=== PATIENT | female | born 1930 | race Caucasian/White ===

== ENCOUNTER 2016-07-14 05:18 | Inpatient (IN) ==
--- NOTE | 2016-07-12 16:59 | XRay Report ---
CLINICAL INFORMATION: Preop COMPARISON: 11/05/2015 FINDINGS: The heart is minimally enlarged but unchanged. Pacemaker leads in stable satisfactory position. Mediastinum and pulmonary vessels are normal. Lungs are clear. No effusions. Bones soft tissues normal IMPRESSION: No acute disease - stable Interpreted and Authenticated by: Andrea Zaragoza 07/12/16
[2016-07-12 18:04] LABS: Basophils # (Auto) 0.1 K/mcL (0.0-0.3); Basophils % (Auto) 1.3 % (0.0-2.0); Eosinophils # (Auto) 0.4 K/mcL (0.0-0.7); Granulocytes % (Auto) 52.2 % (38.0-78.0); Lymphocytes # (Auto) 2.1 K/mcL (1.5-4.8); Lymphocytes % (Auto) 28.8 % (15.5-49.0); Mean Cell Volume 91.7 fL (80.0-100.0); Mean Corpuscular HGB Conc 33.1 g/dL (31.0-36.0); Mean Corpuscular Hemoglobin 30.4 pg (26.0-34.0); Monocytes # (Auto) 0.9 K/mcL (0.1-0.9); Monocytes % (Auto) 12.7 % (1.0-12.0); Platelet Count 329 K/mcL (140-440); RBC 3.97 M/mcL (4.00-5.20); Red Cell Distribution Width 14.2 % (11.5-14.5)
[2016-07-12 18:12] LABS: ALT/SGPT 19 U/l (0-40); Albumin/Globulin Ratio 1.2 (1.0-2.3); Alkaline Phosphatase 40 U/L (39-117); Blood Urea Nitrogen 24 mg/dl (8-23); C-Reactive Protein < 0.3 mg/dl (0.0-0.8)
[2016-07-14] MEDS ORDERED: ERTAPENEM 1 GM in 0.9 % SODIUM CHLORIDE 50 ML IV ONE (06:00)
[2016-07-14] MEDS ORDERED: metroNIDAZOLE 500 MG/100 ML BAG IV ONE (06:30)
[2016-07-14] MEDS ORDERED: ONDANSETRON 4 MG/2 ML VIAL IV ONE (07:45)
[2016-07-14] MEDS ORDERED: DEXAMETHASONE 10 MG/ML VIAL IV ONE (07:45)
[2016-07-14] MEDS ORDERED: LIDOCAINE HCL/PF 100 MG/5 ML SYRINGE IV ONE (07:45)
[2016-07-14] MEDS ORDERED: ROCURONIUM 10 MG/ML ML IV ONE (07:45)
[2016-07-14] MEDS ORDERED: NEOSTIGMINE 1 MG/ML VIAL IV ONE (07:45)
[2016-07-14] MEDS ORDERED: PROPOFOL 200 MG/20 ML VIAL IV ONE (07:45)
[2016-07-14] MEDS ORDERED: fentaNYL 250 MCG/5 ML VIAL IV ONE (07:45)
[2016-07-14] MEDS ORDERED: MIDAZOLAM 5 MG/5 ML VIAL IV ONE (07:45)
[2016-07-14] MEDS ORDERED: GLYCOPYRROLATE 0.2 MG/ML VIAL IV ONE (07:45)
[2016-07-14] MEDS ORDERED: METOPROLOL TARTRATE 5 MG/5 ML VIAL IV PRN (09:41)
[2016-07-14] MEDS ORDERED: ePHEDrine 50 MG/ML AMPUL IV PRN (09:41)
[2016-07-14] MEDS ORDERED: PROMETHAZINE 25 MG/ML VIAL IV PRN (09:41)
[2016-07-14] MEDS ORDERED: fentaNYL 100 MCG/2 ML VIAL IV PRN (09:41)
[2016-07-14] MEDS ORDERED: IPRATROPIUM/ALBUTEROL 3 ML AMPUL.NEB NEB PRN (09:41)
[2016-07-14] MEDS ORDERED: ONDANSETRON 4 MG/2 ML VIAL IV PRN (09:41)
[2016-07-14] MEDS ORDERED: ATROPINE SULFATE 0.4 MG/ML VIAL IV PRN (09:41)
[2016-07-14] MEDS ORDERED: diphenhydrAMINE 50 MG/ML VIAL IV PRN (09:41)
[2016-07-14] MEDS ORDERED: METHOCARBAMOL 1,000 MG/10 ML VIAL IV PRN (09:41)
[2016-07-14] MEDS ORDERED: NALOXONE HCL 0.4 MG/ML VIAL IV PRN (09:41)
[2016-07-14] MEDS ORDERED: BENZOCAINE/MENTHOL 1 LOZENGE PO PRN (09:41)
[2016-07-14] MEDS ORDERED: MEPERIDINE 25 MG/ML SYRINGE IV PRN (09:41)
[2016-07-14] MEDS ORDERED: HYDROmorphone 2 MG/ML SYRINGE IV PRN (09:41)
[2016-07-14] MEDS ORDERED: FLUMAZENIL 0.1 MG/ML ML IV PRN (09:41)
[2016-07-14] MEDS ORDERED: LACTATED RINGERS 1,000 ML IV SCH (09:45)
--- NOTE | 2016-07-14 10:08 | Brief Operative Note ---
Date of procedure: 07/14/16 Pre-op diagnosis: colovesicle fistula; h/o diverticulitis Post-op diagnosis: other (healed diverticulitis ; no evidence of connection of colon or proximal rectum to bladder) Procedure: EXPLORATORY LAPAROTOMY WITH ADHESIOLYSIS ;CYSTOTOMY WITH PLACEMENT OF BILATERAL URETERAL STENTS; LEFT URETEROTOMY WITH RETROGRADE STENT PLACEMENT Grafts/Implants: No Anesthesia: GETA Findings: EXTENSIVE ADHESIONS OF BLADDER TO SIGMOID COLON BUT NO FISTULOUS OPENING BETWEEN BLADDER AND RECTUM OR SIGMOID. BLADDER OPENED AND NO INFLAMMATORY LESIONS NOTED. Complications: none Surgeon: Rufina Snyder Estimated blood loss (cc): 100 Specimens Removed/Pathology: none sent Condition: stable Disposition: PACU
[2016-07-14] MEDS ORDERED: ACETAMINOPHEN 1,000 MG/100 ML BOTTLE IV PRN (10:21)
--- NOTE | 2016-07-14 10:53 | Operative Note ---
DATE OF OPERATION: 07/14/2016 PREOPERATIVE DIAGNOSIS: Vesicle enteric fistula. POSTOPERATIVE DIAGNOSIS: Vesicle enteric fistula. PROCEDURE: cystotomy, ureterotomy, stent placement. SURGEON: Arslan Simmons MD TACK COVERER: Rufina Snyder MD INDICATION: Patient is an 85-year-old lady who has documented enterovesicle fistula. She has been having increased diarrhea and air in her urine, and presents now for repair. PROCEDURE IN DETAIL: The patient was identified, consent was signed. She did receive preoperative antibiotics and given general anesthesia. Dr. Snyder began the surgery, doing an exploration and adhesiolysis. Please see his dictation. After the bladder had been exposed, we could still not see communication and therefore the decision was made to do a cystotomy. This was done down the midline and we were able to open up the bladder. No obvious defect was seen. It was felt that we should identify the ureters. A stent was placed up the right side and this did not show any communication, it passed easily and there was no inflammation around the ureters we could feel. On the left side there was some difficulty finding the ureter orifice and therefore a ureterotomy was done outside the bladder, and we were able to pass a stent into the bladder. At this point we examined the ureter well. Again there was no direct communication that we could demonstrate. The decision was made to place a stent up into the kidney for the ureterotomy. A wire was then passed in a retrograde fashion up into the kidney and a 6 x 24 stent was then passed using the Seldinger technique. This showed a good curl in her bladder. We again inspected. There was no obvious fistula noted and at this point we closed the bladder in two layers with 2-0 Vicryl. I was pleased with the overall appearance. This was a water tight closure. Therefore, she has a Schmidt catheter and a left ureteral stent that will be removed in the office. Dr. Snyder concluded the procedure. Again, the wound was closed with 0 PDS and sterile dressings were applied. Patient was awoken and taken to the recovery room in stable condition. TALA:flakito Job ID: [id number] Doc ID: [id number] Arslan Simmons MD
[2016-07-14] MEDS ORDERED: PIPERACILLIN SODIUM/TAZOBACTAM 2.25 GM in DEXTROSE 5% IN WATER 50 ML IV SCH (11:00)
[2016-07-14] MEDS: 0.9 % SODIUM CHLORIDE 1,000 ML IV SCH (11:58)
[2016-07-14] MEDS ORDERED: metroNIDAZOLE 500 MG/100 ML BAG IV SCH (12:00)
[2016-07-14 12:11] LABS: ALT/SGPT 17 U/l (0-40); Albumin 3.3 gm/dL (3.2-5.2); Albumin/Globulin Ratio 1.4 (1.0-2.3); Alkaline Phosphatase 31 U/L (39-117); Bilirubin,Direct 0.2 mg/dL (0.0-0.3); Blood Urea Nitrogen 21 mg/dl (8-23); Gamma Glutamyl Transpeptidase 16 U/L (5-36); Magnesium 1.7 mg/dL (1.6-2.5); Uric Acid 4.1 mg/dL (2.5-8.0)
[2016-07-14] MEDS: PIPERACILLIN SODIUM/TAZOBACTAM 2.25 GM in DEXTROSE 5% IN WATER 50 ML IV SCH ×2 (12:21→17:24)
[2016-07-14] MEDS: metroNIDAZOLE 500 MG/100 ML BAG IV SCH ×2 (12:21→17:24)
[2016-07-14] MEDS: 0.9 % SODIUM CHLORIDE 10 ML SYRINGE IV SCH ×2 (12:23→21:18)
[2016-07-14] MEDS: ACETAMINOPHEN 1,000 MG/100 ML BOTTLE IV PRN ×2 (12:28→21:17)
--- NOTE | 2016-07-14 13:16 | XRay Report ---
CLINICAL INFORMATION: NG placement COMPARISON: None. FINDINGS: NG tip overlies the gastric fundus. Stool gas pattern is unremarkable. No free air or soft tissue mass. Double pigtail left ureteral stent is in satisfactory position. IMPRESSION: No acute disease. NG tube overlies the gastric fundus - nurses were instructed to advance tube 8 cm Interpreted and Authenticated by: Andrea Zaragoza 07/14/16
[2016-07-14] MEDS ORDERED: DIGOXIN 500 MCG/2 ML AMPUL IV SCH (14:00)
[2016-07-14] MEDS: DIGOXIN 500 MCG/2 ML AMPUL IV SCH (15:15)
[2016-07-15] MEDS: metroNIDAZOLE 500 MG/100 ML BAG IV SCH ×5 (00:11→23:54)
[2016-07-15] MEDS: PIPERACILLIN SODIUM/TAZOBACTAM 2.25 GM in DEXTROSE 5% IN WATER 50 ML IV SCH ×5 (00:11→23:54)
[2016-07-15] MEDS: 0.9 % SODIUM CHLORIDE 1,000 ML IV SCH ×5 (02:29→18:03)
[2016-07-15] MEDS ORDERED: BENZOCAINE/MENTHOL 1 LOZENGE PO ONE (04:47)
[2016-07-15] MEDS: 0.9 % SODIUM CHLORIDE 10 ML SYRINGE IV SCH ×3 (05:42→23:54)
[2016-07-15 05:50] LABS: Basophils # (Auto) 0 K/mcL (0.0-0.3); Basophils % (Auto) 0 % (0.0-2.0); Eosinophils # (Auto) 0 K/mcL (0.0-0.7); Eosinophils % (Auto) 0 % (0.0-7.0); Granulocytes % (Auto) 84.4 % (38.0-78.0); Lymphocytes # (Auto) 1.2 K/mcL (1.5-4.8); Lymphocytes % (Auto) 7.8 % (15.5-49.0); Mean Cell Volume 92.1 fL (80.0-100.0); Mean Corpuscular HGB Conc 33.1 g/dL (31.0-36.0); Mean Corpuscular Hemoglobin 30.5 pg (26.0-34.0); Monocytes # (Auto) 1.2 K/mcL (0.1-0.9); Monocytes % (Auto) 7.8 % (1.0-12.0); Platelet Count 323 K/mcL (140-440); RBC 3.29 M/mcL (4.00-5.20); Red Cell Distribution Width 14.6 % (11.5-14.5)
[2016-07-15 06:01] LABS: ALT/SGPT 14 U/l (0-40); Albumin 3.2 gm/dL (3.2-5.2); Albumin/Globulin Ratio 1.3 (1.0-2.3); Alkaline Phosphatase 27 U/L (39-117); Bilirubin,Direct < 0.2 mg/dL (0.0-0.3); Blood Urea Nitrogen 25 mg/dl (8-23); Gamma Glutamyl Transpeptidase 16 U/L (5-36); Magnesium 1.5 mg/dL (1.6-2.5); Uric Acid 5.2 mg/dL (2.5-8.0)
[2016-07-15] MEDS: ACETAMINOPHEN 1,000 MG/100 ML BOTTLE IV PRN (09:01)
--- NOTE | 2016-07-15 11:15 | General Surgery Progress Note ---
Subjective Patient reports: still having pain, no flatus, no bowel movement, afebrile Narrative: Note initiated : 07/15/16 at 11:13 am Service Date, if different from initiated Date: [] Patient: Soumya Garcia 85 y/o F admitted on 07/14/16 for Segmental Sigmoid Colectomy with Closure of. Chief Complaint: [the patient is doing very well. She complains of discomfort in her retropharyngeal due to the nasogastric tube. She does not have nausea. She denies chest pain or shortness of breath. Her abdominal pain is not well controlled with her present medication dosage. She has mild abdominal distention. She has not passed flatus. ELENO drain has moderate amount of serosanguineous drainage Her urine is clearing and is now not quite as bloody.] Objective Temp Pulse Resp BP Pulse Ox 98.5 F 72 15 123/57 95 07/15/16 08:00 07/15/16 08:00 07/15/16 08:00 07/15/16 08:00 07/15/16 08:00 - Additional Data Intake & Output - Last 24 hours: Intake & Output 07/13/16 07/14/16 07/15/16 07/16/16 05:59 05:59 05:59 05:59 Intake Total 4107 / 4107 245 / 245 Output Total 2180 / 2180 Balance 1927 / 1927 245 / 245 Weight 140 lb 134 lb 143 lb - Additional Exam patient is lying in bed alert and aware HEENT unremarkable Neck supple no JVD Chest good active breath sounds bilaterally no wheezes rales or rhonchi Heart regular rhythm abdomen distended with active bowel sounds; incision looks good; ELENO drainage is less sanguinous Extremities no peripheral edema Neurologic exam no focal deficit - Labs 07/15/16 04:35 07/15/16 04:35 Diabetes panel 07/14/16 07/15/16 Range/Units 10:47 04:35 Sodium 143 143 (133-145) mmol/L Potassium 3.7 3.9 (3.3-5.1) mmol/L Chloride 106 106 (96-108) mmol/L Carbon Dioxide 24 23 (22-30) mmol/L BUN 21 25 H (8-23) mg/dl Creatinine 1.0 1.4 H (0.6-1.1) mg/dl Glucose 140 H 136 H (70-105) mg/dL Calcium 8.6 7.7 L (8.6-10.4) mg/dl AST 26 22 (0-37) U/l ALT 17 14 (0-40) U/l Alkaline Phosphatase 31 L 27 L (39-117) U/L Total Protein 5.7 L 5.7 L (5.9-8.4) gm/dL Albumin 3.3 3.2 (3.2-5.2) gm/dL Triglycerides 170 H 105 (<150) mg/dl Calcium panel 07/14/16 07/15/16 Range/Units 10:47 04:35 Calcium 8.6 7.7 L (8.6-10.4) mg/dl Phosphorus 3.6 5.3 H (2.7-4.5) mg/dL Albumin 3.3 3.2 (3.2-5.2) gm/dL Pituitary panel 07/14/16 07/15/16 Range/Units 10:47 04:35 Sodium 143 143 (133-145) mmol/L Potassium 3.7 3.9 (3.3-5.1) mmol/L Chloride 106 106 (96-108) mmol/L Carbon Dioxide 24 23 (22-30) mmol/L BUN 21 25 H (8-23) mg/dl Creatinine 1.0 1.4 H (0.6-1.1) mg/dl Glucose 140 H 136 H (70-105) mg/dL Calcium 8.6 7.7 L (8.6-10.4) mg/dl Adrenal panel 07/14/16 07/15/16 Range/Units 10:47 04:35 Sodium 143 143 (133-145) mmol/L Potassium 3.7 3.9 (3.3-5.1) mmol/L Chloride 106 106 (96-108) mmol/L Carbon Dioxide 24 23 (22-30) mmol/L BUN 21 25 H (8-23) mg/dl Creatinine 1.0 1.4 H (0.6-1.1) mg/dl Glucose 140 H 136 H (70-105) mg/dL Calcium 8.6 7.7 L (8.6-10.4) mg/dl Total Bilirubin 0.5 0.5 (0.0-1.0) mg/dL AST 26 22 (0-37) U/l ALT 17 14 (0-40) U/l Alkaline Phosphatase 31 L 27 L (39-117) U/L Total Protein 5.7 L 5.7 L (5.9-8.4) gm/dL Albumin 3.3 3.2 (3.2-5.2) gm/dL Assessment and Plan (1) Colovesical fistula Status: Chronic Assessment and plan: General status is stable and improved IV fluids will be increased for the next 2 L We'll start ambulation and out of bed We'll recheck labs in the morning Current Visit: No (2) Type 2 diabetes mellitus Status: Chronic Current Visit: No (3) Hypertension, essential Status: Chronic Current Visit: No (4) Atrial fibrillation Status: Chronic Current Visit: No - Time Spent With Patient Total time spent is greater than 50% in coordination of care (as documented) at patient's floor/unit and/or counseling patient:
[2016-07-15] MEDS: METOCLOPRAMIDE 10 MG/2 ML VIAL IV SCH ×3 (11:59→23:53)
[2016-07-15] MEDS: BENZOCAINE/MENTHOL 1 LOZENGE PO PRN ×3 (11:59→23:26)
[2016-07-15] MEDS ORDERED: MAGNESIUM SULFATE 32.48 MEQ in DEXTROSE 5% IN WATER 50 ML IV ONE (12:00)
[2016-07-15] MEDS: DIGOXIN 500 MCG/2 ML AMPUL IV SCH (14:56)
[2016-07-15] MEDS: ONDANSETRON 4 MG/2 ML VIAL IV PRN (17:42)
[2016-07-16] MEDS: 0.9 % SODIUM CHLORIDE 1,000 ML IV SCH ×5 (00:49→19:58)
[2016-07-16] MEDS: METOCLOPRAMIDE 10 MG/2 ML VIAL IV SCH ×3 (05:45→18:08)
[2016-07-16] MEDS: metroNIDAZOLE 500 MG/100 ML BAG IV SCH ×3 (05:45→18:06)
[2016-07-16] MEDS: 0.9 % SODIUM CHLORIDE 10 ML SYRINGE IV SCH ×3 (05:45→22:30)
[2016-07-16] MEDS: PIPERACILLIN SODIUM/TAZOBACTAM 2.25 GM in DEXTROSE 5% IN WATER 50 ML IV SCH ×3 (05:45→17:27)
[2016-07-16 05:51] LABS: Basophils # (Auto) 0.1 K/mcL (0.0-0.3); Basophils % (Auto) 0.5 % (0.0-2.0); Eosinophils # (Auto) 0.1 K/mcL (0.0-0.7); Eosinophils % (Auto) 0.5 % (0.0-7.0); Granulocytes % (Auto) 78.1 % (38.0-78.0); Lymphocytes # (Auto) 1.6 K/mcL (1.5-4.8); Lymphocytes % (Auto) 11.1 % (15.5-49.0); Mean Cell Volume 92.3 fL (80.0-100.0); Mean Corpuscular HGB Conc 33.3 g/dL (31.0-36.0); Mean Corpuscular Hemoglobin 30.8 pg (26.0-34.0); Monocytes # (Auto) 1.4 K/mcL (0.1-0.9); Monocytes % (Auto) 9.8 % (1.0-12.0); Platelet Count 322 K/mcL (140-440); RBC 3.19 M/mcL (4.00-5.20); Red Cell Distribution Width 14.7 % (11.5-14.5)
[2016-07-16 06:07] LABS: ALT/SGPT 12 U/l (0-40); Albumin 2.8 gm/dL (3.2-5.2); Albumin/Globulin Ratio 1.1 (1.0-2.3); Alkaline Phosphatase 31 U/L (39-117); Bilirubin,Direct < 0.2 mg/dL (0.0-0.3); Blood Urea Nitrogen 21 mg/dl (8-23); Gamma Glutamyl Transpeptidase 14 U/L (5-36); Magnesium 2.3 mg/dL (1.6-2.5); Uric Acid 3.8 mg/dL (2.5-8.0)
[2016-07-16] MEDS: ACETAMINOPHEN 1,000 MG/100 ML BOTTLE IV PRN (10:48)
--- NOTE | 2016-07-16 13:27 | General Surgery Progress Note ---
Subjective Patient reports: feels better, pain is less, no flatus, no bowel movement, afebrile Narrative: Note initiated : 07/16/16 at 1:24 pm Service Date, if different from initiated Date: [] Patient: Soumya Garcia 85 y/o F admitted on 07/14/16 for Segmental Sigmoid Colectomy with Closure of. Chief Complaint: [ PATIENT IS DOING MUCH BETTER. sHE HAD SOME NAUSEA EARLIER THIS MORNING BUT THAT HAS RESOLVED. sHE ALSO HAD OBSTRUCTION OF HER CATHETER LAST EVENING BUT THIS RESOLVED AFTER IT WAS IRRIGATED. sHE NOW HAS DARK BLOODY URINE BUT MUCH LESS SO THAN ON YESTERDAY. tHERE ARE NO CLOTS IN THE CATHETER. sHE HAS NOT PASSED FLATUS AND SHE HAS SIGNIFICANT ABDOMINAL DISTENTION. sHE HOWEVER HAS GOOD ACTIVE BOWEL SOUNDS. hER PAIN IS WELL-CONTROLLED ON HER PRESENT PAIN REGIMEN. sHE DENIES CHEST PAIN OR SHORTNESS OF BREATH. sHE HAS NOT HAD ANY TACHYCARDIA ARRHYTHMIAS.] Objective Temp Pulse Resp BP Pulse Ox 97.5 F 70 12 130/57 97 07/16/16 11:58 07/16/16 12:58 07/16/16 11:58 07/16/16 11:58 07/16/16 11:58 - Additional Data Intake & Output - Last 24 hours: Intake & Output 07/14/16 07/15/16 07/16/16 07/17/16 05:59 05:59 05:59 05:59 Intake Total 4107 / 4107 2816 / 2816 1200 / 1200 Output Total 2180 / 2180 2380 / 2380 Balance 1927 / 1927 436 / 436 1200 / 1200 Weight 134 lb 143 lb 143 lb - General physical appearance no distress, moderate pain - Eyes PERRL - ENT no congestion - Neck no venous distension - Respiratory normal respiratory effort, clear to auscultation - Cardiovascular Cardiovascular exam: Present: irregular rhythm, +S1, +S2. Absent: JVD - Abdomen soft, tender, bowel sounds, distended (MILDLY DISTENDED BUT SOFT. gOOD ACTIVE BOWEL SOUNDS; INCISION LOOKS GOOD preet DRAINAGE IS MORE SEROUS) - Integumentary no rash, no growths, no abnormal pigmentation - Neurologic normal coordination, normal sensation - Musculoskeletal other (lIMITED DUE TO GENERAL WEAKNESS) - Psychiatric oriented to time, oriented to person, oriented to place, speech is normal, memory intact - Labs 07/16/16 04:50 07/16/16 04:50 Diabetes panel 07/16/16 Range/Units 04:50 Sodium 144 (133-145) mmol/L Potassium 4.0 (3.3-5.1) mmol/L Chloride 109 H (96-108) mmol/L Carbon Dioxide 24 (22-30) mmol/L BUN 21 (8-23) mg/dl Creatinine 1.2 H (0.6-1.1) mg/dl Glucose 98 (70-105) mg/dL Calcium 7.6 L (8.6-10.4) mg/dl AST 20 (0-37) U/l ALT 12 (0-40) U/l Alkaline Phosphatase 31 L (39-117) U/L Total Protein 5.4 L (5.9-8.4) gm/dL Albumin 2.8 L (3.2-5.2) gm/dL Triglycerides 113 (<150) mg/dl Calcium panel 07/16/16 Range/Units 04:50 Calcium 7.6 L (8.6-10.4) mg/dl Phosphorus 2.1 L (2.7-4.5) mg/dL Albumin 2.8 L (3.2-5.2) gm/dL Pituitary panel 07/16/16 Range/Units 04:50 Sodium 144 (133-145) mmol/L Potassium 4.0 (3.3-5.1) mmol/L Chloride 109 H (96-108) mmol/L Carbon Dioxide 24 (22-30) mmol/L BUN 21 (8-23) mg/dl Creatinine 1.2 H (0.6-1.1) mg/dl Glucose 98 (70-105) mg/dL Calcium 7.6 L (8.6-10.4) mg/dl Adrenal panel 07/16/16 Range/Units 04:50 Sodium 144 (133-145) mmol/L Potassium 4.0 (3.3-5.1) mmol/L Chloride 109 H (96-108) mmol/L Carbon Dioxide 24 (22-30) mmol/L BUN 21 (8-23) mg/dl Creatinine 1.2 H (0.6-1.1) mg/dl Glucose 98 (70-105) mg/dL Calcium 7.6 L (8.6-10.4) mg/dl Total Bilirubin 0.4 (0.0-1.0) mg/dL AST 20 (0-37) U/l ALT 12 (0-40) U/l Alkaline Phosphatase 31 L (39-117) U/L Total Protein 5.4 L (5.9-8.4) gm/dL Albumin 2.8 L (3.2-5.2) gm/dL Assessment and Plan (1) Colovesical fistula Status: Chronic Assessment and plan: General status is stable and improved NASOGASTRIC TUBE WILL BE CLAMPED AND PROBABLE DISCONTINUED IN THE MORNING Cbi WILL BE STARTED FOR 24 HOURS PER PROTOCOL Current Visit: No (2) Type 2 diabetes mellitus Status: Chronic Current Visit: No (3) Hypertension, essential Status: Chronic Current Visit: No (4) Atrial fibrillation Status: Chronic Current Visit: No - Time Spent With Patient Total time spent is greater than 50% in coordination of care (as documented) at patient's floor/unit and/or counseling patient:
[2016-07-16] MEDS: DIGOXIN 500 MCG/2 ML AMPUL IV SCH (14:17)
[2016-07-17] MEDS: METOCLOPRAMIDE 10 MG/2 ML VIAL IV SCH ×5 (00:01→23:34)
[2016-07-17] MEDS: PIPERACILLIN SODIUM/TAZOBACTAM 2.25 GM in DEXTROSE 5% IN WATER 50 ML IV SCH ×5 (00:01→23:35)
[2016-07-17] MEDS: metroNIDAZOLE 500 MG/100 ML BAG IV SCH ×4 (00:55→18:17)
[2016-07-17 06:39] LABS: Basophils # (Auto) 0.1 K/mcL (0.0-0.3); Basophils % (Auto) 0.6 % (0.0-2.0); Eosinophils # (Auto) 0.3 K/mcL (0.0-0.7); Eosinophils % (Auto) 2.2 % (0.0-7.0); Granulocytes % (Auto) 74.1 % (38.0-78.0); Lymphocytes # (Auto) 1.6 K/mcL (1.5-4.8); Mean Cell Volume 93.3 fL (80.0-100.0); Mean Corpuscular HGB Conc 32.8 g/dL (31.0-36.0); Mean Corpuscular Hemoglobin 30.6 pg (26.0-34.0); Monocytes # (Auto) 1.3 K/mcL (0.1-0.9); Monocytes % (Auto) 10.1 % (1.0-12.0); Platelet Count 337 K/mcL (140-440); RBC 3.24 M/mcL (4.00-5.20); Red Cell Distribution Width 14.6 % (11.5-14.5)
[2016-07-17 06:56] LABS: ALT/SGPT 10 U/l (0-40); Albumin 2.5 gm/dL (3.2-5.2); Albumin/Globulin Ratio 0.9 (1.0-2.3); Alkaline Phosphatase 29 U/L (39-117); Bilirubin,Direct < 0.2 mg/dL (0.0-0.3); Blood Urea Nitrogen 14 mg/dl (8-23); Gamma Glutamyl Transpeptidase 17 U/L (5-36); Magnesium 1.9 mg/dL (1.6-2.5); Uric Acid 3.1 mg/dL (2.5-8.0)
[2016-07-17] MEDS: 0.9 % SODIUM CHLORIDE 10 ML SYRINGE IV SCH ×3 (07:00→20:28)
[2016-07-17] MEDS: 0.9 % SODIUM CHLORIDE 1,000 ML IV SCH ×2 (07:10→15:17)
[2016-07-17] MEDS ORDERED: ZOLPIDEM 5 MG TABLET PO PRN (10:50)
--- NOTE | 2016-07-17 10:56 | General Surgery Progress Note ---
Subjective Patient reports: feels better, pain is less, flatus, no bowel movement, afebrile Narrative: Note initiated : 07/17/16 at 10:52 am Service Date, if different from initiated Date: [] Patient: Soumya Garcia 85 y/o F admitted on 07/14/16 for Segmental Sigmoid Colectomy with Closure of. Chief Complaint: [PATIENT IS DOING WELL. sHE IS MUCH MORE BRIGHT AND ALERT. sHE IS ORIENTED 3. sHE DENIES DIZZINESS OR HEADACHE. sHE HAS NOT HAD ANY CHEST PAIN OR SHORTNESS OF BREATH. hER ABDOMINAL PAIN IS MUCH LESSAND SHE HAS NOT REQUIRED MUCH NARCOTICS. sHE HAS GOOD ACTIVE BOWEL SOUNDS AND HAS PASSED FLATUS. sHE DENIES ABDOMINAL DISTENTION. sHE DOES NOT HAVE SIGNIFICANT PERIPHERAL EDEMA.] Objective Temp Pulse Resp BP Pulse Ox 97.4 F 70 16 152/70 97 07/17/16 08:00 07/17/16 08:00 07/17/16 08:00 07/17/16 08:00 07/17/16 08:00 - Additional Data Intake & Output - Last 24 hours: Intake & Output 07/15/16 07/16/16 07/17/16 07/18/16 05:59 05:59 05:59 05:59 Intake Total 4107 / 4107 2816 / 2816 83722 / 86991 100 / 100 Output Total 2180 / 2180 2380 / 2380 7585 / 7585 Balance 1927 / 1927 436 / 436 5400 / 5400 100 / 100 Weight 143 lb 143 lb 146 lb 8 oz - Additional Exam gENERAL PATIENT IS ALERT AND ORIENTED 3 IN NO ACUTE DISTRESS heent NO ABNORMALITY NOTED nECK SUPPLE WITHOUT jvd AND NO ADENOPHY cHEST GOOD BREATH SOUNDS BILATERALLY WITHOUT RALES RHONCHI OR WHEEZES hEART RREGULAR RHYTHM WITH A FEW ECTOPIC NO NEW MURMURS aBDOMEN MILDLY DISTENDED BUT SOFT; GOOD ACTIVE BOWEL SOUNDS; MINIMAL TENDERNESS; preet DRAINAGE WAS SEROUS FLUID eXTREMITIES 1+ EDEMA BILATERALLY nEUROLOGIC NO FOCAL DEFICIT - Labs 07/17/16 04:50 07/17/16 04:50 Diabetes panel 07/17/16 Range/Units 04:50 Sodium 139 (133-145) mmol/L Potassium 4.1 (3.3-5.1) mmol/L Chloride 107 (96-108) mmol/L Carbon Dioxide 23 (22-30) mmol/L BUN 14 (8-23) mg/dl Creatinine 0.9 (0.6-1.1) mg/dl Glucose 82 (70-105) mg/dL Calcium 7.7 L (8.6-10.4) mg/dl AST 20 (0-37) U/l ALT 10 (0-40) U/l Alkaline Phosphatase 29 L (39-117) U/L Total Protein 5.2 L (5.9-8.4) gm/dL Albumin 2.5 L (3.2-5.2) gm/dL Triglycerides 116 (<150) mg/dl Calcium panel 07/17/16 Range/Units 04:50 Calcium 7.7 L (8.6-10.4) mg/dl Phosphorus 1.8 L (2.7-4.5) mg/dL Albumin 2.5 L (3.2-5.2) gm/dL Pituitary panel 07/17/16 Range/Units 04:50 Sodium 139 (133-145) mmol/L Potassium 4.1 (3.3-5.1) mmol/L Chloride 107 (96-108) mmol/L Carbon Dioxide 23 (22-30) mmol/L BUN 14 (8-23) mg/dl Creatinine 0.9 (0.6-1.1) mg/dl Glucose 82 (70-105) mg/dL Calcium 7.7 L (8.6-10.4) mg/dl Adrenal panel 07/17/16 Range/Units 04:50 Sodium 139 (133-145) mmol/L Potassium 4.1 (3.3-5.1) mmol/L Chloride 107 (96-108) mmol/L Carbon Dioxide 23 (22-30) mmol/L BUN 14 (8-23) mg/dl Creatinine 0.9 (0.6-1.1) mg/dl Glucose 82 (70-105) mg/dL Calcium 7.7 L (8.6-10.4) mg/dl Total Bilirubin 0.4 (0.0-1.0) mg/dL AST 20 (0-37) U/l ALT 10 (0-40) U/l Alkaline Phosphatase 29 L (39-117) U/L Total Protein 5.2 L (5.9-8.4) gm/dL Albumin 2.5 L (3.2-5.2) gm/dL Assessment and Plan (1) Colovesical fistula Status: Chronic Assessment and plan: General status is stable and improved NASOGASTRIC TUBE IS DISCONTINUED iv FLUIDS DECREASED TO 50 CC/H pHOSPHORUS REPLACED WITH iv SODIUM PHOSPHATE sTARTED ON CLEAR LIQUID DIET iNCREASE ACTIVITY IN PREPARATION FOR PROBABLE DISCHARGE IN 2 DAYS Current Visit: No (2) Type 2 diabetes mellitus Status: Chronic Current Visit: No (3) Hypertension, essential Status: Chronic Current Visit: No (4) Atrial fibrillation Status: Chronic Current Visit: No - Time Spent With Patient Total time spent is greater than 50% in coordination of care (as documented) at patient's floor/unit and/or counseling patient:
[2016-07-17] MEDS ORDERED: SODIUM PHOSPHATE 3 MMOL/ML IV SCH (11:00)
[2016-07-17] MEDS ORDERED: SODIUM PHOSPHATE 45 MMOL in DEXTROSE 5% IN WATER 500 ML IV ONE (12:00)
[2016-07-17] MEDS: DIGOXIN 500 MCG/2 ML AMPUL IV SCH (14:22)
[2016-07-17] MEDS: GABAPENTIN 100 MG CAPSULE PO SCH (20:28)
[2016-07-17] MEDS: MONTELUKAST 10 MG TABLET PO SCH (20:28)
[2016-07-18] MEDS: metroNIDAZOLE 500 MG/100 ML BAG IV SCH ×4 (00:42→18:00)
[2016-07-18 04:45] LABS: Basophils # (Auto) 0.1 K/mcL (0.0-0.3); Basophils % (Auto) 0.7 % (0.0-2.0); Eosinophils # (Auto) 0.6 K/mcL (0.0-0.7); Granulocytes % (Auto) 67.1 % (38.0-78.0); Lymphocytes # (Auto) 1.8 K/mcL (1.5-4.8); Lymphocytes % (Auto) 16.3 % (15.5-49.0); Mean Cell Volume 92.1 fL (80.0-100.0); Mean Corpuscular HGB Conc 33.4 g/dL (31.0-36.0); Mean Corpuscular Hemoglobin 30.8 pg (26.0-34.0); Monocytes # (Auto) 1.2 K/mcL (0.1-0.9); Monocytes % (Auto) 10.9 % (1.0-12.0); Platelet Count 367 K/mcL (140-440); RBC 3.05 M/mcL (4.00-5.20); Red Cell Distribution Width 14.4 % (11.5-14.5)
[2016-07-18 05:07] LABS: ALT/SGPT 9 U/l (0-40); Albumin 2.5 gm/dL (3.2-5.2); Albumin/Globulin Ratio 1.1 (1.0-2.3); Alkaline Phosphatase 29 U/L (39-117); Bilirubin,Direct < 0.2 mg/dL (0.0-0.3); Blood Urea Nitrogen 8 mg/dl (8-23); Gamma Glutamyl Transpeptidase 20 U/L (5-36); Magnesium 1.6 mg/dL (1.6-2.5); Uric Acid 2.5 mg/dL (2.5-8.0)
[2016-07-18] MEDS: METOCLOPRAMIDE 10 MG/2 ML VIAL IV SCH ×3 (05:35→18:07)
[2016-07-18] MEDS: PIPERACILLIN SODIUM/TAZOBACTAM 2.25 GM in DEXTROSE 5% IN WATER 50 ML IV SCH ×3 (05:36→18:02)
[2016-07-18] MEDS: 0.9 % SODIUM CHLORIDE 10 ML SYRINGE IV SCH ×3 (05:57→22:25)
[2016-07-18] MEDS: LEVOTHYROXINE 75 MCG TABLET PO SCH (09:06)
[2016-07-18] MEDS: GABAPENTIN 100 MG CAPSULE PO SCH ×2 (09:06→22:25)
--- NOTE | 2016-07-18 17:17 | General Surgery Progress Note ---
Subjective Patient reports: feels better, pain is less, tolerating liquids well, flatus, no bowel movement, afebrile Narrative: Note initiated : 07/18/16 at 5:14 pm Service Date, if different from initiated Date: [] Patient: Soumya Garcia 85 y/o F admitted on 07/14/16 for Segmental Sigmoid Colectomy with Closure of. Chief Complaint: [patient continues to improve. Her pain is controlled. She does not have any chest pain or short breath. She has tolerated liquid diet without difficulty. She has had flatus but no bowel movement so far. She still has bloody urine but no clots. Her ELENO drainage is serous.] Objective Temp Pulse Resp BP Pulse Ox 99.4 F H 74 18 155/62 96 07/18/16 15:55 07/18/16 15:55 07/18/16 15:55 07/18/16 15:55 07/18/16 15:55 - Additional Data Intake & Output - Last 24 hours: Intake & Output 07/16/16 07/17/16 07/18/16 07/19/16 05:59 05:59 05:59 05:59 Intake Total 2816 / 2816 86272 / 87572 2760 / 2760 4325 / 4325 Output Total 2380 / 2380 7585 / 7585 1660 / 1660 3800 / 3800 Balance 436 / 436 5400 / 5400 1100 / 1100 525 / 525 Weight 143 lb 146 lb 8 oz 146 lb 8 oz 146 lb 8 oz - General physical appearance no distress (also will slough), moderate pain - Eyes PERRL, normal ocular movement (operative) - ENT no congestion - Neck no venous distension - Respiratory normal respiratory effort, clear to auscultation - Cardiovascular Cardiovascular exam: Present: normal rate and rhythm, irregular rhythm, +S1, +S2 - Abdomen soft, tender, bowel sounds (good active bowel sounds with less distention; incision looks good) - Integumentary no rash, no growths, no abnormal pigmentation - Psychiatric oriented to time, oriented to person, oriented to place, speech is normal, memory intact - Labs 07/18/16 03:30 07/18/16 03:30 Diabetes panel 07/18/16 Range/Units 03:30 Sodium 140 (133-145) mmol/L Potassium 3.5 (3.3-5.1) mmol/L Chloride 104 (96-108) mmol/L Carbon Dioxide 27 (22-30) mmol/L BUN 8 (8-23) mg/dl Creatinine 0.9 (0.6-1.1) mg/dl Glucose 119 H (70-105) mg/dL Calcium 7.6 L (8.6-10.4) mg/dl AST 16 (0-37) U/l ALT 9 (0-40) U/l Alkaline Phosphatase 29 L (39-117) U/L Total Protein 4.8 L (5.9-8.4) gm/dL Albumin 2.5 L (3.2-5.2) gm/dL Triglycerides 121 (<150) mg/dl Calcium panel 07/18/16 Range/Units 03:30 Calcium 7.6 L (8.6-10.4) mg/dl Phosphorus 2.0 L (2.7-4.5) mg/dL Albumin 2.5 L (3.2-5.2) gm/dL Pituitary panel 07/18/16 Range/Units 03:30 Sodium 140 (133-145) mmol/L Potassium 3.5 (3.3-5.1) mmol/L Chloride 104 (96-108) mmol/L Carbon Dioxide 27 (22-30) mmol/L BUN 8 (8-23) mg/dl Creatinine 0.9 (0.6-1.1) mg/dl Glucose 119 H (70-105) mg/dL Calcium 7.6 L (8.6-10.4) mg/dl Adrenal panel 07/18/16 Range/Units 03:30 Sodium 140 (133-145) mmol/L Potassium 3.5 (3.3-5.1) mmol/L Chloride 104 (96-108) mmol/L Carbon Dioxide 27 (22-30) mmol/L BUN 8 (8-23) mg/dl Creatinine 0.9 (0.6-1.1) mg/dl Glucose 119 H (70-105) mg/dL Calcium 7.6 L (8.6-10.4) mg/dl Total Bilirubin 0.3 (0.0-1.0) mg/dL AST 16 (0-37) U/l ALT 9 (0-40) U/l Alkaline Phosphatase 29 L (39-117) U/L Total Protein 4.8 L (5.9-8.4) gm/dL Albumin 2.5 L (3.2-5.2) gm/dL Assessment and Plan (1) Colovesical fistula Status: Chronic Assessment and plan: General status is stable and improved iv FLUIDS DECREASED TO 50 CC/H Current Visit: No (2) Type 2 diabetes mellitus Status: Chronic Current Visit: No (3) Hypertension, essential Status: Chronic Current Visit: No (4) Atrial fibrillation Status: Chronic Current Visit: No - Time Spent With Patient Total time spent is greater than 50% in coordination of care (as documented) at patient's floor/unit and/or counseling patient:
[2016-07-18] MEDS ORDERED: SODIUM PHOSPHATE 3 MMOL/ML IV STA (17:21)
[2016-07-18] MEDS: 0.9 % SODIUM CHLORIDE 1,000 ML IV SCH (17:51)
[2016-07-18] MEDS ORDERED: SODIUM CHLORIDE 0.9% IV SCH ×2 (18:00)
[2016-07-18] MEDS ORDERED: SODIUM PHOSPHATE IV SCH ×2 (18:00)
[2016-07-18] MEDS: DIGOXIN 500 MCG/2 ML AMPUL IV SCH (18:13)
[2016-07-18] MEDS ORDERED: METOPROLOL TARTRATE 5 MG/5 ML VIAL IV ONE ×2 (18:13→18:16)
[2016-07-18] MEDS: SODIUM PHOSPHATE 45 MMOL in DEXTROSE 5% IN WATER 500 ML IV SCH (19:12)
[2016-07-18] MEDS ORDERED: SOTALOL 80 MG TABLET PO SCH (21:00)
[2016-07-18] MEDS: SOTALOL 80 MG TABLET PO SCH (22:24)
[2016-07-18] MEDS: MONTELUKAST 10 MG TABLET PO SCH (22:25)
[2016-07-19] MEDS: PIPERACILLIN SODIUM/TAZOBACTAM 2.25 GM in DEXTROSE 5% IN WATER 50 ML IV SCH ×4 (00:14→17:47)
[2016-07-19] MEDS: METOCLOPRAMIDE 10 MG/2 ML VIAL IV SCH ×3 (00:14→12:49)
[2016-07-19] MEDS: metroNIDAZOLE 500 MG/100 ML BAG IV SCH ×4 (01:24→18:55)
[2016-07-19 05:49] LABS: Basophils # (Auto) 0.1 K/mcL (0.0-0.3); Basophils % (Auto) 0.5 % (0.0-2.0); Eosinophils # (Auto) 0.7 K/mcL (0.0-0.7); Eosinophils % (Auto) 6.1 % (0.0-7.0); Granulocytes % (Auto) 64.1 % (38.0-78.0); Lymphocytes # (Auto) 2.1 K/mcL (1.5-4.8); Lymphocytes % (Auto) 18.1 % (15.5-49.0); Mean Cell Volume 92.6 fL (80.0-100.0); Mean Corpuscular HGB Conc 33.4 g/dL (31.0-36.0); Mean Corpuscular Hemoglobin 30.9 pg (26.0-34.0); Monocytes # (Auto) 1.3 K/mcL (0.1-0.9); Monocytes % (Auto) 11.2 % (1.0-12.0); Platelet Count 405 K/mcL (140-440); RBC 3.28 M/mcL (4.00-5.20); Red Cell Distribution Width 14.5 % (11.5-14.5)
[2016-07-19] MEDS: 0.9 % SODIUM CHLORIDE 10 ML SYRINGE IV SCH ×3 (06:22→21:15)
[2016-07-19] MEDS: LEVOTHYROXINE 75 MCG TABLET PO SCH (08:29)
[2016-07-19] MEDS: GABAPENTIN 100 MG CAPSULE PO SCH ×2 (09:26→21:27)
[2016-07-19] MEDS: SOTALOL 80 MG TABLET PO SCH ×2 (09:26→21:26)
[2016-07-19] MEDS: DIGOXIN 500 MCG/2 ML AMPUL IV SCH (13:51)
[2016-07-19] MEDS: 0.9 % SODIUM CHLORIDE 1,000 ML IV SCH (15:27)
[2016-07-19] MEDS: ONDANSETRON 4 MG/2 ML VIAL IV PRN (15:29)
[2016-07-19] MEDS ORDERED: WARFARIN 1 MG TABLET PO SCH (16:45)
--- NOTE | 2016-07-19 16:53 | General Surgery Progress Note ---
Subjective Patient reports: feels better, pain is less, tolerating liquids well, flatus, bowel movement, nausea, afebrile Narrative: Note initiated : 07/19/16 at 4:33 pm Service Date, if different from initiated Date: [] Patient: Soumya Garcia 85 y/o F admitted on 07/14/16 for Segmental Sigmoid Colectomy with Closure of. Chief Complaint: [patient is doing much better. She has had large volume of flatus and multiple bowel movements Her abdominal pain is well-controlled. She is having some bladder spasms due to the Schmidt catheter and because of her bladder surgery. She is advised that this will get better once the Schmidt catheter has been removed. She will be switched to a regular diet and to oral medications Her IV fluids will be discontinued.] Objective Temp Pulse Resp BP Pulse Ox 97.7 F 86 14 145/70 94 07/19/16 12:00 07/19/16 04:50 07/19/16 12:00 07/19/16 12:00 07/19/16 12:00 - Additional Data Intake & Output - Last 24 hours: Intake & Output 07/17/16 07/18/16 07/19/16 07/20/16 05:59 05:59 05:59 05:59 Intake Total 04894 / 18513 2760 / 2760 6215 / 6215 1100 / 1100 Output Total 7585 / 7585 1660 / 1660 3880 / 3880 Balance 5400 / 5400 1100 / 1100 2335 / 2335 1100 / 1100 Weight 146 lb 8 oz 146 lb 8 oz 149 lb - Labs 07/19/16 04:02 07/18/16 03:30 Assessment and Plan (1) Colovesical fistula Status: Chronic Assessment and plan: General status is stable and improved discontinue IV fluids Switch to orl medications Discontinue Reglan Advanced to a regular diet Current Visit: No (2) Type 2 diabetes mellitus Status: Chronic Current Visit: No (3) Hypertension, essential Status: Chronic Current Visit: No (4) Atrial fibrillation Status: Chronic Current Visit: No - Time Spent With Patient Total time spent is greater than 50% in coordination of care (as documented) at patient's floor/unit and/or counseling patient:
[2016-07-19] MEDS: SODIUM PHOSPHATE 45 MMOL in DEXTROSE 5% IN WATER 500 ML IV SCH (19:21)
[2016-07-19] MEDS: MONTELUKAST 10 MG TABLET PO SCH (21:27)
[2016-07-19] MEDS: OXYBUTYNIN CHLORIDE 5 MG TABLET PO SCH (21:27)
[2016-07-20] MEDS: PIPERACILLIN SODIUM/TAZOBACTAM 2.25 GM in DEXTROSE 5% IN WATER 50 ML IV SCH ×5 (00:23→23:31)
[2016-07-20] MEDS: metroNIDAZOLE 500 MG/100 ML BAG IV SCH ×4 (01:32→18:25)
[2016-07-20 06:02] LABS: Basophils # (Auto) 0 K/mcL (0.0-0.3); Basophils % (Auto) 0.3 % (0.0-2.0); Eosinophils # (Auto) 0.7 K/mcL (0.0-0.7); Eosinophils % (Auto) 7.1 % (0.0-7.0); Granulocytes % (Auto) 65.3 % (38.0-78.0); Lymphocytes # (Auto) 1.8 K/mcL (1.5-4.8); Lymphocytes % (Auto) 17.2 % (15.5-49.0); Mean Cell Volume 93.3 fL (80.0-100.0); Mean Corpuscular HGB Conc 32.7 g/dL (31.0-36.0); Mean Corpuscular Hemoglobin 30.5 pg (26.0-34.0); Monocytes # (Auto) 1.1 K/mcL (0.1-0.9); Monocytes % (Auto) 10.1 % (1.0-12.0); Platelet Count 399 K/mcL (140-440); RBC 3.02 M/mcL (4.00-5.20); Red Cell Distribution Width 14.3 % (11.5-14.5)
[2016-07-20] MEDS: 0.9 % SODIUM CHLORIDE 10 ML SYRINGE IV SCH ×3 (06:12→21:32)
[2016-07-20 06:38] LABS: Blood Urea Nitrogen 6 mg/dl (8-23)
[2016-07-20] MEDS: SOTALOL 80 MG TABLET PO SCH ×2 (08:17→21:29)
[2016-07-20] MEDS: GABAPENTIN 100 MG CAPSULE PO SCH ×2 (08:20→21:25)
[2016-07-20] MEDS: LEVOTHYROXINE 75 MCG TABLET PO SCH (08:20)
[2016-07-20] MEDS: OXYBUTYNIN CHLORIDE 5 MG TABLET PO SCH ×3 (08:26→21:25)
[2016-07-20] MEDS: ACETAMINOPHEN 1,000 MG/100 ML BOTTLE IV PRN (08:44)
--- NOTE | 2016-07-20 09:38 | General Surgery Progress Note ---
Surgical - Auxillary Note - Subjective Patient Information: Note initiated : 07/20/16 at 9:36 am Service Date, if different from initiated Date: [] Patient: Soumya Garcia 85 y/o F admitted on 07/14/16 for Segmental Sigmoid Colectomy with Closure of. Chief Complaint: [] patient is doing well after her cystotomy and stent placement. would f/u in 2 weeks with cystogram and stent removal. can do as outpatient. otherwise patient doing well.
[2016-07-20] MEDS ORDERED: WARFARIN 1 MG TABLET PO SCH (14:00)
[2016-07-20] MEDS ORDERED: DIGOXIN 125 MCG TABLET PO SCH (14:00)
--- NOTE | 2016-07-20 14:31 | General Surgery Progress Note ---
Subjective Patient reports: feels better, pain is less, tolerating liquids well, flatus, bowel movement, afebrile Narrative: Note initiated : 07/20/16 at 2:29 pm Service Date, if different from initiated Date: [] Patient: Soumya Garcia a 85 y/o F admitted on 07/14/16 for Segmental Sigmoid Colectomy with Closure of. Chief Complaint: [Mrs. Garcia continues to improve. She denies chest pain or shortness of breath. She has tolerated full liquids and denies nausea. her abdominal pain is much improved. She is having some firmness to her bowel movements. She has not seen and the blood. Her urine is much clearer.] Objective Temp Pulse Resp BP Pulse Ox 98.6 F 70 18 114/69 96 07/20/16 12:00 07/20/16 12:00 07/20/16 12:00 07/20/16 12:00 07/20/16 12:00 - Additional Data Intake & Output - Last 24 hours: Intake & Output 07/18/16 07/19/16 07/20/16 07/21/16 05:59 05:59 05:59 05:59 Intake Total 2760 / 2760 6215 / 6215 4905 / 4905 600 / 600 Output Total 1660 / 1660 3880 / 3880 5410 / 5410 70 / 70 Balance 1100 / 1100 2335 / 2335 -505 / -505 530 / 530 Weight 146 lb 8 oz 149 lb 145 lb 9.6 oz - Additional Exam patient is lying in bed in no acute distress HEENT no abnormality noted Neck supple without JVD Chest clear cornelio rhonchi or wheezes Heart irregular rhythm Abdomen mildly distended but softwith good active bowel sounds; Flores drainage is serous Extremities no peripheral edema Neurologic exam no focal deficits - Labs 07/20/16 03:31 07/20/16 03:31 Diabetes panel 07/20/16 Range/Units 03:31 Sodium 138 (133-145) mmol/L Potassium 3.3 (3.3-5.1) mmol/L Chloride 99 (96-108) mmol/L Carbon Dioxide 26 (22-30) mmol/L BUN 6 L (8-23) mg/dl Creatinine 0.9 (0.6-1.1) mg/dl Glucose 169 H (70-105) mg/dL Calcium 8.0 L (8.6-10.4) mg/dl Calcium panel 07/20/16 Range/Units 03:31 Calcium 8.0 L (8.6-10.4) mg/dl Pituitary panel 07/20/16 Range/Units 03:31 Sodium 138 (133-145) mmol/L Potassium 3.3 (3.3-5.1) mmol/L Chloride 99 (96-108) mmol/L Carbon Dioxide 26 (22-30) mmol/L BUN 6 L (8-23) mg/dl Creatinine 0.9 (0.6-1.1) mg/dl Glucose 169 H (70-105) mg/dL Calcium 8.0 L (8.6-10.4) mg/dl Adrenal panel 07/20/16 Range/Units 03:31 Sodium 138 (133-145) mmol/L Potassium 3.3 (3.3-5.1) mmol/L Chloride 99 (96-108) mmol/L Carbon Dioxide 26 (22-30) mmol/L BUN 6 L (8-23) mg/dl Creatinine 0.9 (0.6-1.1) mg/dl Glucose 169 H (70-105) mg/dL Calcium 8.0 L (8.6-10.4) mg/dl Assessment and Plan (1) Colovesical fistula Status: Chronic Assessment and plan: General status is stable and improved discontinue IV fluids Switch to orl medications Discontinue Reglan Advanced to a regular diet Current Visit: No (2) Type 2 diabetes mellitus Status: Chronic Current Visit: No (3) Hypertension, essential Status: Chronic Current Visit: No (4) Atrial fibrillation Status: Chronic Current Visit: No - Time Spent With Patient Total time spent is greater than 50% in coordination of care (as documented) at patient's floor/unit and/or counseling patient:
[2016-07-20] MEDS: SODIUM PHOSPHATE 45 MMOL in DEXTROSE 5% IN WATER 500 ML IV SCH (17:42)
[2016-07-20] MEDS ORDERED: BENZOCAINE/MENTHOL 1 LOZENGE PO PRN (18:38)
[2016-07-20] MEDS ORDERED: ACETAMINOPHEN 1,000 MG/100 ML BOTTLE IV PRN (18:38)
[2016-07-20] MEDS ORDERED: SODIUM PHOSPHATE 45 MMOL in DEXTROSE 5% IN WATER 500 ML IV SCH (18:38)
[2016-07-20] MEDS ORDERED: ZOLPIDEM 5 MG TABLET PO PRN (18:38)
[2016-07-20] MEDS ORDERED: ONDANSETRON 4 MG/2 ML VIAL IV PRN (18:38)
[2016-07-20] MEDS ORDERED: SODIUM PHOSPHATE 3 MMOL/ML IV STA (18:38)
[2016-07-20] MEDS ORDERED: MONTELUKAST 10 MG TABLET PO SCH (21:00)
[2016-07-21] MEDS: metroNIDAZOLE 500 MG/100 ML BAG IV SCH ×3 (00:12→12:45)
[2016-07-21] MEDS: PIPERACILLIN SODIUM/TAZOBACTAM 2.25 GM in DEXTROSE 5% IN WATER 50 ML IV SCH ×2 (05:38→12:45)
[2016-07-21] MEDS: 0.9 % SODIUM CHLORIDE 10 ML SYRINGE IV SCH (06:19)
[2016-07-21] MEDS ORDERED: LEVOTHYROXINE 75 MCG TABLET PO SCH (07:30)
[2016-07-21] MEDS: OXYBUTYNIN CHLORIDE 5 MG TABLET PO SCH (08:22)
[2016-07-21] MEDS: LOPERAMIDE 2 MG CAPSULE PO SCH ×2 (08:22→08:32)
[2016-07-21] MEDS: GABAPENTIN 100 MG CAPSULE PO SCH (08:23)
[2016-07-21] MEDS: SOTALOL 80 MG TABLET PO SCH (11:28)
[2016-07-21 12:41] LABS: ALT/SGPT 8 U/l (0-40); Albumin 2.3 gm/dL (3.2-5.2); Albumin/Globulin Ratio 0.9 (1.0-2.3); Alkaline Phosphatase 32 U/L (39-117); Bilirubin,Direct < 0.2 mg/dL (0.0-0.3); Blood Urea Nitrogen 12 mg/dl (8-23); Gamma Glutamyl Transpeptidase 17 U/L (5-36); Magnesium 1.6 mg/dL (1.6-2.5); Uric Acid 2.8 mg/dL (2.5-8.0)
[2016-07-21 12:43] LABS: Basophils # (Auto) 0.1 K/mcL (0.0-0.3); Basophils % (Auto) 1.3 % (0.0-2.0); Eosinophils # (Auto) 0.9 K/mcL (0.0-0.7); Eosinophils % (Auto) 8.8 % (0.0-7.0); Granulocytes % (Auto) 60.2 % (38.0-78.0); Lymphocytes # (Auto) 1.9 K/mcL (1.5-4.8); Lymphocytes % (Auto) 18.8 % (15.5-49.0); Mean Cell Volume 89.5 fL (80.0-100.0); Mean Corpuscular HGB Conc 34.5 g/dL (31.0-36.0); Mean Corpuscular Hemoglobin 30.8 pg (26.0-34.0); Monocytes # (Auto) 1.1 K/mcL (0.1-0.9); Monocytes % (Auto) 10.9 % (1.0-12.0); Platelet Count 444 K/mcL (140-440); RBC 3.09 M/mcL (4.00-5.20)
[2016-07-21] MEDS ORDERED: POTASSIUM PHOSPHATE 40 MEQ in DEXTROSE 5% IN WATER 500 ML IV ONE (13:26)
--- NOTE | 2016-07-21 13:35 | Discharge Summary ---
Providers - Providers Patient information: Note initiated : 07/21/16 at 1:28 pm Service Date, if different from initiated Date: [] Patient: Soumya Garcia 85 y/o F admitted on 07/14/16 for Segmental Sigmoid Colectomy with Closure of. Chief Complaint: [] Date of admission: 07/14/16 Discharge date: 07/21/16 Attending physician: Rufina Snyder Hospitalization Hospital course: 85-year-old female with documented history of enterovesical fistula. She presented with episodic diarrhea, pneumaturia,recurrent urinary tract infections , and fecal incontinence. Evaluation by CT reveals gas in her bladder. Cystoscopy showed an inflamed area in the dome of her bladder but no discernible opening. She had a poppy seeds tests which revealed multiple poppy seeds in her urine after ingestion which confirmed a connection between the GIt and the bladder. She did well for a while and elected not to have surgery but her diarrhea became much worse. She finally came to the office requesting that the surgery be performed. She was explored on 14 July. It was noted that she had extensive adhesions between the sigmoid colon and the bladder but no definitive fistula could be found. The bladder was explored and there was no opening and in the mucosa of the bladder. There was some concern about connection of the ureters but bilateral ureteral stents were placed with no evidence of obstruction or other abnormal findings. It was elected not to do a resection of her colon since there were no acute inflammatory changes in the colon wall that was associated with the bladder. In the postoperative period she has progressed very nicely. Her hematuria gradually resolved and she has started to have regular bowel movements. Her hemoglobin has drifted down to 9.5 but has been stable over the last 2 days. She is having some bladder spasms and was started on Ditropan by mouth. This has not controlled her bladder spasms so far. The patient is extremely weak however she is discharged from the hospital and changed to a swing bed status. Discharge diagnosis: enterovesical fistula Secondary discharge diagnosis: chronic diarrhea Recurrent urinary tract infections .History of atrial fibrillation Postoperative blood loss anemia, mild Hypertension, stable Reason for admission: recurrent urinary tract infection; chronic watery diarrhea Procedures: EXPLORATORY LAPAROTOMY WITH PELVIC ADHESIOLYSIS cYSTOTOMY WITH BILATERAL RETROGRADE URETERAL CATHETER PLACEMENTS AND LEFT URETERAL STENT Complications: NONE Exam Temp Pulse Resp BP Pulse Ox 98.3 F 73 20 156/77 94 07/21/16 12:00 06/02/17 12:00 07/21/16 12:00 07/21/16 12:00 07/21/16 12:00 - General physical appearance well developed, well nourished, no distress, moderate pain, chronically ill - Eyes PERRL, normal ocular movement - ENT normal pinna, normal nares, normal mucosa, no hearing loss, no congestion - Head Head exam IM: Present: atraumatic, normocephalic - Neck no masses, no bruits, trachea midline, no lymphadectomy, no venous distension - Cardiovascular Cardiovascular exam IM: Present: irregular rhythm, tachycardia - Respiratory normal expansion, normal respiratory effort, clear to percussion, clear to auscultation - Abdomen Abdomen: Present: soft, non tender, bowel sounds, distended (MILDLY DISTENDED WITH GOOD ACTIVE BOWEL SOUNDS; MINIMAL TENDERNESS; INCISION HEALING NICELY; Larry-Tatum DRAIN WITH SEROUS FLUID) Hernia: Present: none - Genitourinary Present: normal external genitalia, other (MILD SUPRAPUBIC TENDERNESS WITH BLADDER SPASMS) - Integumentary Present: no rash, no growths, no abnormal pigmentation - Neurologic Present: memory loss, other (UNSTEADY GAIT AND STANCE) - Musculoskeletal Present: other (UNSTEADY GAIT AND STANCE) - Psychiatric Present: oriented to time, oriented to person, oriented to place, speech is normal, other (DECREASED SHORT-TERM AND LONG-TERM MEMORY) Discharge Plan - Patient/Caregiver Discharge Instructions Activity: as per physical therapy, increase activity as tolerated, as instructed Diet: Regular Diet Additional Instructions: Schmidt CATHETER TO REMAIN IN PLACE FOR 1 WEEK tWICE DAILY PHYSICAL THERAPY AND OCCUPATIONAL THERAPY NEEDED Larry-Tatum DRAIN TO REMAIN IN PLACE - Follow up Plan Disposition: [facility] Swing Bed Prognosis: Good Rehab Potential: Good I certify that the patient requires SNF services.: No Overall status at discharge: patient is not back to baseline Pending Studies Resuscitation Status Full Code Diet Consistent Carbohydrate Diet Start Cherri Erasmo 1 Breakfast Gabapentin (Neurontin) 200 mg PO BID [facility] Last Admin: 07/21/16 08:23 Dose: 200 mg Admin: 07/20/16 21:25 Dose: 200 mg Metronidazole (Flagyl) 500 mg in 100 mls @ 100 mls/hr IV Q6H [facility] Last Admin: 07/21/16 12:45 Dose: 100 mls/hr Infusion: 07/21/16 07:18 Dose: 100 mls/hr Admin: 07/21/16 06:18 Dose: 100 mls/hr Infusion: 07/21/16 01:27 Dose: 100 mls/hr Admin: 07/21/16 00:12 Dose: 100 mls/hr Acetaminophen (Ofirmev) 1,000 mg in 100 mls @ 200 mls/hr IV Q6HP PRN PRN Reason: Pain Last Infusion: 07/20/16 22:41 Dose: 200 mls/hr Admin: 07/20/16 21:51 Dose: 200 mls/hr Piperacillin Sod/Tazobactam (Sod 2.25 gm/ Dextrose) 50 mls @ 100 mls/hr IV Q6H [facility] Last Admin: 07/21/16 12:45 Dose: 100 mls/hr Infusion: 07/21/16 06:19 Dose: 100 mls/hr Admin: 07/21/16 05:38 Dose: 100 mls/hr Infusion: 07/21/16 00:01 Dose: 100 mls/hr Admin: 07/20/16 23:31 Dose: 100 mls/hr Levothyroxine Sodium (Synthroid) 75 mcg PO QAMAC [facility] Last Admin: 07/21/16 08:22 Dose: 75 mcg Loperamide HCl (Imodium) 2 mg PO DAILY [facility] Last Admin: 07/21/16 08:32 Dose: 2 mg Admin: 07/21/16 08:22 Dose: 2 mg Montelukast Sodium (Singular) 10 mg PO QPM [facility] Last Admin: 07/20/16 21:25 Dose: 10 mg Morphine Sulfate (Morphine) 4 mg IV Q2HP PRN PRN Reason: Pain Last Admin: 07/20/16 23:30 Dose: 4 mg Oxybutynin Chloride (Ditropan) 5 mg PO TID [facility] Last Admin: 07/21/16 08:22 Dose: 5 mg Admin: 07/20/16 21:25 Dose: 5 mg Sodium Chloride (Saline Flush) 10 ml IV Q8 [facility] Last Admin: 07/21/16 06:19 Dose: 10 ml Admin: 07/20/16 21:32 Dose: 10 ml Sotalol HCl (Betapace) 80 mg PO BID [facility] Last Admin: 07/21/16 11:28 Dose: Not Given Admin: 07/20/16 21:29 Dose: 80 mg Shift Summary 07/21/16 05:04 Shift Summary by Lisa Pryor Pt in significant amount of pain the beginning of shift, was 2 person assist to bed. Got pain under control with morphine and tylenol. Lower BP this AM at 100/ 50s, pt was sweaty, O2 on RA was at 87% and pt was a little confused. Put back on 2L O2, pt was awake and able to turn self in bed and was reoriented easily and didn't c/o of any dizziness or pain. Schmidt in place, ELENO drain to abdomen with serosanguineous drainage. Midline incision with film dressing with scant amount of drainage. Having small amount of loose stool. IV to right and left arm SL. Initialized on 07/21/16 05:04 - END OF NOTE
[2016-07-21] MEDS ORDERED: WARFARIN 1 MG TABLET PO SCH (14:00)
[2016-07-21] MEDS ORDERED: DIGOXIN 125 MCG TABLET PO SCH (14:00)
[2016-07-22] MEDS ORDERED: WARFARIN 1 MG TABLET PO SCH (14:00)
--- NOTE | 2016-08-02 12:01 | Operative Note ---
DATE OF OPERATION: 07/14/2016 PREOPERATIVE DIAGNOSES: 1. Colovesical fistula. 2. History of diverticulitis. POSTOPERATIVE DIAGNOSIS: Healed diverticulitis without evidence of fistula. PROCEDURE: 1. Exploratory laparotomy with adhesiolysis. 2. Cystotomy with placement of bilateral ureteral stents. 3. Left ureterectomy with retrograde stent placement. SURGEON: Rufina Snyder MD. and Arslan Simmons MD. FINDINGS: Extensive adhesions to the bladder from sigmoid colon but no fistulas opening between the bladder, rectum or sigmoid colon. The bladder was opened, and no inflammatory lesions were noted. DESCRIPTION OF PROCEDURE: Under general anesthesia, the abdomen was prepped and draped in the sterile field. A timeout procedure was carried out as per protocol. A midline incision was made. Exploration revealed dense adhesions in the pelvis between the sigmoid colon, the omentum, and the bladder. These adhesions were taken down using sharp dissection. The ureters were identified. Once the adhesiolysis was done and the sigmoid colon was from the bladder, there did not appear to be a fistulous connection. It was elected to explore the bladder at that time with isolation of the ureters, especially the left ureter. All of this was done by Dr. Simmons and is in a separate dictated note. Once Dr. Simmons completed his portion of the procedure, it was apparent that there was no fistulous connection between the bladder or the bowel. The abdomen was irrigated, and a ELENO drain was placed in the pelvis. It was elected not to do a colon resection since there was no inflamed colon residual and it would be difficult to determine which segment to actually remove. Sponge, needle, instrument and blade counts were verified as correct. The fascia and peritoneum were closed with running #1 Prolene. Subcutaneous tissue was irrigated and closed with 2-0 Monocryl. Skin was closed with rickey. The drain was secured with 2-0 nylon. Dressing was placed. The patient was successfully extubated and transferred to the postanesthetic care unit in stable, satisfactory condition. LCS:donn Job ID: [id number] Doc ID: [id number] Rufina Snyder M.D.
== END 2016-07-21 12:49 | disposition other institution (70) | DRG 663 ==
LOC: MEDSUR 05:18 → ICU 11:30 → MEDSUR 07-20 14:51
PROVIDERS: ADMIT Family Medicine Adult Medicine; ATTEND Family Medicine Adult Medicine

== ENCOUNTER 2016-07-21 12:50 | Inpatient (IN) ==
[2016-07-21] MEDS ORDERED: DESONIDE TOPICAL PRN (14:00)
[2016-07-21] MEDS ORDERED: HYDROmorphone 2 MG TABLET PO PRN (14:08)
[2016-07-21] MEDS ORDERED: POTASSIUM PHOSPHATE 66 MEQ/15 ML VIAL IV ONE (15:00)
[2016-07-21] MEDS ORDERED: POTASSIUM PHOSPHATE 40 MEQ in DEXTROSE 5% IN WATER 500 ML IV ONE (16:30)
[2016-07-21] MEDS: OXYBUTYNIN CHLORIDE 5 MG TABLET PO SCH ×2 (16:33→20:56)
[2016-07-21] MEDS: GABAPENTIN 100 MG CAPSULE PO SCH (20:55)
[2016-07-21] MEDS: MONTELUKAST 10 MG TABLET PO SCH (20:56)
[2016-07-21] MEDS: LISINOPRIL 10 MG TABLET PO SCH (20:56)
[2016-07-21] MEDS: ASCORBIC ACID 500 MG TABLET PO SCH (20:56)
[2016-07-21] MEDS: ZOLPIDEM 5 MG TABLET PO PRN (20:58)
[2016-07-21] MEDS: SOTALOL 80 MG TABLET PO SCH (21:03)
[2016-07-22] MEDS: ACETAMINOPHEN W/CODEINE #3 1 TABLET PO PRN (06:02)
[2016-07-22] MEDS: FISH OIL 1,000 MG CAPSULE PO SCH (08:14)
[2016-07-22] MEDS: ASCORBIC ACID 500 MG TABLET PO SCH ×2 (08:14→21:12)
[2016-07-22] MEDS: LEVOTHYROXINE 75 MCG TABLET PO SCH (08:14)
[2016-07-22] MEDS: LISINOPRIL 10 MG TABLET PO SCH ×2 (08:14→21:12)
[2016-07-22] MEDS: OXYBUTYNIN CHLORIDE 5 MG TABLET PO SCH ×3 (08:14→21:12)
[2016-07-22] MEDS: VITAMIN D3 1,000 UNIT TABLET PO SCH (08:15)
[2016-07-22] MEDS: GABAPENTIN 100 MG CAPSULE PO SCH ×2 (08:15→21:12)
[2016-07-22] MEDS: CYANOCOBALAMIN (VITAMIN B-12) 500 MCG TABLET PO SCH (08:18)
[2016-07-22] MEDS: ALPHA LIPOIC ACID 600 MG PO SCH (08:20)
[2016-07-22] MEDS: FENOFIBRATE 160 MG PO SCH (08:21)
[2016-07-22] MEDS: GLUCOSAMINE/CHONDROITIN SULF A 1 CAP CAPSULE PO SCH (09:58)
[2016-07-22] MEDS: VITAMIN E (DL,TOCOPHERYL ACET) 400 UNIT CAPSULE PO SCH (09:58)
[2016-07-22] MEDS: SOTALOL 80 MG TABLET PO SCH ×3 (09:58→21:11)
[2016-07-22] MEDS: LACTOBACILLUS 1 CAPSULE PO SCH (09:58)
[2016-07-22] MEDS ORDERED: HYDROcodone/APAP 5/325MG TABLET PO PRN (10:57)
--- NOTE | 2016-07-22 11:00 | General Surg History&Physical ---
History of Present Illness Patient information: Note initiated : 07/22/16 at 10:59 am Service Date, if different from initiated Date: [] Patient: Soumya Garcia 85 y/o F admitted on 07/21/16 for Open Sigmoid Colectomy. Chief Complaint: [] HPI: Ms. Garcia is a 85 year old female Medications and Allergies Home Medications Medication Instructions Recorded Confirmed Type ascorbic acid (vitamin C) 500 mg 1,000 mg PO BID 03/29/15 07/21/16 History tablet cyanocobalamin (vitamin B-12) 500 mcg PO QDAY 03/29/15 07/21/16 History glucosamine-chondroitin 1 tab PO QDAY 03/29/15 07/21/16 History omega-3 fatty acids 1,000 mg 1,000 mg PO QDAY 03/29/15 07/21/16 History capsule lactobacillus combination no.6 4 1 cell PO DAILY 12/01/15 07/21/16 History billion cell tablet cholecalciferol (vitamin D3) 1,000 1,000 unit PO QDAY cap 12/07/15 07/21/16 History unit capsule digoxin 125 mcg tablet 125 mcg PO QDAY #30 tab 12/20/15 07/21/16 Rx fenofibrate 160 mg tablet 160 mg PO QDAY #30 tab 01/24/16 07/21/16 Rx acetaminophen 300 mg-codeine 15 mg 1 tab PO QDAY PRN #30 tab 02/18/16 07/21/16 Rx tablet montelukast 10 mg tablet 10 mg PO QPM #90 tab 03/29/16 07/21/16 Rx sotalol 80 mg tablet 80 mg PO BID #180 tab 04/17/16 07/21/16 Rx alpha lipoic acid 600 mg capsule 600 mg PO QDAY cap 07/05/16 07/21/16 History vitamin E 400 unit tablet 400 unit PO QDAY 07/05/16 07/21/16 History Desonide 1 applic TOPICAL DAILYP PRN 07/12/16 07/21/16 History Gabapentin [Neurontin] 200 mg PO BID 07/12/16 07/21/16 History Levothyroxine Sodium [Synthroid] 75 mcg PO QAMAC 07/12/16 07/21/16 History Warfarin [Coumadin] 2 mg PO SUMOWESA 07/12/16 07/21/16 History Zolpidem [Ambien] 5 mg PO HSP PRN 07/12/16 07/21/16 History metFORMIN HCL [Glucophage] 500 mg PO QAMCC 07/12/16 07/21/16 History Lisinopril [Zestril] 10 mg PO BID 07/14/16 07/21/16 History Loperamide [Imodium] 2 mg PO DAILY capsule 07/21/16 07/21/16 Rx Oxybutynin Chloride [Ditropan] 5 mg PO TID tablet 07/21/16 07/21/16 Rx Warfarin [Coumadin] 1 mg PO TuThSa@1400 tablet 07/21/16 07/21/16 Rx Allergies Allergy/AdvReac Type Severity Reaction Status Date / Time adhesive tape Allergy Intermediate Rash Verified 07/12/16 15:19 latex Allergy Intermediate Rash Verified 07/12/16 15:19 Cinnamon Allergy Mild Rash Verified 07/14/16 05:45 Erythromycin Base AdvReac Intermediate Unknown Verified 07/12/16 15:19 Quinolones AdvReac Intermediate Vomiting Verified 07/06/16 11:56 Sulfa (Sulfonamide AdvReac Intermediate Unknown Verified 07/12/16 15:19 Antibiotics) Exam Temp Pulse Resp BP Pulse Ox 98.2 F 87 16 164/84 92 07/22/16 07:49 07/21/16 20:00 07/22/16 07:49 07/22/16 07:49 07/22/16 07:49 Assessment and Plan (1) Colovesical fistula Status: Chronic (2) Recurrent urinary tract infection Status: Chronic (3) Spinal stenosis of lumbosacral region Status: Chronic (4) Polyneuropathy Status: Chronic (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
--- NOTE | 2016-07-22 11:01 | General Surg History&Physical ---
History of Present Illness Patient information: Note initiated : 07/22/16 at 11:01 am Service Date, if different from initiated Date: [] Patient: Soumya Garcia 85 y/o F admitted on 07/21/16 for Open Sigmoid Colectomy. Chief Complaint: [] HPI: Ms. Garcia is a 85 year old female who is status post exploratory laparotomy with cystotomy and adhesion lysis for colovesical fistula. No fistula was actually found. She did not have resection of her colon since there were no acute inflammatory changes in the colon wall that was adherent to the bladder. In the postoperative period she did well. At the present time she is having some bladder spasms which seems to be responding to oral Ditropan. She is extremely weakand is admitted to [facility] and ambulation. Review of Systems - Constitutional anorexia, fatigue, lethargy, weakness, weight loss - EENT Nose, mouth and throat: no dysphagia, no sore throat, no vertigo - Cardiovascular dyspnea on exertion, irregular heart rhythm, palpatations, rapid heart rate, no chest pain with activity - Respiratory dyspnea on exertion, no cough, no wheezing, no chest congestion - Gastrointestinal abdominal pain, bloating, diarrhea, early satiety, loose stools, vomiting, no nausea - Genitourinary Genitourinary: other (bladder spasms; indwelling Schmidt catheter) - Musculoskeletal abnormal gait, back pain, myalgias, stiffness - Integumentary no changing lesions, no new lesions, no pruritus, no rash - Neurological abnormal hearing, confusion, memory loss, no syncope, no vertigo - Psychiatric no anxiety, no depression - Endocrine fatigue - Hematologic/Lymphatic other (on Coumadin therapy), no easy bleeding, no easy bruising, no lymphadenopathy - Allergic/Immunologic no tongue swelling, no throat swelling, no itchy eyes, no uticaria, no wheezing , no lip swelling Past History Past medical history: chronic anemia Chronic atrial fibrillation Degenerative disc disease Hypertension Peripheral neuropathy History of recurrent urinary tract infection History of stroke Diabetes mellitus type 2 Gastroesophageal reflux disease Past surgical history: splenectomy History of bilateral knee replacement Cholecystectomy Total abdominal hysterectomy Past family history: coronary artery disease Lymphoma Breast cancer Hypertension Stroke Past social history: and resides with his spouse Never smoker Does not drink alcohol Denies substance abuse Medications and Allergies Home Medications Medication Instructions Recorded Confirmed Type ascorbic acid (vitamin C) 500 mg 1,000 mg PO BID 03/29/15 07/21/16 History tablet cyanocobalamin (vitamin B-12) 500 mcg PO QDAY 03/29/15 07/21/16 History glucosamine-chondroitin 1 tab PO QDAY 03/29/15 07/21/16 History omega-3 fatty acids 1,000 mg 1,000 mg PO QDAY 03/29/15 07/21/16 History capsule lactobacillus combination no.6 4 1 cell PO DAILY 12/01/15 07/21/16 History billion cell tablet cholecalciferol (vitamin D3) 1,000 1,000 unit PO QDAY cap 12/07/15 07/21/16 History unit capsule digoxin 125 mcg tablet 125 mcg PO QDAY #30 tab 12/20/15 07/21/16 Rx fenofibrate 160 mg tablet 160 mg PO QDAY #30 tab 01/24/16 07/21/16 Rx acetaminophen 300 mg-codeine 15 mg 1 tab PO QDAY PRN #30 tab 02/18/16 07/21/16 Rx tablet montelukast 10 mg tablet 10 mg PO QPM #90 tab 03/29/16 07/21/16 Rx sotalol 80 mg tablet 80 mg PO BID #180 tab 04/17/16 07/21/16 Rx alpha lipoic acid 600 mg capsule 600 mg PO QDAY cap 07/05/16 07/21/16 History vitamin E 400 unit tablet 400 unit PO QDAY 07/05/16 07/21/16 History Desonide 1 applic TOPICAL DAILYP PRN 07/12/16 07/21/16 History Gabapentin [Neurontin] 200 mg PO BID 07/12/16 07/21/16 History Levothyroxine Sodium [Synthroid] 75 mcg PO QAMAC 07/12/16 07/21/16 History Warfarin [Coumadin] 2 mg PO SUMOWESA 07/12/16 07/21/16 History Zolpidem [Ambien] 5 mg PO HSP PRN 07/12/16 07/21/16 History metFORMIN HCL [Glucophage] 500 mg PO QAMCC 07/12/16 07/21/16 History Lisinopril [Zestril] 10 mg PO BID 07/14/16 07/21/16 History Loperamide [Imodium] 2 mg PO DAILY capsule 07/21/16 07/21/16 Rx Oxybutynin Chloride [Ditropan] 5 mg PO TID tablet 07/21/16 07/21/16 Rx Warfarin [Coumadin] 1 mg PO TuThSa@1400 tablet 07/21/16 07/21/16 Rx Allergies Allergy/AdvReac Type Severity Reaction Status Date / Time adhesive tape Allergy Intermediate Rash Verified 07/12/16 15:19 latex Allergy Intermediate Rash Verified 07/12/16 15:19 Cinnamon Allergy Mild Rash Verified 07/14/16 05:45 Erythromycin Base AdvReac Intermediate Unknown Verified 07/12/16 15:19 Quinolones AdvReac Intermediate Vomiting Verified 07/06/16 11:56 Sulfa (Sulfonamide AdvReac Intermediate Unknown Verified 07/12/16 15:19 Antibiotics) Exam Temp Pulse Resp BP Pulse Ox 98.2 F 87 16 164/84 92 07/22/16 07:49 07/21/16 20:00 07/22/16 07:49 07/22/16 07:49 07/22/16 07:49 - General physical appearance well developed, well nourished, no distress - Eyes PERRL, normal ocular movement - ENT normal pinna, normal nares, normal mucosa, no hearing loss, no congestion - Head Head exam IM: Present: atraumatic, normocephalic - Neck no masses, no bruits, trachea midline, no lymphadectomy, no venous distension - Cardiovascular Cardiovascular exam IM: Present: irregular rhythm, systolic murmur Intensity IM: 02/24 - Respiratory normal expansion, normal respiratory effort, clear to percussion, clear to auscultation - Abdomen Abdomen: Present: soft, tender (mild distention; healing incision without inflammation; active bowel sounds; serosanguineous drainage in ELENO), bowel sounds Hernia: Present: none - Genitourinary Present: normal external genitalia - Integumentary Present: no rash, no growths, no abnormal pigmentation - Neurologic Present: normal coordination, normal sensation - Musculoskeletal Present: normal posture, other (an unsteady gait) - Psychiatric Present: oriented to time, oriented to person, speech is normal, other (some memory loss) Assessment and Plan (1) Colovesical fistula Status: Chronic (2) Recurrent urinary tract infection Status: Chronic (3) Spinal stenosis of lumbosacral region Status: Chronic (4) Polyneuropathy Status: Chronic (5) jail current use of anticoagulant therapy Status: Chronic Comment: originated for DVT that was unprovoked at around 55 years of age (6) Paroxysmal supraventricular tachycardia Status: Chronic (7) Atrial fibrillation Status: Chronic Qualifiers:
[2016-07-22] MEDS: HYDROcodone/APAP 5/325MG TABLET PO PRN ×2 (12:23→17:31)
[2016-07-22] MEDS ORDERED: WARFARIN 1 MG TABLET PO SCH (14:00)
[2016-07-22] MEDS: WARFARIN 1 MG TABLET PO SCH (14:57)
[2016-07-22] MEDS: DIGOXIN 125 MCG TABLET PO SCH (14:57)
[2016-07-22] MEDS: FUROSEMIDE 20 MG TABLET PO SCH (14:57)
[2016-07-22] MEDS: POTASSIUM CHLORIDE 20 MEQ TABLET PO SCH (17:02)
[2016-07-22] MEDS: MONTELUKAST 10 MG TABLET PO SCH (21:13)
[2016-07-23] MEDS: HYDROcodone/APAP 5/325MG TABLET PO PRN ×3 (03:37→19:37)
[2016-07-23] MEDS: LEVOTHYROXINE 75 MCG TABLET PO SCH (07:24)
[2016-07-23] MEDS: FUROSEMIDE 20 MG TABLET PO SCH ×2 (07:24→16:51)
[2016-07-23] MEDS: POTASSIUM CHLORIDE 20 MEQ TABLET PO SCH ×2 (07:24→16:51)
[2016-07-23] MEDS: FISH OIL 1,000 MG CAPSULE PO SCH (08:17)
[2016-07-23] MEDS: OXYBUTYNIN CHLORIDE 5 MG TABLET PO SCH ×3 (08:17→21:00)
[2016-07-23] MEDS: GABAPENTIN 100 MG CAPSULE PO SCH ×2 (08:17→21:00)
[2016-07-23] MEDS: ASCORBIC ACID 500 MG TABLET PO SCH ×2 (08:17→21:00)
[2016-07-23] MEDS: LISINOPRIL 10 MG TABLET PO SCH ×2 (08:17→21:00)
[2016-07-23] MEDS: VITAMIN D3 1,000 UNIT TABLET PO SCH (08:17)
[2016-07-23] MEDS: CYANOCOBALAMIN (VITAMIN B-12) 500 MCG TABLET PO SCH (08:18)
[2016-07-23] MEDS: SOTALOL 80 MG TABLET PO SCH ×2 (08:19→20:59)
[2016-07-23] MEDS: VITAMIN E (DL,TOCOPHERYL ACET) 400 UNIT CAPSULE PO SCH (08:19)
[2016-07-23] MEDS: LACTOBACILLUS 1 CAPSULE PO SCH (08:19)
[2016-07-23] MEDS: GLUCOSAMINE/CHONDROITIN SULF A 1 CAP CAPSULE PO SCH (08:20)
[2016-07-23] MEDS: FENOFIBRATE 160 MG PO SCH (08:21)
[2016-07-23] MEDS: ALPHA LIPOIC ACID 600 MG PO SCH (08:21)
[2016-07-23] MEDS: DIGOXIN 125 MCG TABLET PO SCH (14:00)
[2016-07-23] MEDS: WARFARIN 1 MG TABLET PO SCH (14:00)
[2016-07-23] MEDS: MONTELUKAST 10 MG TABLET PO SCH (21:00)
[2016-07-23] MEDS: ZOLPIDEM 5 MG TABLET PO PRN (23:32)
[2016-07-24] MEDS: LEVOTHYROXINE 75 MCG TABLET PO SCH (07:18)
[2016-07-24] MEDS: SOTALOL 80 MG TABLET PO SCH ×2 (09:03→20:06)
[2016-07-24] MEDS: GLUCOSAMINE/CHONDROITIN SULF A 1 CAP CAPSULE PO SCH (09:03)
[2016-07-24] MEDS: VITAMIN D3 1,000 UNIT TABLET PO SCH (09:04)
[2016-07-24] MEDS: CYANOCOBALAMIN (VITAMIN B-12) 500 MCG TABLET PO SCH (09:04)
[2016-07-24] MEDS: GABAPENTIN 100 MG CAPSULE PO SCH ×2 (09:04→20:05)
[2016-07-24] MEDS: POTASSIUM CHLORIDE 20 MEQ TABLET PO SCH ×2 (09:04→17:16)
[2016-07-24] MEDS: FISH OIL 1,000 MG CAPSULE PO SCH (09:04)
[2016-07-24] MEDS: VITAMIN E (DL,TOCOPHERYL ACET) 400 UNIT CAPSULE PO SCH (09:04)
[2016-07-24] MEDS: LACTOBACILLUS 1 CAPSULE PO SCH (09:04)
[2016-07-24] MEDS: ASCORBIC ACID 500 MG TABLET PO SCH ×2 (09:04→20:05)
[2016-07-24] MEDS: FENOFIBRATE 160 MG PO SCH (09:05)
[2016-07-24] MEDS: OXYBUTYNIN CHLORIDE 5 MG TABLET PO SCH ×3 (09:05→20:05)
[2016-07-24] MEDS: FUROSEMIDE 20 MG TABLET PO SCH (09:05)
[2016-07-24] MEDS: LISINOPRIL 10 MG TABLET PO SCH ×2 (09:05→20:05)
[2016-07-24] MEDS: ALPHA LIPOIC ACID 600 MG PO SCH (09:05)
[2016-07-24] MEDS: DIGOXIN 125 MCG TABLET PO SCH (13:48)
[2016-07-24] MEDS: WARFARIN 1 MG TABLET PO SCH (13:49)
[2016-07-24] MEDS ORDERED: DIPHENOXYLATE HCL/ATROPINE 1 TABLET PO PRN (13:54)
[2016-07-24] MEDS: ZOLPIDEM 5 MG TABLET PO PRN (20:05)
[2016-07-24] MEDS: MONTELUKAST 10 MG TABLET PO SCH (20:05)
[2016-07-24] MEDS: HYDROcodone/APAP 5/325MG TABLET PO PRN (22:49)
[2016-07-25 06:30] LABS: Basophils # (Auto) 0.1 K/mcL (0.0-0.3); Basophils % (Auto) 0.9 % (0.0-2.0); Eosinophils # (Auto) 0.7 K/mcL (0.0-0.7); Eosinophils % (Auto) 7.1 % (0.0-7.0); Granulocytes % (Auto) 58.4 % (38.0-78.0); Lymphocytes # (Auto) 2.1 K/mcL (1.5-4.8); Lymphocytes % (Auto) 21.8 % (15.5-49.0); Mean Cell Volume 92.4 fL (80.0-100.0); Mean Corpuscular HGB Conc 33.8 g/dL (31.0-36.0); Mean Corpuscular Hemoglobin 31.2 pg (26.0-34.0); Monocytes # (Auto) 1.2 K/mcL (0.1-0.9); Monocytes % (Auto) 11.8 % (1.0-12.0); Platelet Count 536 K/mcL (140-440); RBC 3.24 M/mcL (4.00-5.20); Red Cell Distribution Width 14.9 % (11.5-14.5)
[2016-07-25] MEDS: LEVOTHYROXINE 75 MCG TABLET PO SCH (07:40)
[2016-07-25] MEDS: FISH OIL 1,000 MG CAPSULE PO SCH (09:32)
[2016-07-25] MEDS: VITAMIN D3 1,000 UNIT TABLET PO SCH (09:33)
[2016-07-25] MEDS: LISINOPRIL 10 MG TABLET PO SCH ×2 (09:33→20:41)
[2016-07-25] MEDS: CYANOCOBALAMIN (VITAMIN B-12) 500 MCG TABLET PO SCH (09:33)
[2016-07-25] MEDS: OXYBUTYNIN CHLORIDE 5 MG TABLET PO SCH ×3 (09:34→20:41)
[2016-07-25] MEDS: ASCORBIC ACID 500 MG TABLET PO SCH ×2 (09:34→20:40)
[2016-07-25] MEDS: GABAPENTIN 100 MG CAPSULE PO SCH ×2 (09:35→20:40)
[2016-07-25] MEDS: POTASSIUM CHLORIDE 20 MEQ TABLET PO SCH ×2 (09:47→17:42)
[2016-07-25] MEDS: LACTOBACILLUS 1 CAPSULE PO SCH (09:48)
[2016-07-25] MEDS: SOTALOL 80 MG TABLET PO SCH ×2 (09:49→20:42)
[2016-07-25] MEDS: VITAMIN E (DL,TOCOPHERYL ACET) 400 UNIT CAPSULE PO SCH (09:49)
[2016-07-25] MEDS: GLUCOSAMINE/CHONDROITIN SULF A 1 CAP CAPSULE PO SCH (09:50)
[2016-07-25] MEDS: ALPHA LIPOIC ACID 600 MG PO SCH (10:28)
[2016-07-25] MEDS: FENOFIBRATE 160 MG PO SCH (10:28)
[2016-07-25] MEDS: WARFARIN 1 MG TABLET PO SCH (14:10)
[2016-07-25] MEDS: DIGOXIN 125 MCG TABLET PO SCH (14:11)
[2016-07-25] MEDS: MONTELUKAST 10 MG TABLET PO SCH (20:40)
[2016-07-25] MEDS: ZOLPIDEM 5 MG TABLET PO PRN (20:41)
[2016-07-25] MEDS: HYDROcodone/APAP 5/325MG TABLET PO PRN (23:20)
[2016-07-26] MEDS: VITAMIN E (DL,TOCOPHERYL ACET) 400 UNIT CAPSULE PO SCH (08:00)
[2016-07-26] MEDS: GLUCOSAMINE/CHONDROITIN SULF A 1 CAP CAPSULE PO SCH (08:00)
[2016-07-26] MEDS: LACTOBACILLUS 1 CAPSULE PO SCH (08:00)
[2016-07-26] MEDS: GABAPENTIN 100 MG CAPSULE PO SCH ×2 (08:00→22:09)
[2016-07-26] MEDS: POTASSIUM CHLORIDE 20 MEQ TABLET PO SCH ×2 (08:01→16:25)
[2016-07-26] MEDS: ASCORBIC ACID 500 MG TABLET PO SCH ×2 (08:01→22:11)
[2016-07-26] MEDS: FISH OIL 1,000 MG CAPSULE PO SCH (08:01)
[2016-07-26] MEDS: CYANOCOBALAMIN (VITAMIN B-12) 500 MCG TABLET PO SCH (08:01)
[2016-07-26] MEDS: OXYBUTYNIN CHLORIDE 5 MG TABLET PO SCH ×3 (08:01→22:09)
[2016-07-26] MEDS: VITAMIN D3 1,000 UNIT TABLET PO SCH (08:01)
[2016-07-26] MEDS: LEVOTHYROXINE 75 MCG TABLET PO SCH (08:01)
[2016-07-26] MEDS: LISINOPRIL 10 MG TABLET PO SCH ×2 (08:01→22:09)
[2016-07-26] MEDS: SOTALOL 80 MG TABLET PO SCH ×2 (08:02→22:08)
[2016-07-26] MEDS: ALPHA LIPOIC ACID 600 MG PO SCH (08:02)
[2016-07-26] MEDS: FENOFIBRATE 160 MG PO SCH (08:02)
[2016-07-26] MEDS: HYDROcodone/APAP 5/325MG TABLET PO PRN (15:23)
[2016-07-26] MEDS: DIGOXIN 125 MCG TABLET PO SCH (15:24)
[2016-07-26] MEDS: WARFARIN 1 MG TABLET PO SCH (15:24)
[2016-07-26] MEDS: ZOLPIDEM 5 MG TABLET PO PRN (21:56)
[2016-07-26] MEDS: MONTELUKAST 10 MG TABLET PO SCH (22:09)
[2016-07-27] MEDS: LEVOTHYROXINE 75 MCG TABLET PO SCH (07:02)
[2016-07-27] MEDS: POTASSIUM CHLORIDE 20 MEQ TABLET PO SCH ×2 (08:35→17:17)
[2016-07-27] MEDS: VITAMIN D3 1,000 UNIT TABLET PO SCH (08:35)
[2016-07-27] MEDS: ASCORBIC ACID 500 MG TABLET PO SCH ×2 (08:35→20:42)
[2016-07-27] MEDS: LISINOPRIL 10 MG TABLET PO SCH ×2 (08:35→20:41)
[2016-07-27] MEDS: GABAPENTIN 100 MG CAPSULE PO SCH ×2 (08:35→20:43)
[2016-07-27] MEDS: OXYBUTYNIN CHLORIDE 5 MG TABLET PO SCH ×3 (08:35→20:41)
[2016-07-27] MEDS: CYANOCOBALAMIN (VITAMIN B-12) 500 MCG TABLET PO SCH (08:35)
[2016-07-27] MEDS: FISH OIL 1,000 MG CAPSULE PO SCH (08:35)
[2016-07-27] MEDS: SOTALOL 80 MG TABLET PO SCH ×2 (08:36→20:44)
[2016-07-27] MEDS: LACTOBACILLUS 1 CAPSULE PO SCH (08:36)
[2016-07-27] MEDS: GLUCOSAMINE/CHONDROITIN SULF A 1 CAP CAPSULE PO SCH (08:36)
[2016-07-27] MEDS: VITAMIN E (DL,TOCOPHERYL ACET) 400 UNIT CAPSULE PO SCH (08:36)
[2016-07-27] MEDS: ALPHA LIPOIC ACID 600 MG PO SCH (08:37)
[2016-07-27] MEDS: FENOFIBRATE 160 MG PO SCH (08:37)
[2016-07-27] MEDS: DIGOXIN 125 MCG TABLET PO SCH (14:25)
[2016-07-27] MEDS: WARFARIN 1 MG TABLET PO SCH (14:25)
[2016-07-27] MEDS: MONTELUKAST 10 MG TABLET PO SCH (20:44)
[2016-07-27] MEDS: ZOLPIDEM 5 MG TABLET PO PRN (21:34)
[2016-07-28] MEDS: LEVOTHYROXINE 75 MCG TABLET PO SCH (07:15)
[2016-07-28] MEDS: FISH OIL 1,000 MG CAPSULE PO SCH (09:16)
[2016-07-28] MEDS: LACTOBACILLUS 1 CAPSULE PO SCH (09:16)
[2016-07-28] MEDS: SOTALOL 80 MG TABLET PO SCH ×2 (09:16→20:39)
[2016-07-28] MEDS: POTASSIUM CHLORIDE 20 MEQ TABLET PO SCH ×2 (09:16→17:25)
[2016-07-28] MEDS: GLUCOSAMINE/CHONDROITIN SULF A 1 CAP CAPSULE PO SCH (09:16)
[2016-07-28] MEDS: OXYBUTYNIN CHLORIDE 5 MG TABLET PO SCH ×3 (09:16→20:39)
[2016-07-28] MEDS: GABAPENTIN 100 MG CAPSULE PO SCH ×2 (09:16→20:39)
[2016-07-28] MEDS: FENOFIBRATE 160 MG PO SCH (09:17)
[2016-07-28] MEDS: ASCORBIC ACID 500 MG TABLET PO SCH ×2 (09:17→20:39)
[2016-07-28] MEDS: VITAMIN D3 1,000 UNIT TABLET PO SCH (09:17)
[2016-07-28] MEDS: VITAMIN E (DL,TOCOPHERYL ACET) 400 UNIT CAPSULE PO SCH (09:17)
[2016-07-28] MEDS: ALPHA LIPOIC ACID 600 MG PO SCH (09:17)
[2016-07-28] MEDS: CYANOCOBALAMIN (VITAMIN B-12) 500 MCG TABLET PO SCH (09:17)
[2016-07-28] MEDS: LISINOPRIL 10 MG TABLET PO SCH ×2 (09:18→20:39)
[2016-07-28] MEDS: HYDROcodone/APAP 5/325MG TABLET PO PRN ×2 (09:21→20:39)
[2016-07-28] MEDS: WARFARIN 1 MG TABLET PO SCH (14:57)
[2016-07-28] MEDS: DIGOXIN 125 MCG TABLET PO SCH (14:57)
[2016-07-28] MEDS: MONTELUKAST 10 MG TABLET PO SCH (20:39)
[2016-07-28] MEDS: ACETAMINOPHEN W/CODEINE #3 1 TABLET PO PRN (22:21)
[2016-07-29] MEDS: HYDROcodone/APAP 5/325MG TABLET PO PRN ×3 (00:18→21:42)
[2016-07-29] MEDS: LEVOTHYROXINE 75 MCG TABLET PO SCH (07:38)
[2016-07-29] MEDS: LISINOPRIL 10 MG TABLET PO SCH ×2 (09:19→21:41)
[2016-07-29] MEDS: FISH OIL 1,000 MG CAPSULE PO SCH (09:19)
[2016-07-29] MEDS: SOTALOL 80 MG TABLET PO SCH ×2 (09:19→21:41)
[2016-07-29] MEDS: VITAMIN E (DL,TOCOPHERYL ACET) 400 UNIT CAPSULE PO SCH (09:19)
[2016-07-29] MEDS: POTASSIUM CHLORIDE 20 MEQ TABLET PO SCH ×2 (09:19→16:52)
[2016-07-29] MEDS: GLUCOSAMINE/CHONDROITIN SULF A 1 CAP CAPSULE PO SCH (09:20)
[2016-07-29] MEDS: VITAMIN D3 1,000 UNIT TABLET PO SCH (09:20)
[2016-07-29] MEDS: GABAPENTIN 100 MG CAPSULE PO SCH ×2 (09:20→21:42)
[2016-07-29] MEDS: OXYBUTYNIN CHLORIDE 5 MG TABLET PO SCH ×3 (09:20→21:42)
[2016-07-29] MEDS: CYANOCOBALAMIN (VITAMIN B-12) 500 MCG TABLET PO SCH (09:21)
[2016-07-29] MEDS: LACTOBACILLUS 1 CAPSULE PO SCH (09:21)
[2016-07-29] MEDS: ASCORBIC ACID 500 MG TABLET PO SCH ×2 (09:21→21:41)
[2016-07-29] MEDS: FENOFIBRATE 160 MG PO SCH (09:23)
[2016-07-29] MEDS: ALPHA LIPOIC ACID 600 MG PO SCH (09:23)
[2016-07-29 12:43] LABS: Appearance,Urine CLOUDY; Bacteria,Urine MOD /hpf (0); Bilirubin,Urine NEG (NEG); Color,Urine YELLOW; Glucose,Urine (UA) NEGATIVE (NEG); Leukocyte Esterase,Urine 500 /uL (NEG); Nitrate,Urine NEG (NEG); Protein,Urine 30 mg/dL (NEG); Specific Gravity,Urine 1.004 (1.000-1.035); Urine Blood 0.2 mg/dL (<0.03); Urine Hyaline Cast 4 /lpf (0-2); Urine RBC 12 /hpf (0-1); Urine Squamous Epithelial Cell 0 /hpf (0-4); Urine Transitional Epi Cells 1 /hpf (0-2); Urine WBC > 182 /hpf (0-4); Urobilinogen,Urine NEG (NEG)
[2016-07-29] MEDS: DIGOXIN 125 MCG TABLET PO SCH (13:58)
[2016-07-29] MEDS: WARFARIN 1 MG TABLET PO SCH (13:58)
[2016-07-29] MEDS: LEVOFLOXACIN 500 MG TABLET PO SCH (18:52)
[2016-07-29] MEDS: MONTELUKAST 10 MG TABLET PO SCH (21:41)
[2016-07-30] MEDS: POLYVINYL ALCOHOL OPHTH DROPS 15ML BOTTLE OU PRN ×3 (00:46→21:48)
[2016-07-30] MEDS: ACETAMINOPHEN W/CODEINE #3 1 TABLET PO PRN (03:24)
[2016-07-30] MEDS: HYDROcodone/APAP 5/325MG TABLET PO PRN ×3 (06:10→21:34)
[2016-07-30 06:34] LABS: Mean Cell Volume 92.9 fL (80.0-100.0); Mean Corpuscular HGB Conc 33.6 g/dL (31.0-36.0); Mean Corpuscular Hemoglobin 31.2 pg (26.0-34.0); Platelet Count 644 K/mcL (140-440); Red Cell Distribution Width 15.4 % (11.5-14.5)
[2016-07-30 07:05] LABS: ALT/SGPT 18 U/l (0-40); Albumin 3.1 gm/dL (3.2-5.2); Alkaline Phosphatase 66 U/L (39-117); Bilirubin,Direct < 0.2 mg/dL (0.0-0.3); Blood Urea Nitrogen 24 mg/dl (8-23); Gamma Glutamyl Transpeptidase 31 U/L (5-36); Magnesium 1.8 mg/dL (1.6-2.5); Uric Acid 6.5 mg/dL (2.5-8.0)
[2016-07-30 07:42] LABS: Anisocytosis FEW (NONE SEEN); Band Neutrophils % 2 % (0-10); Eosinophils % (Manual) 7 % (0-7); Lymphocytes % 24 % (15-49); Monocytes % (Manual) 6 % (1-12); Platelet Estimate INCREASED (NORMAL); RBC Morphology ABNORM (NORMAL); Segmented Neutrophils % 61 % (38-78)
[2016-07-30] MEDS: ASCORBIC ACID 500 MG TABLET PO SCH ×2 (08:02→21:35)
[2016-07-30] MEDS: LEVOFLOXACIN 500 MG TABLET PO SCH (08:02)
[2016-07-30] MEDS: CYANOCOBALAMIN (VITAMIN B-12) 500 MCG TABLET PO SCH (08:02)
[2016-07-30] MEDS: OXYBUTYNIN CHLORIDE 5 MG TABLET PO SCH ×3 (08:02→21:35)
[2016-07-30] MEDS: GABAPENTIN 100 MG CAPSULE PO SCH ×2 (08:02→21:35)
[2016-07-30] MEDS: FISH OIL 1,000 MG CAPSULE PO SCH (08:02)
[2016-07-30] MEDS: LACTOBACILLUS 1 CAPSULE PO SCH (08:03)
[2016-07-30] MEDS: VITAMIN D3 1,000 UNIT TABLET PO SCH (08:03)
[2016-07-30] MEDS: VITAMIN E (DL,TOCOPHERYL ACET) 400 UNIT CAPSULE PO SCH (08:03)
[2016-07-30] MEDS: LEVOTHYROXINE 75 MCG TABLET PO SCH (08:04)
[2016-07-30] MEDS: LISINOPRIL 10 MG TABLET PO SCH ×2 (08:06→21:36)
[2016-07-30] MEDS: POTASSIUM CHLORIDE 20 MEQ TABLET PO SCH (08:11)
[2016-07-30] MEDS: GLUCOSAMINE/CHONDROITIN SULF A 1 CAP CAPSULE PO SCH (08:11)
[2016-07-30] MEDS: ALPHA LIPOIC ACID 600 MG PO SCH (08:11)
[2016-07-30] MEDS: FENOFIBRATE 160 MG PO SCH (08:12)
[2016-07-30] MEDS ORDERED: LEVOFLOXACIN 500 MG TABLET PO SCH (09:00)
[2016-07-30] MEDS: SOTALOL 80 MG TABLET PO SCH ×2 (09:22→21:35)
[2016-07-30] MEDS: DIGOXIN 125 MCG TABLET PO SCH (14:38)
[2016-07-30] MEDS: WARFARIN 1 MG TABLET PO SCH (14:38)
[2016-07-30] MEDS: SENNOSIDES/DOCUSATE SODIUM 1 TAB TABLET PO SCH (21:33)
[2016-07-30] MEDS: MONTELUKAST 10 MG TABLET PO SCH (21:35)
[2016-07-31] MEDS: HYDROcodone/APAP 5/325MG TABLET PO PRN ×3 (01:13→15:43)
[2016-07-31] MEDS: ACETAMINOPHEN W/CODEINE #3 1 TABLET PO PRN (03:06)
[2016-07-31 07:04] LABS: Blood Urea Nitrogen 23 mg/dl (8-23)
[2016-07-31] MEDS: OXYBUTYNIN CHLORIDE 5 MG TABLET PO SCH ×3 (08:53→20:00)
[2016-07-31] MEDS: GABAPENTIN 100 MG CAPSULE PO SCH ×2 (08:53→20:00)
[2016-07-31] MEDS: LISINOPRIL 10 MG TABLET PO SCH ×2 (08:53→20:00)
[2016-07-31] MEDS: VITAMIN D3 1,000 UNIT TABLET PO SCH (08:53)
[2016-07-31] MEDS: LEVOTHYROXINE 75 MCG TABLET PO SCH (08:53)
[2016-07-31] MEDS: ASCORBIC ACID 500 MG TABLET PO SCH ×2 (08:54→20:00)
[2016-07-31] MEDS: LEVOFLOXACIN 500 MG TABLET PO SCH (08:54)
[2016-07-31] MEDS: CYANOCOBALAMIN (VITAMIN B-12) 500 MCG TABLET PO SCH (08:55)
[2016-07-31] MEDS: FISH OIL 1,000 MG CAPSULE PO SCH (08:55)
[2016-07-31] MEDS: POLYVINYL ALCOHOL OPHTH DROPS 15ML BOTTLE OU PRN ×2 (08:55→20:02)
[2016-07-31] MEDS: LACTOBACILLUS 1 CAPSULE PO SCH (08:55)
[2016-07-31] MEDS: VITAMIN E (DL,TOCOPHERYL ACET) 400 UNIT CAPSULE PO SCH (08:55)
[2016-07-31] MEDS: GLUCOSAMINE/CHONDROITIN SULF A 1 CAP CAPSULE PO SCH (08:55)
[2016-07-31] MEDS: FENOFIBRATE 160 MG PO SCH (08:59)
[2016-07-31] MEDS: ALPHA LIPOIC ACID 600 MG PO SCH (08:59)
--- NOTE | 2016-07-31 09:02 | XRay Report ---
HISTORY: Reason for Exam:bladder injury from a recent colon surgery FINDINGS: [place] Cleaner film of the pelvis shows is a Schmidt catheter in the bladder. A pigtail stent is present in the left ureter extending from the kidney into the bladder. Is also a Mitch drain above the bladder. Under fluoroscopic guidance the bladder was filled with 50 cc of nonionic contrast. The bladder has normal distensibility. Except for the catheter is are no intraluminal filling defects. No bladder tear was demonstrated. There was no extravasation of contrast into the pelvis. There is reflux through both ureters into the kidneys bilaterally. The ureters are nondistended but there is mild caliectasis bilaterally. IMPRESSION: Normal bladder, without evidence of a tear Grade II Bilateral ureteral reflux Interpreted and Authenticated by: Mike Lora 07/31/16
[2016-07-31] MEDS: SOTALOL 80 MG TABLET PO SCH ×2 (09:26→20:01)
[2016-07-31] MEDS: DIGOXIN 125 MCG TABLET PO SCH (15:43)
[2016-07-31] MEDS: WARFARIN 1 MG TABLET PO SCH (15:43)
[2016-07-31] MEDS ORDERED: BENZOCAINE/MENTHOL 1 LOZENGE PO PRN (16:13)
[2016-07-31] MEDS: MAGNESIUM HYDROXIDE 30 ML ORAL.SUSP PO SCH ×2 (17:15→22:17)
[2016-07-31] MEDS: MONTELUKAST 10 MG TABLET PO SCH (20:00)
[2016-07-31] MEDS: SENNOSIDES/DOCUSATE SODIUM 1 TAB TABLET PO SCH (20:00)
[2016-08-01] MEDS: HYDROcodone/APAP 5/325MG TABLET PO PRN ×2 (02:03→11:31)
[2016-08-01] MEDS: POLYVINYL ALCOHOL OPHTH DROPS 15ML BOTTLE OU PRN ×2 (02:11→07:43)
[2016-08-01] MEDS: MAGNESIUM HYDROXIDE 30 ML ORAL.SUSP PO SCH ×2 (04:44→11:30)
[2016-08-01] MEDS: LEVOTHYROXINE 75 MCG TABLET PO SCH (07:43)
[2016-08-01] MEDS: GLUCOSAMINE/CHONDROITIN SULF A 1 CAP CAPSULE PO SCH (08:54)
[2016-08-01] MEDS: LACTOBACILLUS 1 CAPSULE PO SCH (08:54)
[2016-08-01] MEDS: VITAMIN E (DL,TOCOPHERYL ACET) 400 UNIT CAPSULE PO SCH (08:55)
[2016-08-01] MEDS: SOTALOL 80 MG TABLET PO SCH (08:56)
[2016-08-01] MEDS: LISINOPRIL 10 MG TABLET PO SCH (08:56)
[2016-08-01] MEDS: VITAMIN D3 1,000 UNIT TABLET PO SCH (08:56)
[2016-08-01] MEDS: OXYBUTYNIN CHLORIDE 5 MG TABLET PO SCH (08:56)
[2016-08-01] MEDS: LEVOFLOXACIN 500 MG TABLET PO SCH (08:57)
[2016-08-01] MEDS: ASCORBIC ACID 500 MG TABLET PO SCH (08:57)
[2016-08-01] MEDS: GABAPENTIN 100 MG CAPSULE PO SCH (08:57)
[2016-08-01] MEDS: FISH OIL 1,000 MG CAPSULE PO SCH (08:58)
[2016-08-01] MEDS: FENOFIBRATE 160 MG PO SCH (08:58)
[2016-08-01] MEDS: CYANOCOBALAMIN (VITAMIN B-12) 500 MCG TABLET PO SCH (08:58)
[2016-08-01] MEDS: ALPHA LIPOIC ACID 600 MG PO SCH (08:58)
--- NOTE | 2016-08-01 09:41 | Discharge Summary ---
Providers - Providers Patient information: Note initiated : 08/01/16 at 9:35 am Service Date, if different from initiated Date: [] Patient: Soumya Garcia 85 y/o F admitted on 07/21/16 for Open Sigmoid Colectomy. Chief Complaint: [] Date of admission: 07/22/16 Discharge date: 08/01/16 Attending physician: Rufina Snyder PHYSICAL THERAPY OCCUPATIONAL THERAPY Hospitalization Hospital course: HE PATIENT WAS ADMITTED TO THE [facility] ON 22 July 2016. sHE IS STATUS POST EXPLORATORY LAPAROTOMY AND ADHESIO LYSIS AND CYSTOTOMY FOR COLOVESICAL FISTULA. sHE DID WELL IN THE POSTOPERATIVE PERIOD EXCEPT FOR SOME BLADDER SPASM. sHE HAD NO PROBLEMS REFERABLE TO HER COLON.SHE WAS EXTREMELY WEAK AT THE TIME OF DISCHARGE AND WAS TRANSFERRED TO THE [facility]ED UNIT FOR MORE AGGRESSIVE PHYSICAL AND OCCUPATIONAL THERAPY. sHE PROGRESSED SOME BUT IS STILL QUITE WEAK WITH EXTREMELY POOR TOLERANCE IN HER ACTIVITIES OF DAILY LIVING. sHE IS FELT NOT TO BE STABLE ENOUGH FOR DISCHARGE HOME AND SHE IS REFERRED TO THE REHABILITATION cENTER FOR FURTHER PHYSICAL AND OCCUPATIONAL THERAPY. sHE IS TRANSFERRED IN STABLE CONDITION. 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 Reason for admission: PPROGRESSIVE PHYSICAL AND OCCUPATIONAL THERAPY Procedures: CYSTOGRAM Complications: NONE Exam Temp Pulse Resp BP Pulse Ox 97.4 F 80 16 137/69 94 08/01/16 08:02 08/01/16 08:02 08/01/16 08:02 08/01/16 08:02 08/01/16 08:02 - General physical appearance well nourished, no distress, cachectic, chronically ill - Eyes PERRL, normal ocular movement - ENT normal pinna, normal nares, normal mucosa, no hearing loss, no congestion - Head Head exam IM: Present: atraumatic, normocephalic - Neck no masses, no bruits, trachea midline, no lymphadectomy, no venous distension - Cardiovascular Cardiovascular exam IM: Present: normal rate and rhythm, RRR, +S1, +S2, tachycardia - Respiratory normal expansion, normal respiratory effort, clear to percussion, clear to auscultation - Abdomen Abdomen: Present: soft, non tender, bowel sounds, distended Hernia: Present: none - Genitourinary Present: normal external genitalia - Rectum Rectum: Present: no masses - Integumentary Present: no rash, no growths, no abnormal pigmentation - Neurologic Present: normal coordination, normal sensation, other (GENERAL WEAKNESS BUT NO MOTOR DEFICIT NOTED ) - Musculoskeletal Present: normal posture, other (UNSTEADY GAIT) - Psychiatric Present: oriented to time, oriented to person, oriented to place, speech is normal, memory intact Discharge Plan - Patient/Caregiver Discharge Instructions Activity: as per physical therapy Diet: Regular Diet Additional Instructions: INSERT Schmidt CATHETER IF POSTVOID RESIDUAL IS OVER 250 CC FOLLOW-UP APPOINTMENT WITH dR. Del Rosario FOR REMOVAL OF URETERAL STENT PHYSICAL THERAPY EVALUATION AND TREATMENT oCCUPATIONAL THERAPY EVALUATION AND TREATMENT DO NOT GIVE iMODIUM UNLESS PATIENT HAS MORE THAN 3 DIARRHEAL STOOLS Prescriptions: HYDROcodone/APAP 5/325MG [[place] 5/325Mg] 1 tab PO Q4HP PRN #60 tablet PRN Reason: Pain - Follow up Plan Follow up with: Yari Romo DNP, [facility] [Primary Care Provider] - (Call for a hospital follow up in 7-10 days.) Disposition: [facility] Prognosis: Fair Rehab Potential: Good I certify that the patient requires SNF services.: Yes Overall status at discharge: patient is not back to baseline Pending Studies Resuscitation Status Full Code Diet Consistent Carbohydrate Diet Start Sun 2 Dinner Acetaminophen/Codeine Phosphate (Tylenol #3) 1 tab PO DAILYP PRN PRN Reason: Pain Last Admin: 07/31/16 03:06 Dose: 1 tab Admin: 07/30/16 03:24 Dose: 1 tab Admin: 07/28/16 22:21 Dose: 1 tab Admin: 07/22/16 06:02 Dose: 1 tab Acetaminophen/Hydrocodone Bitart ([place] 5/325mg) 1 tab PO Q4HP PRN PRN Reason: Pain Last Admin: 08/01/16 02:03 Dose: 1 tab Admin: 07/31/16 15:43 Dose: 1 tab Admin: 07/31/16 09:26 Dose: 1 tab Admin: 07/31/16 01:13 Dose: 1 tab Admin: 07/30/16 21:34 Dose: 1 tab Admin: 07/30/16 14:33 Dose: 1 tab Admin: 07/30/16 06:10 Dose: 1 tab Admin: 07/29/16 21:42 Dose: 1 tab Admin: 07/29/16 10:48 Dose: 1 tab Admin: 07/29/16 00:18 Dose: 1 tab Admin: 07/28/16 20:39 Dose: 1 tab Admin: 07/28/16 09:21 Dose: 1 tab Admin: 07/26/16 15:23 Dose: 1 tab Admin: 07/25/16 23:20 Dose: 1 tab Admin: 07/24/16 22:49 Dose: 1 tab Admin: 07/23/16 19:37 Dose: 1 tab Admin: 07/23/16 13:59 Dose: 1 tab Admin: 07/23/16 03:37 Dose: 1 tab Admin: 07/22/16 17:31 Dose: 1 tab Admin: 07/22/16 12:23 Dose: 1 tab Artificial Tears (Artificial Tears Ophth Drops) 1 gtt OU BIDP PRN PRN Reason: Dry Eye(s) Last Admin: 08/01/16 07:43 Dose: 1 gtt Admin: 08/01/16 02:11 Dose: 1 gtt Admin: 07/31/16 20:02 Dose: 1 gtt Admin: 07/31/16 08:55 Dose: 1 gtt Admin: 07/30/16 21:48 Dose: 1 gtt Admin: 07/30/16 03:27 Dose: 1 gtt Admin: 07/30/16 00:46 Dose: 1 gtt Ascorbic Acid (Vitamin C) 1,000 mg PO BID ERIK Last Admin: 08/01/16 08:57 Dose: 1,000 mg Admin: 07/31/16 20:00 Dose: 1,000 mg Admin: 07/31/16 08:54 Dose: 1,000 mg Admin: 07/30/16 21:35 Dose: 1,000 mg Admin: 07/30/16 08:02 Dose: 1,000 mg Admin: 07/29/16 21:41 Dose: 1,000 mg Admin: 07/29/16 09:21 Dose: 1,000 mg Admin: 07/28/16 20:39 Dose: 1,000 mg Admin: 07/28/16 09:17 Dose: 1,000 mg Admin: 07/27/16 20:42 Dose: 1,000 mg Admin: 07/27/16 08:35 Dose: 1,000 mg Admin: 07/26/16 22:11 Dose: 1,000 mg Admin: 07/26/16 08:01 Dose: 1,000 mg Admin: 07/25/16 20:40 Dose: 1,000 mg Admin: 07/25/16 09:34 Dose: 1,000 mg Admin: 07/24/16 20:05 Dose: 1,000 mg Admin: 07/24/16 09:04 Dose: 1,000 mg Admin: 07/23/16 21:00 Dose: 1,000 mg Admin: 07/23/16 08:17 Dose: 1,000 mg Admin: 07/22/16 21:12 Dose: 1,000 mg Admin: 07/22/16 08:14 Dose: 1,000 mg Admin: 07/21/16 20:56 Dose: 1,000 mg Cyanocobalamin (Vitamin B-12) 500 mcg PO DAILY [facility] Last Admin: 08/01/16 08:58 Dose: 500 mcg Admin: 07/31/16 08:55 Dose: 500 mcg Admin: 07/30/16 08:02 Dose: 500 mcg Admin: 07/29/16 09:21 Dose: 500 mcg Admin: 07/28/16 09:17 Dose: 500 mcg Admin: 07/27/16 08:35 Dose: 500 mcg Admin: 07/26/16 08:01 Dose: 500 mcg Admin: 07/25/16 09:33 Dose: 500 mcg Admin: 07/24/16 09:04 Dose: 500 mcg Admin: 07/23/16 08:18 Dose: 500 mcg Admin: 07/22/16 08:18 Dose: 500 mcg Diagnostic Test (Pha) (Accu-Chek) 1 each FS ACHS [facility] Last Admin: 08/01/16 07:43 Dose: 1 each Admin: 07/31/16 20:01 Dose: 1 each Admin: 07/31/16 17:13 Dose: 1 each Admin: 07/31/16 11:07 Dose: 1 each Admin: 07/31/16 08:14 Dose: 1 each Admin: 07/30/16 21:48 Dose: 1 each Admin: 07/30/16 17:20 Dose: 1 each Admin: 07/30/16 12:22 Dose: 1 each Admin: 07/30/16 07:48 Dose: 1 each Admin: 07/29/16 21:42 Dose: 1 each Admin: 07/29/16 16:59 Dose: 1 each Admin: 07/29/16 11:46 Dose: 1 each Admin: 07/29/16 07:40 Dose: 1 each Admin: 07/28/16 20:45 Dose: 1 each Admin: 07/28/16 17:26 Dose: 1 each Admin: 07/28/16 11:40 Dose: 1 each Admin: 07/28/16 07:12 Dose: 1 each Admin: 07/27/16 20:46 Dose: 1 each Admin: 07/27/16 17:16 Dose: 1 each Admin: 07/27/16 11:29 Dose: 1 each Admin: 07/27/16 07:02 Dose: 1 each Admin: 07/26/16 21:58 Dose: 1 each Admin: 07/26/16 16:23 Dose: 1 each Admin: 07/26/16 11:21 Dose: 1 each Admin: 07/26/16 07:55 Dose: 1 each Admin: 07/25/16 20:37 Dose: 1 each Admin: 07/25/16 17:12 Dose: 1 each Admin: 07/25/16 11:38 Dose: 1 each Admin: 07/25/16 07:41 Dose: 1 each Admin: 07/24/16 20:04 Dose: 1 each Admin: 07/24/16 17:17 Dose: 1 each Admin: 07/24/16 11:30 Dose: 1 each Admin: 07/24/16 07:18 Dose: 1 each Admin: 07/23/16 21:00 Dose: 1 each Digoxin (Lanoxin) 125 mcg PO DAILY@1400 ERIK Last Admin: 07/31/16 15:43 Dose: 125 mcg Admin: 07/30/16 14:38 Dose: 125 mcg Admin: 07/29/16 13:58 Dose: 125 mcg Admin: 07/28/16 14:57 Dose: 125 mcg Admin: 07/27/16 14:25 Dose: 125 mcg Admin: 07/26/16 15:24 Dose: 125 mcg Admin: 07/25/16 14:11 Dose: 125 mcg Admin: 07/24/16 13:48 Dose: 125 mcg Admin: 07/23/16 14:00 Dose: 125 mcg Admin: 07/22/16 14:57 Dose: 125 mcg Diphenoxylate HCl/Atropine (Lomotil) 1 tab PO Q8HP PRN PRN Reason: Loose Stool Last Admin: 07/31/16 08:56 Dose: 1 tab Fish Oil (Fish Oil) 1,000 mg PO DAILY [facility] Last Admin: 08/01/16 08:58 Dose: 1,000 mg Admin: 07/31/16 08:55 Dose: 1,000 mg Admin: 07/30/16 08:02 Dose: 1,000 mg Admin: 07/29/16 09:19 Dose: 1,000 mg Admin: 07/28/16 09:16 Dose: 1,000 mg Admin: 07/27/16 08:35 Dose: 1,000 mg Admin: 07/26/16 08:01 Dose: 1,000 mg Admin: 07/25/16 09:32 Dose: 1,000 mg Admin: 07/24/16 09:04 Dose: 1,000 mg Admin: 07/23/16 08:17 Dose: 1,000 mg Admin: 07/22/16 08:14 Dose: 1,000 mg Gabapentin (Neurontin) 200 mg PO BID [facility] Last Admin: 08/01/16 08:57 Dose: 200 mg Admin: 07/31/16 20:00 Dose: 200 mg Admin: 07/31/16 08:53 Dose: 200 mg Admin: 07/30/16 21:35 Dose: 200 mg Admin: 07/30/16 08:02 Dose: 200 mg Admin: 07/29/16 21:42 Dose: 200 mg Admin: 07/29/16 09:20 Dose: 200 mg Admin: 07/28/16 20:39 Dose: 200 mg Admin: 07/28/16 09:16 Dose: 200 mg Admin: 07/27/16 20:43 Dose: 200 mg Admin: 07/27/16 08:35 Dose: 200 mg Admin: 07/26/16 22:09 Dose: 200 mg Admin: 07/26/16 08:00 Dose: 200 mg Admin: 07/25/16 20:40 Dose: 200 mg Admin: 07/25/16 09:35 Dose: 200 mg Admin: 07/24/16 20:05 Dose: 200 mg Admin: 07/24/16 09:04 Dose: 200 mg Admin: 07/23/16 21:00 Dose: 200 mg Admin: 07/23/16 08:17 Dose: 200 mg Admin: 07/22/16 21:12 Dose: 200 mg Admin: 07/22/16 08:15 Dose: 200 mg Admin: 07/21/16 20:55 Dose: 200 mg Glucosamine/Chondroitin (Glucosamine-Chondroitin Cap) 1 cap PO DAILY [facility] Last Admin: 08/01/16 08:54 Dose: 1 cap Admin: 07/31/16 08:55 Dose: 1 cap Admin: 07/30/16 08:11 Dose: 1 cap Admin: 07/29/16 09:20 Dose: 1 cap Admin: 07/28/16 09:16 Dose: 1 cap Admin: 07/27/16 08:36 Dose: 1 cap Admin: 07/26/16 08:00 Dose: 1 cap Admin: 07/25/16 09:50 Dose: 1 cap Admin: 07/24/16 09:03 Dose: 1 cap Admin: 07/23/16 08:20 Dose: 1 cap Admin: 07/22/16 09:58 Dose: 1 cap Lactobacillus Rhamnosus (Culturelle) 1 cap PO DAILY [facility] Last Admin: 08/01/16 08:54 Dose: 1 cap Admin: 07/31/16 08:55 Dose: 1 cap Admin: 07/30/16 08:03 Dose: 1 cap Admin: 07/29/16 09:21 Dose: 1 cap Admin: 07/28/16 09:16 Dose: 1 cap Admin: 07/27/16 08:36 Dose: 1 cap Admin: 07/26/16 08:00 Dose: 1 cap Admin: 07/25/16 09:48 Dose: 1 cap Admin: 07/24/16 09:04 Dose: 1 cap Admin: 07/23/16 08:19 Dose: 1 cap Admin: 07/22/16 09:58 Dose: 1 cap Levothyroxine Sodium (Synthroid) 75 mcg PO QAMAC [facility] Last Admin: 08/01/16 07:43 Dose: 75 mcg Admin: 07/31/16 08:53 Dose: 75 mcg Admin: 07/30/16 08:04 Dose: 75 mcg Admin: 07/29/16 07:38 Dose: 75 mcg Admin: 07/28/16 07:15 Dose: 75 mcg Admin: 07/27/16 07:02 Dose: 75 mcg Admin: 07/26/16 08:01 Dose: 75 mcg Admin: 07/25/16 07:40 Dose: 75 mcg Admin: 07/24/16 07:18 Dose: 75 mcg Admin: 07/23/16 07:24 Dose: 75 mcg Admin: 07/22/16 08:14 Dose: 75 mcg Lisinopril (Zestril) 10 mg PO BID [facility] Last Admin: 08/01/16 08:56 Dose: 10 mg Admin: 07/31/16 20:00 Dose: 10 mg Admin: 07/31/16 08:53 Dose: 10 mg Admin: 07/30/16 21:36 Dose: 10 mg Admin: 07/30/16 08:06 Dose: Admin: 07/29/16 21:41 Dose: 10 mg Admin: 07/29/16 09:19 Dose: Admin: 07/28/16 20:39 Dose: 10 mg Admin: 07/28/16 09:18 Dose: Admin: 07/27/16 20:41 Dose: 10 mg Admin: 07/27/16 08:35 Dose: 10 mg Admin: 07/26/16 22:09 Dose: 10 mg Admin: 07/26/16 08:01 Dose: 10 mg Admin: 07/25/16 20:41 Dose: 10 mg Admin: 07/25/16 09:33 Dose: 10 mg Admin: 07/24/16 20:05 Dose: 10 mg Admin: 07/24/16 09:05 Dose: 10 mg Admin: 07/23/16 21:00 Dose: 10 mg Admin: 07/23/16 08:17 Dose: 10 mg Admin: 07/22/16 21:12 Dose: 10 mg Admin: 07/22/16 08:14 Dose: 10 mg Admin: 07/21/16 20:56 Dose: 10 mg Magnesium Hydroxide (Milk Of Magnesia) 30 ml PO Q6H [facility] Last Admin: 08/01/16 04:44 Dose: 30 ml Admin: 07/31/16 22:17 Dose: Not Given Admin: 07/31/16 17:15 Dose: 30 ml Montelukast Sodium (Singular) 10 mg PO QPM [facility] Last Admin: 07/31/16 20:00 Dose: 10 mg Admin: 07/30/16 21:35 Dose: 10 mg Admin: 07/29/16 21:41 Dose: 10 mg Admin: 07/28/16 20:39 Dose: 10 mg Admin: 07/27/16 20:44 Dose: 10 mg Admin: 07/26/16 22:09 Dose: 10 mg Admin: 07/25/16 20:40 Dose: 10 mg Admin: 07/24/16 20:05 Dose: 10 mg Admin: 07/23/16 21:00 Dose: 10 mg Admin: 07/22/16 21:13 Dose: 10 mg Admin: 07/21/16 20:56 Dose: 10 mg Oxybutynin Chloride (Ditropan) 5 mg PO TID ERIK Last Admin: 08/01/16 08:56 Dose: 5 mg Admin: 07/31/16 20:00 Dose: 5 mg Admin: 07/31/16 15:44 Dose: 5 mg Admin: 07/31/16 08:53 Dose: 5 mg Admin: 07/30/16 21:35 Dose: 5 mg Admin: 07/30/16 14:38 Dose: 5 mg Admin: 07/30/16 08:02 Dose: 5 mg Admin: 07/29/16 21:42 Dose: 5 mg Admin: 07/29/16 15:51 Dose: 5 mg Admin: 07/29/16 09:20 Dose: 5 mg Admin: 07/28/16 20:39 Dose: 5 mg Admin: 07/28/16 14:57 Dose: 5 mg Admin: 07/28/16 09:16 Dose: 5 mg Admin: 07/27/16 20:41 Dose: 5 mg Admin: 07/27/16 14:25 Dose: 5 mg Admin: 07/27/16 08:35 Dose: 5 mg Admin: 07/26/16 22:09 Dose: 5 mg Admin: 07/26/16 15:24 Dose: 5 mg Admin: 07/26/16 08:01 Dose: 5 mg Admin: 07/25/16 20:41 Dose: 5 mg Admin: 07/25/16 14:15 Dose: 5 mg Admin: 07/25/16 09:34 Dose: 5 mg Admin: 07/24/16 20:05 Dose: 5 mg Admin: 07/24/16 15:12 Dose: 5 mg Admin: 07/24/16 09:05 Dose: 5 mg Admin: 07/23/16 21:00 Dose: 5 mg Admin: 07/23/16 13:59 Dose: 5 mg Admin: 07/23/16 08:17 Dose: 5 mg Admin: 07/22/16 21:12 Dose: 5 mg Admin: 07/22/16 14:56 Dose: 5 mg Admin: 07/22/16 08:14 Dose: 5 mg Admin: 07/21/16 20:56 Dose: 5 mg Admin: 07/21/16 16:33 Dose: 5 mg Alpha Lipoic Acid (600 Mg Tab) 1 dose PO QDAY [facility] Last Admin: 08/01/16 08:58 Dose: Not Given Admin: 07/31/16 08:59 Dose: Not Given Admin: 07/30/16 08:11 Dose: Not Given Admin: 07/29/16 09:23 Dose: Not Given Admin: 07/28/16 09:17 Dose: Not Given Admin: 07/27/16 08:37 Dose: Not Given Admin: 07/26/16 08:02 Dose: Not Given Admin: 07/25/16 10:28 Dose: Not Given Admin: 07/24/16 09:05 Dose: Not Given Admin: 07/23/16 08:21 Dose: Not Given Admin: 07/22/16 08:20 Dose: Not Given Fenofibrate [Lofibra (] 160 Mg Tab) 1 dose PO QDAY [facility] Last Admin: 08/01/16 08:58 Dose: Not Given Admin: 07/31/16 08:59 Dose: Not Given Admin: 07/30/16 08:12 Dose: Not Given Admin: 07/29/16 09:23 Dose: Not Given Admin: 07/28/16 09:17 Dose: Not Given Admin: 07/27/16 08:37 Dose: Not Given Admin: 07/26/16 08:02 Dose: Not Given Admin: 07/25/16 10:28 Dose: Not Given Admin: 07/24/16 09:05 Dose: Not Given Admin: 07/23/16 08:21 Dose: Not Given Admin: 07/22/16 08:21 Dose: Not Given Senna/Docusate Sodium (Senna Plus Tablet) 1 - 2 tab PO HS [facility] Last Admin: 07/31/16 20:00 Dose: 1 tab Admin: 07/30/16 21:33 Dose: 1 tab Sotalol HCl (Betapace) 80 mg PO BID [facility] Last Admin: 08/01/16 08:56 Dose: 80 mg Admin: 07/31/16 20:01 Dose: 80 mg Admin: 07/31/16 09:26 Dose: 80 mg Admin: 07/30/16 21:35 Dose: 80 mg Admin: 07/30/16 09:22 Dose: 80 mg Admin: 07/29/16 21:41 Dose: 80 mg Admin: 07/29/16 09:19 Dose: 80 mg Admin: 07/28/16 20:39 Dose: 80 mg Admin: 07/28/16 09:16 Dose: 80 mg Admin: 07/27/16 20:44 Dose: 80 mg Admin: 07/27/16 08:36 Dose: 80 mg Admin: 07/26/16 22:08 Dose: 80 mg Admin: 07/26/16 08:02 Dose: 80 mg Admin: 07/25/16 20:42 Dose: 80 mg Admin: 07/25/16 09:49 Dose: 80 mg Admin: 07/24/16 20:06 Dose: 80 mg Admin: 07/24/16 09:03 Dose: 80 mg Admin: 07/23/16 20:59 Dose: 80 mg Admin: 07/23/16 08:19 Dose: 80 mg Admin: 07/22/16 21:11 Dose: 80 mg Admin: 07/22/16 11:41 Dose: 80 mg Admin: 07/22/16 09:58 Dose: Not Given Admin: 07/21/16 21:03 Dose: 80 mg Vitamin D (Vitamin D3) 1,000 unit PO DAILY [facility] Last Admin: 08/01/16 08:56 Dose: 1,000 unit Admin: 07/31/16 08:53 Dose: 1,000 unit Admin: 07/30/16 08:03 Dose: 1,000 unit Admin: 07/29/16 09:20 Dose: 1,000 unit Admin: 07/28/16 09:17 Dose: 1,000 unit Admin: 07/27/16 08:35 Dose: 1,000 unit Admin: 07/26/16 08:01 Dose: 1,000 unit Admin: 07/25/16 09:33 Dose: 1,000 unit Admin: 07/24/16 09:04 Dose: 1,000 unit Admin: 07/23/16 08:17 Dose: 1,000 unit Admin: 07/22/16 08:15 Dose: 1,000 unit Vitamin E (Vitamin E) 400 unit PO DAILY [facility] Last Admin: 08/01/16 08:55 Dose: 400 unit Admin: 07/31/16 08:55 Dose: 400 unit Admin: 07/30/16 08:03 Dose: 400 unit Admin: 07/29/16 09:19 Dose: 400 unit Admin: 07/28/16 09:17 Dose: 400 unit Admin: 07/27/16 08:36 Dose: 400 unit Admin: 07/26/16 08:00 Dose: 400 unit Admin: 07/25/16 09:49 Dose: 400 unit Admin: 07/24/16 09:04 Dose: 400 unit Admin: 07/23/16 08:19 Dose: 400 unit Admin: 07/22/16 09:58 Dose: 400 unit Warfarin Sodium (Coumadin) 1 mg PO [id number]@1400 [facility] Last Admin: 07/29/16 13:58 Dose: 1 mg Admin: 07/27/16 14:25 Dose: 1 mg Admin: 07/25/16 14:10 Dose: 1 mg Admin: 07/22/16 14:57 Dose: 1 mg Warfarin Sodium (Coumadin) 2 mg PO [id number]@1400 [facility] Last Admin: 07/31/16 15:43 Dose: 2 mg Admin: 07/30/16 14:38 Dose: 2 mg Admin: 07/28/16 14:57 Dose: 2 mg Admin: 07/26/16 15:24 Dose: 2 mg Admin: 07/24/16 13:49 Dose: 2 mg Admin: 07/23/16 14:00 Dose: 2 mg Zolpidem Tartrate (Ambien) 5 mg PO HSP PRN PRN Reason: Sleep Last Admin: 07/27/16 21:34 Dose: 5 mg Admin: 07/26/16 21:56 Dose: 5 mg Admin: 07/25/16 20:41 Dose: 5 mg Admin: 07/24/16 20:05 Dose: 5 mg Admin: 07/23/16 23:32 Dose: 5 mg Admin: 07/21/16 20:58 Dose: 5 mg Shift Summary 08/01/16 04:18 Shift Summary by Lisa Pryor Patient up with 1 and FWW. Ambulating in [place]. Schmidt catheter may have been DCed yesterday, confusion on weather Dr. Simmons to take out or why it wasn't done yesterday. It is clamped for now and patient is educated on when to tell us when she feels the urge to go. Need to clarify on staple removal. Patient states that Dr. Snyder told her a nurse would take them out yesterday although there is no note or report stating this. ELENO drain with minimal output. Pain to feet, medicated once with [place] and elevated feet with heelz up. Pt hasn't had BM in few days, MOM given last night and once this morning. Will update at bedside. Initialized on 08/01/16 04:18 - END OF NOTE
== END 2016-08-01 13:00 | DRG 699 ==
LOC: MEDSUR 12:50
PROVIDERS: ADMIT Family Medicine Adult Medicine; ATTEND Family Medicine Adult Medicine

== ENCOUNTER 2017-10-10 04:20 | Inpatient (IN) ==
[2017-10-10] MEDS ORDERED: LACTATED RINGERS 1,000 ML IV ONE ×3 (04:31→04:33)
[2017-10-10] MEDS ORDERED: ACETAMINOPHEN 1,000 MG/100 ML BOTTLE IV ONE (04:35)
[2017-10-10] MEDS ORDERED: CLINDAMYCIN 600 MG in DEXTROSE 5% IN WATER 50 ML IV ONE (04:41)
[2017-10-10 05:27] LABS: Basophils # (Auto) 0 K/mcL (0.0-0.3); Basophils % (Auto) 0.1 % (0.0-2.0); Eosinophils # (Auto) 0.3 K/mcL (0.0-0.7); Eosinophils % (Auto) 1.4 % (0.0-7.0); Granulocytes % (Auto) 91.1 % (38.0-78.0); Lymphocytes # (Auto) 0.9 K/mcL (1.5-4.8); Lymphocytes % (Auto) 4.1 % (15.5-49.0); Mean Cell Volume 91.9 fL (80.0-100.0); Mean Corpuscular HGB Conc 33.8 g/dL (31.0-36.0); Mean Corpuscular Hemoglobin 31.1 pg (26.0-34.0); Monocytes # (Auto) 0.7 K/mcL (0.1-0.9); Monocytes % (Auto) 3.3 % (1.0-12.0); Platelet Count 330 K/mcL (140-440); RBC 3.62 M/mcL (4.00-5.20); Red Cell Distribution Width 15.3 % (11.5-14.5)
[2017-10-10 06:02] LABS: Appearance,Urine CLOUDY; Bacteria,Urine 0 /hpf (0); Bilirubin,Urine NEG (NEG); Color,Urine YELLOW; Glucose,Urine (UA) NEGATIVE (NEG); Leukocyte Esterase,Urine 500 /uL (NEG); Protein,Urine 100 mg/dL (NEG); Specific Gravity,Urine 1.013 (1.000-1.035); Urine Blood NEG mg/dL (<0.03); Urine RBC 7 /hpf (0-1); Urine Squamous Epithelial Cell 3 /hpf (0-4); Urine WBC > 182 /hpf (0-4); Urobilinogen,Urine NEG (NEG)
--- NOTE | 2017-10-10 06:10 | Emergency Department Note ---
Fever HPI - General Chief Complaint: Fever Stated Complaint: Temp, Not feeling well Time Seen by Provider: 10/10/17 04:44 Source: patient Mode of arrival: ambulatory Limitations: no limitations - History of Present Illness HPI Narrative: 87-year-old woke up this morning with violent shaking malaise shortness of breath. She was hot to touch found to have a temperature of 104 here. Requiring oxygen now but not on home O2 yesterday. Last bowel movement was yesterday and normal. Patient having trouble thinking clearly. - Related Data Home Medications Medication Instructions Recorded Confirmed ascorbic acid (vitamin C) 500 mg 1,000 mg PO BID 03/29/15 10/05/17 tablet glucosamine-chondroitin 1 tab PO QDAY 03/29/15 10/05/17 omega-3 fatty acids 1,000 mg 1,000 mg PO QDAY 03/29/15 10/05/17 capsule lactobacillus combination no.6 4 1 cell PO DAILY 12/01/15 10/05/17 billion cell tablet cholecalciferol (vitamin D3) 1,000 1,000 unit PO QDAY cap 12/07/15 10/05/17 unit capsule vitamin E 400 unit tablet 400 unit PO QDAY 07/05/16 10/05/17 Systane Liquid Gel Eye Drops 1 drp BOTH EYES PRN PRN 07/29/16 10/05/17 Blood Sugar Diagnostic [Contour] 0 dose .ROUTE .MEDSUPPLY 10/04/16 10/05/17 vit C-vit [id number] ox-lutein cap PO QDAY cap 03/30/17 10/05/17 226 mg-200 unit-5 mg-0.8 mg capsule psyllium oral powder 1 tbsp PO QDAY 09/10/17 10/05/17 gabapentin 600 mg tablet 600 mg PO TID 10/05/17 10/05/17 Previous Rx's Medication Instructions Recorded compression stocking,knee 0 patch .ROUTE .MEDSUPPLY #12 each 10/26/16 high,long length,medium circ Diabetic shoes #1 each 11/29/16 levothyroxine 75 mcg tablet 75 mcg PO QDAY #30 tab 12/15/16 digoxin 125 mcg tablet 125 mcg PO QDAY #90 tab 12/26/16 lisinopril 30 mg tablet 30 mg PO QDAY #90 tab 03/26/17 sotalol 80 mg tablet 80 mg PO BID #60 tab 04/12/17 fenofibrate 160 mg tablet 160 mg PO QDAY #30 tab 05/01/17 zolpidem 5 mg tablet 5 mg PO QHS PRN #30 tab 05/21/17 linagliptin 5 mg tablet 5 mg PO QAM #30 tab 06/15/17 montelukast 10 mg tablet 10 mg PO QPM #90 tab 07/02/17 furosemide 20 mg tablet 20 mg PO BID #60 tab 08/07/17 estradiol 0.01% (0.1 mg/gram) 0.5 g VAGINAL .QOD #42.5 g 08/14/17 vaginal cream amlodipine 2.5 mg tablet 2.5 mg PO QDAY #90 tab 09/10/17 warfarin 2 mg tablet 2 mg PO .COMPLEX #90 tab 10/03/17 Allergies Allergy/AdvReac Type Severity Reaction Status Date / Time adhesive tape Allergy Intermediate Rash Verified 10/05/17 11:04 latex Allergy Intermediate Rash Verified 10/05/17 11:04 cinnamon [Cinnamon] Allergy Mild Rash Verified 10/05/17 11:04 ciprofloxacin AdvReac Intermediate gi upset Verified 10/05/17 11:04 Erythromycin Base AdvReac Intermediate Unknown Verified 10/05/17 11:04 levofloxacin AdvReac Intermediate Vomiting Verified 10/05/17 11:04 metformin AdvReac Intermediate Diarrhea Verified 10/05/17 11:04 ofloxacin AdvReac Intermediate gi upset Verified 10/05/17 11:04 Quinolones AdvReac Intermediate Vomiting Verified 10/05/17 11:04 Sulfa (Sulfonamide AdvReac Intermediate Unknown Verified 10/05/17 11:04 Antibiotics) ampicillin AdvReac Mild Nausea Verified 10/05/17 11:04 acidic food AdvReac Unknown sores in Uncoded 10/05/17 11:04 mouth Review of Systems All systems ED: reviewed and negative except as stated. Fever PMH - Past Medical History [facility] Narrative: Medical History (Last Reviewed 10/08/17 @ 15:37 by Yari Romo, SPIKE, PARK ATTENDANT) Fatigue (Acute) Acquired asplenia (Chronic) Anemia in stage 3 chronic kidney disease (Chronic) Localized edema due to fluid overload (Chronic) Secondary hyperparathyroidism of renal origin (Chronic) Vitamin D deficiency (Chronic) Hypertension in stage 3 chronic kidney disease due to type 2 diabetes mellitus ( Chronic) CKD (chronic kidney disease) stage 3, GFR 30-59 ml/min (Chronic) Candidiasis of esophagus (Chronic) Osteopenia (Chronic) Recurrent urinary tract infection (Chronic) Low back pain (Chronic) Spinal stenosis of lumbosacral region (Chronic) Polyneuropathy (Chronic) Hypertriglyceridemia (Chronic) GERD (gastroesophageal reflux disease) (Resolved) Urinary incontinence (Chronic) Type 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 mellitus (Chronic) 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) Stroke (Chronic) Scoliosis (Chronic) Peripheral neuropathy (Chronic) Paroxysmal supraventricular tachycardia (Chronic) Pacemaker (Chronic) Neoplasm of skin (Chronic) Lupus (systemic lupus erythematosus) (Resolved) Iron deficiency (Chronic) Internal hemorrhoids with complication (Chronic) Hypothyroidism, acquired (Chronic) Hypertension, essential (Chronic) Degenerative disc disease (Chronic) Deep vein thrombosis (Resolved) Cataract (Chronic) Atrial fibrillation (Chronic) Arthritis (Chronic) Anemia (Chronic) Cataract, bilateral (Chronic) Bladder pain (Resolved) Bleeding disorder (Resolved) Effusion of joint (Resolved) Fecal incontinence (Resolved) Gait abnormality (Resolved) Grief at loss of child (Resolved) Hyperkalemia, diminished renal excretion (Resolved) Myelodysplastic syndrome (Resolved) Open leg wound (Resolved) Urinary tract infection (Resolved) Past Surgical History (Last Reviewed 10/08/17 @ 15:37 by Yari Romo DNP, PARK ATTENDANT) H/O splenectomy (Chronic) History of esophagogastroduodenoscopy (EGD) (Chronic 07/25/17) History of bilateral knee replacement (Resolved) History of cholecystectomy (Resolved) History of total abdominal hysterectomy (Resolved) S/P PICC central line placement (Resolved) S/P cataract extraction (Resolved) S/P skin biopsy (Resolved) Family History (Last Reviewed 10/08/17 @ 15:37 by Yari Romo, SPIKE, PARK ATTENDANT) Father Cardiac disease Mother Family history of lymphoma Maternal aunt Malignant neoplasm of breast Other Cancer Diabetes Heart attack Hypertension Stroke Medical history: Reports: atrial fibrillation, CVA, DM, hyperlipidemia, hypertension, hypothyroidism, osteoporosis Psychiatric history: Reports: no psych history SENIOR DATA MODELER history: Reports: non-contributory Family history: Reports: no significant family history - Social History smoking status: Never smoker Physical Exam No acute distress but is requiring oxygen now via nasal cannula. Normocephalic atraumatic. Conjunctive mildly injected bilaterally. No icterus. Oropharynx with dry buccal mucosa. Neck is supple without thyromegaly or lymphadenopathy. Heart is with regular rate and rhythm. Pacemaker in place left upper chest wall. Lungs are basically clear to auscultation bilaterally without wheezes rales rhonchi or respiratory distress. Abdomen is soft nontender nondistended. Trace bilateral edema. +2 radial pulse. Alert and able to answer questions but is having trouble focusing, somnolent versus obtunded Limitations: no limitations Course Vital Signs Temperature 104 F H 10/10/17 04:21 Pulse Rate 72 10/10/17 04:21 Respiratory Rate 20 10/10/17 04:21 Blood Pressure 142/72 10/10/17 04:21 Pulse Oximetry (%) 94 10/10/17 04:21 Temperature 101.2 F H 10/10/17 06:01 Pulse Rate 70 10/10/17 06:01 Respiratory Rate 16 10/10/17 06:01 Blood Pressure 107/49 10/10/17 06:01 Pulse Oximetry (%) 98 10/10/17 06:01 Fever - Lab Data Lab results reviewed: Yes I reviewed the patient's lab results. Result diagrams: 10/10/17 04:35 10/10/17 04:35 Lab Results 10/10/17 10/10/17 10/10/17 Range/Units 04:31 04:35 04:35 WBC 22.5 H (4.5-11.0) K/mcL RBC 3.62 L (4.00-5.20) M/mcL Hgb 11.2 L (12.0-15.0) g/dL Hct 33.2 L (36.0-48.0) % MCV 91.9 (80.0-100.0) fL MCH 31.1 (26.0-34.0) pg MCHC 33.8 (31.0-36.0) g/dL RDW 15.3 H (11.5-14.5) % Plt Count 330 (140-440) K/mcL MPV 9.9 (7.4-10.4) fL Gran % 91.1 H (38.0-78.0) % Lymph % (Auto) 4.1 L (15.5-49.0) % [place] % (Auto) 3.3 (1.0-12.0) % Eos % (Auto) 1.4 (0.0-7.0) % Baso % (Auto) 0.1 (0.0-2.0) % Gran # 20.5 H (1.8-8.0) K/mcL Lymph # (Auto) 0.9 L (1.5-4.8) K/mcL [place] # (Auto) 0.7 (0.1-0.9) K/mcL Eos # (Auto) 0.3 (0.0-0.7) K/mcL Baso # (Auto) 0 (0.0-0.3) K/mcL PT (11.9-14.5) sec INR (0.9-1.1) VBG Lactic Acid (0.5-2.2) mmol/L Sodium 137 (133-145) mmol/L Potassium 4.6 (3.3-5.1) mmol/L Chloride 98 (96-108) mmol/L Carbon Dioxide 24 (22-30) mmol/L Anion Gap 15.0 (8-16) BUN 41 H (8-23) mg/dl Creatinine 1.7 H (0.6-1.1) mg/dl GFR Calculation 27 Glucose 141 H (70-105) mg/dL Calcium 9.2 (8.6-10.4) mg/dl Total Bilirubin 0.6 (0.0-1.0) mg/dL AST 34 (0-37) U/l ALT 29 (0-40) U/l Alkaline Phosphatase 50 (39-117) U/L Total Protein 6.7 (5.9-8.4) gm/dL Albumin 4.0 (3.2-5.2) gm/dL Globulin 2.7 (2.2-3.7) gm/dL Albumin/Globulin Ratio 1.5 (1.0-2.3) Lipase (7-60) U/L Procalcitonin 0.11 (<0.10) ng/mL Urine Color Urine Appearance Urine pH (5.0-9.0) Ur Specific [place] (1.000-1.035) Urine Protein (NEG) mg/dL Urine Glucose (UA) (NEG) mg/dL Urine Ketones (NEG) mg/dL Urine Occult Blood (<0.03) mg/dL Urine Nitrate (NEG) Urine Bilirubin (NEG) mg/dL Urine Urobilinogen (NEG) mg/dL Ur Leukocyte Esterase (NEG) /uL Urine RBC (0-1) /hpf Urine WBC (0-4) /hpf Ur Squamous Epith Cells (0-4) /hpf Urine Bacteria (0) /hpf Digoxin ng/mL Digoxin Dose Digox Last Dose Time 10/10/17 10/10/17 10/10/17 Range/Units 04:35 04:35 04:35 WBC (4.5-11.0) K/mcL RBC (4.00-5.20) M/mcL Hgb (12.0-15.0) g/dL Hct (36.0-48.0) % MCV (80.0-100.0) fL MCH (26.0-34.0) pg MCHC (31.0-36.0) g/dL RDW (11.5-14.5) % Plt Count (140-440) K/mcL MPV (7.4-10.4) fL Gran % (38.0-78.0) % Lymph % (Auto) (15.5-49.0) % [place] % (Auto) (1.0-12.0) % Eos % (Auto) (0.0-7.0) % Baso % (Auto) (0.0-2.0) % Gran # (1.8-8.0) K/mcL Lymph # (Auto) (1.5-4.8) K/mcL [place] # (Auto) (0.1-0.9) K/mcL Eos # (Auto) (0.0-0.7) K/mcL Baso # (Auto) (0.0-0.3) K/mcL PT 20.7 H (11.9-14.5) sec INR 1.8 H (0.9-1.1) VBG Lactic Acid < 0.2 L (0.5-2.2) mmol/L Sodium (133-145) mmol/L Potassium (3.3-5.1) mmol/L Chloride (96-108) mmol/L Carbon Dioxide (22-30) mmol/L Anion Gap (8-16) BUN (8-23) mg/dl Creatinine (0.6-1.1) mg/dl GFR Calculation Glucose (70-105) mg/dL Calcium (8.6-10.4) mg/dl Total Bilirubin (0.0-1.0) mg/dL AST (0-37) U/l ALT (0-40) U/l Alkaline Phosphatase (39-117) U/L Total Protein (5.9-8.4) gm/dL Albumin (3.2-5.2) gm/dL Globulin (2.2-3.7) gm/dL Albumin/Globulin Ratio (1.0-2.3) Lipase 52 (7-60) U/L Procalcitonin (<0.10) ng/mL Urine Color Urine Appearance Urine pH (5.0-9.0) Ur Specific [place] (1.000-1.035) Urine Protein (NEG) mg/dL Urine Glucose (UA) (NEG) mg/dL Urine Ketones (NEG) mg/dL Urine Occult Blood (<0.03) mg/dL Urine Nitrate (NEG) Urine Bilirubin (NEG) mg/dL Urine Urobilinogen (NEG) mg/dL Ur Leukocyte Esterase (NEG) /uL Urine RBC (0-1) /hpf Urine WBC (0-4) /hpf Ur Squamous Epith Cells (0-4) /hpf Urine Bacteria (0) /hpf Digoxin ng/mL Digoxin Dose Digox Last Dose Time 10/10/17 10/10/17 Range/Units 04:35 05:10 WBC (4.5-11.0) K/mcL RBC (4.00-5.20) M/mcL Hgb (12.0-15.0) g/dL Hct (36.0-48.0) % MCV (80.0-100.0) fL MCH (26.0-34.0) pg MCHC (31.0-36.0) g/dL RDW (11.5-14.5) % Plt Count (140-440) K/mcL MPV (7.4-10.4) fL Gran % (38.0-78.0) % Lymph % (Auto) (15.5-49.0) % [place] % (Auto) (1.0-12.0) % Eos % (Auto) (0.0-7.0) % Baso % (Auto) (0.0-2.0) % Gran # (1.8-8.0) K/mcL Lymph # (Auto) (1.5-4.8) K/mcL [place] # (Auto) (0.1-0.9) K/mcL Eos # (Auto) (0.0-0.7) K/mcL Baso # (Auto) (0.0-0.3) K/mcL PT (11.9-14.5) sec INR (0.9-1.1) VBG Lactic Acid (0.5-2.2) mmol/L Sodium (133-145) mmol/L Potassium (3.3-5.1) mmol/L Chloride (96-108) mmol/L Carbon Dioxide (22-30) mmol/L Anion Gap (8-16) BUN (8-23) mg/dl Creatinine (0.6-1.1) mg/dl GFR Calculation Glucose (70-105) mg/dL Calcium (8.6-10.4) mg/dl Total Bilirubin (0.0-1.0) mg/dL AST (0-37) U/l ALT (0-40) U/l Alkaline Phosphatase (39-117) U/L Total Protein (5.9-8.4) gm/dL Albumin (3.2-5.2) gm/dL Globulin (2.2-3.7) gm/dL Albumin/Globulin Ratio (1.0-2.3) Lipase (7-60) U/L Procalcitonin (<0.10) ng/mL Urine Color Yellow Urine Appearance Cloudy Urine pH 6.0 (5.0-9.0) Ur Specific [place] 1.013 (1.000-1.035) Urine Protein 100 A (NEG) mg/dL Urine Glucose (UA) Negative (NEG) mg/dL Urine Ketones Neg (NEG) mg/dL Urine Occult Blood Neg (<0.03) mg/dL Urine Nitrate Neg (NEG) Urine Bilirubin Neg (NEG) mg/dL Urine Urobilinogen Neg (NEG) mg/dL Ur Leukocyte Esterase 500 A (NEG) /uL Urine RBC 7 H (0-1) /hpf Urine WBC > 182 H (0-4) /hpf Ur Squamous Epith Cells 3 (0-4) /hpf Urine Bacteria 0 (0) /hpf Digoxin 1.5 ng/mL Digoxin Dose Not Reportable Digox Last Dose Time Not Reportable - Radiology Data Radiology results reviewed: Yes I reviewed the patient's radiology results. Chest x-ray shows no acute cardiopulmonary disease - EKG Data EKG attestation: Yes I reviewed and interpreted this EKG. EKG results narrative: EKG shows atrial fibrillation with a rate of 107 Disposition Pt seen by DRYWALL APPLICATION SUPERVISOR/PA only: No Clinical Impression: Recurrent urinary tract infection Summary: Patient seen and evaluated. Workup started with laboratory EKG and chest x- ray. Treatment started with IV fluids. Antibiotics limited by multiple allergies. Found to have urinary tract infection- Clindamycin started after labs and cultures drawn Discussed case with Dr. Espinoza our hospitalist, who agreed to accept patient for further inpatient care-per his recommendations started Rocephin Disposition: Xfer As Inpt ([facility]) Condition: Serious Referrals: Yari Romo, SPIKE, PARK ATTENDANT [Primary Care Provider] -
[2017-10-10 06:19] LABS: ALT/SGPT 29 U/l (0-40); Albumin/Globulin Ratio 1.5 (1.0-2.3); Alkaline Phosphatase 50 U/L (39-117); Blood Urea Nitrogen 41 mg/dl (8-23)
[2017-10-10] MEDS ORDERED: cefTRIAXone 1 GM VIAL IV ONE (06:44)
--- NOTE | 2017-10-10 08:28 | Internal Med History&Physical ---
Medical - H&P: HPI Patient information: Note initiated : 10/10/17 at 8:18 am Service Date, if different from initiated Date: [] Patient: Soumya Garcia a 87 y/o F admitted on for Temp, Not Feeling Well. Chief Complaint: [] History of present illness: Ms. Garcia is a 87 year old F with h/o recurrent UTI, afib on coumadin, DM, presents to the ER for not feeling well for last 2 days. The patient notes that she had a UTI early this month, she completed a course of keflex for same, (Ecoli sensitive to same). The patient feels that this helped. The patient over the last 2 days has been having increased urinary frequency, increased burning of urine, foul smelling and cloudy urine. She was still able to function till last night. This AM early in the morning she woke up with fever, chills, weakness, rigors and was brought to the ER for further evaluation. She does admit to chr back pain, but otherwise has chr shortness of breath, and generalized weakness. She has chr constipation and incontinence of urine. She denies any acute changes in her other chr medical issues She has been followed by Dr Simmons for her recurrent UTI, she admits to having chr urinary incontinence and does not always change her underwear if she has a small accident. She also suffers from constipating, hard stools, and does have intermittent bowel incontinence with very hard pebble like stools, which she just throws away, without changing her undergarments? Educated the need for personal hygine to avoid further episodes. I reviewed her recent urine culture reports She has had multiple infections with Ecoli, Citrobacter, some proteus, enterococcus and pseudomonas in the last 12-14 months. In the ER the patient was initially brought as confused, febrile with fever of 104, HR 70 (paced ) and Increased oxygen requirements to 4L oxygen not on oxygen at baseline. BP soft with lowest reading 101/46 She had elevated wbc at 22K, Hb 11.2, plat 330 Creat 1.7, baselien around 1.5 Procal 0.11, Lac < 0.2? INR 1.8 UA suggestive of infection. Patient admitted to PCU status for further monitoring. All systems: reviewed and no additional remarkable complaints except as stated ( as per HPI rest neg) Medical - H&P: PMH Medical history: Medical History (Last Reviewed 10/08/17 @ 15:37 by Yari Romo, [place], [place]) Fatigue (Acute) Acquired asplenia (Chronic) Anemia in stage 3 chronic kidney disease (Chronic) Localized edema due to fluid overload (Chronic) Secondary hyperparathyroidism of renal origin (Chronic) Vitamin D deficiency (Chronic) Hypertension in stage 3 chronic kidney disease due to type 2 diabetes mellitus ( Chronic) CKD (chronic kidney disease) stage 3, GFR 30-59 ml/min (Chronic) Candidiasis of esophagus (Chronic) Osteopenia (Chronic) Recurrent urinary tract infection (Chronic) Low back pain (Chronic) Spinal stenosis of lumbosacral region (Chronic) Polyneuropathy (Chronic) Hypertriglyceridemia (Chronic) GERD (gastroesophageal reflux disease) (Resolved) Urinary incontinence (Chronic) Type 2 diabetes mellitus (Chronic) MCC current use of anticoagulant therapy (Chronic) Stroke (Chronic) Scoliosis (Chronic) Peripheral neuropathy (Chronic) Paroxysmal supraventricular tachycardia (Chronic) Pacemaker (Chronic) Neoplasm of skin (Chronic) Lupus (systemic lupus erythematosus) (Resolved) Iron deficiency (Chronic) Internal hemorrhoids with complication (Chronic) Hypothyroidism, acquired (Chronic) Hypertension, essential (Chronic) Degenerative disc disease (Chronic) Deep vein thrombosis (Resolved) Cataract (Chronic) Atrial fibrillation (Chronic) Arthritis (Chronic) Anemia (Chronic) Cataract, bilateral (Chronic) Bladder pain (Resolved) Bleeding disorder (Resolved) Effusion of joint (Resolved) Fecal incontinence (Resolved) Gait abnormality (Resolved) Grief at loss of child (Resolved) Hyperkalemia, diminished renal excretion (Resolved) Myelodysplastic syndrome (Resolved) Open leg wound (Resolved) Urinary tract infection (Resolved) Surgical history: Past Surgical History (Last Reviewed 10/08/17 @ 15:37 by Yari Romo, [place], [employer]ALLOGR[employer]HER) H/O splenectomy (Chronic) History of esophagogastroduodenoscopy (EGD) (Chronic 07/25/17) History of bilateral knee replacement (Resolved) History of cholecystectomy (Resolved) History of total abdominal hysterectomy (Resolved) S/P PICC central line placement (Resolved) S/P cataract extraction (Resolved) S/P skin biopsy (Resolved) Pertinent family history: Family History (Last Reviewed 10/08/17 @ 15:37 by Yari Romo, [place], [place]) Father Cardiac disease Mother Family history of lymphoma Maternal aunt Malignant neoplasm of breast Other Cancer Diabetes Heart attack Hypertension Stroke Medical - H&P: Meds Home Medications Medication Instructions Recorded Confirmed Type ascorbic acid (vitamin C) 500 mg 1,000 mg PO BID 03/29/15 10/05/17 History tablet glucosamine-chondroitin 1 tab PO QDAY 03/29/15 10/05/17 History omega-3 fatty acids 1,000 mg 1,000 mg PO QDAY 03/29/15 10/05/17 History capsule lactobacillus combination no.6 4 1 cell PO DAILY 12/01/15 10/05/17 History billion cell tablet cholecalciferol (vitamin D3) 1,000 1,000 unit PO QDAY cap 12/07/15 10/05/17 History unit capsule vitamin E 400 unit tablet 400 unit PO QDAY 07/05/16 10/05/17 History Systane Liquid Gel Eye Drops 1 drp BOTH EYES PRN PRN 07/29/16 10/05/17 History Blood Sugar Diagnostic [Contour] 0 dose .ROUTE .MEDSUPPLY 10/04/16 10/05/17 History compression stocking,knee 0 patch .ROUTE .MEDSUPPLY #12 each 10/26/16 10/05/17 Rx high,long length,medium circ Diabetic shoes #1 each 11/29/16 10/05/17 Rx levothyroxine 75 mcg tablet 75 mcg PO QDAY #30 tab 12/15/16 10/05/17 Rx digoxin 125 mcg tablet 125 mcg PO QDAY #90 tab 12/26/16 10/05/17 Rx lisinopril 30 mg tablet 30 mg PO QDAY #90 tab 03/26/17 10/05/17 Rx vit C-vit S-rarurh-ljzp ox-lutein cap PO QDAY cap 03/30/17 10/05/17 History 226 mg-200 unit-5 mg-0.8 mg capsule sotalol 80 mg tablet 80 mg PO BID #60 tab 04/12/17 10/05/17 Rx fenofibrate 160 mg tablet 160 mg PO QDAY #30 tab 05/01/17 10/05/17 Rx zolpidem 5 mg tablet 5 mg PO QHS PRN #30 tab 05/21/17 10/05/17 Rx linagliptin 5 mg tablet 5 mg PO QAM #30 tab 06/15/17 10/05/17 Rx montelukast 10 mg tablet 10 mg PO QPM #90 tab 07/02/17 10/05/17 Rx furosemide 20 mg tablet 20 mg PO BID #60 tab 08/07/17 10/05/17 Rx estradiol 0.01% (0.1 mg/gram) 0.5 g VAGINAL .QOD #42.5 g 08/14/17 10/05/17 Rx vaginal cream amlodipine 2.5 mg tablet 2.5 mg PO QDAY #90 tab 09/10/17 10/05/17 Rx psyllium oral powder 1 tbsp PO QDAY 09/10/17 10/05/17 History warfarin 2 mg tablet 2 mg PO .COMPLEX #90 tab 10/03/17 10/05/17 Rx gabapentin 600 mg tablet 600 mg PO TID 10/05/17 10/05/17 History Allergies Allergy/AdvReac Type Severity Reaction Status Date / Time adhesive tape Allergy Intermediate Rash Verified 10/05/17 11:04 latex Allergy Intermediate Rash Verified 10/05/17 11:04 cinnamon [Cinnamon] Allergy Mild Rash Verified 10/05/17 11:04 ciprofloxacin AdvReac Intermediate gi upset Verified 10/05/17 11:04 Erythromycin Base AdvReac Intermediate Unknown Verified 10/05/17 11:04 levofloxacin AdvReac Intermediate Vomiting Verified 10/05/17 11:04 metformin AdvReac Intermediate Diarrhea Verified 10/05/17 11:04 ofloxacin AdvReac Intermediate gi upset Verified 10/05/17 11:04 Quinolones AdvReac Intermediate Vomiting Verified 10/05/17 11:04 Sulfa (Sulfonamide AdvReac Intermediate Unknown Verified 10/05/17 11:04 Antibiotics) ampicillin AdvReac Mild Nausea Verified 10/05/17 11:04 acidic food AdvReac Unknown sores in Uncoded 10/05/17 11:04 mouth Medical - H&P: Exam - Constitutional Vitals: Temp Pulse Resp BP Pulse Ox 99.5 F H 70 16 120/57 98 10/10/17 08:16 10/10/17 08:16 10/10/17 08:16 10/10/17 08:16 10/10/17 08:16 Exam: GENERAL: The patient is a well-developed, well-nourished in mild distress appears sick and weak. Is awake and oriented x3. VITAL SIGNS: Reviewed and as noted elsewhere. HEENT: Head is normocephalic and atraumatic. Extraocular muscles are intact. Pupils are equal, round, and reactive to light. Nares appeared normal. Mouth appears any without lesions. Mucous membranes are dry NECK: Normal to inspection, Supple, No lymphadenopathy or thyromegaly. LUNGS: Air entry equal on both sides, no wheezing, bibasilar crackles noted, No accessory muscles of respiration HEART: Regular rate and rhythm normal, S1 and S2 heard, no Gallop, S3 or Rub Noted, systolic murmur tricuspid region noted. ABDOMEN: Soft, nontender, and nondistended. Positive bowel sounds. No hepatosplenomegaly was noted. Right flank tenderness present EXTREMITIES: No cyanosis, clubbing, rash, lesions, edema + bilaterally NEUROLOGIC: Cranial nerves II through XII are grossly intact. Motor and Sensory System Grossly Intact PSYCHIATRIC: Normal affect, Normal Mood. Appropriate Behavior. SKIN: think easilby brusing skin, No ulceration or wounds noted, No jaundice, No rash noted. Medical - H&P: Reslt - Labs CBC & Chem 7: 10/10/17 04:35 10/10/17 04:35 Labs: Short CBC 10/10/17 Range/Units 04:35 WBC 22.5 H (4.5-11.0) K/mcL Hgb 11.2 L (12.0-15.0) g/dL Hct 33.2 L (36.0-48.0) % Plt Count 330 (140-440) K/mcL BMP 10/10/17 04:35 Sodium 137 Potassium 4.6 Chloride 98 Carbon Dioxide 24 BUN 41 H Creatinine 1.7 H Glucose 141 H Calcium 9.2 Liver Function 10/10/17 Range/Units 04:35 Total Bilirubin 0.6 (0.0-1.0) mg/dL AST 34 (0-37) U/l ALT 29 (0-40) U/l Alkaline Phosphatase 50 (39-117) U/L Albumin 4.0 (3.2-5.2) gm/dL Urine 10/10/17 Range/Units 05:10 Urine Color Yellow Urine Appearance Cloudy Urine pH 6.0 (5.0-9.0) Ur Specific [place] 1.013 (1.000-1.035) Urine Protein 100 A (NEG) mg/dL Urine Glucose (UA) Negative (NEG) mg/dL Medical - H&P: A/P - Narrative A/P Narrative: A/P Urinary tract infection Possible Pyelonephritis Severe Sepsis Diabetes mellitus Acute hypoxic Respiratory Failure Atrial fibrillation Congestive heart failure Hypertension Hypothyroidism chronic Kidney disease stage 4 Anemia of chr disease Recurrent Urinary tract Infections h/o cva s/p pacemaker Polyneuropathy Intermittent Bowel and Bladder Incontinence Plan Given extensive comorbidities, admit to PCU status IV fluids given per sepsis protocol, lactate is normal HOld home bp meds given soft bp Oxygen supplementation via nasal canula, Ok to use bipap/ Intubation if worsens Resume home meds as appropriate SSI for glucose control for now get CT Abdomen pelvis to evaluate pyelo, IV ceftazidime and IV vancomycin given h/o enterococcus and pseudomonas in the past, descalate therapy as patients urine culture sensitivity comes back monitor labs Will need ongoing education regarding personal hygiene DVT hep sq INR was subtherapeutic on Coumadin, d/c hep once INR therapeutic Full code Cardiac, diabetic diet Social History - Social History household members: spouse housing: house marital status: occupational 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
[2017-10-10] MEDS ORDERED: ONDANSETRON 4 MG/2 ML VIAL IV PRN (08:31)
[2017-10-10] MEDS ORDERED: VANCOMYCIN PER PHARMACY IV SCH (08:31)
[2017-10-10] MEDS ORDERED: LORazepam 2 MG/ML VIAL IV PRN (08:31)
[2017-10-10] MEDS ORDERED: ACETAMINOPHEN 325 MG TABLET PO PRN (08:31)
[2017-10-10] MEDS ORDERED: HYDROmorphone 2 MG/ML VIAL IV PRN (08:31)
[2017-10-10] MEDS ORDERED: DEXTROSE 31 GM ORAL.SUSP PO PRN (08:31)
[2017-10-10] MEDS ORDERED: DEXTROSE 50% 50 ML VIAL IV PRN (08:31)
[2017-10-10] MEDS ORDERED: NALOXONE HCL 0.4 MG/ML VIAL IV PRN (08:31)
--- NOTE | 2017-10-10 08:36 | XRay Report ---
HISTORY: Fever and not feeling well FINDINGS: Thin linear scars are seen at the left costophrenic sulcus and above the right diaphragm. These are chronic stable finding. There is no evidence of pneumonia, mass, adenopathy or pleural effusion. The heart size and pulmonary vasculature are normal. Dual-chamber pacemaker is well-positioned. There has been no significant change since 07/12/16. IMPRESSION: Normal exam Interpreted and Authenticated by: Mike Lora 10/10/17
[2017-10-10] MEDS: LACTATED RINGERS 1,000 ML IV SCH ×2 (08:37→18:08)
--- NOTE | 2017-10-10 08:43 | Internal Med Progress Note ---
Medical - PN: Subj Patient information: Note initiated : 10/10/17 at 7:59 am Service Date, if different from initiated Date: [] Patient: Soumya Garcia a 87 y/o F admitted on for Temp, Not Feeling Well. Chief Complaint: [Mrs. Garcia is an 87 y/o F who is presenting with a chief complaint of "feeling tired." HPI: Mrs. Garcia said she was awakened at about 3am this morning with chills and shaking that she couldn't stop. The patient tried to urinate but was unable to get back to bed so her called the ambulance. She rated her fatigue at 6/10. She noticed burning upon urination which she said began about 3 days ago. She was unable to meet with her PCP to have it treated. Pt has a history of chronic UTI. Pt denies any hematuria, chest pain, belly pain, n/v, diarrhea, constipation. PMH: Positive for chronic UTI, diabetes, AFIB, edema, and non-healing sores. Surg Hx: Cataract, R-Knee arthroplasty, cholecystectomy, hysterectomy Allergies:Quinolones, Sulfa, Ampicillin, Erythromycin, metformin (experiences GI upset with metformin), Latex, adhesive tape, cinnamon. SoHx: Retired, lives at home with . HCM: PCP is Yari Romo. ROS Gen: Positive for fever and chills. Neg. Refer to HPI HEENT: Negative for epistaxis, rhinorrhea, ear or eye discharge and pain. Positive for vision changes which . Card/Pulm: Positive for AFIB and implanted pacemaker. GI: Refer to HPI : Positive cloudy urine and "stable chronic kidney disease." Refer to HPI PE Vitals: Pt was slightly hypotensive but otherwise WNL. Gen: Pt is a well kept elderly female who appears fatigued and dyspneic. Pt was alert and oriented to person, place time and event. Pulm: Auscultation revealed decreases lower left lung sounds. Lungs were otherwise clear. Card: Irregular rhythm with some skipped beats. Abd: Soft, non-tender on shallow and deep palpation, non-distended. Bowel sounds in all four quadrants. Extremities: 2+ pulses in all extremities. Slight edema in bilateral lower extremities. A/P Recommendation 1. Fatigue a. Possible sepsis secondary to UTI b. Anemia c. Acute on chronic kidney failure d. Lack of sleep from night prior. 2. Fever/chills a. Possible sepsis b. 3. Painful urination a. Acute on chronic UTI b. Trauma c. Pyelonephritis 1a. UA and blood cultures with sensitivities, CBC/CMP q24. Treat empirically for UTI with broad spectrum ABX (Vancomycin, Ceftazidime) until cultures and sensitivities return. 1b. Follow and assess for possible need for transfusion. 1c. Reassess with CMP 2a. Same as 1a. 3a. Same as 1a. 3b. Repeat interview with pt to rule out trauma. 3c. CT to rule out. ] - Constitutional Vitals: Vital Signs Temp Pulse Resp BP Pulse Ox 98.8 F 69 15 105/47 97 10/10/17 07:41 10/10/17 07:16 10/10/17 07:16 10/10/17 07:16 10/10/17 07:16 Period Temp Pulse Resp BP Sys/Farrell Pulse Ox Last 24 Hr 98.8 F-104 F 69-72 14-22 100-142/45-72 88-98 Intake and Output 10/09/17 10/10/17 10/10/17 21:59 05:59 13:59 Intake Total 54 / 54 2100 / 2100 Balance 54 / 54 2100 / 2100 Weight 148 lb 6 oz Intake & Output: Intake & Output 10/09/17 10/10/17 10/10/17 21:59 05:59 13:59 Intake Total 54 / 54 2100 / 2100 Balance 54 / 54 2100 / 2100 Weight 148 lb 6 oz Intake: IV 54 / 54 2100 / 2100 Cleocin 600 mg In Dextrose 5% 54 / 54 in Water 50 ml @ 100 mls/hr IV ONCE ONE Rx#:[id number] Lactated Ringers 1,000 ml @ 1999 / 1999 Wide Open IV BOLUS ONE Rx#: [id number] Other: Urine Appearance Uretheral (Schmidt) Cloudy Urine Color Uretheral (Schmidt) Pale Straw Medical - PN: Obj Da - Labs CBC & Chem 7: 10/10/17 04:35 10/10/17 04:35 Labs: Abnormal Lab Results 10/10/17 10/10/17 10/10/17 05:10 04:35 04:35 WBC RBC Hgb Hct RDW Gran % Lymph % (Auto) Gran # Lymph # (Auto) PT 20.7 H INR 1.8 H VBG Lactic Acid < 0.2 L BUN Creatinine Glucose Urine Protein 100 A Ur Leukocyte Esterase 500 A Urine RBC 7 H Urine WBC > 182 H 10/10/17 10/10/17 04:35 04:35 WBC 22.5 H RBC 3.62 L Hgb 11.2 L Hct 33.2 L RDW 15.3 H Gran % 91.1 H Lymph % (Auto) 4.1 L Gran # 20.5 H Lymph # (Auto) 0.9 L PT INR VBG Lactic Acid BUN 41 H Creatinine 1.7 H Glucose 141 H Urine Protein Ur Leukocyte Esterase Urine RBC Urine WBC Medical - PN: A/P - Time Spent With Patient Total time spent is greater than 50% in coordination of care (as documented) at patient's floor/unit and/or counseling patient:
[2017-10-10] MEDS ORDERED: cefTAZidime 1 GM VIAL IV SCH (09:00)
--- NOTE | 2017-10-10 09:11 | Cat Scan Report ---
CLINICAL INFORMATION: Pyelonephritis fever and not feeling well COMPARISON: 06/18/17 TECHNIQUE: The abdomen was imaged without oral or IV contrast, scanning from the diaphragm to the symphysis pubis. Sagittal and coronal reformats were created. FINDINGS: Thick bands of atelectasis have formed posteriorly in both lower lobes. There are chronic linear scars medially in right middle lobe and the inferior segment of the lingula. The liver is mild to moderately enlarged. It has increased in size since 06/18/17. The spleen is absent. Gallbladder is been removed. The bile ducts are nondilated. There is no apparent mass or inflammation the pancreas. There is moderate stranding of the fat surrounding the right kidney. This has developed since prior exam. There is no hydronephrosis. Stranding of the fat is probably due to pyelonephritis and less likely due to recent passage of a stone, since there were no kidney stones seen on the prior CT scan. There are stable complex cysts with proteinaceous debris within them in the left kidney. There is one in the upper pole, two located laterally in the middle third and another in the lower pole. There is mild stranding of the perirenal fat laterally around the upper pole which is unchanged. No hydronephrosis or stone are present in the left kidney. Scattered plaques are present along the wall normal caliber abdominal aorta and iliac arteries. Multiple diverticula are present in the sigmoid colon but there is no evidence of diverticulitis or inflammatory bowel disease. The small intestine is normal. The appendix is noninflamed. The patient had a prior hysterectomy performed. Neither ovary is visualized. Urinary bladder is decompressed by Schmidt catheter. Scoliosis and degenerative disc disease are again seen in the lumbar spine and lower thoracic spine. This remains stable. IMPRESSION: Perinephric stranding around the right kidney which is probably due to pyelonephritis. There is no abscess or evidence of urinary tract obstruction.. Stable complex cysts in the left kidney Hepatomegaly Thick bands of atelectasis posteriorly in both lower lobes Interpreted and Authenticated by: Mike Lora 10/10/17
[2017-10-10] MEDS ORDERED: VANCOMYCIN 1,000 MG in 0.9 % SODIUM CHLORIDE 250 ML IV SCH (10:00)
[2017-10-10] MEDS: HEPARIN 5,000 UNIT/ML VIAL SQ SCH ×2 (10:12→22:11)
[2017-10-10] MEDS: INSULIN LISPRO 1 UNIT/0.01 ML UNIT SQ SCH ×4 (10:12→22:11)
[2017-10-10] MEDS ORDERED: ACETAMINOPHEN 650 MG/65 ML BOTTLE IV PRN (10:32)
[2017-10-10] MEDS: IPRATROPIUM/ALBUTEROL 3 ML AMPUL.NEB NEB SCH ×3 (13:19→23:55)
[2017-10-10] MEDS ORDERED: WARFARIN 1 MG TABLET PO SCH (14:00)
[2017-10-10] MEDS: 0.9 % SODIUM CHLORIDE 10 ML SYRINGE IV SCH ×2 (14:37→22:11)
[2017-10-10] MEDS: PIPERACILLIN SODIUM/TAZOBACTAM 2.25 GM in DEXTROSE 5% IN WATER 50 ML IV SCH (19:30)
[2017-10-10 20:20] LABS: Basophils # (Auto) 0 K/mcL (0.0-0.3); Basophils % (Auto) 0.1 % (0.0-2.0); Eosinophils # (Auto) 0.1 K/mcL (0.0-0.7); Eosinophils % (Auto) 0.1 % (0.0-7.0); Lymphocytes # (Auto) 1.2 K/mcL (1.5-4.8); Mean Cell Volume 92.5 fL (80.0-100.0); Mean Corpuscular HGB Conc 33.1 g/dL (31.0-36.0); Mean Corpuscular Hemoglobin 30.6 pg (26.0-34.0); Monocytes # (Auto) 1.9 K/mcL (0.1-0.9); Monocytes % (Auto) 4.8 % (1.0-12.0); Platelet Count 269 K/mcL (140-440); RBC 3.21 M/mcL (4.00-5.20); Red Cell Distribution Width 15.6 % (11.5-14.5)
[2017-10-10] MEDS ORDERED: 0.9 % SODIUM CHLORIDE 500 ML IV ONE (20:25)
[2017-10-10 20:37] LABS: ALT/SGPT 23 U/l (0-40); Albumin 2.6 gm/dL (3.2-5.2); Albumin/Globulin Ratio 0.9 (1.0-2.3); Alkaline Phosphatase 43 U/L (39-117); Bilirubin,Direct 0.3 mg/dL (0.0-0.3); Blood Urea Nitrogen 40 mg/dl (8-23); Gamma Glutamyl Transpeptidase 63 U/L (5-36); Uric Acid 5.9 mg/dL (2.5-8.0)
[2017-10-10] MEDS ORDERED: MAGNESIUM SULFATE 2 GM/50 ML BAG IV ONE (20:40)
[2017-10-11] MEDS: IPRATROPIUM/ALBUTEROL 3 ML AMPUL.NEB NEB SCH ×7 (00:30→23:02)
[2017-10-11] MEDS ORDERED: 0.9 % SODIUM CHLORIDE 500 ML IV ONE (00:31)
[2017-10-11] MEDS: PIPERACILLIN SODIUM/TAZOBACTAM 2.25 GM in DEXTROSE 5% IN WATER 50 ML IV SCH ×4 (00:47→18:00)
[2017-10-11 05:45] LABS: Basophils # (Auto) 0 K/mcL (0.0-0.3); Basophils % (Auto) 0 % (0.0-2.0); Eosinophils # (Auto) 0.1 K/mcL (0.0-0.7); Eosinophils % (Auto) 0.3 % (0.0-7.0); Granulocytes % (Auto) 90.4 % (38.0-78.0); Lymphocytes # (Auto) 1.6 K/mcL (1.5-4.8); Lymphocytes % (Auto) 4.4 % (15.5-49.0); Mean Cell Volume 93.2 fL (80.0-100.0); Mean Corpuscular HGB Conc 32.5 g/dL (31.0-36.0); Mean Corpuscular Hemoglobin 30.2 pg (26.0-34.0); Monocytes # (Auto) 1.8 K/mcL (0.1-0.9); Monocytes % (Auto) 4.9 % (1.0-12.0); Platelet Count 260 K/mcL (140-440); RBC 3.07 M/mcL (4.00-5.20); Red Cell Distribution Width 15.7 % (11.5-14.5)
[2017-10-11] MEDS: 0.9 % SODIUM CHLORIDE 10 ML SYRINGE IV SCH ×4 (05:46→23:36)
[2017-10-11] MEDS: LACTATED RINGERS 1,000 ML IV SCH ×3 (05:51→19:28)
[2017-10-11 06:10] LABS: ALT/SGPT 21 U/l (0-40); Albumin 2.7 gm/dL (3.2-5.2); Alkaline Phosphatase 52 U/L (39-117); Bilirubin,Direct 0.3 mg/dL (0.0-0.3); Blood Urea Nitrogen 41 mg/dl (8-23); Gamma Glutamyl Transpeptidase 58 U/L (5-36); Uric Acid 5.7 mg/dL (2.5-8.0)
[2017-10-11] MEDS: INSULIN LISPRO 1 UNIT/0.01 ML UNIT SQ SCH ×4 (07:36→20:58)
--- NOTE | 2017-10-11 07:59 | XRay Report ---
HISTORY: Fever and not feeling well FINDINGS: Ill-defined increased interstitial lung markings are present centrally in the right lung. There is involvement both upper and lower lobes and the partially obscure the right hilum. These are new finding since 4:59 AM on the same date. There is a pacemaker overlying the left hilum but no infiltrate is seen on the left side. There is a thin linear scars left costophrenic sulcus. The heart is mildly enlarged but magnified by portable technique. The diaphragms become flattened compared with the earlier x-ray. Arthritis is noted in both shoulders as well as the thoracic spine. IMPRESSION: Mild perihilar infiltrate developing in the right lung. This is more likely due to pneumonia/inflammation rather than asymmetric distribution of congestive heart failure. Interpreted and Authenticated by: Mike Lora 10/11/17
[2017-10-11] MEDS: diphenhydrAMINE 25 MG CAPSULE PO PRN (08:25)
[2017-10-11] MEDS: HEPARIN 5,000 UNIT/ML VIAL SQ SCH (09:12)
--- NOTE | 2017-10-11 10:27 | Internal Med Progress Note ---
Medical - PN: Subj Patient information: Note initiated : 10/11/17 at 10:24 am Service Date, if different from initiated Date: [] Patient: Soumya Garcia a 87 y/o F admitted on 10/10/17 for Temp, Not Feeling Well. Chief Complaint: [] Interval history: Ms. Garcia is a 87 year old F with h/o recurrent UTI, afib on coumadin, DM, presents to the ER for not feeling well for last 2 days. The patient notes that she had a UTI early this month, she completed a course of keflex for same, (Ecoli sensitive to same). The patient feels that this helped. The patient over the last 2 days has been having increased urinary frequency, increased burning of urine, foul smelling and cloudy urine. She was still able to function till last night. This AM early in the morning she woke up with fever, chills, weakness, rigors and was brought to the ER for further evaluation. She does admit to chr back pain, but otherwise has chr shortness of breath, and generalized weakness. She has chr constipation and incontinence of urine. She denies any acute changes in her other chr medical issues She has been followed by Dr Simmons for her recurrent UTI, she admits to having chr urinary incontinence and does not always change her underwear if she has a small accident. She also suffers from constipating, hard stools, and does have intermittent bowel incontinence with very hard pebble like stools, which she just throws away, without changing her undergarments? Educated the need for personal hygine to avoid further episodes. I reviewed her recent urine culture reports She has had multiple infections with Ecoli, Citrobacter, some proteus, enterococcus and pseudomonas in the last 12-14 months. In the ER the patient was initially brought as confused, febrile with fever of 104, HR 70 (paced ) and Increased oxygen requirements to 4L oxygen not on oxygen at baseline. BP soft with lowest reading 101/46 She had elevated wbc at 22K, Hb 11.2, plat 330 Creat 1.7, baselien around 1.5 Procal 0.11, Lac < 0.2? INR 1.8 UA suggestive of infection. Patient admitted to PCU status for further monitoring. 10/11 Pt seen examined, no acute issues today, patient was febrile yesterday, and had increased oxygen needs, but this AM doing well, off oxygen. thep atient was able to get in chair The patient still feels weak and tired patient pcp called yesterday to suggest that her poppy seed test was positive, indicating a colovesical fistula, she has had surgery done in the past for same without any identification of this fisulat we are planning to get a CT pelvis with rectal contrast to see if we can identify the lesion. Pt blood cx was positive for gram eng bacillus, ID consulted, I d/c vanco given gram neg septicemia CT abdomen showed pyelonephritis. Pertinent ROS: Denies headache, dizziness Denies chest pain, palpitations Denies cough or shortness of breath Denies abdominal pain, nausea or vomiting. does have weakness - Constitutional Vitals: Vital Signs Temp Pulse Resp BP Pulse Ox 98.4 F 69 13 110/59 94 10/11/17 09:01 10/11/17 09:01 10/11/17 09:01 10/11/17 09:01 10/11/17 09:01 Period Temp Pulse Resp BP Sys/Farrell Pulse Ox Last 24 Hr 97.2 F-103.3 F 35-89 12-43 74-140/40-98 85-100 Intake and Output 10/10/17 10/11/17 10/11/17 21:59 05:59 13:59 Intake Total 1322 / 1322 530 / 530 1050 / 1050 Output Total 140 / 140 600 / 600 190 / 190 Balance 1182 / 1182 -70 / -70 860 / 860 Intake & Output: Intake & Output 10/10/17 10/11/17 10/11/17 21:59 05:59 13:59 Intake Total 1322 / 1322 530 / 530 1050 / 1050 Output Total 140 / 140 600 / 600 190 / 190 Balance 1182 / 1182 -70 / -70 860 / 860 Intake: IV 1002 / 1002 50 / 50 1050 / 1050 Lactated Ringers 1,000 ml @ 100 952 / 952 1000 / 1000 mls/hr IV .Q10H ERIK Rx#: [id number] Zosyn 2.25 gm In Dextrose 5% in 50 / 50 50 / 50 50 / 50 Water 50 ml @ 100 mls/hr IV Q6H ERIK Rx#:[id number] Oral 320 / 320 GI Tube Flush 480 / 480 Output: Urine Catheter Amount 140 / 140 600 / 600 190 / 190 Other: Meal Lunch Tuna sandwich Percent of Meal Consumed 50% 100% Urine Appearance Clear Urine Color Pale Exam: Constitutional; Afebrile, cooperative, alert, not in distress. Eyes- No icterus, , No periorbital swelling Ears- Ext ear normal, hearing normal to conversation. Neck- Midline trachea, supple Respiratory system: Air Entry equal on both sides, mild basilar crckles present , no wheezing, no rhonchi. CVS- Rate rhythm regular, S1,S2 heard, no gallop, no rub. Abdomen- Soft right quadrant tenderness, mild, non distend abdomen, no organomegaly, no guarding or rigidity, [employer]- AOOx3, moving all extremities, no gross focal deficit noted. Medical - PN: Obj Da - Labs CBC & Chem 7: 10/11/17 04:00 10/11/17 04:00 Labs: Abnormal Lab Results 10/11/17 10/11/17 10/11/17 04:00 04:00 04:00 WBC 36.5 H* RBC 3.07 L Hgb 9.3 L Hct 28.6 L RDW 15.7 H Gran % 90.4 H Lymph % (Auto) 4.4 L Gran # 33.0 H Lymph # (Auto) [place] # (Auto) 1.8 H PT 26.7 H INR 2.4 H VBG Lactic Acid Sodium Carbon Dioxide BUN 41 H Creatinine 1.7 H Glucose 136 H Calcium 7.8 L Magnesium GGT 58 H Total Protein 5.3 L Albumin 2.7 L Albumin/Globulin Ratio Triglycerides 259 H Urine Protein Ur Leukocyte Esterase Urine RBC Urine WBC 10/10/17 10/10/17 10/10/17 19:25 19:25 05:10 WBC 39.4 H* RBC 3.21 L Hgb 9.8 L Hct 29.7 L RDW 15.6 H Gran % 92.0 H Lymph % (Auto) 3.0 L Gran # 36.2 H Lymph # (Auto) 1.2 L [place] # (Auto) 1.9 H PT INR VBG Lactic Acid Sodium 131 L Carbon Dioxide 21 L BUN 40 H Creatinine 1.6 H Glucose 129 H Calcium 7.6 L Magnesium 1.5 L GGT 63 H Total Protein 5.4 L Albumin 2.6 L Albumin/Globulin Ratio 0.9 L Triglycerides 216 H Urine Protein 100 A Ur Leukocyte Esterase 500 A Urine RBC 7 H Urine WBC > 182 H 10/10/17 10/10/17 10/10/17 04:35 04:35 04:35 WBC RBC Hgb Hct RDW Gran % Lymph % (Auto) Gran # Lymph # (Auto) [place] # (Auto) PT 20.7 H INR 1.8 H VBG Lactic Acid < 0.2 L Sodium Carbon Dioxide BUN 41 H Creatinine 1.7 H Glucose 141 H Calcium Magnesium GGT Total Protein Albumin Albumin/Globulin Ratio Triglycerides Urine Protein Ur Leukocyte Esterase Urine RBC Urine WBC 10/10/17 04:35 WBC 22.5 H RBC 3.62 L Hgb 11.2 L Hct 33.2 L RDW 15.3 H Gran % 91.1 H Lymph % (Auto) 4.1 L Gran # 20.5 H Lymph # (Auto) 0.9 L [place] # (Auto) PT INR VBG Lactic Acid Sodium Carbon Dioxide BUN Creatinine Glucose Calcium Magnesium GGT Total Protein Albumin Albumin/Globulin Ratio Triglycerides Urine Protein Ur Leukocyte Esterase Urine RBC Urine WBC Meds: Medications Albuterol/Ipratropium (Duoneb) 3 ml NEB Q4HRT [facility] Last Admin: 10/11/17 07:21 Dose: 3 ml Dextrose (Dextrose 50%) 0 ml IV UD PRN PRN Reason: Hypoglycemia Diagnostic Test (Pha) (Accu-Chek) 1 each FS ACHS [facility] Last Admin: 10/11/17 07:15 Dose: 1 each Diphenhydramine HCl (Benadryl) 25 mg PO Q4-6HP PRN PRN Reason: Allergic Symptoms Last Admin: 10/11/17 08:25 Dose: 25 mg Glucose (Insta-Glucose) 15 gm PO PRN PRN PRN Reason: Hypoglycemia Heparin Sodium (Porcine) (Heparin) 5,000 unit SQ Q12 [facility] Last Admin: 10/11/17 09:12 Dose: Not Given Hydromorphone HCl (Dilaudid) 0.5 mg IV Q2HP PRN PRN Reason: PAIN LEVEL > 6 Lactated Ringer's (Lactated Ringers) 1,000 mls @ 100 mls/hr IV .Q10H [facility] Last Admin: 10/11/17 08:26 Dose: 100 mls/hr Acetaminophen (Ofirmev) 650 mg in 65 mls @ 130 mls/hr IV Q6HP PRN PRN Reason: PAIN/FEVER > 101 Piperacillin Sod/Tazobactam (Sod 2.25 gm/ Dextrose) 50 mls @ 100 mls/hr IV Q6H [facility] Last Infusion: 10/11/17 06:11 Dose: Infused Insulin Human Lispro (Humalog) 0 unit SQ ACHS [facility]; Protocol Last Admin: 10/11/17 07:36 Dose: Not Given Lorazepam (Ativan) 0.5 mg IV Q2HP PRN PRN Reason: ANXIETY/SEDATION Last Admin: 10/11/17 04:55 Dose: 0.5 mg Naloxone HCl (Narcan) 0.1 mg IV Q2MIN PRN PRN Reason: Opiate Reversal Ondansetron HCl (Zofran) 4 mg IV Q4-6HP PRN PRN Reason: Nausea And Vomiting Sodium Chloride (Saline Flush) 10 ml IV Q8 [facility] Last Admin: 10/11/17 05:46 Dose: 10 ml Warfarin Sodium (Coumadin Per Pharmacy) 1 order PO DAILY@1400 [facility] Last Admin: 10/10/17 14:35 Dose: Not Given Medical - PN: A/P - Time Spent With Patient Total time spent is greater than 50% in coordination of care (as documented) at patient's floor/unit and/or counseling patient: - Narrative A/P Narrative: A/P Urinary tract infection/ Acute Pylenonephritis Gram negative bactermia Severe Sepsis Diabetes mellitus Acute hypoxic Respiratory Failure Atrial fibrillation Congestive heart failure Hypertension Hypothyroidism chronic Kidney disease stage 4 Anemia of chr disease Recurrent Urinary tract Infections, 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 Polyneuropathy Intermittent Bowel and Bladder Incontinence Plan Given extensive comorbidities, continue to monitor in pcu status, IV fluids given per sepsis protocol, lactate is normal CT shows pylenonephritis IV zosyn ID consulted, await microbiology bp stable, urine output stable and improving from yesterday HOld home bp meds given soft bp Oxygen supplementation via nasal canula, Ok to use bipap/ Intubation if worsens Resume home meds as appropriate SSI for glucose control for now get CT pelvis with rectal contrast to evaluate for possible colovesical fistula Will need ongoing education regarding personal hygiene DVT on coumadin with therapeutic inr, d/c hep sq Full code Cardiac, diabetic diet Medical - PN: Qual - VTE Deep Vein Thrombosis/Pulmonary Embolism Present on Admission: No
--- NOTE | 2017-10-11 12:09 | Cat Scan Report ---
History: Colovesical fistula and fever TECHNIQUE: Rectal catheter was inserted. The colon was filled with dilute water-soluble contrast. No intravenous contrast was injected. The patient was scanned from the mid kidneys through the symphysis pubis. Sagittal and coronal reformats are created. Radiation exposure was limited using dose reduction technology. FINDINGS: There is a Schmidt catheter within the urinary bladder. The bladder contains a normal volume of unopacified urine. There is a bubble of air within the bladder due to the Schmidt catheter. Bladder wall is smooth contour. None of the rectal contrast passed into the bladder or vagina. There is retrograde filling of the entire colon with contrast, to the level of the cecum. There is reflux into normal appendix. The contrast did not reflux into the normal caliber small intestine. There is no evidence of inflammatory bowel disease, fistula or diverticulitis. The wall of the colon appears normal in thickness and there is no apparent tumor. Uterus and ovaries are absent. Several complex cortical cysts are again seen in the kidneys. They are unchanged from prior CT done yesterday. There is mild stranding of the fat around the distal second and proximal third portion of the duodenum. This has become more apparent since yesterday. No abscess is seen in this region. IMPRESSION: Normal colon and there is no evidence of a fistula between bowel and bladder. Inflammation around the duodenum. This may be seen with peptic ulcer disease. Interpreted and Authenticated by: Mike Lora 10/11/17
[2017-10-11] MEDS ORDERED: WARFARIN 1 MG TABLET PO ONE (14:00)
--- NOTE | 2017-10-11 16:09 | Infectious Disease Consult ---
History of Present Illness Patient information: Note initiated : 10/11/17 at 3:49 pm Service Date, if different from initiated Date: [] Patient: Soumya Garcia 87 y/o F admitted on 10/10/17 for Temp, Not Feeling Well/UTI, Sepsis. Chief Complaint: [] Consult date: 10/11/17 Requesting Physician: Frandy Espinoza Reason for Consult: Gram negative bacteremia and pyelonephritis Chief complaint: i had fever with chills History of present illness: 87 year old lady well-known to me from her infectious disease clinic visit on August, with extensive past medical history, pertinent for: - recurrent urinary tract infections since 03/2015 [ E. coli, K. pneumoniae, P. aeruginosa, MRSA, Enterococcus spp., P. vulgaris] needing multiple course of antibiotics by urology - fecal incontinence, painful urination with work-up s/o fistulous connection between GI tract and urinary tract, evidenced by CT findings of gas in bladder, +ve poppy seed test in 06/2016 and recently. 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 coli on September 21, 2017. She continued her Keflex until 3 days prior to hospitalization. She also had a next generation sequencing test done on urine by urology which showed Prevotella, lactobacillus and E. coli. Patient reports that around 08 October in the middle of night she noticed fever , chills accompanied with burning while urination and increased frequency and urgency. She also endorsed flank pain bilaterally [right more than left]. She was admitted after she presented to the ER in the morning. She was confused at presentation, with fever of 104F, heart rate 70 [pacemaker], blood pressure 101/ 46, white cell count of 22,000, pro-calcitonin 0.11. Patient was started on IV vancomycin and IV Zosyn and admitted to ICU. Blood cultures and urine cultures were also sent. She also had a CT of abdomen and pelvis which showed perinephric stranding around the right kidney, and thick bands of atelectasis in both lower lobes posteriorly. Patient has been afebrile since yesterday afternoon, although her white cell count peaked to 39,000 with slight downtrending to 36,000 today. Her preliminary blood and urine cultures showed E. coli in both sets with sensitivities pending. At time of visit patient reported symptoms of being tired, pain on the right side of the back. She denied any fever or chills, nausea, vomiting, diarrhea, chest pain, cough, shortness of breath, belly pain. Rest review of system was negative Review of Systems All systems PM: reviewed and no additional remarkable complaints except as stated Medications and Allergies Home Medications Medication Instructions Recorded Confirmed Type ascorbic acid (vitamin C) 500 mg 1,000 mg PO BID 03/29/15 10/05/17 History tablet glucosamine-chondroitin 1 tab PO QDAY 03/29/15 10/05/17 History omega-3 fatty acids 1,000 mg 1,000 mg PO QDAY 03/29/15 10/05/17 History capsule lactobacillus combination no.6 4 1 cell PO DAILY 12/01/15 10/05/17 History billion cell tablet cholecalciferol (vitamin D3) 1,000 1,000 unit PO QDAY cap 12/07/15 10/05/17 History unit capsule vitamin E 400 unit tablet 400 unit PO QDAY 07/05/16 10/05/17 History Systane Liquid Gel Eye Drops 1 drp BOTH EYES PRN PRN 07/29/16 10/05/17 History Blood Sugar Diagnostic [Contour] 0 dose .ROUTE .MEDSUPPLY 10/04/16 10/05/17 History compression stocking,knee 0 patch .ROUTE .MEDSUPPLY #12 each 10/26/16 10/05/17 Rx high,long length,medium circ Diabetic shoes #1 each 11/29/16 10/05/17 Rx digoxin 125 mcg tablet 125 mcg PO QDAY #90 tab 12/26/16 10/05/17 Rx lisinopril 30 mg tablet 30 mg PO QDAY #90 tab 03/26/17 10/05/17 Rx vit C-vit [id number] ox-lutein cap PO QDAY cap 03/30/17 10/05/17 History 226 mg-200 unit-5 mg-0.8 mg capsule sotalol 80 mg tablet 80 mg PO BID #60 tab 04/12/17 10/05/17 Rx fenofibrate 160 mg tablet 160 mg PO QDAY #30 tab 05/01/17 10/05/17 Rx zolpidem 5 mg tablet 5 mg PO QHS PRN #30 tab 05/21/17 10/05/17 Rx linagliptin 5 mg tablet 5 mg PO QAM #30 tab 06/15/17 10/05/17 Rx montelukast 10 mg tablet 10 mg PO QPM #90 tab 07/02/17 10/05/17 Rx furosemide 20 mg tablet 20 mg PO BID #60 tab 08/07/17 10/05/17 Rx estradiol 0.01% (0.1 mg/gram) 0.5 g VAGINAL .QOD #42.5 g 08/14/17 10/05/17 Rx vaginal cream amlodipine 2.5 mg tablet 2.5 mg PO QDAY #90 tab 09/10/17 10/05/17 Rx psyllium oral powder 1 tbsp PO QDAY 09/10/17 10/05/17 History warfarin 2 mg tablet 2 mg PO .COMPLEX #90 tab 10/03/17 10/05/17 Rx gabapentin 600 mg tablet 600 mg PO TID 10/05/17 10/05/17 History levothyroxine 88 mcg capsule 88 mcg PO QDAY #30 cap 10/10/17 Rx Allergies Allergy/AdvReac Type Severity Reaction Status Date / Time adhesive tape Allergy Intermediate Rash Verified 10/05/17 11:04 latex Allergy Intermediate Rash Verified 10/05/17 11:04 cinnamon [Cinnamon] Allergy Mild Rash Verified 10/05/17 11:04 Erythromycin Base AdvReac Intermediate Unknown Verified 10/05/17 11:04 ampicillin AdvReac Mild Nausea Verified 10/05/17 11:04 metformin AdvReac Mild Diarrhea Verified 10/11/17 07:36 Quinolones AdvReac Mild Vomiting Verified 10/11/17 07:36 Sulfa (Sulfonamide AdvReac Mild Unknown Verified 10/11/17 07:36 Antibiotics) Physical Examination Vital signs: Temp Pulse Resp BP Pulse Ox 37.1 C 70 18 117/65 92 10/11/17 13:01 10/11/17 15:35 10/11/17 15:35 10/11/17 13:01 10/11/17 15:35 General appearance: lethargic, appears uncomfortable Eyes pulmonary: nonicteric ENT: oropharynx moist Auscultation: bilateral: clear (Dedecreased breath sounds at bases) Cardiovascular: regular rate and rhythm Gastrointestinal: normoactive bowel sounds, soft, non-tender Extremities: no edema mood appropriate Has right-sided CVA tenderness Results - Laboratory Findings CBC and BMP: 10/11/17 04:00 10/11/17 04:00 PT/INR, D-dimer PT 26.7 sec (11.9-14.5) H 10/11/17 04:00 INR 2.4 (0.9-1.1) H 10/11/17 04:00 Abnormal lab findings: Abnormal Labs 10/10/17 10/10/17 10/10/17 04:35 04:35 04:35 WBC 22.5 H RBC 3.62 L Hgb 11.2 L Hct 33.2 L RDW 15.3 H Gran % 91.1 H Lymph % (Auto) 4.1 L Gran # 20.5 H Lymph # (Auto) 0.9 L [place] # (Auto) PT INR VBG Lactic Acid < 0.2 L Sodium Carbon Dioxide BUN 41 H Creatinine 1.7 H Glucose 141 H Calcium Magnesium GGT Total Protein Albumin Albumin/Globulin Ratio Triglycerides Urine Protein Ur Leukocyte Esterase Urine RBC Urine WBC 10/10/17 10/10/17 10/10/17 04:35 05:10 19:25 WBC 39.4 H* RBC 3.21 L Hgb 9.8 L Hct 29.7 L RDW 15.6 H Gran % 92.0 H Lymph % (Auto) 3.0 L Gran # 36.2 H Lymph # (Auto) 1.2 L [place] # (Auto) 1.9 H PT 20.7 H INR 1.8 H VBG Lactic Acid Sodium Carbon Dioxide BUN Creatinine Glucose Calcium Magnesium GGT Total Protein Albumin Albumin/Globulin Ratio Triglycerides Urine Protein 100 A Ur Leukocyte Esterase 500 A Urine RBC 7 H Urine WBC > 182 H 10/10/17 10/11/17 10/11/17 19:25 04:00 04:00 WBC 36.5 H* RBC 3.07 L Hgb 9.3 L Hct 28.6 L RDW 15.7 H Gran % 90.4 H Lymph % (Auto) 4.4 L Gran # 33.0 H Lymph # (Auto) [place] # (Auto) 1.8 H PT 26.7 H INR 2.4 H VBG Lactic Acid Sodium 131 L Carbon Dioxide 21 L BUN 40 H Creatinine 1.6 H Glucose 129 H Calcium 7.6 L Magnesium 1.5 L GGT 63 H Total Protein 5.4 L Albumin 2.6 L Albumin/Globulin Ratio 0.9 L Triglycerides 216 H Urine Protein Ur Leukocyte Esterase Urine RBC Urine WBC 10/11/17 04:00 WBC RBC Hgb Hct RDW Gran % Lymph % (Auto) Gran # Lymph # (Auto) [place] # (Auto) PT INR VBG Lactic Acid Sodium Carbon Dioxide BUN 41 H Creatinine 1.7 H Glucose 136 H Calcium 7.8 L Magnesium GGT 58 H Total Protein 5.3 L Albumin 2.7 L Albumin/Globulin Ratio Triglycerides 259 H Urine Protein Ur Leukocyte Esterase Urine RBC Urine WBC Microbiology: Microbiology 10/10/17 05:10 Urine - Catheterized Urine Culture - Preliminary Gram negative bacillus 10/10/17 05:20 Blood Blood Culture - Preliminary Gram negative bacillus 10/10/17 04:35 Blood Blood Culture - Preliminary Gram negative bacillus Assessment and Plan - Narrative A/P Narrative: Assessment: 1. E. coli pyelonephritis and bacteremia: Urine is most likely source. She had chronic asymptomatic bacteriuria with nonspecific symptoms in the past. There is a small possibility of colovesical fistula, although imaging has been negative but patient had reported positive poppy seeds in the urine on 2 different occasions in recent past. 2. Sepsis: Not in shock Recommendations: Continue IV Zosyn at current dosing -We will de-escalate once sensitivities are available on blood and urine cultures We will need to keep a close eye on any symptoms pertaining to her pacemaker, given her bacteremia and the possibility of seeding it We will check a nasal MRSA PCR [patient had history of MRSA in her wounds last year] -If patient has another episode of symptomatic UTI in future, prophylaxis with oral fosfomycin can be considered. We will follow Remi Lopez MD Infectious disease
[2017-10-12] MEDS: PIPERACILLIN SODIUM/TAZOBACTAM 2.25 GM in DEXTROSE 5% IN WATER 50 ML IV SCH ×3 (00:13→11:42)
[2017-10-12] MEDS: diphenhydrAMINE 25 MG CAPSULE PO PRN ×3 (00:50→14:06)
[2017-10-12] MEDS ORDERED: DEXTROSE 31 GM ORAL.SUSP PO PRN (03:09)
[2017-10-12] MEDS ORDERED: HYDROmorphone 2 MG/ML VIAL IV PRN (03:09)
[2017-10-12] MEDS ORDERED: LORazepam 2 MG/ML VIAL IV PRN (03:09)
[2017-10-12] MEDS ORDERED: LACTATED RINGERS 1,000 ML IV SCH (03:09)
[2017-10-12] MEDS ORDERED: NALOXONE HCL 0.4 MG/ML VIAL IV PRN (03:09)
[2017-10-12] MEDS ORDERED: ONDANSETRON 4 MG/2 ML VIAL IV PRN (03:09)
[2017-10-12] MEDS ORDERED: DEXTROSE 50% 50 ML VIAL IV PRN (03:09)
[2017-10-12] MEDS ORDERED: IPRATROPIUM/ALBUTEROL 3 ML AMPUL.NEB NEB ONE (03:26)
[2017-10-12 05:56] LABS: Basophils # (Auto) 0 K/mcL (0.0-0.3); Basophils % (Auto) 0.1 % (0.0-2.0); Eosinophils # (Auto) 0.5 K/mcL (0.0-0.7); Eosinophils % (Auto) 2.2 % (0.0-7.0); Granulocytes % (Auto) 83.8 % (38.0-78.0); Lymphocytes # (Auto) 1.6 K/mcL (1.5-4.8); Lymphocytes % (Auto) 7.2 % (15.5-49.0); Mean Cell Volume 93.3 fL (80.0-100.0); Mean Corpuscular HGB Conc 32.9 g/dL (31.0-36.0); Mean Corpuscular Hemoglobin 30.7 pg (26.0-34.0); Monocytes # (Auto) 1.5 K/mcL (0.1-0.9); Monocytes % (Auto) 6.7 % (1.0-12.0); Platelet Count 284 K/mcL (140-440); RBC 3.02 M/mcL (4.00-5.20); Red Cell Distribution Width 16.1 % (11.5-14.5)
[2017-10-12] MEDS: 0.9 % SODIUM CHLORIDE 10 ML SYRINGE IV SCH ×3 (05:57→20:45)
[2017-10-12 06:12] LABS: ALT/SGPT 19 U/l (0-40); Albumin 2.6 gm/dL (3.2-5.2); Albumin/Globulin Ratio 0.8 (1.0-2.3); Alkaline Phosphatase 52 U/L (39-117); Bilirubin,Direct < 0.2 mg/dL (0.0-0.3); Blood Urea Nitrogen 31 mg/dl (8-23); Gamma Glutamyl Transpeptidase 52 U/L (5-36); Uric Acid 4.9 mg/dL (2.5-8.0)
[2017-10-12] MEDS: IPRATROPIUM/ALBUTEROL 3 ML AMPUL.NEB NEB SCH ×5 (06:15→18:29)
[2017-10-12] MEDS: LACTATED RINGERS 1,000 ML IV SCH (06:15)
[2017-10-12] MEDS: INSULIN LISPRO 1 UNIT/0.01 ML UNIT SQ SCH ×4 (07:31→20:45)
[2017-10-12] MEDS ORDERED: ZOLPIDEM 5 MG TABLET PO PRN (11:04)
--- NOTE | 2017-10-12 11:08 | Internal Med Progress Note ---
Medical - PN: Subj Patient information: Note initiated : 10/12/17 at 11:06 am Service Date, if different from initiated Date: [] Patient: Soumya Garcia a 87 y/o F admitted on 10/10/17 for Temp, Not Feeling Well/UTI, Sepsis. Chief Complaint: [] Interval history: Ms. Garcia is a 87 year old F with h/o recurrent UTI, afib on coumadin, DM, presents to the ER for not feeling well for last 2 days. The patient notes that she had a UTI early this month, she completed a course of keflex for same, (Ecoli sensitive to same). The patient feels that this helped. The patient over the last 2 days has been having increased urinary frequency, increased burning of urine, foul smelling and cloudy urine. She was still able to function till last night. This AM early in the morning she woke up with fever, chills, weakness, rigors and was brought to the ER for further evaluation. She does admit to chr back pain, but otherwise has chr shortness of breath, and generalized weakness. She has chr constipation and incontinence of urine. She denies any acute changes in her other chr medical issues She has been followed by Dr Simmons for her recurrent UTI, she admits to having chr urinary incontinence and does not always change her underwear if she has a small accident. She also suffers from constipating, hard stools, and does have intermittent bowel incontinence with very hard pebble like stools, which she just throws away, without changing her undergarments? Educated the need for personal hygine to avoid further episodes. I reviewed her recent urine culture reports She has had multiple infections with Ecoli, Citrobacter, some proteus, enterococcus and pseudomonas in the last 12-14 months. In the ER the patient was initially brought as confused, febrile with fever of 104, HR 70 (paced ) and Increased oxygen requirements to 4L oxygen not on oxygen at baseline. BP soft with lowest reading 101/46 She had elevated wbc at 22K, Hb 11.2, plat 330 Creat 1.7, baselien around 1.5 Procal 0.11, Lac < 0.2? INR 1.8 UA suggestive of infection. Patient admitted to PCU status for further monitoring. 10/11 Pt seen examined, no acute issues today, patient was febrile yesterday, and had increased oxygen needs, but this AM doing well, off oxygen. thep atient was able to get in chair The patient still feels weak and tired patient pcp called yesterday to suggest that her poppy seed test was positive, indicating a colovesical fistula, she has had surgery done in the past for same without any identification of this fisulat we are planning to get a CT pelvis with rectal contrast to see if we can identify the lesion. Pt blood cx was positive for gram eng bacillus, ID consulted, I d/c vanco given gram neg septicemia CT abdomen showed pyelonephritis. 10/12 Pt seen examined, doing well, wbc trending down, pt feeling better med surg status now notes 3 weeks ago noted 1 poppy seed in her urine. She has had a neg CT pelvis with rectal contrast, neg exploratory laprotomy for the colovesical fistula will repeat poppy seed test while she is inpatient to confirm if this is indeed positive. Urine culture ecoli rodriguez sensitive, blood culture reports pending. BP stable, resume home bp medications, diuretic,s cardiac meds Pertinent ROS: Denies headache, dizziness Denies chest pain, palpitations Denies cough or shortness of breath Denies abdominal pain, nausea or vomiting. - Constitutional Vitals: Vital Signs Temp Pulse Resp BP Pulse Ox 97.7 F 70 16 130/69 92 10/12/17 06:36 10/12/17 07:26 10/12/17 07:26 10/12/17 06:36 10/12/17 07:50 Period Temp Pulse Resp BP Sys/Farrell Pulse Ox Last 24 Hr 97.7 F-100.1 F 64-80 12-23 109-141/60-80 89-100 Intake and Output 10/11/17 10/12/17 10/12/17 21:59 05:59 13:59 Intake Total 1650 / 1650 115 / 115 50 / 50 Output Total 1959 990 / 990 1100 / 1100 Balance -310 / -310 -875 / -875 -1050 / -1050 Weight 157 lb 3.2 oz Intake & Output: Intake & Output 10/11/17 10/12/17 10/12/17 21:59 05:59 13:59 Intake Total 1650 / 1650 115 / 115 50 / 50 Output Total 1959 990 / 990 1100 / 1100 Balance -310 / -310 -875 / -875 -1050 / -1050 Weight 157 lb 3.2 oz Intake: IV 1050 / 1050 115 / 115 50 / 50 Lactated Ringers 1,000 ml @ 100 1000 / 1000 mls/hr IV .Q10H ERIK Rx#: [id number] Zosyn 2.25 gm In Dextrose 5% in 50 / 50 50 / 50 50 / 50 Water 50 ml @ 100 mls/hr IV Q6H ERIK Rx#:[id number] Oral 600 / 600 0 / 0 Output: Urine Catheter Amount 1959 / 1959 890 / 890 1100 / 1100 Stool 100 / 100 Other: Meal Dinner Percent of Meal Consumed 75% Urine Appearance Clear Clear Cloudy Uretheral (Schmidt) Clear Cloudy Urine Color Pale Pale Pale Uretheral (Schmidt) Pale Dark Yellow Urine Odor Normal Normal Stool Size Smear Small Stool Color Brown Brown Stool Consistency Soft Soft Loose Loose # Bowel Movements 1 Exam: Constitutional; Afebrile, cooperative, alert, not in distress. Respiratory system: Air Entry equal on both sides, No crackles or wheezing, no rhonchi. CVS- Rate rhythm irregular, S1,S2 heard, no gallop, no rub. Abdomen- Soft nontender abdomen, no organomegaly, no tenderness, no guarding or rigidity, REIMBURSEMENT MANAGER- AOOx3, moving all extremities, no gross focal deficit noted. Medical - PN: Obj Da - Labs CBC & Chem 7: 10/12/17 04:05 10/12/17 04:05 Labs: Abnormal Lab Results 10/12/17 10/12/17 10/12/17 04:05 04:05 04:05 WBC 22.7 H RBC 3.02 L Hgb 9.3 L Hct 28.1 L RDW 16.1 H Gran % 83.8 H Lymph % (Auto) 7.2 L Gran # 19.0 H Lymph # (Auto) [place] # (Auto) 1.5 H PT 21.9 H INR 1.9 H VBG Lactic Acid Sodium Carbon Dioxide BUN 31 H Creatinine 1.3 H Glucose 119 H Calcium 8.5 L Magnesium GGT 52 H Total Protein 5.8 L Albumin 2.6 L Albumin/Globulin Ratio 0.8 L Triglycerides 375 H Urine Protein Ur Leukocyte Esterase Urine RBC Urine WBC 10/11/17 10/11/17 10/11/17 04:00 04:00 04:00 WBC 36.5 H* RBC 3.07 L Hgb 9.3 L Hct 28.6 L RDW 15.7 H Gran % 90.4 H Lymph % (Auto) 4.4 L Gran # 33.0 H Lymph # (Auto) [place] # (Auto) 1.8 H PT 26.7 H INR 2.4 H VBG Lactic Acid Sodium Carbon Dioxide BUN 41 H Creatinine 1.7 H Glucose 136 H Calcium 7.8 L Magnesium GGT 58 H Total Protein 5.3 L Albumin 2.7 L Albumin/Globulin Ratio Triglycerides 259 H Urine Protein Ur Leukocyte Esterase Urine RBC Urine WBC 10/10/17 10/10/17 10/10/17 19:25 19:25 05:10 WBC 39.4 H* RBC 3.21 L Hgb 9.8 L Hct 29.7 L RDW 15.6 H Gran % 92.0 H Lymph % (Auto) 3.0 L Gran # 36.2 H Lymph # (Auto) 1.2 L [place] # (Auto) 1.9 H PT INR VBG Lactic Acid Sodium 131 L Carbon Dioxide 21 L BUN 40 H Creatinine 1.6 H Glucose 129 H Calcium 7.6 L Magnesium 1.5 L GGT 63 H Total Protein 5.4 L Albumin 2.6 L Albumin/Globulin Ratio 0.9 L Triglycerides 216 H Urine Protein 100 A Ur Leukocyte Esterase 500 A Urine RBC 7 H Urine WBC > 182 H 10/10/17 10/10/17 10/10/17 04:35 04:35 04:35 WBC RBC Hgb Hct RDW Gran % Lymph % (Auto) Gran # Lymph # (Auto) [place] # (Auto) PT 20.7 H INR 1.8 H VBG Lactic Acid < 0.2 L Sodium Carbon Dioxide BUN 41 H Creatinine 1.7 H Glucose 141 H Calcium Magnesium GGT Total Protein Albumin Albumin/Globulin Ratio Triglycerides Urine Protein Ur Leukocyte Esterase Urine RBC Urine WBC 10/10/17 04:35 WBC 22.5 H RBC 3.62 L Hgb 11.2 L Hct 33.2 L RDW 15.3 H Gran % 91.1 H Lymph % (Auto) 4.1 L Gran # 20.5 H Lymph # (Auto) 0.9 L [place] # (Auto) PT INR VBG Lactic Acid Sodium Carbon Dioxide BUN Creatinine Glucose Calcium Magnesium GGT Total Protein Albumin Albumin/Globulin Ratio Triglycerides Urine Protein Ur Leukocyte Esterase Urine RBC Urine WBC Meds: Medications Albuterol/Ipratropium (Duoneb) 3 ml NEB Q4HRT [facility] Last Admin: 10/12/17 07:20 Dose: 3 ml Ascorbic Acid (Vitamin C) 1,000 mg PO BID [facility] Dextrose (Dextrose 50%) 0 ml IV UD PRN PRN Reason: Hypoglycemia Diagnostic Test (Pha) (Accu-Chek) 1 each FS [facility] Last Admin: 10/12/17 07:31 Dose: 1 each Diphenhydramine HCl (Benadryl) 25 mg PO Q4-6HP PRN PRN Reason: Allergic Symptoms Last Admin: 10/12/17 06:34 Dose: 25 mg Furosemide (Lasix) 20 mg PO QDAY [facility] Glucose (Insta-Glucose) 15 gm PO PRN PRN PRN Reason: Hypoglycemia Hydromorphone HCl (Dilaudid) 0.5 mg IV Q2HP PRN PRN Reason: PAIN LEVEL > 6 Acetaminophen (Ofirmev) 650 mg in 65 mls @ 130 mls/hr IV Q6HP PRN PRN Reason: PAIN/FEVER > 101 Piperacillin Sod/Tazobactam (Sod 2.25 gm/ Dextrose) 50 mls @ 100 mls/hr IV Q6H [facility] Last Infusion: 10/12/17 06:56 Dose: Infused Insulin Human Lispro (Humalog) 0 unit SQ [facility]; Protocol Last Admin: 10/12/17 07:31 Dose: Not Given Lorazepam (Ativan) 0.5 mg IV Q2HP PRN PRN Reason: ANXIETY/SEDATION Montelukast Sodium (Singular) 10 mg PO QPM [facility] Naloxone HCl (Narcan) 0.1 mg IV Q2MIN PRN PRN Reason: Opiate Reversal Non-Formulary Medication (Amlodipine Besylate [Norvasc]) 2.5 mg PO QDAY [facility] Non-Formulary Medication (Digoxin [Digitek]) 125 mcg PO QDAY [facility] Non-Formulary Medication (Fenofibrate [Lofibra]) 160 mg PO QDAY [facility] Non-Formulary Medication (Gabapentin [Gabapentin]) 600 mg PO TID [facility] Non-Formulary Medication (Levothyroxine Sodium [Tirosint]) 88 mcg PO QDAY [facility] Non-Formulary Medication (Lisinopril [Zestril]) 30 mg PO QDAY [facility] Non-Formulary Medication (Systane Liquid Gel Eye Drops) 1 drp BOTH EYES PRN PRN PRN Reason: Dry Eyes Ondansetron HCl (Zofran) 4 mg IV Q4-6HP PRN PRN Reason: Nausea And Vomiting Sodium Chloride (Saline Flush) 10 ml IV Q8 [facility] Last Admin: 10/12/17 05:57 Dose: 10 ml Sotalol HCl (Betapace) 80 mg PO BID [facility] Warfarin Sodium (Coumadin Per Pharmacy) 1 order PO DAILY@1400 [facility] Zolpidem Tartrate (Ambien) 5 mg PO QHS PRN PRN Reason: Sleep Medical - PN: A/P - Time Spent With Patient Total time spent is greater than 50% in coordination of care (as documented) at patient's floor/unit and/or counseling patient: - Narrative A/P Narrative: A/P Urinary tract infection/ Acute Pylenonephritis Gram negative bactermia Severe Sepsis Diabetes mellitus Acute hypoxic Respiratory Failure Atrial fibrillation Congestive heart failure Hypertension Hypothyroidism chronic Kidney disease stage 4 Anemia of chr disease Recurrent Urinary tract Infections, 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 Oxygen supplementation via nasal canula, SSI for glucose control for now DVT on coumadin with therapeutic inr, d/c hep sq Full code Cardiac, diabetic diet Pt wishes to go home, Will need to coordinate with infectious disease on final antibiotic regime and duration Medical - PN: Qual - VTE Deep Vein Thrombosis/Pulmonary Embolism Present on Admission: No
[2017-10-12] MEDS: amLODIPine 5 MG TABLET PO SCH (12:17)
[2017-10-12] MEDS: DIGOXIN 125 MCG TABLET PO SCH (13:55)
[2017-10-12] MEDS: FUROSEMIDE 20 MG TABLET PO SCH (13:56)
[2017-10-12] MEDS ORDERED: WARFARIN 1 MG TABLET PO ONE (14:00)
[2017-10-12] MEDS: GABAPENTIN 300 MG CAPSULE PO SCH ×2 (14:06→20:45)
[2017-10-12] MEDS ORDERED: hydrOXYzine 25 MG TABLET PO ONE (16:10)
--- NOTE | 2017-10-12 16:52 | Infectious Disease Prog Note ---
Subjective Patient information: Note initiated : 10/12/17 at 4:50 pm Service Date, if different from initiated Date: [] Patient: Soumya Garcia 87 y/o F admitted on 10/10/17 for Temp, Not Feeling Well/UTI, Sepsis. Chief Complaint: [] Interval history: Patient transferred out of the ICU. Doing much better. Denies any fever, chills, nausea, vomiting. Had one loose bowel movement this morning. Still on facemask for increased oxygen requirements. Discussed with her her lab results and the plan to narrow down to ceftriaxone IV, and treatment duration of 10 days. Objective Objective Narrative: Has minimal pedal edema - Vital Signs Vital signs: Vital Signs Temp Pulse Pulse Resp BP BP Pulse Ox 10/12/17 15:53 36.6 C 70 18 161/86 95 10/12/17 12:25 37.4 C H 10/12/17 12:00 36.9 C 69 14 158/75 90 10/12/17 11:18 72 18 10/12/17 11:11 92 10/12/17 07:50 92 10/12/17 07:26 70 16 10/12/17 06:36 36.5 C 70 16 130/69 95 10/12/17 03:25 36.7 C 70 16 135/72 95 10/12/17 02:30 36.8 C 70 18 93 10/12/17 02:25 36.8 C 64 17 127/64 93 10/12/17 01:06 36.8 C 73 14 92 10/12/17 01:01 36.7 C 73 17 122/61 89 L 10/12/17 00:25 36.9 C 71 15 92 10/12/17 00:01 36.8 C 69 14 123/69 94 10/11/17 23:39 36.9 C 70 14 90 10/11/17 23:03 74 16 94 10/11/17 23:02 71 16 10/11/17 23:01 37.0 C 71 17 126/69 94 10/11/17 22:01 37.3 C H 69 19 120/66 93 10/11/17 21:27 37.7 C H 70 23 H 94 10/11/17 21:13 37.2 C 10/11/17 21:01 37.7 C H 69 18 125/64 94 10/11/17 20:28 37.8 C H 10/11/17 20:01 37.8 C H 72 22 133/70 94 10/11/17 19:58 37.8 C H 71 17 93 10/11/17 19:30 70 18 10/11/17 19:00 37.8 C H 80 16 132/71 93 10/11/17 18:00 37.7 C H 70 21 141/77 92 10/11/17 17:00 37.6 C H 70 19 118/64 91 Intake and Output 10/12/17 10/12/17 10/12/17 05:59 13:59 21:59 Intake Total 115 / 115 410 / 410 750 / 750 Output Total 990 / 990 1700 / 1700 Balance -875 / -875 -1290 / -1290 750 / 750 Intake: IV 115 / 115 50 / 50 50 / 50 Zosyn 2.25 gm In Dextrose 5% in 50 / 50 50 / 50 50 / 50 Water 50 ml @ 100 mls/hr IV Q6H ERIK Rx#:[id number] Oral 0 / 0 360 / 360 700 / 700 Output: Urine Catheter Amount 890 / 890 1700 / 1700 Stool 100 / 100 Other: Meal Lunch Percent of Meal Consumed 100% Feeding Ability Assist with Tray Set Up Urine Appearance Clear Cloudy Uretheral (Schmidt) Cloudy Urine Color Pale Pale Uretheral (Schmidt) Dark Yellow Urine Odor Normal Normal Stool Size Small Small Stool Color Brown Brown Stool Consistency Soft Liquid Loose # Bowel Movements 1 # of times incontinent of 1 Bowels Intake & Output: Intake & Output 10/12/17 10/12/17 10/12/17 05:59 13:59 21:59 Intake Total 115 / 115 410 / 410 750 / 750 Output Total 990 / 990 1700 / 1700 Balance -875 / -875 -1290 / -1290 750 / 750 Intake: IV 115 / 115 50 / 50 50 / 50 Zosyn 2.25 gm In Dextrose 5% in 50 / 50 50 / 50 50 / 50 Water 50 ml @ 100 mls/hr IV Q6H ERIK Rx#:[id number] Oral 0 / 0 360 / 360 700 / 700 Output: Urine Catheter Amount 890 / 890 1700 / 1700 Stool 100 / 100 Other: Meal Lunch Percent of Meal Consumed 100% Feeding Ability Assist with Tray Set Up Urine Appearance Clear Cloudy Uretheral (Schmidt) Cloudy Urine Color Pale Pale Uretheral (Schmidt) Dark Yellow Urine Odor Normal Normal Stool Size Small Small Stool Color Brown Brown Stool Consistency Soft Liquid Loose # Bowel Movements 1 # of times incontinent of 1 Bowels - General Appearance General appearance: frail, anxious EENT: mucous membranes moist Respiratory: clear, wheezing (Occasional wheezing) Cardiology: no murmurs, normal S1, normal S2 Gastrointestinal: no tenderness (In addition no CVA tenderness) - Lab 10/12/17 04:05 10/12/17 04:05 Most recent lab results Calcium 8.5 mg/dl (8.6-10.4) L 10/12/17 04:05 Phosphorus 2.8 mg/dL (2.7-4.5) 10/12/17 04:05 Magnesium 2.2 mg/dL (1.6-2.5) 10/12/17 04:05 Microbiology 10/10/17 05:20 Blood Blood Culture - Preliminary Escherichia coli 10/10/17 05:10 Urine - Catheterized Urine Culture - Preliminary Escherichia coli 10/10/17 12:23 Blood Blood Culture - Preliminary 10/10/17 12:20 Blood Blood Culture - Preliminary 10/11/17 14:31 Nose - Both Right and Left MRSA (PCR) - Final 10/10/17 04:35 Blood Blood Culture - Preliminary Gram negative bacillus Medications Active Medications: Albuterol/Ipratropium (Duoneb) 3 ml NEB Q4HRT [facility] Last Admin: 10/12/17 11:18 Dose: 3 ml Admin: 10/12/17 07:20 Dose: 3 ml Amlodipine Besylate (Norvasc) 2.5 mg PO DAILY [facility] Last Admin: 10/12/17 12:17 Dose: 2.5 mg Ascorbic Acid (Vitamin C) 1,000 mg PO BID [facility] Dextrose (Dextrose 50%) 0 ml IV UD PRN PRN Reason: Hypoglycemia Diagnostic Test (Pha) (Accu-Chek) 1 each FS [facility] Last Admin: 10/12/17 11:33 Dose: 1 each Admin: 10/12/17 07:31 Dose: 1 each Digoxin (Lanoxin) 125 mcg PO DAILY@1400 [facility] Last Admin: 10/12/17 13:55 Dose: 125 mcg Diphenhydramine HCl (Benadryl) 25 mg PO Q4-6HP PRN PRN Reason: Allergic Symptoms Last Admin: 10/12/17 14:06 Dose: 25 mg Admin: 10/12/17 06:34 Dose: 25 mg Fenofibrate (Antara) 172 mg PO DAILY [facility] Furosemide (Lasix) 20 mg PO QDAY [facility] Last Admin: 10/12/17 13:56 Dose: 20 mg Gabapentin (Neurontin) 600 mg PO TID [facility] Last Admin: 10/12/17 14:06 Dose: 600 mg Glucose (Insta-Glucose) 15 gm PO PRN PRN PRN Reason: Hypoglycemia Hydromorphone HCl (Dilaudid) 0.5 mg IV Q2HP PRN PRN Reason: PAIN LEVEL > 6 Acetaminophen (Ofirmev) 650 mg in 65 mls @ 130 mls/hr IV Q6HP PRN PRN Reason: PAIN/FEVER > 101 Piperacillin Sod/Tazobactam (Sod 2.25 gm/ Dextrose) 50 mls @ 100 mls/hr IV Q6H [facility] Last Infusion: 10/12/17 14:03 Dose: 0 mls/hr Admin: 10/12/17 11:42 Dose: 100 mls/hr Infusion: 10/12/17 06:56 Dose: 0 mls/hr Admin: 10/12/17 05:57 Dose: 100 mls/hr Insulin Human Lispro (Humalog) 0 unit SQ [facility]; Protocol Last Admin: 10/12/17 11:42 Dose: 3 unit Admin: 10/12/17 07:31 Dose: Not Given Non-Admin Reason: No Coverage Needed Levothyroxine Sodium (Synthroid) 88 mcg PO QAMAC [facility] Lisinopril (Zestril) 30 mg PO DAILY [facility] Lorazepam (Ativan) 0.5 mg IV Q2HP PRN PRN Reason: ANXIETY/SEDATION Montelukast Sodium (Singular) 10 mg PO QPM [facility] Naloxone HCl (Narcan) 0.1 mg IV Q2MIN PRN PRN Reason: Opiate Reversal Ondansetron HCl (Zofran) 4 mg IV Q4-6HP PRN PRN Reason: Nausea And Vomiting Systane Liquid Gel (Eye Drops) 1 dose BOTH EYES PRN PRN PRN Reason: Dry Eyes Sodium Chloride (Saline Flush) 10 ml IV Q8 [facility] Last Admin: 10/12/17 14:02 Dose: 10 ml Admin: 10/12/17 05:57 Dose: 10 ml Sotalol HCl (Betapace) 80 mg PO BID [facility] Warfarin Sodium (Coumadin Per Pharmacy) 1 order PO DAILY@1400 [facility] Last Admin: 10/12/17 14:03 Dose: Zolpidem Tartrate (Ambien) 5 mg PO HSP PRN PRN Reason: Sleep Assessment and Plan - Narrative A/P Narrative: Assessment: 1. E. coli pyelonephritis and bacteremia: Urine is most likely source. She had chronic asymptomatic bacteriuria with nonspecific symptoms in the past. There is a small possibility of colovesical fistula, although imaging has been negative but patient had reported positive poppy seeds in the urine on 2 different occasions in recent past. 2. Sepsis: Not in shock Recommendations: Stop IV Zosyn Start IV ceftriaxone 2 g every 24 hours, day 2 out of 10. Stop date October 21, 2017 patient can get a midline over the weekend or next week. Would not recommend a PICC line - will keep a close eye on any symptoms pertaining to her pacemaker, given her bacteremia and the possibility of seeding it -If patient has another episode of symptomatic UTI in future, prophylaxis with oral fosfomycin can be considered. will follow Remi Lopez MD Infectious disease
[2017-10-12] MEDS ORDERED: cefTRIAXone 2 GM VIAL IV SCH (17:00)
[2017-10-12] MEDS: ACETAMINOPHEN 650 MG/65 ML BOTTLE IV PRN (20:44)
[2017-10-12] MEDS: MONTELUKAST 10 MG TABLET PO SCH ×2 (20:45→22:01)
[2017-10-12] MEDS: SOTALOL 80 MG TABLET PO SCH ×2 (20:45→22:01)
[2017-10-12] MEDS: ASCORBIC ACID 500 MG TABLET PO SCH ×2 (20:45→22:01)
[2017-10-13] MEDS: IPRATROPIUM/ALBUTEROL 3 ML AMPUL.NEB NEB SCH ×7 (03:30→22:06)
[2017-10-13] MEDS: 0.9 % SODIUM CHLORIDE 10 ML SYRINGE IV SCH ×4 (03:37→20:13)
[2017-10-13 06:00] LABS: Basophils # (Auto) 0 K/mcL (0.0-0.3); Basophils % (Auto) 0.3 % (0.0-2.0); Eosinophils % (Auto) 6.7 % (0.0-7.0); Granulocytes % (Auto) 73.8 % (38.0-78.0); Lymphocytes # (Auto) 1.6 K/mcL (1.5-4.8); Lymphocytes % (Auto) 10.8 % (15.5-49.0); Mean Cell Volume 92.3 fL (80.0-100.0); Mean Corpuscular HGB Conc 33.2 g/dL (31.0-36.0); Mean Corpuscular Hemoglobin 30.6 pg (26.0-34.0); Monocytes # (Auto) 1.2 K/mcL (0.1-0.9); Monocytes % (Auto) 8.4 % (1.0-12.0); Platelet Count 332 K/mcL (140-440); RBC 3.25 M/mcL (4.00-5.20); Red Cell Distribution Width 15.4 % (11.5-14.5)
[2017-10-13 06:37] LABS: ALT/SGPT 17 U/l (0-40); Albumin/Globulin Ratio 0.9 (1.0-2.3); Alkaline Phosphatase 54 U/L (39-117); Bilirubin,Direct < 0.2 mg/dL (0.0-0.3); Blood Urea Nitrogen 25 mg/dl (8-23); Gamma Glutamyl Transpeptidase 48 U/L (5-36); Uric Acid 4.3 mg/dL (2.5-8.0)
[2017-10-13] MEDS: LEVOTHYROXINE 88 MCG TABLET PO SCH (07:12)
[2017-10-13] MEDS: INSULIN LISPRO 1 UNIT/0.01 ML UNIT SQ SCH ×4 (07:12→20:05)
[2017-10-13] MEDS: LISINOPRIL 10 MG TABLET PO SCH (08:35)
[2017-10-13] MEDS: FUROSEMIDE 20 MG TABLET PO SCH (08:35)
[2017-10-13] MEDS: GABAPENTIN 300 MG CAPSULE PO SCH ×3 (08:35→19:16)
[2017-10-13] MEDS: ASCORBIC ACID 500 MG TABLET PO SCH ×2 (08:35→19:16)
[2017-10-13] MEDS: amLODIPine 5 MG TABLET PO SCH (08:36)
[2017-10-13] MEDS: SOTALOL 80 MG TABLET PO SCH ×2 (08:36→19:15)
[2017-10-13] MEDS: cefTRIAXone 2 GM in DEXTROSE 5% IN WATER 50 ML IV SCH (09:57)
[2017-10-13] MEDS: FENOFIBRATE 43 MG CAPSULE PO SCH (09:57)
[2017-10-13] MEDS ORDERED: WARFARIN 1 MG TABLET PO ONE (14:00)
[2017-10-13] MEDS: DIGOXIN 125 MCG TABLET PO SCH (14:27)
--- NOTE | 2017-10-13 15:10 | Internal Med Progress Note ---
Medical - PN: Subj Patient information: Note initiated : 10/13/17 at 3:07 pm Service Date, if different from initiated Date: [] Patient: Soumya Garcia 87 y/o F admitted on 10/10/17 for Temp, Not Feeling Well/UTI, Sepsis. Chief Complaint: [] Interval history: 87 year old F with h/o recurrent UTI, afib on coumadin, DM, here for sepsis and pyelonephritis. No acute events o/n. VS stable. Abx was changed to Ceftriaxone per ID. She had a rash w/ Abx yesterday, but no more rash after Abx was changed. No new complaints. States that she feels that she is getting better. Additional PMFSH (Level 3 Only): AFib CHF DM-2 Recurrent UTIs3 CKD-4 Anemia of CKD - Constitutional Vitals: Vital Signs Temp Pulse Resp BP Pulse Ox 97.6 F 71 20 104/60 90 10/13/17 11:40 10/13/17 14:28 10/13/17 11:40 10/13/17 11:40 10/13/17 11:40 Period Temp Pulse Resp BP Sys/Farrell Pulse Ox Last 24 Hr 97.6 F-100.2 F 60-97 16-20 104-161/58-86 88-98 Intake and Output 10/13/17 10/13/17 10/13/17 05:59 13:59 21:59 Intake Total 400 / 400 1090 / 1090 Output Total 2800 / 2800 2100 / 2100 Balance -2400 / -2400 -1010 / -1010 Intake & Output: Intake & Output 10/13/17 10/13/17 10/13/17 05:59 13:59 21:59 Intake Total 400 / 400 1090 / 1090 Output Total 2800 / 2800 2100 / 2100 Balance -2400 / -2400 -1010 / -1010 Intake: IV 50 / 50 Rocephin 2 gm In Dextrose 5% in 50 / 50 Water 50 ml @ 100 mls/hr IV Q24H [facility] Rx#:[id number] Oral 400 / 400 1040 / 1040 Output: Urine Catheter Amount 2800 / 2800 2100 / 2100 Other: Meal Lunch Percent of Meal Consumed 100% Feeding Ability Assist with Tray Set Up Urine Appearance Clear Clear Uretheral (Schmidt) Clear Urine Color Pale Straw Uretheral (Schmidt) Straw Urine Odor Normal Exam: Constitutional: Afebrile, awake, cooperative, alert, in no distress, sitting in chair. HEENT: PERRLA, neck supple. Neck: Trachea midline, no JVD. Respiratory system: Clear to auscultation bilaterally, air entry equal on both sides, no crackles or wheezing or rhonchi. CVS: Irregular rhythm, S1 S2 heard, no gallop, no rub. Abdomen: Soft, non-tender, non-distended, no organomegaly, no guarding or rigidity. Extremities: No e/c/c. 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 Psych: Mood and affect appropriate. Medical - PN: Obj Da - Labs CBC & Chem 7: 10/13/17 04:20 10/13/17 04:20 Labs: Abnormal Lab Results 10/13/17 10/13/17 10/13/17 04:20 04:20 04:20 WBC 14.6 H RBC 3.25 L Hgb 9.9 L Hct 29.9 L RDW 15.4 H Gran % Lymph % (Auto) 10.8 L Gran # 10.8 H Lymph # (Auto) [place] # (Auto) 1.2 H Eos # (Auto) 1.0 H PT 17.3 H INR 1.4 H Sodium Carbon Dioxide BUN 25 H Creatinine Glucose Calcium Magnesium GGT 48 H Total Protein Albumin 3.0 L Albumin/Globulin Ratio 0.9 L Triglycerides 275 H 10/12/17 10/12/17 10/12/17 04:05 04:05 04:05 WBC 22.7 H RBC 3.02 L Hgb 9.3 L Hct 28.1 L RDW 16.1 H Gran % 83.8 H Lymph % (Auto) 7.2 L Gran # 19.0 H Lymph # (Auto) [place] # (Auto) 1.5 H Eos # (Auto) PT 21.9 H INR 1.9 H Sodium Carbon Dioxide BUN 31 H Creatinine 1.3 H Glucose 119 H Calcium 8.5 L Magnesium GGT 52 H Total Protein 5.8 L Albumin 2.6 L Albumin/Globulin Ratio 0.8 L Triglycerides 375 H 10/11/17 10/11/17 10/11/17 04:00 04:00 04:00 WBC 36.5 H* RBC 3.07 L Hgb 9.3 L Hct 28.6 L RDW 15.7 H Gran % 90.4 H Lymph % (Auto) 4.4 L Gran # 33.0 H Lymph # (Auto) [place] # (Auto) 1.8 H Eos # (Auto) PT 26.7 H INR 2.4 H Sodium Carbon Dioxide BUN 41 H Creatinine 1.7 H Glucose 136 H Calcium 7.8 L Magnesium GGT 58 H Total Protein 5.3 L Albumin 2.7 L Albumin/Globulin Ratio Triglycerides 259 H 10/10/17 10/10/17 19:25 19:25 WBC 39.4 H* RBC 3.21 L Hgb 9.8 L Hct 29.7 L RDW 15.6 H Gran % 92.0 H Lymph % (Auto) 3.0 L Gran # 36.2 H Lymph # (Auto) 1.2 L [place] # (Auto) 1.9 H Eos # (Auto) PT INR Sodium 131 L Carbon Dioxide 21 L BUN 40 H Creatinine 1.6 H Glucose 129 H Calcium 7.6 L Magnesium 1.5 L GGT 63 H Total Protein 5.4 L Albumin 2.6 L Albumin/Globulin Ratio 0.9 L Triglycerides 216 H Meds: Medications Albuterol/Ipratropium (Duoneb) 3 ml NEB Q4HRT [facility] Last Admin: 10/13/17 11:20 Dose: 3 ml Amlodipine Besylate (Norvasc) 2.5 mg PO DAILY [facility] Last Admin: 10/13/17 08:36 Dose: 2.5 mg Ascorbic Acid (Vitamin C) 1,000 mg PO BID [facility] Last Admin: 10/13/17 08:35 Dose: 1,000 mg Dextrose (Dextrose 50%) 0 ml IV UD PRN PRN Reason: Hypoglycemia Diagnostic Test (Pha) (Accu-Chek) 1 each FS ACHS [facility] Last Admin: 10/13/17 11:10 Dose: 1 each Digoxin (Lanoxin) 125 mcg PO DAILY@1400 [facility] Last Admin: 10/13/17 14:27 Dose: 125 mcg Diphenhydramine HCl (Benadryl) 25 mg PO Q4-6HP PRN PRN Reason: Allergic Symptoms Last Admin: 10/12/17 14:06 Dose: 25 mg Fenofibrate (Antara) 172 mg PO DAILY [facility] Last Admin: 08/25/18 09:57 Dose: 172 mg Furosemide (Lasix) 20 mg PO QDAY [facility] Last Admin: 10/13/17 08:35 Dose: 20 mg Gabapentin (Neurontin) 600 mg PO TID [facility] Last Admin: 10/13/17 14:27 Dose: 600 mg Glucose (Insta-Glucose) 15 gm PO PRN PRN PRN Reason: Hypoglycemia Hydromorphone HCl (Dilaudid) 0.5 mg IV Q2HP PRN PRN Reason: PAIN LEVEL > 6 Acetaminophen (Ofirmev) 650 mg in 65 mls @ 130 mls/hr IV Q6HP PRN PRN Reason: PAIN/FEVER > 101 Last Infusion: 10/12/17 21:17 Dose: Infused Ceftriaxone Sodium 2 gm/ (Dextrose) 50 mls @ 100 mls/hr IV Q24H [facility] Last Infusion: 10/13/17 10:34 Dose: Infused Insulin Human Lispro (Humalog) 0 unit SQ ACHS [facility]; Protocol Last Admin: 10/13/17 11:10 Dose: Not Given Levothyroxine Sodium (Synthroid) 88 mcg PO QAMAC [facility] Last Admin: 10/13/17 07:12 Dose: 88 mcg Lisinopril (Zestril) 30 mg PO DAILY [facility] Last Admin: 10/13/17 08:35 Dose: 30 mg Lorazepam (Ativan) 0.5 mg IV Q2HP PRN PRN Reason: ANXIETY/SEDATION Montelukast Sodium (Singular) 10 mg PO QPM [facility] Last Admin: 10/12/17 22:01 Dose: Not Given Naloxone HCl (Narcan) 0.1 mg IV Q2MIN PRN PRN Reason: Opiate Reversal Ondansetron HCl (Zofran) 4 mg IV Q4-6HP PRN PRN Reason: Nausea And Vomiting Systane Liquid Gel (Eye Drops) 1 dose BOTH EYES PRN PRN PRN Reason: Dry Eyes Sodium Chloride (Saline Flush) 10 ml IV Q8 [facility] Last Admin: 10/13/17 14:28 Dose: 10 ml Sotalol HCl (Betapace) 80 mg PO BID [facility] Last Admin: 10/13/17 08:36 Dose: 80 mg Warfarin Sodium (Coumadin Per Pharmacy) 1 order PO DAILY@1400 [facility] Last Admin: 10/13/17 14:27 Dose: Not Given Zolpidem Tartrate (Ambien) 5 mg PO HSP PRN PRN Reason: Sleep Medical - PN: A/P - Time Spent With Patient Total time spent is greater than 50% in coordination of care (as documented) at patient's floor/unit and/or counseling patient: Greater than 35 minutes - Narrative A/P Narrative: Urinary tract infection/ Acute Pyelonephritis Gram negative bacteremia Severe Sepsis Diabetes mellitus Acute hypoxic Respiratory Failure Atrial fibrillation Congestive heart failure Hypertension Hypothyroidism chronic Kidney disease stage 4 Anemia of chr disease Recurrent Urinary tract Infections, 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 Polyneuropathy Intermittent Bowel and Bladder Incontinence Plan improving sepsis resolving, pt tolerating po diet well CT shows pyelonephritis, IV Ceftriaxone per ID poppy seed test started to evaluate for colovesical fistula home bp meds, diuretics, cardiac meds resumed monitor dig levels. Oxygen supplementation via nasal canula SSI for glucose control for now DVT on coumadin with therapeutic inr, d/c hep sq Full code Cardiac, diabetic diet Medical - PN: Qual - VTE Deep Vein Thrombosis/Pulmonary Embolism Present on Admission: No
[2017-10-13] MEDS: SYSTANE EYE BOTH EYES PRN (17:33)
[2017-10-13] MEDS: MONTELUKAST 10 MG TABLET PO SCH (19:16)
[2017-10-13] MEDS: ACETAMINOPHEN 650 MG/65 ML BOTTLE IV PRN (23:49)
[2017-10-14] MEDS: IPRATROPIUM/ALBUTEROL 3 ML AMPUL.NEB NEB SCH ×6 (03:28→22:31)
[2017-10-14 05:29] LABS: Basophils # (Auto) 0.1 K/mcL (0.0-0.3); Basophils % (Auto) 0.7 % (0.0-2.0); Eosinophils # (Auto) 0.9 K/mcL (0.0-0.7); Eosinophils % (Auto) 8.5 % (0.0-7.0); Granulocytes % (Auto) 60.6 % (38.0-78.0); Lymphocytes # (Auto) 1.7 K/mcL (1.5-4.8); Lymphocytes % (Auto) 17.3 % (15.5-49.0); Mean Cell Volume 91.8 fL (80.0-100.0); Mean Corpuscular HGB Conc 33.4 g/dL (31.0-36.0); Mean Corpuscular Hemoglobin 30.7 pg (26.0-34.0); Monocytes # (Auto) 1.3 K/mcL (0.1-0.9); Monocytes % (Auto) 12.9 % (1.0-12.0); Platelet Count 369 K/mcL (140-440); RBC 3.36 M/mcL (4.00-5.20); Red Cell Distribution Width 15.4 % (11.5-14.5)
[2017-10-14 05:56] LABS: ALT/SGPT 13 U/l (0-40); Albumin 2.9 gm/dL (3.2-5.2); Albumin/Globulin Ratio 0.8 (1.0-2.3); Alkaline Phosphatase 53 U/L (39-117); Bilirubin,Direct < 0.2 mg/dL (0.0-0.3); Blood Urea Nitrogen 27 mg/dl (8-23); Gamma Glutamyl Transpeptidase 48 U/L (5-36); Uric Acid 4.9 mg/dL (2.5-8.0)
[2017-10-14] MEDS: SYSTANE EYE BOTH EYES PRN (07:24)
[2017-10-14] MEDS: LEVOTHYROXINE 88 MCG TABLET PO SCH (07:25)
[2017-10-14] MEDS: 0.9 % SODIUM CHLORIDE 10 ML SYRINGE IV SCH ×3 (07:25→20:17)
[2017-10-14] MEDS: INSULIN LISPRO 1 UNIT/0.01 ML UNIT SQ SCH ×4 (07:25→20:21)
[2017-10-14] MEDS: FENOFIBRATE 43 MG CAPSULE PO SCH (09:18)
[2017-10-14] MEDS: FUROSEMIDE 20 MG TABLET PO SCH (09:18)
[2017-10-14] MEDS: GABAPENTIN 300 MG CAPSULE PO SCH ×3 (09:18→20:15)
[2017-10-14] MEDS: amLODIPine 5 MG TABLET PO SCH (09:18)
[2017-10-14] MEDS: cefTRIAXone 2 GM in DEXTROSE 5% IN WATER 50 ML IV SCH (09:19)
[2017-10-14] MEDS: ASCORBIC ACID 500 MG TABLET PO SCH ×2 (09:19→20:15)
[2017-10-14] MEDS: LISINOPRIL 10 MG TABLET PO SCH (09:19)
[2017-10-14] MEDS: SOTALOL 80 MG TABLET PO SCH ×2 (09:20→20:16)
[2017-10-14] MEDS: DIGOXIN 125 MCG TABLET PO SCH (13:50)
[2017-10-14] MEDS ORDERED: WARFARIN 2 MG TABLET PO ONE (14:00)
[2017-10-14] MEDS: MONTELUKAST 10 MG TABLET PO SCH (20:16)
--- NOTE | 2017-10-14 20:30 | Internal Med Progress Note ---
Medical - PN: Subj Patient information: Note initiated : 10/14/17 at 8:27 pm Service Date, if different from initiated Date: [] Patient: Soumya Garcia a 87 y/o F admitted on 10/10/17 for Temp, Not Feeling Well/UTI, Sepsis. Chief Complaint: [] Interval history: 87 year old F with h/o recurrent UTI, afib on coumadin, DM, here for sepsis and pyelonephritis. No acute events o/n. VS stable. Abx was changed to Ceftriaxone per ID. She had a rash w/ previous Abx, but no more rash after Abx was changed. No new complaints. Again states today that she feels that she is getting better. Additional PMFSH (Level 3 Only): AFib CHF DM-2 Recurrent UTIs3 CKD-4 Anemia of CKD - Constitutional Vitals: Vital Signs Temp Pulse Resp BP Pulse Ox 99.4 F H 71 14 140/64 95 10/14/17 19:29 10/14/17 19:29 10/14/17 19:29 10/14/17 19:29 10/14/17 19:29 Period Temp Pulse Resp BP Sys/Farrell Pulse Ox Last 24 Hr 96.8 F-101.3 F 70-95 12-20 119-158/60-84 86-97 Intake and Output 10/14/17 10/14/17 10/14/17 05:59 13:59 21:59 Intake Total 365 / 365 1090 / 1090 600 / 600 Output Total 1125 / 1125 2225 / 2225 450 / 450 Balance -760 / -760 -1135 / -1135 150 / 150 Weight 146 lb Patient Weight 10/15/17 05:59 Weight 146 lb Intake & Output: Intake & Output 10/14/17 10/14/17 10/14/17 05:59 13:59 21:59 Intake Total 365 / 365 1090 / 1090 600 / 600 Output Total 1125 / 1125 2225 / 2225 450 / 450 Balance -760 / -760 -1135 / -1135 150 / 150 Weight 146 lb Intake: IV 65 / 65 50 / 50 Rocephin 2 gm In Dextrose 5% in 50 / 50 Water 50 ml @ 100 mls/hr IV Q24H [facility] Rx#:[id number] Oral 300 / 300 1040 / 1040 600 / 600 Output: Urine Catheter Amount 1125 / 1125 2225 / 2225 450 / 450 # of times incontinent of urine 0 / 0 Other: Meal Lunch Dinner Percent of Meal Consumed 100% 100% Feeding Ability Assist with Tray Set Up Urine Appearance Clear Clear Clear Uretheral (Schmidt) Clear Sediment Urine Color Bright Yellow Straw Bright Yellow Uretheral (Schmidt) Pale Urine Odor Normal Normal Normal Stool Size Smear Small Stool Color Brown Brown Stool Consistency Soft Soft # Voids 1 # Bowel Movements 1 1 # of times incontinent of 1 Bowels Exam: General: Afebrile, awake, cooperative, alert, no distress, sitting in chair. HEENT: PERRLA. Neck: Trachea midline, supple, no JVD. Respiratory system: Clear to auscultation bilaterally, air entry equal on both sides, no crackles or wheezing or rhonchi. CVS: Irregular rhythm, S1 S2 heard, no gallop, no rub. Abdomen: Soft, non-tender, non-distended, no organomegaly, no guarding or rigidity. Extremities: No e/c/c. 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 Psych: Mood and affect appropriate. Medical - PN: Obj Da - Labs CBC & Chem 7: 10/14/17 04:15 10/14/17 04:15 Labs: Abnormal Lab Results 10/14/17 10/14/17 10/14/17 04:15 04:15 04:15 WBC RBC 3.36 L Hgb 10.3 L Hct 30.8 L RDW 15.4 H Gran % Lymph % (Auto) [place] % (Auto) 12.9 H Eos % (Auto) 8.5 H Gran # [place] # (Auto) 1.3 H Eos # (Auto) 0.9 H PT 16.4 H INR 1.3 H BUN 27 H Creatinine 1.3 H Glucose Calcium GGT 48 H Total Protein Albumin 2.9 L Albumin/Globulin Ratio 0.8 L Triglycerides 218 H 10/13/17 10/13/17 10/13/17 04:20 04:20 04:20 WBC 14.6 H RBC 3.25 L Hgb 9.9 L Hct 29.9 L RDW 15.4 H Gran % Lymph % (Auto) 10.8 L [place] % (Auto) Eos % (Auto) Gran # 10.8 H [place] # (Auto) 1.2 H Eos # (Auto) 1.0 H PT 17.3 H INR 1.4 H BUN 25 H Creatinine Glucose Calcium GGT 48 H Total Protein Albumin 3.0 L Albumin/Globulin Ratio 0.9 L Triglycerides 275 H 10/12/17 10/12/17 10/12/17 04:05 04:05 04:05 WBC 22.7 H RBC 3.02 L Hgb 9.3 L Hct 28.1 L RDW 16.1 H Gran % 83.8 H Lymph % (Auto) 7.2 L [place] % (Auto) Eos % (Auto) Gran # 19.0 H [place] # (Auto) 1.5 H Eos # (Auto) PT 21.9 H INR 1.9 H BUN 31 H Creatinine 1.3 H Glucose 119 H Calcium 8.5 L GGT 52 H Total Protein 5.8 L Albumin 2.6 L Albumin/Globulin Ratio 0.8 L Triglycerides 375 H Meds: Medications Albuterol/Ipratropium (Duoneb) 3 ml NEB Q4HRT [facility] Last Admin: 10/14/17 15:30 Dose: Not Given Amlodipine Besylate (Norvasc) 2.5 mg PO DAILY [facility] Last Admin: 10/14/17 09:18 Dose: 2.5 mg Ascorbic Acid (Vitamin C) 1,000 mg PO BID [facility] Last Admin: 10/14/17 20:15 Dose: 1,000 mg Dextrose (Dextrose 50%) 0 ml IV UD PRN PRN Reason: Hypoglycemia Diagnostic Test (Pha) (Accu-Chek) 1 each FS ACHS [facility] Last Admin: 10/14/17 20:19 Dose: 1 each Digoxin (Lanoxin) 125 mcg PO DAILY@1400 [facility] Last Admin: 10/14/17 13:50 Dose: 125 mcg Diphenhydramine HCl (Benadryl) 25 mg PO Q4-6HP PRN PRN Reason: Allergic Symptoms Last Admin: 10/12/17 14:06 Dose: 25 mg Fenofibrate (Antara) 172 mg PO DAILY [facility] Last Admin: 10/14/17 09:18 Dose: 172 mg Furosemide (Lasix) 20 mg PO QDAY [facility] Last Admin: 10/14/17 09:18 Dose: 20 mg Gabapentin (Neurontin) 600 mg PO TID [facility] Last Admin: 10/14/17 20:15 Dose: 600 mg Glucose (Insta-Glucose) 15 gm PO PRN PRN PRN Reason: Hypoglycemia Hydromorphone HCl (Dilaudid) 0.5 mg IV Q2HP PRN PRN Reason: PAIN LEVEL > 6 Acetaminophen (Ofirmev) 650 mg in 65 mls @ 130 mls/hr IV Q6HP PRN PRN Reason: PAIN/FEVER > 101 Last Infusion: 10/14/17 00:27 Dose: Infused Ceftriaxone Sodium 2 gm/ (Dextrose) 50 mls @ 100 mls/hr IV Q24H [facility] Last Infusion: 10/14/17 09:50 Dose: Infused Insulin Human Lispro (Humalog) 0 unit SQ ACHS [facility]; Protocol Last Admin: 10/14/17 20:21 Dose: Not Given Levothyroxine Sodium (Synthroid) 88 mcg PO QAMAC [facility] Last Admin: 10/14/17 07:25 Dose: 88 mcg Lisinopril (Zestril) 30 mg PO DAILY [facility] Last Admin: 10/14/17 09:19 Dose: 30 mg Lorazepam (Ativan) 0.5 mg IV Q2HP PRN PRN Reason: ANXIETY/SEDATION Montelukast Sodium (Singular) 10 mg PO QPM [facility] Last Admin: 10/14/17 20:16 Dose: 10 mg Naloxone HCl (Narcan) 0.1 mg IV Q2MIN PRN PRN Reason: Opiate Reversal Ondansetron HCl (Zofran) 4 mg IV Q4-6HP PRN PRN Reason: Nausea And Vomiting Systane Liquid Gel (Eye Drops) 1 dose BOTH EYES PRN PRN PRN Reason: Dry Eyes Last Admin: 10/14/17 07:24 Dose: 1 dose Sodium Chloride (Saline Flush) 10 ml IV Q8 [facility] Last Admin: 10/14/17 20:17 Dose: 10 ml Sotalol HCl (Betapace) 80 mg PO BID [facility] Last Admin: 10/14/17 20:16 Dose: 80 mg Warfarin Sodium (Coumadin Per Pharmacy) 1 order PO DAILY@1400 [facility] Last Admin: 10/14/17 13:52 Dose: Not Given Zolpidem Tartrate (Ambien) 5 mg PO HSP PRN PRN Reason: Sleep Medical - PN: A/P - Time Spent With Patient Total time spent is greater than 50% in coordination of care (as documented) at patient's floor/unit and/or counseling patient: Greater than 35 minutes - Narrative A/P Narrative: Urinary tract infection/ Acute Pyelonephritis Gram negative bacteremia Severe Sepsis Diabetes mellitus Acute hypoxic Respiratory Failure Atrial fibrillation Congestive heart failure Hypertension Hypothyroidism chronic Kidney disease stage 4 Anemia of chr disease Recurrent Urinary tract Infections, 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 Polyneuropathy Intermittent Bowel and Bladder Incontinence Plan Continues to improve sepsis resolved, pt tolerating po diet well CT shows pyelonephritis, IV Ceftriaxone per ID poppy seed test started to evaluate for colovesical fistula home bp meds, diuretics, cardiac meds resumed monitor dig levels. Oxygen supplementation via nasal canula SSI for glucose control for now DVT on coumadin with therapeutic inr, d/c hep sq Full code Cardiac, diabetic diet Medical - PN: Qual - VTE Deep Vein Thrombosis/Pulmonary Embolism Present on Admission: No
[2017-10-15] MEDS: IPRATROPIUM/ALBUTEROL 3 ML AMPUL.NEB NEB SCH ×2 (03:18→07:11)
[2017-10-15] MEDS: 0.9 % SODIUM CHLORIDE 10 ML SYRINGE IV SCH (05:10)
[2017-10-15 06:56] LABS: ALT/SGPT 14 U/l (0-40); Albumin 3.1 gm/dL (3.2-5.2); Albumin/Globulin Ratio 0.8 (1.0-2.3); Alkaline Phosphatase 49 U/L (39-117); Bilirubin,Direct < 0.2 mg/dL (0.0-0.3); Blood Urea Nitrogen 32 mg/dl (8-23); Gamma Glutamyl Transpeptidase 43 U/L (5-36); Uric Acid 5.5 mg/dL (2.5-8.0)
[2017-10-15 07:16] LABS: Basophils # (Auto) 0.1 K/mcL (0.0-0.3); Basophils % (Auto) 0.8 % (0.0-2.0); Eosinophils # (Auto) 0.9 K/mcL (0.0-0.7); Eosinophils % (Auto) 7.7 % (0.0-7.0); Granulocytes % (Auto) 63.1 % (38.0-78.0); Lymphocytes # (Auto) 1.6 K/mcL (1.5-4.8); Mean Cell Volume 91.7 fL (80.0-100.0); Mean Corpuscular HGB Conc 33.7 g/dL (31.0-36.0); Mean Corpuscular Hemoglobin 30.9 pg (26.0-34.0); Monocytes # (Auto) 1.7 K/mcL (0.1-0.9); Monocytes % (Auto) 14.4 % (1.0-12.0); Platelet Count 379 K/mcL (140-440); RBC 3.44 M/mcL (4.00-5.20); Red Cell Distribution Width 15.1 % (11.5-14.5)
[2017-10-15] MEDS: INSULIN LISPRO 1 UNIT/0.01 ML UNIT SQ SCH ×2 (08:03→11:33)
[2017-10-15] MEDS ORDERED: IPRATROPIUM/ALBUTEROL 3 ML AMPUL.NEB NEB PRN (08:28)
[2017-10-15] MEDS: cefTRIAXone 2 GM in DEXTROSE 5% IN WATER 50 ML IV SCH (08:47)
[2017-10-15] MEDS: FENOFIBRATE 43 MG CAPSULE PO SCH (08:47)
[2017-10-15] MEDS: LISINOPRIL 10 MG TABLET PO SCH (08:47)
[2017-10-15] MEDS: FUROSEMIDE 20 MG TABLET PO SCH (08:48)
[2017-10-15] MEDS: amLODIPine 5 MG TABLET PO SCH (08:48)
[2017-10-15] MEDS: GABAPENTIN 300 MG CAPSULE PO SCH (08:48)
[2017-10-15] MEDS: ASCORBIC ACID 500 MG TABLET PO SCH (08:48)
[2017-10-15] MEDS: SOTALOL 80 MG TABLET PO SCH (08:48)
--- NOTE | 2017-10-15 10:14 | Infectious Disease Prog Note ---
Subjective Patient information: Note initiated : 10/15/17 at 10:12 am Service Date, if different from initiated Date: [] Patient: Soumya Garcia 87 y/o F admitted on 10/10/17 for Temp, Not Feeling Well/UTI, Sepsis. Chief Complaint: [] Interval history: Patient doing better than Sunday. Sitting in the chair, off supplemental oxygen. Denies any fever, chills, nausea, vomiting, diarrhea, belly pain, shortness of breath, cough. Spoke with her about plan to continue IV antibiotics for total of 10 days, and then I will plan to see her in 2 weeks after discharge. Objective - Vital Signs Vital signs: Vital Signs Temp Pulse Pulse Pulse Resp BP Pulse Ox 10/15/17 08:00 80 16 119/62 95 10/15/17 07:52 100 H 18 92 10/15/17 07:10 100 H 18 10/15/17 03:08 37.6 C H 89 22 122/66 92 10/15/17 00:57 91 10/15/17 00:55 88 L 10/14/17 23:26 36.8 C 88 14 126/58 91 10/14/17 19:50 76 20 10/14/17 19:29 37.4 C H 71 14 140/64 95 10/14/17 19:16 96 10/14/17 18:45 97 10/14/17 15:40 36.7 C 18 122/68 95 10/14/17 13:52 70 10/14/17 11:51 36.6 C 18 132/60 96 Intake and Output 10/14/17 10/15/17 10/15/17 21:59 05:59 13:59 Intake Total 600 / 600 740 / 740 240 / 240 Output Total 450 / 450 1550 / 1550 600 / 600 Balance 150 / 150 -810 / -810 -360 / -360 Intake: Oral 600 / 600 740 / 740 240 / 240 Output: Urine Catheter Amount 450 / 450 1550 / 1550 600 / 600 Other: Meal Dinner Breakfast Percent of Meal Consumed 100% 100% Urine Appearance Clear Clear Clear Uretheral (Schmidt) Clear Clear Sediment Urine Color Bright Yellow Pale Straw Uretheral (Schmidt) Pale Straw Urine Odor Normal Normal Stool Size Small Moderate Stool Color Brown Brown Stool Consistency Soft Soft # Bowel Movements 1 Weight 66.224 kg Intake & Output: Intake & Output 10/14/17 10/15/17 10/15/17 21:59 05:59 13:59 Intake Total 600 / 600 740 / 740 240 / 240 Output Total 450 / 450 1550 / 1550 600 / 600 Balance 150 / 150 -810 / -810 -360 / -360 Weight 66.224 kg Intake: Oral 600 / 600 740 / 740 240 / 240 Output: Urine Catheter Amount 450 / 450 1550 / 1550 600 / 600 Other: Meal Dinner Breakfast Percent of Meal Consumed 100% 100% Urine Appearance Clear Clear Clear Uretheral (Schmidt) Clear Clear Sediment Urine Color Bright Yellow Pale Straw Uretheral (Schmidt) Pale Straw Urine Odor Normal Normal Stool Size Small Moderate Stool Color Brown Brown Stool Consistency Soft Soft # Bowel Movements 1 - General Appearance General appearance: frail Respiratory: rales (Bilateral lung bases) Cardiology: no murmurs, normal S1, normal S2 Gastrointestinal: normoactive bowel sounds, no tenderness, distended - Lab 10/15/17 04:20 10/15/17 04:20 Most recent lab results Calcium 9.2 mg/dl (8.6-10.4) 10/15/17 04:20 Phosphorus 3.8 mg/dL (2.7-4.5) 10/15/17 04:20 Magnesium 1.7 mg/dL (1.6-2.5) 10/15/17 04:20 Microbiology 10/10/17 12:23 Blood Blood Culture - Preliminary 10/10/17 12:20 Blood Blood Culture - Preliminary 10/10/17 05:10 Urine - Catheterized Urine Culture - Final Escherichia coli 10/10/17 05:20 Blood Blood Culture - Preliminary Escherichia coli 10/11/17 14:31 Nose - Both Right and Left MRSA (PCR) - Final 10/10/17 04:35 Blood Blood Culture - Preliminary Gram negative bacillus Medications Active Medications: Albuterol/Ipratropium (Duoneb) 3 ml NEB Q4HP PRN PRN Reason: Shortness Of Breath Or Wheezing Amlodipine Besylate (Norvasc) 2.5 mg PO DAILY ERIK Last Admin: 10/15/17 08:48 Dose: 2.5 mg Admin: 10/14/17 09:18 Dose: 2.5 mg Admin: 10/13/17 08:36 Dose: 2.5 mg Admin: 10/12/17 12:17 Dose: 2.5 mg Ascorbic Acid (Vitamin C) 1,000 mg PO BID [facility] Last Admin: 10/15/17 08:48 Dose: 1,000 mg Admin: 10/14/17 20:15 Dose: 1,000 mg Admin: 10/14/17 09:19 Dose: 1,000 mg Admin: 10/13/17 19:16 Dose: 1,000 mg Admin: 10/13/17 08:35 Dose: 1,000 mg Admin: 10/12/17 22:01 Dose: Not Given Non-Admin Reason: Patient Refused Dextrose (Dextrose 50%) 0 ml IV UD PRN PRN Reason: Hypoglycemia Diagnostic Test (Pha) (Accu-Chek) 1 each FS ACHS [facility] Last Admin: 10/15/17 07:25 Dose: 1 each Admin: 10/14/17 20:19 Dose: 1 each Admin: 10/14/17 16:34 Dose: 1 each Admin: 10/14/17 11:43 Dose: 1 each Admin: 10/14/17 07:25 Dose: 1 each Admin: 10/13/17 19:22 Dose: 1 each Admin: 10/13/17 16:22 Dose: 1 each Admin: 10/13/17 11:10 Dose: 1 each Admin: 10/13/17 07:11 Dose: 1 each Admin: 10/12/17 20:28 Dose: 1 each Admin: 10/12/17 17:08 Dose: 1 each Admin: 10/12/17 11:33 Dose: 1 each Admin: 10/12/17 07:31 Dose: 1 each Digoxin (Lanoxin) 125 mcg PO DAILY@1400 [facility] Last Admin: 10/14/17 13:50 Dose: 125 mcg Admin: 10/13/17 14:27 Dose: 125 mcg Admin: 10/12/17 13:55 Dose: 125 mcg Diphenhydramine HCl (Benadryl) 25 mg PO Q4-6HP PRN PRN Reason: Allergic Symptoms Last Admin: 10/12/17 14:06 Dose: 25 mg Admin: 10/12/17 06:34 Dose: 25 mg Fenofibrate (Antara) 172 mg PO DAILY [facility] Last Admin: 10/15/17 08:47 Dose: 172 mg Admin: 10/14/17 09:18 Dose: 172 mg Admin: 10/13/17 09:57 Dose: 172 mg Furosemide (Lasix) 20 mg PO QDAY [facility] Last Admin: 10/15/17 08:48 Dose: 20 mg Admin: 10/14/17 09:18 Dose: 20 mg Admin: 10/13/17 08:35 Dose: 20 mg Admin: 10/12/17 13:56 Dose: 20 mg Gabapentin (Neurontin) 600 mg PO TID [facility] Last Admin: 10/15/17 08:48 Dose: 600 mg Admin: 10/14/17 20:15 Dose: 600 mg Admin: 10/14/17 15:06 Dose: 600 mg Admin: 10/14/17 09:18 Dose: 600 mg Admin: 10/13/17 19:16 Dose: 600 mg Admin: 10/13/17 14:27 Dose: 600 mg Admin: 10/13/17 08:35 Dose: 600 mg Admin: 10/12/17 20:45 Dose: 600 mg Admin: 10/12/17 14:06 Dose: 600 mg Glucose (Insta-Glucose) 15 gm PO PRN PRN PRN Reason: Hypoglycemia Hydromorphone HCl (Dilaudid) 0.5 mg IV Q2HP PRN PRN Reason: PAIN LEVEL > 6 Acetaminophen (Ofirmev) 650 mg in 65 mls @ 130 mls/hr IV Q6HP PRN PRN Reason: PAIN/FEVER > 101 Last Infusion: 10/14/17 00:27 Dose: 0 mls/hr Admin: 10/13/17 23:49 Dose: 130 mls/hr Infusion: 10/12/17 21:17 Dose: 0 mls/hr Admin: 10/12/17 20:44 Dose: 130 mls/hr Ceftriaxone Sodium 2 gm/ (Dextrose) 50 mls @ 100 mls/hr IV Q24H [facility] Last Admin: 10/15/17 08:47 Dose: 100 mls/hr Infusion: 10/14/17 09:50 Dose: 0 mls/hr Admin: 10/14/17 09:19 Dose: 100 mls/hr Infusion: 10/13/17 10:34 Dose: 0 mls/hr Admin: 10/13/17 09:57 Dose: 100 mls/hr Insulin Human Lispro (Humalog) 0 unit SQ ACHS [facility]; Protocol Last Admin: 10/15/17 08:03 Dose: Not Given Non-Admin Reason: No Coverage Needed Admin: 10/14/17 20:21 Dose: Not Given Non-Admin Reason: No Coverage Needed Admin: 10/14/17 16:34 Dose: Not Given Non-Admin Reason: No Coverage Needed Admin: 10/14/17 11:43 Dose: Not Given Non-Admin Reason: No Coverage Needed Admin: 10/14/17 07:25 Dose: Not Given Non-Admin Reason: No Coverage Needed Admin: 10/13/17 20:05 Dose: Not Given Non-Admin Reason: No Coverage Needed Admin: 10/13/17 16:22 Dose: Not Given Non-Admin Reason: No Coverage Needed Admin: 10/13/17 11:10 Dose: Not Given Non-Admin Reason: No Coverage Needed Admin: 10/13/17 07:12 Dose: Not Given Non-Admin Reason: No Coverage Needed Admin: 10/12/17 20:45 Dose: 1 unit Admin: 10/12/17 17:10 Dose: Not Given Non-Admin Reason: No Coverage Needed Admin: 10/12/17 11:42 Dose: 3 unit Admin: 10/12/17 07:31 Dose: Not Given Non-Admin Reason: No Coverage Needed Levothyroxine Sodium (Synthroid) 88 mcg PO QAMAC [facility] Last Admin: 10/14/17 07:25 Dose: 88 mcg Admin: 10/13/17 07:12 Dose: 88 mcg Lisinopril (Zestril) 30 mg PO DAILY [facility] Last Admin: 10/15/17 08:47 Dose: 30 mg Admin: 10/14/17 09:19 Dose: 30 mg Admin: 10/13/17 08:35 Dose: 30 mg Lorazepam (Ativan) 0.5 mg IV Q2HP PRN PRN Reason: ANXIETY/SEDATION Montelukast Sodium (Singular) 10 mg PO QPM [facility] Last Admin: 10/14/17 20:16 Dose: 10 mg Admin: 10/13/17 19:16 Dose: 10 mg Admin: 10/12/17 22:01 Dose: Not Given Non-Admin Reason: Patient Refused Naloxone HCl (Narcan) 0.1 mg IV Q2MIN PRN PRN Reason: Opiate Reversal Ondansetron HCl (Zofran) 4 mg IV Q4-6HP PRN PRN Reason: Nausea And Vomiting Systane Liquid Gel (Eye Drops) 1 dose BOTH EYES PRN PRN PRN Reason: Dry Eyes Last Admin: 10/14/17 07:24 Dose: 1 dose Admin: 10/13/17 17:33 Dose: 1 dose Sodium Chloride (Saline Flush) 10 ml IV Q8 [facility] Last Admin: 10/15/17 05:10 Dose: 10 ml Admin: 10/14/17 20:17 Dose: 10 ml Comments: flushed now for patient convenience Admin: 10/14/17 13:50 Dose: 10 ml Admin: 10/14/17 07:25 Dose: 10 ml Admin: 10/13/17 20:13 Dose: 10 ml Admin: 10/13/17 14:28 Dose: 10 ml Admin: 10/13/17 06:29 Dose: Admin: 10/13/17 03:37 Dose: 10 ml Admin: 10/12/17 20:45 Dose: 10 ml Admin: 10/12/17 14:02 Dose: 10 ml Admin: 10/12/17 05:57 Dose: 10 ml Sotalol HCl (Betapace) 80 mg PO BID [facility] Last Admin: 10/15/17 08:48 Dose: 80 mg Admin: 10/14/17 20:16 Dose: 80 mg Admin: 10/14/17 09:20 Dose: 80 mg Admin: 10/13/17 19:15 Dose: 80 mg Admin: 10/13/17 08:36 Dose: 80 mg Admin: 10/12/17 22:01 Dose: Not Given Non-Admin Reason: Patient Refused Warfarin Sodium (Coumadin Per Pharmacy) 1 order PO DAILY@1400 [facility] Last Admin: 10/14/17 13:52 Dose: Admin: 10/13/17 14:27 Dose: Admin: 10/12/17 14:03 Dose: Zolpidem Tartrate (Ambien) 5 mg PO HSP PRN PRN Reason: Sleep Assessment and Plan - Narrative A/P Narrative: Assessment: 1. E. coli pyelonephritis and bacteremia: Urine is most likely source. She had chronic asymptomatic bacteriuria with nonspecific symptoms in the past. -No poppy seeds seen in urine 2. Sepsis: Not in shock Recommendations: Continue IV ceftriaxone 2 g every 24 hours, day 5 out of 10. Stop date October 21, 2017 patient can get a midline. Would not recommend a PICC line -ID follow-up scheduled for Oct 29, 10:30 am in ID clinic [address: [address] [place] [address], [address], [place], [address]] Remi Lopez MD Infectious disease
[2017-10-15] MEDS: LEVOTHYROXINE 88 MCG TABLET PO SCH (10:19)
--- NOTE | 2017-10-15 12:22 | Discharge Summary ---
Medical - DS: Prov Patient information: Note initiated : 10/15/17 at 12:18 pm Service Date, if different from initiated Date: [] Patient: Soumya Garcia 87 y/o F admitted on 10/10/17 for Sepsis due to pyelonephritis. Chief Complaint: [] Date of admission: 10/10/17 08:23 Discharge date: 10/15/17 Primary care physician: Yari Romo Consults: 10/10/17 Consult to Physician [CONS] Stat Comment: Consulting Provider: Frandy Espinoza Reason For Exam: Physician to Consult 10/10/17 18:37 Consult to Infectious Disease [CONS] Routine Comment: Consulting Provider: Remi Lopez Reason For Exam: Physician to Consult Medical - DS: Meds - Discharge Medications Prescriptions: cefTRIAXone [Rocephin] 2 gm IV Q24H 7 Days #7 vial Active and Home Medications: Home Medications ascorbic acid (vitamin C) 500 mg tablet 1,000 mg PO BID 03/29/15 [History Confirmed 10/12/17 Last Taken 10/09/17 10:00] glucosamine-chondroitin 1 tab PO QDAY 03/29/15 [History Confirmed 10/12/17 Last Taken 10/09/17 21:00] omega-3 fatty acids 1,000 mg capsule 1,000 mg PO QDAY 03/29/15 [History Confirmed 10/12/17 Last Taken 10/09/17 10:00] lactobacillus combination no.6 4 billion cell tablet 1 cell PO DAILY 12/01/15 [ History Confirmed 10/12/17 Last Taken 10/09/17 1000] cholecalciferol (vitamin D3) 1,000 unit capsule 1,000 unit PO QDAY cap [History Confirmed 10/12/17 Last Taken 10/09/17 21:00] vitamin E 400 unit tablet 400 unit PO QDAY 07/05/16 [History Confirmed 10/05/17 Last Taken 10/03/16 09:00] Systane Liquid Gel Eye Drops 1 drp BOTH EYES PRN PRN 07/29/16 [History Confirmed 10/12/17 Last Taken 10/09/17 07:00] Blood Sugar Diagnostic [Contour] 0 dose .ROUTE .MEDSUPPLY 10/04/16 [History Confirmed 10/12/17 Last Taken 10/07/17 09:30] compression stocking,knee high,long length,medium circ 0 patch .ROUTE .MEDSUPPLY #12 each 10/26/16 [Rx Confirmed 10/12/17 Last Taken 10/09/17 21:00] Diabetic shoes #1 each 11/29/16 [Rx Confirmed 10/05/17 Last Taken 10/09/17 21:00 ] digoxin 125 mcg tablet 125 mcg PO QDAY #90 tab 12/26/16 [Rx Confirmed 10/12/17 Last Taken 10/09/17 21:00] lisinopril 30 mg tablet 30 mg PO QDAY #90 tab 03/26/17 [Rx Confirmed 10/12/17 Last Taken 10/09/17 10:00] vit C-vit S-cxgwyu-auiy ox-lutein 226 mg-200 unit-5 mg-0.8 mg capsule cap PO BID cap 03/30/17 [History Confirmed 10/05/17 Last Taken 10/09/17 21:00] sotalol 80 mg tablet 80 mg PO BID #60 tab 04/12/17 [Rx Confirmed 10/12/17 Last Taken 10/09/17 21:00] fenofibrate 160 mg tablet 160 mg PO QDAY #30 tab 05/01/17 [Rx Confirmed Last Taken 10/09/17 10:00] zolpidem 5 mg tablet 5 mg PO QHS PRN #30 tab 05/21/17 [Rx Confirmed 10/12/17 Last Taken 10/06/17 21:00] linagliptin 5 mg tablet 5 mg PO QAM #30 tab 06/15/17 [Rx Confirmed 10/12/17 Last Taken 10/09/17 10:00] montelukast 10 mg tablet 10 mg PO QPM #90 tab 07/02/17 [Rx Confirmed 10/12/17 Last Taken 10/09/17 21:00] estradiol 0.01% (0.1 mg/gram) vaginal cream 0.5 g VAGINAL .QOD #42.5 g 08/14/17 [Rx Confirmed 10/12/17 Last Taken 10/09/17 10:00] amlodipine 2.5 mg tablet 2.5 mg PO QDAY #90 tab 09/10/17 [Rx Confirmed 10/12/17 Last Taken 10/09/17 10:00] psyllium oral powder 1 tbsp PO QDAY 09/10/17 [History Confirmed 10/12/17 Last Taken 10/09/17 10:00] warfarin 2 mg tablet 2 mg PO .COMPLEX #90 tab 10/03/17 [Rx Confirmed 10/05/17 Last Taken Unknown] gabapentin 600 mg tablet 600 mg PO TID 10/05/17 [History Confirmed 10/12/17 Last Taken 10/09/17 21:00] levothyroxine 88 mcg capsule 88 mcg PO QDAY #30 cap 10/10/17 [Rx Confirmed 10/12 Last Taken 10/09/17 06:00] Furosemide [Lasix] 20 mg PO QDAY 10/12/17 [History Confirmed 10/12/17 Last Taken 10/09/17 06:00] Warfarin [Coumadin] 1 mg PO .COMPLEX 10/12/17 [History Confirmed 10/12/17 Last Taken 10/09/17 21:00] Medical - DS: Hosp Hospital course: Mr. Garcia is a 87 year old F admitted for sepsis and pyelonephritis. She was given IV fluids and IV Abx, and improved. ID was consulted and recommended narrowing down the Abx to Ceftriaxone w/ plan to get total 10 days of Abx and then followup in ID clinic. She continued to improve and is now ready to be DC' d to SNF in stable condition. A Midline CVC was placed today for IV Abx, and can be DC'd once course of Abx is finished. Discharge diagnosis: Sepsis due to pyelonephritis Secondary discharge diagnosis: AFib DM-2 CHF CKD-4 - Time Spent with Patient Total time spent providing and/or coordinating discharge services: Greater than 30 minutes Medical - DS: Exam - Constitutional Vitals: Vital Signs Temp Pulse Pulse Pulse Resp BP Pulse Ox 10/15/17 11:49 97.1 F 80 14 115/60 95 10/15/17 09:45 98.1 F 10/15/17 08:00 80 16 119/62 95 10/15/17 07:52 100 H 18 92 10/15/17 07:10 100 H 18 10/15/17 03:08 99.6 F H 89 22 122/66 92 10/15/17 00:57 91 10/15/17 00:55 88 L 10/14/17 23:26 98.3 F 88 14 126/58 91 10/14/17 19:50 76 20 10/14/17 19:29 99.4 F H 71 14 140/64 95 10/14/17 19:16 96 10/14/17 18:45 97 10/14/17 15:40 98.1 F 18 122/68 95 10/14/17 13:52 70 Intake and Output 10/14/17 10/15/17 10/15/17 21:59 05:59 13:59 Intake Total 600 / 600 740 / 740 1280 / 1280 Output Total 450 / 450 1550 / 1550 975 / 975 Balance 150 / 150 -810 / -810 305 / 305 Intake: Oral 600 / 600 740 / 740 1280 / 1280 Output: Urine Catheter Amount 450 / 450 1550 / 1550 975 / 975 Other: Meal Dinner Breakfast Percent of Meal Consumed 100% 100% Urine Appearance Clear Clear Clear Uretheral (Schmidt) Clear Clear Sediment Urine Color Bright Yellow Pale Straw Uretheral (Schmidt) Pale Straw Urine Odor Normal Normal Stool Size Small Moderate Stool Color Brown Brown Stool Consistency Soft Soft # Bowel Movements 1 Weight 146 lb Additional comments: General: Afebrile, awake, cooperative, alert, no distress, sitting in chair. HEENT: PERRLA. Neck: Trachea midline, supple, no JVD. Respiratory system: Clear to auscultation bilaterally, air entry equal on both sides, no crackles or wheezing or rhonchi. CVS: Irregular rhythm, S1 S2 heard, no gallop, no rub. Abdomen: Soft, non-tender, non-distended, no organomegaly, no guarding or rigidity. Extremities: No e/c/c. 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 Psych: Mood and affect appropriate. Medical - DS: Data Labs on day of discharge: Labs from last 24 hours 10/15/17 10/15/17 10/15/17 04:20 04:20 04:20 WBC 11.6 H RBC 3.44 L Hgb 10.6 L Hct 31.5 L MCV 91.7 MCH 30.9 MCHC 33.7 RDW 15.1 H Plt Count 379 MPV 9.2 Gran % 63.1 Lymph % (Auto) 14.0 L Dent % (Auto) 14.4 H Eos % (Auto) 7.7 H Baso % (Auto) 0.8 Gran # 7.3 Lymph # (Auto) 1.6 Dent # (Auto) 1.7 H Eos # (Auto) 0.9 H Baso # (Auto) 0.1 Differential Comment Few nrbcs on scan PT 16.2 H INR 1.3 H Sodium 135 Potassium 4.4 Chloride 93 L Carbon Dioxide 31 H Anion Gap 11.0 BUN 32 H Creatinine 1.2 H GFR Calculation 41 Glucose 112 H Uric Acid 5.5 Calcium 9.2 Phosphorus 3.8 Magnesium 1.7 Total Bilirubin 0.3 Direct Bilirubin < 0.2 GGT 43 H AST 21 ALT 14 Alkaline Phosphatase 49 Lactate Dehydrogenase 225 Total Protein 6.8 Albumin 3.1 L Globulin 3.7 Albumin/Globulin Ratio 0.8 L Triglycerides 201 H Preliminary micro results at discharge 10/10/17 12:23 Blood Culture - Preliminary Blood 10/10/17 12:20 Blood Culture - Preliminary Blood 10/10/17 05:20 Blood Culture - Preliminary Blood Escherichia coli 10/10/17 04:35 Blood Culture - Preliminary Blood Gram negative bacillus Medical - DS: A/P - Patient/Caregiver Discharge Instructions Activity: as per physical therapy Diet: Consistent Carbohydrate - Follow up Plan Follow up with: Yari Romo, [employer], [employer]ST[employer]ATION TECHNICIAN [Primary Care Provider] - Disposition: Xfer SNF Prognosis: Fair Rehab Potential: Fair I certify that the patient requires SNF services: Yes Overall status at discharge: patient is progressing back to baseline Medical - DS: Qual - VTE Deep Vein Thrombosis/Pulmonary Embolism Present on Admission: No
[2017-10-15] MEDS: DIGOXIN 125 MCG TABLET PO SCH (13:47)
[2017-10-15] MEDS ORDERED: WARFARIN 2 MG TABLET PO SCH (14:00)
[2017-10-15] MEDS ORDERED: 0.9 % SODIUM CHLORIDE 10 ML SYRINGE IV SCH (21:00)
== END 2017-10-15 14:07 | DRG 871 ==
LOC: ED 04:20 → ICU 08:23 → MEDSUR 10-12 03:07
PROVIDERS: ADMIT Internal Medicine; ATTEND Internal Medicine Nephrology

== ENCOUNTER 2017-11-24 04:07 | Inpatient (IN) ==
[2017-11-24] MEDS ORDERED: 0.9 % SODIUM CHLORIDE 1,000 ML IV ONE (04:19)
[2017-11-24] MEDS ORDERED: CIPROFLOXACIN 400 MG/200 ML BAG IV ONE (04:19)
[2017-11-24] MEDS ORDERED: ACETAMINOPHEN 650 MG/65 ML BOTTLE IV ONE (04:22)
--- NOTE | 2017-11-24 05:09 | Emergency Department Note ---
Fever HPI - General Chief Complaint: Fever Stated Complaint: fever Time Seen by Provider: 11/24/17 04:17 Source: family Mode of arrival: ambulatory - History of Present Illness HPI Narrative: The patient is an 87-year-old female who presents today via ambulance for a 3 day history of not feeling well and sudden decompensation at home. When paramedics arrived her oxygen level was 79% on room air. She had a fever of 104.6 Fahrenheit and on recheck it was 105 Fahrenheit. She was fairly nonresponsive and mumbling answers. Her is with her in the emergency room and states that she was diagnosed with a urinary tract infection yesterday but they have not yet gone to the store to picker tender the antibiotic. He denies that she fell. MD complaint: fever, malaise, weakness - Related Data Home Medications Medication Instructions Recorded Confirmed ascorbic acid (vitamin C) 500 mg 1,000 mg PO BID 03/29/15 10/29/17 tablet lactobacillus combination no.6 4 1 cell PO DAILY 12/01/15 10/29/17 billion cell tablet cholecalciferol (vitamin D3) 1,000 1,000 unit PO QDAY cap 12/07/15 10/29/17 unit capsule vitamin E 400 unit tablet 400 unit PO QDAY 07/05/16 10/29/17 Blood Sugar Diagnostic [Contour] 0 dose .ROUTE .MEDSUPPLY 10/04/16 10/29/17 vit C-vit F-kucgkl-ttqa ox-lutein cap PO BID cap 03/30/17 10/29/17 226 mg-200 unit-5 mg-0.8 mg capsule psyllium oral powder 1 tbsp PO QDAY 09/10/17 10/29/17 fenofibrate 160 mg tablet 160 mg PO QDAY 10/29/17 10/29/17 furosemide 20 mg tablet 20 mg PO BID tab 10/29/17 10/29/17 gabapentin 600 mg tablet 600 mg PO .COMPLEX tab 10/29/17 10/29/17 zshmqeanayo-oaveywlgk-[id number]-hyal tab PO 10/29/17 10/29/17 750 mg-100 mg-125 mg-1.65 mg tablet psyllium husk 3.4 gram/5.4 gram 1 tbsp PO ONCE 10/29/17 10/29/17 oral powder tetrahydrozoline 0.05 % eye drops 1 drp OPHTHALMIC BID ml 10/29/17 10/29/17 Previous Rx's Medication Instructions Recorded compression stocking,knee 0 patch .ROUTE .MEDSUPPLY #12 each 10/26/16 high,long length,medium circ Diabetic shoes #1 each 11/29/16 digoxin 125 mcg tablet 125 mcg PO QDAY #90 tab 12/26/16 sotalol 80 mg tablet 80 mg PO BID #60 tab 04/12/17 linagliptin 5 mg tablet 5 mg PO QAM #30 tab 06/15/17 montelukast 10 mg tablet 10 mg PO QPM #90 tab 07/02/17 estradiol 0.01% (0.1 mg/gram) 0.5 g VAGINAL .QOD #42.5 g 08/14/17 vaginal cream amlodipine 2.5 mg tablet 2.5 mg PO QDAY #90 tab 09/10/17 zolpidem 5 mg tablet 5 mg PO QHS PRN #30 tab 10/16/17 levothyroxine 100 mcg tablet 100 mcg PO QDAY #30 tab 10/18/17 lisinopril 30 mg tablet 30 mg PO QDAY #90 tab 10/30/17 acetaminophen 300 mg-codeine 15 mg 1 tab PO ONCE #30 tab 11/05/17 tablet nitrofurantoin 100 mg PO BID 5 Days #10 cap 11/21/17 monohydrate/macrocrystals 100 mg capsule warfarin 1 mg tablet See Label Instructions PO QMWF #30 11/21/17 tab cefuroxime axetil 500 mg tablet 500 mg PO Q12H 10 Days #20 tab 11/23/17 Allergies Allergy/AdvReac Type Severity Reaction Status Date / Time adhesive tape Allergy Intermediate Rash Verified 10/29/17 10:58 latex Allergy Intermediate Rash Verified 10/29/17 10:58 cinnamon [Cinnamon] Allergy Mild Rash Verified 10/29/17 10:58 Erythromycin Base AdvReac Intermediate Unknown Verified 10/29/17 10:58 ampicillin AdvReac Mild Nausea Verified 10/29/17 10:58 metformin AdvReac Mild Diarrhea Verified 10/29/17 10:58 Quinolones AdvReac Mild Vomiting Verified 10/29/17 10:58 Sulfa (Sulfonamide AdvReac Mild Unknown Verified 10/29/17 10:58 Antibiotics) Review of Systems All systems ED: reviewed and negative except as stated. Fever PMH - Past Medical History Attestation: Yes: The following information was validated with the patient. Medical history: Reports: atrial fibrillation, CVA, DM, hyperlipidemia, hypertension, hypothyroidism, osteoporosis Psychiatric history: Reports: no psych history EDITORIAL DIRECTOR history: Reports: non-contributory Family history: Reports: no significant family history - Social History smoking status: Never smoker Physical Exam Limitations: other (not speaking, oxygen mask on her) General appearance: lethargic Head: atraumatic Eye: Present: EOMI, other (fixed pupils at 3mm, not reacting) Neck: Present: normal inspection Chest: Present: normal inspection Respiratory: Present: normal lung sounds bilaterally Cardiovascular: Present: regular rate, normal rhythm Abdominal: Present: soft, normal bowel sounds Extremities: Present: normal inspection Neurological: Present: other (not alert, moans and slightly opens her eyes to her name) Skin: Present: warm, dry Course Course Narrative: Soumya is a 87-year-old who presented via ambulance with a 3 day history of malaise and recent diagnosis of urinary tract infection. This apparently is a recurrent situation. She was placed on IV fluids bolus, given IV Tylenol, started on IV ciprofloxacin and placed on a nonrebreather mask. - Reevaluation(s) Reevaluation #1: The xray was reviewed by myself and I feel has what appears to be infiltrates on the right mid and lower lobe. Lab work returned with elevated WBC. Patient does on re-examination appear much more alert and was taken off of the non rebreather and was put on nasal canal. She is now answering questions and her fever has come down to 100F after the IV tylenol and initiation of antibiotics. Patient meets sepsis criteria with both urine and pulmonary sources. Spoke to hospitalist who graciously agrees to admit the patient. Vital Signs Temperature 105.0 F H 11/24/17 04:37 Temperature 98.1 F 11/25/17 16:01 Pulse Rate 70 11/25/17 14:00 Respiratory Rate 15 11/25/17 18:02 Blood Pressure 136/63 11/25/17 18:02 Pulse Oximetry (%) 95 11/25/17 18:02 Fever - Lab Data Lab results reviewed: Yes I reviewed the patient's lab results. Result diagrams: 11/25/17 03:50 10/07/18 03:50 Lab Results 11/24/17 11/24/17 11/24/17 Range/Units 04:25 04:25 04:25 WBC 19.6 H (4.5-11.0) K/mcL RBC 3.62 L (4.00-5.20) M/mcL Hgb 10.9 L (12.0-15.0) g/dL Hct 32.8 L (36.0-48.0) % MCV 90.7 (80.0-100.0) fL MCH 30.2 (26.0-34.0) pg MCHC 33.3 (31.0-36.0) g/dL RDW 14.9 H (11.5-14.5) % Plt Count 345 (140-440) K/mcL MPV 9.6 (7.4-10.4) fL Gran % 92.2 H (38.0-78.0) % Lymph % (Auto) 3.4 L (15.5-49.0) % [place] % (Auto) 3.4 (1.0-12.0) % Eos % (Auto) 0.9 (0.0-7.0) % Baso % (Auto) 0.1 (0.0-2.0) % Gran # 18.1 H (1.8-8.0) K/mcL Lymph # (Auto) 0.7 L (1.5-4.8) K/mcL [place] # (Auto) 0.7 (0.1-0.9) K/mcL Eos # (Auto) 0.2 (0.0-0.7) K/mcL Baso # (Auto) 0 (0.0-0.3) K/mcL ESR 77 H (0-20) mm/hr PT (11.9-14.5) sec INR (0.9-1.1) VBG Lactic Acid 2.0 (0.5-2.2) mmol/L Sodium 138 (133-145) mmol/L Potassium 4.3 (3.3-5.1) mmol/L Chloride 100 (96-108) mmol/L Carbon Dioxide 22 (22-30) mmol/L Anion Gap 16.0 (8-16) BUN 36 H (8-23) mg/dl Creatinine 1.7 H (0.6-1.1) mg/dl GFR Calculation 27 Glucose 159 H (70-105) mg/dL Calcium 8.4 L (8.6-10.4) mg/dl Total Bilirubin 0.6 (0.0-1.0) mg/dL AST 20 (0-37) U/l ALT 12 (0-40) U/l Alkaline Phosphatase 41 (39-117) U/L Total Protein 6.6 (5.9-8.4) gm/dL Albumin 3.3 (3.2-5.2) gm/dL Globulin 3.3 (2.2-3.7) gm/dL Albumin/Globulin Ratio 1.0 (1.0-2.3) Urine Color Urine Appearance Urine pH (5.0-9.0) Ur Specific [place] (1.000-1.035) Urine Protein (NEG) mg/dL Urine Glucose (UA) (NEG) mg/dL Urine Ketones (NEG) mg/dL Urine Occult Blood (<0.03) mg/dL Urine Nitrate (NEG) Urine Bilirubin (NEG) mg/dL Urine Urobilinogen (NEG) mg/dL Ur Leukocyte Esterase (NEG) /uL Urine RBC (0-1) /hpf Urine WBC (0-4) /hpf Ur Squamous Epith Cells (0-4) /hpf Urine Bacteria (0) /hpf Digoxin ng/mL Digoxin Dose Digox Last Dose Time 11/24/17 11/24/17 11/24/17 Range/Units 04:25 04:25 04:30 WBC (4.5-11.0) K/mcL RBC (4.00-5.20) M/mcL Hgb (12.0-15.0) g/dL Hct (36.0-48.0) % MCV (80.0-100.0) fL MCH (26.0-34.0) pg MCHC (31.0-36.0) g/dL RDW (11.5-14.5) % Plt Count (140-440) K/mcL MPV (7.4-10.4) fL Gran % (38.0-78.0) % Lymph % (Auto) (15.5-49.0) % [place] % (Auto) (1.0-12.0) % Eos % (Auto) (0.0-7.0) % Baso % (Auto) (0.0-2.0) % Gran # (1.8-8.0) K/mcL Lymph # (Auto) (1.5-4.8) K/mcL [place] # (Auto) (0.1-0.9) K/mcL Eos # (Auto) (0.0-0.7) K/mcL Baso # (Auto) (0.0-0.3) K/mcL ESR (0-20) mm/hr PT 26.4 H (11.9-14.5) sec INR 2.4 H (0.9-1.1) VBG Lactic Acid (0.5-2.2) mmol/L Sodium (133-145) mmol/L Potassium (3.3-5.1) mmol/L Chloride (96-108) mmol/L Carbon Dioxide (22-30) mmol/L Anion Gap (8-16) BUN (8-23) mg/dl Creatinine (0.6-1.1) mg/dl GFR Calculation Glucose (70-105) mg/dL Calcium (8.6-10.4) mg/dl Total Bilirubin (0.0-1.0) mg/dL AST (0-37) U/l ALT (0-40) U/l Alkaline Phosphatase (39-117) U/L Total Protein (5.9-8.4) gm/dL Albumin (3.2-5.2) gm/dL Globulin (2.2-3.7) gm/dL Albumin/Globulin Ratio (1.0-2.3) Urine Color Yellow Urine Appearance Cloudy Urine pH 5.0 (5.0-9.0) Ur Specific [place] 1.011 (1.000-1.035) Urine Protein 100 A (NEG) mg/dL Urine Glucose (UA) Negative (NEG) mg/dL Urine Ketones Neg (NEG) mg/dL Urine Occult Blood 0.03 A (<0.03) mg/dL Urine Nitrate Neg (NEG) Urine Bilirubin Neg (NEG) mg/dL Urine Urobilinogen Neg (NEG) mg/dL Ur Leukocyte Esterase 500 A (NEG) /uL Urine RBC 10 H (0-1) /hpf Urine WBC > 182 H (0-4) /hpf Ur Squamous Epith Cells 0 (0-4) /hpf Urine Bacteria 0 (0) /hpf Digoxin 1.4 ng/mL Digoxin Dose Not Reportable Digox Last Dose Time Not Reportable Critical Care Time Critical Care Time: Yes Total Critical Care Time: 20 (spent acutely evaluating this patient as she came in unresponsive and in sepsis) Disposition Pt seen by MILLING MACHINE OPERATOR GEAR/PA only: No Clinical Impression: Sepsis, Pneumonia, Acute cystitis Disposition: Xfer As Inpt ([facility]) Condition: Fair
[2017-11-24] MEDS ORDERED: LACTATED RINGERS 1,000 ML IV ONE (05:35)
[2017-11-24 05:41] LABS: Basophils # (Auto) 0 K/mcL (0.0-0.3); Basophils % (Auto) 0.1 % (0.0-2.0); Eosinophils # (Auto) 0.2 K/mcL (0.0-0.7); Eosinophils % (Auto) 0.9 % (0.0-7.0); Granulocytes % (Auto) 92.2 % (38.0-78.0); Lymphocytes # (Auto) 0.7 K/mcL (1.5-4.8); Lymphocytes % (Auto) 3.4 % (15.5-49.0); Mean Cell Volume 90.7 fL (80.0-100.0); Mean Corpuscular HGB Conc 33.3 g/dL (31.0-36.0); Mean Corpuscular Hemoglobin 30.2 pg (26.0-34.0); Monocytes # (Auto) 0.7 K/mcL (0.1-0.9); Monocytes % (Auto) 3.4 % (1.0-12.0); Platelet Count 345 K/mcL (140-440); RBC 3.62 M/mcL (4.00-5.20); Red Cell Distribution Width 14.9 % (11.5-14.5)
[2017-11-24 05:50] LABS: Appearance,Urine CLOUDY; Bacteria,Urine 0 /hpf (0); Bilirubin,Urine NEG (NEG); Color,Urine YELLOW; Glucose,Urine (UA) NEGATIVE (NEG); Leukocyte Esterase,Urine 500 /uL (NEG); Protein,Urine 100 mg/dL (NEG); Specific Gravity,Urine 1.011 (1.000-1.035); Urine Blood 0.03 mg/dL (<0.03); Urine RBC 10 /hpf (0-1); Urine Squamous Epithelial Cell 0 /hpf (0-4); Urine WBC > 182 /hpf (0-4); Urobilinogen,Urine NEG (NEG)
[2017-11-24 06:00] LABS: ALT/SGPT 12 U/l (0-40); Albumin 3.3 gm/dL (3.2-5.2); Alkaline Phosphatase 41 U/L (39-117); Blood Urea Nitrogen 36 mg/dl (8-23)
[2017-11-24 06:59] LABS: Erythrocyte Sedimentation Rate 77 mm/hr (0-20)
[2017-11-24] MEDS ORDERED: 0.9 % SODIUM CHLORIDE 1,000 ML IV SCH (07:00)
[2017-11-24] MEDS ORDERED: metroNIDAZOLE 500 MG/100 ML BAG IV SCH (07:32)
[2017-11-24] MEDS ORDERED: HYDROmorphone 2 MG/ML VIAL IV PRN (07:32)
[2017-11-24] MEDS ORDERED: VANCOMYCIN PER PHARMACY IV ONE (07:32)
[2017-11-24] MEDS ORDERED: NALOXONE HCL 0.4 MG/ML VIAL IV PRN (07:32)
[2017-11-24] MEDS ORDERED: CEFEPIME 1 GM VIAL IV SCH (07:32)
[2017-11-24] MEDS ORDERED: VANCOMYCIN PER PHARMACY IV SCH (07:45)
--- NOTE | 2017-11-24 08:03 | XRay Report ---
CLINICAL INFORMATION: febrile COMPARISON: 10/10/2017 FINDINGS: Moderate cardiomegaly is unchanged. Pacemaker and leads in stable satisfactory position. Mediastinum is accentuated by rightward rotation. Pulmonary vessels are normal. Moderate sized patchy alveolar infiltrates throughout the perihilar right lung and a small infiltrate in the left base appreciated. Small right pleural effusion noted IMPRESSION: Large vague infiltrate in the perihilar region of the right lung and small left basilar infiltrate. Consider aspiration leg. Small right pleural effusion Interpreted and Authenticated by: Andrea Zaragoza 11/24/17
[2017-11-24] MEDS: 0.9 % SODIUM CHLORIDE 1,000 ML IV SCH ×2 (08:23→08:55)
[2017-11-24] MEDS: IPRATROPIUM/ALBUTEROL 3 ML AMPUL.NEB NEB SCH ×3 (08:34→18:20)
[2017-11-24] MEDS ORDERED: IPRATROPIUM/ALBUTEROL 3 ML AMPUL.NEB NEB ONE (08:36)
[2017-11-24] MEDS ORDERED: HEPARIN 5,000 UNIT/ML VIAL SQ SCH (09:00)
[2017-11-24] MEDS ORDERED: VANCOMYCIN 1,000 MG in 0.9 % SODIUM CHLORIDE 250 ML IV ONE (09:00)
[2017-11-24] MEDS: LACTATED RINGERS 1,000 ML IV SCH ×2 (11:25→23:58)
[2017-11-24] MEDS: metroNIDAZOLE 500 MG/100 ML BAG IV SCH ×2 (11:26→21:57)
[2017-11-24] MEDS ORDERED: CEFEPIME 1 GM VIAL IV ONE (12:00)
[2017-11-24] MEDS: ACETAMINOPHEN 1,000 MG/100 ML BOTTLE IV PRN ×2 (12:09→21:52)
--- NOTE | 2017-11-24 13:05 | Internal Med History&Physical ---
Medical - H&P: HPI Patient information: Note initiated : 11/24/17 at 12:57 pm Service Date, if different from initiated Date: [] Patient: Soumya Garcia a 87 y/o F admitted on 11/24/17 for fever. Chief Complaint: [] History of present illness: Ms. Garcia is a 87 year old F with h/o recurrent UTI, presented to the ER today with complaints of not feeling well x 1 day. 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 She notes that she had been having some increased frequency of urination for the last few days. Since yesterday she has been having weakness chills and fever. She was brought into the ER with the above symptoms. On presentation to the ER the patient was hypoxic requiring a nonrebreather to keep her oxygen saturation above 90. The patient in the ER was febrile with a temperature of 105-heart rate 75, blood pressure stable with 118/53, it had dropped as low as 96/47, she was on 95 % on 2 L during presentation for admission however required 100% FiO2 during presentation to the emergency room. The blood work showed leukocytosis with a WBC count of 19,000, hemoglobin 10.9, platelets 345, INR 2.4. Chemistry unremarkable except elevation of creatinine at 1.7, baseline around 1.1. Lactic acid was 2.0. UA suggestive of urinary tract infection. The urine culture that was obtained on 21 November is growing E. coli which is pansensitive. Digoxin level is 1.4. Chest x-ray shows right hilar pneumonia and left basilar pneumonia possible aspiration. The patient was admitted to the PCU for further management. After admission to the PCU, patient initially was showing signs of improvement but later again became hypoxic requiring BiPAP. Patient is presently on BiPAP to maintain her respiratory status. All systems: reviewed and no additional remarkable complaints except as stated ( as per HPI rest neg) Medical - H&P: PMH Medical history: Medical History (Last Reviewed 10/29/17 @ 11:02 by Veronica Sharp RN) Fatigue (Acute) Acquired asplenia (Chronic) Anemia in stage 3 chronic kidney disease (Chronic) Localized edema due to fluid overload (Chronic) Secondary hyperparathyroidism of renal origin (Chronic) Vitamin D deficiency (Chronic) Hypertension in stage 3 chronic kidney disease due to type 2 diabetes mellitus ( Chronic) CKD (chronic kidney disease) stage 3, GFR 30-59 ml/min (Chronic) Candidiasis of esophagus (Chronic) Osteopenia (Chronic) Recurrent urinary tract infection (Chronic) Low back pain (Chronic) Spinal stenosis of lumbosacral region (Chronic) Polyneuropathy (Chronic) Hypertriglyceridemia (Chronic) GERD (gastroesophageal reflux disease) (Resolved) Urinary incontinence (Chronic) Type 2 diabetes mellitus (Chronic) MCFP current use of anticoagulant therapy (Chronic) Stroke (Chronic) Scoliosis (Chronic) Peripheral neuropathy (Chronic) Paroxysmal supraventricular tachycardia (Chronic) Pacemaker (Chronic) Neoplasm of skin (Chronic) Lupus (systemic lupus erythematosus) (Resolved) Iron deficiency (Chronic) Internal hemorrhoids with complication (Chronic) Hypothyroidism, acquired (Chronic) Hypertension, essential (Chronic) Degenerative disc disease (Chronic) Deep vein thrombosis (Resolved) Cataract (Chronic) Atrial fibrillation (Chronic) Arthritis (Chronic) Anemia (Chronic) Cataract, bilateral (Chronic) Bladder pain (Resolved) Bleeding disorder (Resolved) Effusion of joint (Resolved) Fecal incontinence (Resolved) Gait abnormality (Resolved) Grief at loss of child (Resolved) Hyperkalemia, diminished renal excretion (Resolved) Myelodysplastic syndrome (Resolved) Open leg wound (Resolved) Urinary tract infection (Resolved) Surgical history: Past Surgical History (Last Reviewed 10/29/17 @ 11:02 by Veronica Sharp RN) H/O splenectomy (Chronic) History of esophagogastroduodenoscopy (EGD) (Chronic 07/25/17) History of bilateral knee replacement (Resolved) History of cholecystectomy (Resolved) History of total abdominal hysterectomy (Resolved) S/P PICC central line placement (Resolved) S/P cataract extraction (Resolved) S/P skin biopsy (Resolved) Medical - H&P: Meds Home Medications Medication Instructions Recorded Confirmed Type ascorbic acid (vitamin C) 500 mg 1,000 mg PO BID 03/29/15 10/29/17 History tablet lactobacillus combination no.6 4 1 cell PO DAILY 12/01/15 10/29/17 History billion cell tablet cholecalciferol (vitamin D3) 1,000 1,000 unit PO QDAY cap 12/07/15 10/29/17 History unit capsule vitamin E 400 unit tablet 400 unit PO QDAY 07/05/16 10/29/17 History Blood Sugar Diagnostic [Contour] 0 dose .ROUTE .MEDSUPPLY 10/04/16 10/29/17 History compression stocking,knee 0 patch .ROUTE .MEDSUPPLY #12 each 10/26/16 10/29/17 Rx high,long length,medium circ Diabetic shoes #1 each 11/29/16 10/29/17 Rx digoxin 125 mcg tablet 125 mcg PO QDAY #90 tab 12/26/16 10/29/17 Rx vit C-vit W-oqmmyj-vssn ox-lutein cap PO BID cap 03/30/17 10/29/17 History 226 mg-200 unit-5 mg-0.8 mg capsule sotalol 80 mg tablet 80 mg PO BID #60 tab 04/12/17 10/29/17 Rx linagliptin 5 mg tablet 5 mg PO QAM #30 tab 06/15/17 10/29/17 Rx montelukast 10 mg tablet 10 mg PO QPM #90 tab 07/02/17 10/29/17 Rx estradiol 0.01% (0.1 mg/gram) 0.5 g VAGINAL .QOD #42.5 g 08/14/17 10/29/17 Rx vaginal cream amlodipine 2.5 mg tablet 2.5 mg PO QDAY #90 tab 09/10/17 10/29/17 Rx psyllium oral powder 1 tbsp PO QDAY 09/10/17 10/29/17 History zolpidem 5 mg tablet 5 mg PO QHS PRN #30 tab 10/16/17 10/29/17 Rx levothyroxine 100 mcg tablet 100 mcg PO QDAY #30 tab 10/18/17 10/29/17 Rx fenofibrate 160 mg tablet 160 mg PO QDAY 10/29/17 10/29/17 History furosemide 20 mg tablet 20 mg PO BID tab 10/29/17 10/29/17 History gabapentin 600 mg tablet 600 mg PO .COMPLEX tab 10/29/17 10/29/17 History xngpdyezykd-zjvjxacuu-agbl196-hyal tab PO 10/29/17 10/29/17 History 750 mg-100 mg-125 mg-1.65 mg tablet psyllium husk 3.4 gram/5.4 gram 1 tbsp PO ONCE 10/29/17 10/29/17 History oral powder tetrahydrozoline 0.05 % eye drops 1 drp OPHTHALMIC BID ml 10/29/17 10/29/17 History lisinopril 30 mg tablet 30 mg PO QDAY #90 tab 10/30/17 Rx acetaminophen 300 mg-codeine 15 mg 1 tab PO ONCE #30 tab 11/05/17 Rx tablet nitrofurantoin 100 mg PO BID 5 Days #10 cap 11/21/17 11/21/17 Rx monohydrate/macrocrystals 100 mg capsule warfarin 1 mg tablet See Label Instructions PO QMWF #30 11/21/17 11/21/17 Rx tab cefuroxime axetil 500 mg tablet 500 mg PO Q12H 10 Days #20 tab 11/23/17 Rx Allergies Allergy/AdvReac Type Severity Reaction Status Date / Time adhesive tape Allergy Intermediate Rash Verified 10/29/17 10:58 latex Allergy Intermediate Rash Verified 10/29/17 10:58 cinnamon [Cinnamon] Allergy Mild Rash Verified 10/29/17 10:58 Erythromycin Base AdvReac Intermediate Unknown Verified 10/29/17 10:58 ampicillin AdvReac Mild Nausea Verified 10/29/17 10:58 metformin AdvReac Mild Diarrhea Verified 10/29/17 10:58 Quinolones AdvReac Mild Vomiting Verified 10/29/17 10:58 Sulfa (Sulfonamide AdvReac Mild Unknown Verified 10/29/17 10:58 Antibiotics) Medical - H&P: Exam - Constitutional Vitals: Temp Pulse Resp BP Pulse Ox 98.2 F 70 15 108/50 100 11/24/17 12:09 11/24/17 12:53 11/24/17 12:53 11/24/17 12:46 11/24/17 12:53 Exam: GENERAL: The patient is a well-developed, well-nourished in no apparent distress. Is alert and oriented x3. warm to touch VITAL SIGNS: Reviewed and as noted elsewhere. HEENT: Head is normocephalic and atraumatic. Extraocular muscles are intact. Pupils are equal, round, and reactive to light. Nares appeared normal. Mouth appears any without lesions. Mucous membranes are dry. NECK: Normal to inspection, Supple, No lymphadenopathy or thyromegaly. LUNGS: Air entry equal on both sides, no wheezing, crackles or rhonchi noted. No accessory muscles of respiration HEART: Regular rate and rhythm normal, S1 and S2 heard, no Gallop, S3 or Rub Noted, No Gross murmur heard. ABDOMEN: Soft, nontender, and nondistended. Positive bowel sounds. No hepatosplenomegaly was noted. EXTREMITIES: No cyanosis, clubbing, rash, lesions or edema. NEUROLOGIC: Cranial nerves II through XII are grossly intact. Motor and Sensory System Grossly Intact PSYCHIATRIC: Normal affect, Normal Mood. Appropriate Behavior. SKIN: No ulceration or wounds noted, No jaundice, No rash noted. Medical - H&P: Reslt - Labs CBC & Chem 7: 11/24/17 04:25 11/24/17 04:25 Labs: Short CBC 11/24/17 Range/Units 04:25 WBC 19.6 H (4.5-11.0) K/mcL Hgb 10.9 L (12.0-15.0) g/dL Hct 32.8 L (36.0-48.0) % Plt Count 345 (140-440) K/mcL BMP 11/24/17 04:25 Sodium 138 Potassium 4.3 Chloride 100 Carbon Dioxide 22 BUN 36 H Creatinine 1.7 H Glucose 159 H Calcium 8.4 L Liver Function 11/24/17 Range/Units 04:25 Total Bilirubin 0.6 (0.0-1.0) mg/dL AST 20 (0-37) U/l ALT 12 (0-40) U/l Alkaline Phosphatase 41 (39-117) U/L Albumin 3.3 (3.2-5.2) gm/dL Urine 11/24/17 Range/Units 04:30 Urine Color Yellow Urine Appearance Cloudy Urine pH 5.0 (5.0-9.0) Ur Specific [place] 1.011 (1.000-1.035) Urine Protein 100 A (NEG) mg/dL Urine Glucose (UA) Negative (NEG) mg/dL Medical - H&P: A/P - Narrative A/P Narrative: A/P Sepsis with shock Lactic acidosis Pneumonia, HCAP, possible Aspirational Urinary tract infection Acute respiratory failure, with hypoxia, on bipap DM HTN HLD Acute Kidney Injury, anemia, GERD HYpothyroidism Afib. on coumadin with therapeutic INR Plan Admit to PCP 5L IV fluids given, on maitaince at 75cc/hr IV abx with vanco, cefepime and flagyl BP stable for now Patients respiratory status maintained on bipap, if does not reppond, will intubate Monitor urine output, continue home medications as appropriate hold nephrotixic medications SSI insulin for glucose control DVT on coumadin with therapeutic INR Full code Carb consistent diet. Spent > 65 mins rendering critical care to the patient, non invasive vent management, fluid resuiitation, chart review. Medical - H&P: Qual - VTE Deep Vein Thrombosis/Pulmonary Embolism Present on Admission: No
[2017-11-24] MEDS ORDERED: DEXTROSE 31 GM ORAL.SUSP PO PRN (13:09)
[2017-11-24] MEDS ORDERED: DEXTROSE 50% 50 ML VIAL IV PRN (13:09)
[2017-11-24] MEDS ORDERED: WARFARIN 1 MG TABLET PO ONE (14:00)
[2017-11-24] MEDS: 0.9 % SODIUM CHLORIDE 10 ML SYRINGE IV SCH ×2 (16:18→21:58)
[2017-11-24] MEDS: INSULIN LISPRO 1 UNIT/0.01 ML UNIT SQ SCH ×2 (16:39→21:57)
[2017-11-24] MEDS ORDERED: NOREPINEPHRINE BITARTRATE 16 MG in 0.9 % SODIUM CHLORIDE 234 ML IV SCH (19:00)
[2017-11-24] MEDS ORDERED: NOREPINEPHRINE BITARTRATE 4 MG/4 ML AMPUL IV ONE (19:04)
[2017-11-24] MEDS: 0.9 % SODIUM CHLORIDE 250 ML IV SCH (19:10)
[2017-11-24] MEDS ORDERED: NITROGLYCERIN 1 GM OINT.TOP ONE (23:57)
[2017-11-25] MEDS: ONDANSETRON 4 MG/2 ML VIAL IV PRN ×2 (02:21→08:40)
[2017-11-25 04:35] LABS: Basophils # (Auto) 0 K/mcL (0.0-0.3); Basophils % (Auto) 0.1 % (0.0-2.0); Eosinophils # (Auto) 0.1 K/mcL (0.0-0.7); Eosinophils % (Auto) 0.6 % (0.0-7.0); Granulocytes % (Auto) 85.8 % (38.0-78.0); Lymphocytes # (Auto) 0.9 K/mcL (1.5-4.8); Lymphocytes % (Auto) 5.4 % (15.5-49.0); Mean Cell Volume 92.4 fL (80.0-100.0); Mean Corpuscular HGB Conc 33.2 g/dL (31.0-36.0); Mean Corpuscular Hemoglobin 30.7 pg (26.0-34.0); Monocytes # (Auto) 1.4 K/mcL (0.1-0.9); Monocytes % (Auto) 8.1 % (1.0-12.0); Platelet Count 336 K/mcL (140-440); RBC 3.17 M/mcL (4.00-5.20); Red Cell Distribution Width 15.4 % (11.5-14.5)
[2017-11-25 04:52] LABS: ALT/SGPT 14 U/l (0-40); Albumin 2.9 gm/dL (3.2-5.2); Alkaline Phosphatase 46 U/L (39-117); Bilirubin,Direct 0.4 mg/dL (0.0-0.3); Blood Urea Nitrogen 27 mg/dl (8-23); Gamma Glutamyl Transpeptidase 33 U/L (5-36); Uric Acid 4.8 mg/dL (2.5-8.0); Vancomycin,Random 7.6 ug/mL
[2017-11-25] MEDS: IPRATROPIUM/ALBUTEROL 3 ML AMPUL.NEB NEB SCH ×4 (05:48→18:50)
[2017-11-25] MEDS: 0.9 % SODIUM CHLORIDE 10 ML SYRINGE IV SCH ×3 (05:49→21:07)
[2017-11-25] MEDS: metroNIDAZOLE 500 MG/100 ML BAG IV SCH (05:50)
[2017-11-25] MEDS: INSULIN LISPRO 1 UNIT/0.01 ML UNIT SQ SCH ×4 (07:38→21:06)
[2017-11-25] MEDS: 0.9 % SODIUM CHLORIDE 250 ML IV SCH ×2 (07:39→20:54)
--- NOTE | 2017-11-25 08:27 | XRay Report ---
CLINICAL INFORMATION: Dyspnea COMPARISON: 11/24/2017 0625 hours FINDINGS: Moderate cardiomegaly is unchanged. Pacemaker leads in stable satisfactory position. Ectatic thoracic aorta again noted. Pulmonary vessels are normal. Airspace disease in the right mid and lower lungs improved considerably with interval residual. Mild airspace disease in the left base also improving IMPRESSION: Moderate improvement in airspace disease right mid and lower lung jorgensen. Atypical edema versus aspiration versus infiltrate. Interpreted and Authenticated by: Andrea Zaragoza 11/25/17
[2017-11-25] MEDS ORDERED: MAGNESIUM SULFATE 2 GM/50 ML BAG IV ONE (08:45)
[2017-11-25] MEDS ORDERED: CEFEPIME 1 GM VIAL IV SCH ×3 (09:00)
[2017-11-25] MEDS ORDERED: VANCOMYCIN 1,000 MG in 0.9 % SODIUM CHLORIDE 250 ML IV ONE (09:00)
--- NOTE | 2017-11-25 09:45 | Cat Scan Report ---
CLINICAL INFORMATION: Pneumonia COMPARISON: None TECHNIQUE: 0.625 mm axial slices were obtained from the lung apices through the bases without intravenous contrast. 2.5 mm Sagittal, coronal and axial reformatted images were processed and reviewed at bone, lung and soft tissue windows. 7 mm axial MIP images were also reconstructed to optimize pulmonary nodule detection.The exam was performed using radiation dose optimization techniques including, but not limited to, automated exposure control, adjustment of the mA and/or kV according to patient size and use of iterative reconstruction technique. FINDINGS: Pulmonary parenchymal windows show mild centrilobular emphysema changes featuring multiple bullae with upper lobe predominance, elevated lung volumes with dilatation/wall thickening of the bronchi compatible with chronic bronchitis. There is a singular subsegmental tubular bronchiectatic bronchus in the posterior segment of the right upper lobe (image 42). Moderate right pleural effusion has resulted in subtotal atelectasis in the underlying medial, posterior and lateral basilar segments of the right lower lobe. There is also a small left pleural effusion. Oblique atelectasis of the medial basilar segment left lower lobe is appreciated. Subsegmental atelectasis of the lingular segment is also noted. Scattered scarring or atelectasis is seen throughout both lower lobes, lingula and right middle lobe. There are no reginaldo infiltrates. There is also no evidence of bronchovascular or interseptal edema to suggest active congestive heart failure. Mediastinal windows show the heart is enlarged with pacer leads in stable, satisfactory position. Central pulmonary arteries are mildly enlarged: the main pulmonary diameter 3.7 cm. This is suggestive, but not diagnostic, of pulmonary hypertension related to COPD. Mildly enlarged lymph nodes in the lower mediastinum including the right peritracheal, pericarinal, AP window and hilar regions range up to 11 mm. These are almost certainly benign reactive lymph nodes. The noncontrasted thoracic aorta is unremarkable. Esophagus is grossly normal. Thyroid is quite diminutive. Bones and soft tissues of the chest wall show mild degenerative disc disease in the midthoracic spine. IMPRESSION: 1. No CT evidence for congestive heart failure or pneumonia. Moderate right pleural effusion results in subtotal compressive atelectasis of the medial, posterior and lateral basilar segments of the right lower lobe. Small left pleural effusion is noted with complete atelectasis medial basilar segment left lower lobe. 2. Moderate centrilobular emphysema changes with scattered scarring in the right middle lobe, lingula and both lower lobes. There is mild enlargement of the central pulmonary arteries which is suggestive, but not diagnostic, of pulmonary hypertension related to COPD. 3. A few borderline enlarged lymph nodes in the lower mediastinum and hilum are almost certainly benign reactive lymph nodes. 4. Very diminutive thyroid. Please correlate with TSH and thyroid hormone levels Interpreted and Authenticated by: Andrea Zaragoza 11/25/17
[2017-11-25] MEDS: FAMOTIDINE/PF 20 MG/2 ML VIAL IV SCH ×2 (09:51→21:07)
[2017-11-25] MEDS: LACTATED RINGERS 1,000 ML IV SCH ×2 (10:26→13:24)
[2017-11-25] MEDS ORDERED: NOREPINEPHRINE BITARTRATE 16 MG in 0.9 % SODIUM CHLORIDE 234 ML IV PRN (11:15)
--- NOTE | 2017-11-25 12:38 | Internal Med Progress Note ---
Medical - PN: Subj Patient information: Note initiated : 11/25/17 at 12:30 pm Service Date, if different from initiated Date: [] Patient: Soumya Garcia a 87 y/o F admitted on 11/24/17 for fever. Chief Complaint: [] Interval history: Ms. Garcia is a 87 year old F with h/o recurrent UTI, presented to the ER today with complaints of not feeling well x 1 day. The patient notes that she has been diagnosed with UTI on 11/21, the patient notes she forgot to steel pickler her antibiotics the next day and had guests and was too busy to steel pickler antibiotics. She notes that she had been having some increased frequency of urination for the last few days. Since yesterday she has been having weakness chills and fever. She was brought into the ER with the above symptoms. On presentation to the ER the patient was hypoxic requiring a nonrebreather to keep her oxygen saturation above 90. The patient in the ER was febrile with a temperature of 105-heart rate 75, blood pressure stable with 118/53, it had dropped as low as 96/47, she was on 95 % on 2 L during presentation for admission however required 100% FiO2 during presentation to the emergency room. The blood work showed leukocytosis with a WBC count of 19,000, hemoglobin 10.9, platelets 345, INR 2.4. Chemistry unremarkable except elevation of creatinine at 1.7, baseline around 1.1. Lactic acid was 2.0. UA suggestive of urinary tract infection. The urine culture that was obtained on 21 November is growing E. coli which is pansensitive. Digoxin level is 1.4. Chest x-ray shows right hilar pneumonia and left basilar pneumonia possible aspiration. The patient was admitted to the PCU for further management. After admission to the PCU, patient initially was showing signs of improvement but later again became hypoxic requiring BiPAP. Patient is presently on BiPAP to maintain her respiratory status. 11/25 Patient seen and examined, still has intermittent chills and fever. Blood cultures positive for gram-negative bacillus, will repeat cultures. We did get a CT chest today because there was concern about pneumonia. CT chest is negative for pneumonia or heart failure just atelectasis and some effusion. Discontinue vancomycin discontinue Flagyl, change cefepime to Rocephin as it is likely that the patient is having urinary tract infection with bacteremia. 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 Patient is off bipap support Labs show trending down WBC, renal function improving. Pertinent ROS: Denies headache, dizziness Denies chest pain, palpitations Denies cough but improving shortness of breath Denies abdominal pain, nausea or vomiting. Additional PMFSH (Level 3 Only): Medical History (Last Reviewed 10/29/17 @ 11:02 by Veronica Sharp RN) Fatigue (Acute) Acquired asplenia (Chronic) Anemia in stage 3 chronic kidney disease (Chronic) Localized edema due to fluid overload (Chronic) Secondary hyperparathyroidism of renal origin (Chronic) Vitamin D deficiency (Chronic) Hypertension in stage 3 chronic kidney disease due to type 2 diabetes mellitus ( Chronic) CKD (chronic kidney disease) stage 3, GFR 30-59 ml/min (Chronic) Candidiasis of esophagus (Chronic) Osteopenia (Chronic) Recurrent urinary tract infection (Chronic) Low back pain (Chronic) Spinal stenosis of lumbosacral region (Chronic) Polyneuropathy (Chronic) Hypertriglyceridemia (Chronic) GERD (gastroesophageal reflux disease) (Resolved) Urinary incontinence (Chronic) Type 2 diabetes mellitus (Chronic) 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) Stroke (Chronic) Scoliosis (Chronic) Peripheral neuropathy (Chronic) Paroxysmal supraventricular tachycardia (Chronic) Pacemaker (Chronic) Neoplasm of skin (Chronic) Lupus (systemic lupus erythematosus) (Resolved) Iron deficiency (Chronic) Internal hemorrhoids with complication (Chronic) Hypothyroidism, acquired (Chronic) Hypertension, essential (Chronic) Degenerative disc disease (Chronic) Deep vein thrombosis (Resolved) Cataract (Chronic) Atrial fibrillation (Chronic) Arthritis (Chronic) Anemia (Chronic) Cataract, bilateral (Chronic) Bladder pain (Resolved) Bleeding disorder (Resolved) Effusion of joint (Resolved) Fecal incontinence (Resolved) Gait abnormality (Resolved) Grief at loss of child (Resolved) Hyperkalemia, diminished renal excretion (Resolved) Myelodysplastic syndrome (Resolved) Open leg wound (Resolved) Urinary tract infection (Resolved) - Constitutional Vitals: Vital Signs Temp Pulse Resp BP Pulse Ox 97.3 F 99 H 20 120/67 95 11/25/17 00:01 11/25/17 07:36 11/25/17 07:36 11/25/17 07:31 11/25/17 07:31 Period Temp Pulse Resp BP Sys/Farrell Pulse Ox Last 24 Hr 97.3 F-100.5 F 68-99 10-35 78-149/43-75 89-100 Intake and Output 11/24/17 11/25/17 11/25/17 21:59 05:59 13:59 Intake Total 351 / 351 353 / 353 1100 / 1100 Output Total 650 / 650 525 / 525 760 / 760 Balance -299 / -299 -172 / -172 340 / 340 Weight 152 lb 9.6 oz Intake & Output: Intake & Output 11/24/17 11/25/17 11/25/17 21:59 05:59 13:59 Intake Total 351 / 351 353 / 353 1100 / 1100 Output Total 650 / 650 525 / 525 760 / 760 Balance -299 / -299 -172 / -172 340 / 340 Weight 152 lb 9.6 oz Intake: IV 353 / 353 1100 / 1100 Sodium Chloride 0.9% 250 ml @ 142 / 142 20 mls/hr IV .[id number] [facility] Rx#: [id number] Lactated Ringers 1,000 ml @ 75 1000 / 1000 mls/hr IV .[id number] [facility] Rx#: [id number] Levophed 16 mg In Sodium Chloride 0.9% 234 ml @ 10 MCG/ MIN 9.37 mls/hr IV Q24H [facility] Rx# :[id number] Oral 350 / 350 Output: Urine Catheter Amount 650 / 650 525 / 525 760 / 760 Other: Meal Dinner Percent of Meal Consumed 100% Urine Appearance Uretheral (Schmidt) Cloudy Sediment Urine Color Uretheral (Schmidt) Straw Bright Yellow # Bowel Movements 1 Exam: Constitutional; febrile, cooperative, alert, not in distress. Eyes- No icterus, , No periorbital swelling Ears- Ext ear normal, hearing normal to conversation. Neck- Midline trachea, supple Respiratory system: Air Entry equal on both sides, No crackles or wheezing, no rhonchi. CVS- Rate rhythm regular, S1,S2 heard, no gallop, no rub. Abdomen- Soft nontender abdomen, no organomegaly, no tenderness, no guarding or rigidity, FORECLOSURE PARALEGAL- AOOx3, moving all extremities, no gross focal deficit noted. Medical - PN: Obj Da - Labs CBC & Chem 7: 11/25/17 03:50 11/25/17 03:50 Labs: Abnormal Lab Results 11/25/17 11/25/17 11/25/17 03:50 03:50 03:50 WBC 17.0 H RBC 3.17 L Hgb 9.7 L Hct 29.3 L RDW 15.4 H Gran % 85.8 H Lymph % (Auto) 5.4 L Gran # 14.6 H Lymph # (Auto) 0.9 L [place] # (Auto) 1.4 H ESR PT 30.0 H INR 2.8 H BUN 27 H Creatinine 1.4 H Glucose 140 H Calcium 7.6 L Direct Bilirubin 0.4 H Albumin 2.9 L Urine Protein Urine Occult Blood Ur Leukocyte Esterase Urine RBC Urine WBC 11/24/17 11/24/17 11/24/17 04:30 04:25 04:25 WBC RBC Hgb Hct RDW Gran % Lymph % (Auto) Gran # Lymph # (Auto) [place] # (Auto) ESR PT 26.4 H INR 2.4 H BUN 36 H Creatinine 1.7 H Glucose 159 H Calcium 8.4 L Direct Bilirubin Albumin Urine Protein 100 A Urine Occult Blood 0.03 A Ur Leukocyte Esterase 500 A Urine RBC 10 H Urine WBC > 182 H 11/24/17 04:25 WBC 19.6 H RBC 3.62 L Hgb 10.9 L Hct 32.8 L RDW 14.9 H Gran % 92.2 H Lymph % (Auto) 3.4 L Gran # 18.1 H Lymph # (Auto) 0.7 L [place] # (Auto) ESR 77 H PT INR BUN Creatinine Glucose Calcium Direct Bilirubin Albumin Urine Protein Urine Occult Blood Ur Leukocyte Esterase Urine RBC Urine WBC Meds: Medications Acetaminophen (Tylenol) 650 mg PO Q4-6HP PRN PRN Reason: PAIN/FEVER > 101 Albuterol/Ipratropium (Duoneb) 3 ml NEB Q6HRT [facility] Last Admin: 11/25/17 07:34 Dose: 3 ml Dextrose (Dextrose 50%) 0 ml IV UD PRN PRN Reason: Hypoglycemia Diagnostic Test (Pha) (Accu-Chek) 1 each FS ACHS [facility] Last Admin: 11/25/17 07:35 Dose: 1 each Famotidine (Pepcid) 20 mg IV Q12 [facility] Last Admin: 11/25/17 09:51 Dose: 20 mg Glucose (Insta-Glucose) 15 gm PO PRN PRN PRN Reason: Hypoglycemia Hydromorphone HCl (Dilaudid) 0.5 mg IV Q2HP PRN PRN Reason: PAIN LEVEL > 6 Lactated Ringer's (Lactated Ringers) 1,000 mls @ 75 mls/hr IV .[id number] [facility] Last Admin: 11/25/17 10:26 Dose: 75 mls/hr Acetaminophen (Ofirmev) 1,000 mg in 100 mls @ 200 mls/hr IV Q6HP PRN PRN Reason: Fever Last Infusion: 11/24/17 23:58 Dose: Infused Sodium Chloride (Sodium Chloride 0.9%) 250 mls @ 20 mls/hr IV .[id number] [facility] Last Admin: 11/25/17 07:39 Dose: Not Given Norepinephrine Bitartrate 16 (mg/ Sodium Chloride) 250 mls @ 9.37 mls/hr IV Q24HP PRN; Protocol PRN Reason: TITRATE TO KEEP MAP > 65 Ceftriaxone Sodium 2 gm/ (Dextrose) 50 mls @ 100 mls/hr IV Q24H [facility] Insulin Human Lispro (Humalog) 0 unit SQ ACHS [facility]; Protocol Last Admin: 11/25/17 07:38 Dose: Not Given Naloxone HCl (Narcan) 0.1 mg IV Q2MIN PRN PRN Reason: Opiate Reversal Ondansetron HCl (Zofran) 4 mg IV Q4-6HP PRN PRN Reason: Nausea And Vomiting Last Admin: 11/25/17 08:40 Dose: 4 mg Sodium Chloride (Saline Flush) 10 ml IV Q8 [facility] Last Admin: 11/25/17 05:49 Dose: 10 ml Warfarin Sodium (Coumadin Per Pharmacy) 1 order PO DAILY@1400 [facility] Last Admin: 11/24/17 16:18 Dose: Not Given Medical - PN: A/P - Time Spent With Patient Total time spent is greater than 50% in coordination of care (as documented) at patient's floor/unit and/or counseling patient: - Narrative A/P Narrative: A/P Sepsis with shock Lactic acidosis Urinary tract infection Acute respiratory failure, with hypoxia, on bipap support DM HTN HLD Acute Kidney Injury, anemia, GERD HYpothyroidism Afib. on coumadin with therapeutic INR Plan continue to monitor on pcu status 5L IV fluids given, on maitaince at 75cc/hr, IV abx change to ceftriaxone, pt thao not have pna on ct chest BP stable for now, but patient needed pressor support last night Patients respiratory status maintained on bipap as needed, if does not reppond, will intubate Monitor urine output, stable so far continue home medications as appropriate hold nephrotixic medications SSI insulin for glucose control DVT on coumadin with therapeutic INR Full code Carb consistent diet. Spent > 35 mins rendering critical care to the patient, non invasive vent management, fluid resuiitation, chart review, pressor management. Medical - PN: Qual - VTE Deep Vein Thrombosis/Pulmonary Embolism Present on Admission: No
[2017-11-25] MEDS: ACETAMINOPHEN 325 MG TABLET PO PRN (13:24)
[2017-11-25] MEDS ORDERED: WARFARIN 1 MG TABLET PO ONE (14:00)
[2017-11-26] MEDS: IPRATROPIUM/ALBUTEROL 3 ML AMPUL.NEB NEB SCH ×3 (00:42→20:44)
[2017-11-26] MEDS: LACTATED RINGERS 1,000 ML IV SCH (01:00)
[2017-11-26] MEDS ORDERED: FUROSEMIDE 20 MG/2 ML VIAL IV ONE ×2 (01:57→02:05)
[2017-11-26] MEDS: ACETAMINOPHEN 325 MG TABLET PO PRN (02:06)
[2017-11-26] MEDS ORDERED: LORazepam 2 MG/ML VIAL IV ONE (02:59)
[2017-11-26] MEDS ORDERED: LORazepam 2 MG/ML VIAL ONE (03:02)
[2017-11-26 05:58] LABS: Basophils # (Auto) 0.1 K/mcL (0.0-0.3); Basophils % (Auto) 0.5 % (0.0-2.0); Eosinophils # (Auto) 0.2 K/mcL (0.0-0.7); Eosinophils % (Auto) 1.6 % (0.0-7.0); Granulocytes % (Auto) 79.3 % (38.0-78.0); Lymphocytes # (Auto) 0.8 K/mcL (1.5-4.8); Lymphocytes % (Auto) 6.7 % (15.5-49.0); Mean Cell Volume 92.1 fL (80.0-100.0); Mean Corpuscular Hemoglobin 30.4 pg (26.0-34.0); Monocytes # (Auto) 1.4 K/mcL (0.1-0.9); Monocytes % (Auto) 11.9 % (1.0-12.0); Platelet Count 363 K/mcL (140-440); RBC 2.99 M/mcL (4.00-5.20); Red Cell Distribution Width 15.8 % (11.5-14.5)
[2017-11-26 05:59] LABS: ALT/SGPT 12 U/l (0-40); Albumin 2.8 gm/dL (3.2-5.2); Albumin/Globulin Ratio 0.9 (1.0-2.3); Alkaline Phosphatase 56 U/L (39-117); Bilirubin,Direct < 0.2 mg/dL (0.0-0.3); Blood Urea Nitrogen 21 mg/dl (8-23); Gamma Glutamyl Transpeptidase 31 U/L (5-36); Uric Acid 4.3 mg/dL (2.5-8.0)
[2017-11-26] MEDS ORDERED: IPRATROPIUM/ALBUTEROL 3 ML AMPUL.NEB NEB SCH ×2 (07:00→09:00)
[2017-11-26] MEDS: INSULIN LISPRO 1 UNIT/0.01 ML UNIT SQ SCH ×4 (08:43→23:24)
[2017-11-26] MEDS ORDERED: SOTALOL 80 MG TABLET PO SCH (09:00)
[2017-11-26] MEDS ORDERED: cefTRIAXone 2 GM in DEXTROSE 5% IN WATER 50 ML IV SCH (09:00)
[2017-11-26] MEDS: 0.9 % SODIUM CHLORIDE 10 ML SYRINGE IV SCH ×3 (09:10→22:00)
[2017-11-26] MEDS: FAMOTIDINE/PF 20 MG/2 ML VIAL IV SCH (09:11)
[2017-11-26] MEDS: 0.9 % SODIUM CHLORIDE 250 ML IV SCH (10:54)
--- NOTE | 2017-11-26 11:00 | Internal Med Progress Note ---
Medical - PN: Subj Patient information: Note initiated : 11/26/17 at 10:57 am Service Date, if different from initiated Date: [] Patient: Soumya Garcia a 87 y/o F admitted on 11/24/17 for fever. Chief Complaint: [] Interval history: Ms. Garcia is a 87 year old F with h/o recurrent UTI, presented to the ER today with complaints of not feeling well x 1 day. The patient notes that she has been diagnosed with UTI on 11/21, the patient notes she forgot to bead picker her antibiotics the next day and had guests and was too busy to bead picker antibiotics. She notes that she had been having some increased frequency of urination for the last few days. Since yesterday she has been having weakness chills and fever. She was brought into the ER with the above symptoms. On presentation to the ER the patient was hypoxic requiring a nonrebreather to keep her oxygen saturation above 90. The patient in the ER was febrile with a temperature of 105-heart rate 75, blood pressure stable with 118/53, it had dropped as low as 96/47, she was on 95 % on 2 L during presentation for admission however required 100% FiO2 during presentation to the emergency room. The blood work showed leukocytosis with a WBC count of 19,000, hemoglobin 10.9, platelets 345, INR 2.4. Chemistry unremarkable except elevation of creatinine at 1.7, baseline around 1.1. Lactic acid was 2.0. UA suggestive of urinary tract infection. The urine culture that was obtained on 21 November is growing E. coli which is pansensitive. Digoxin level is 1.4. Chest x-ray shows right hilar pneumonia and left basilar pneumonia possible aspiration. The patient was admitted to the PCU for further management. After admission to the PCU, patient initially was showing signs of improvement but later again became hypoxic requiring BiPAP. Patient is presently on BiPAP to maintain her respiratory status. 11/25 Patient seen and examined, still has intermittent chills and fever. Blood cultures positive for gram-negative bacillus, will repeat cultures. We did get a CT chest today because there was concern about pneumonia. CT chest is negative for pneumonia or heart failure just atelectasis and some effusion. Discontinue vancomycin discontinue Flagyl, change cefepime to Rocephin as it is likely that the patient is having urinary tract infection with bacteremia. 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 Patient is off bipap support Labs show trending down WBC, renal function improving. 11/26 Patient seen and examined, no acute overnight events, fever curve is trending down, blood cultures repeat are negative so far. Patient did require some BiPAP support last night but is back on nasal cannula. IV fluids have been discontinued she received 20 mg of Lasix with good response. WBC trending down renal function is stable. I reviewed the plan of care with the patient's daughter. The patient has no sensation when she has a bowel movement leading to recurrent urinary tract infections. She has been tested for possible colovesical fistula. Will review with infectious disease, they have been consulted, for chronic antibiotic suppression therapy versus patient having antibiotics at home. Patients daugther has been offered to consider a second opinion once she is discharged from the hospital. Pertinent ROS: Denies headache, dizziness Denies chest pain, palpitations Denies cough or shortness of breath Denies abdominal pain, nausea or vomiting. - Constitutional Vitals: Vital Signs Temp Pulse Resp BP Pulse Ox 98.2 F 87 15 115/62 91 11/26/17 04:01 11/26/17 07:28 11/26/17 08:04 11/26/17 07:01 11/26/17 08:04 Period Temp Pulse Resp BP Sys/Farrell Pulse Ox Last 24 Hr 98.1 F-98.7 F 70-96 12-36 94-137/54-83 90-100 Intake and Output 11/25/17 11/26/17 11/26/17 21:59 05:59 13:59 Intake Total 360 / 360 1100 / 1100 470 / 470 Output Total 875 / 875 1090 / 1090 1025 / 1025 Balance -515 / -515 10 / 10 -555 / -555 Weight 153 lb 14.4 oz Intake & Output: Intake & Output 11/25/17 11/26/17 11/26/17 21:59 05:59 13:59 Intake Total 360 / 360 1100 / 1100 470 / 470 Output Total 875 / 875 1090 / 1090 1025 / 1025 Balance -515 / -515 10 / 10 -555 / -555 Weight 153 lb 14.4 oz Intake: IV 1100 / 1100 50 / 50 Lactated Ringers 1,000 ml @ 75 1100 / 1100 mls/hr IV .[id number] [facility] Rx#: [id number] Rocephin 2 gm In Dextrose 5% in 50 / 50 Water 50 ml @ 100 mls/hr IV Q24H [facility] Rx#:[id number] Oral 360 / 360 420 / 420 Output: Urine Catheter Amount 875 / 875 1090 / 1090 1025 / 1025 Other: Meal Dinner Breakfast Percent of Meal Consumed 100% 80 Feeding Ability Independent Independent Urine Appearance Clear Clear Clear Uretheral (Schmidt) Clear Urine Color Dark Yellow Pale Straw Uretheral (Schmidt) Dark Yellow Pale Urine Odor Normal Uretheral (Schmidt) Normal Stool Size Small Stool Color Brown Stool Consistency Soft Formed # Bowel Movements 1 Exam: Constitutional; Afebrile, cooperative, alert, not in distress. Eyes- No icterus, , No periorbital swelling Ears- Ext ear normal, hearing normal to conversation. Neck- Midline trachea, supple Respiratory system: Air Entry equal on both sides, No crackles or wheezing, no rhonchi. CVS- Rate rhythm regular, S1,S2 heard, no gallop, no rub. 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 Medical - PN: Obj Da - Labs CBC & Chem 7: 11/26/17 04:00 11/26/17 04:00 Labs: Abnormal Lab Results 11/26/17 11/26/17 11/26/17 04:00 04:00 04:00 WBC 11.4 H RBC 2.99 L Hgb 9.1 L Hct 27.5 L RDW 15.8 H Gran % 79.3 H Lymph % (Auto) 6.7 L Gran # 9.1 H Lymph # (Auto) 0.8 L [place] # (Auto) 1.4 H ESR PT 26.4 H INR 2.4 H BUN Creatinine Glucose 130 H Calcium 8.4 L Phosphorus 2.0 L Direct Bilirubin Albumin 2.8 L Albumin/Globulin Ratio 0.9 L Urine Protein Urine Occult Blood Ur Leukocyte Esterase Urine RBC Urine WBC 11/25/17 11/25/17 11/25/17 03:50 03:50 03:50 WBC 17.0 H RBC 3.17 L Hgb 9.7 L Hct 29.3 L RDW 15.4 H Gran % 85.8 H Lymph % (Auto) 5.4 L Gran # 14.6 H Lymph # (Auto) 0.9 L [place] # (Auto) 1.4 H ESR PT 30.0 H INR 2.8 H BUN 27 H Creatinine 1.4 H Glucose 140 H Calcium 7.6 L Phosphorus Direct Bilirubin 0.4 H Albumin 2.9 L Albumin/Globulin Ratio Urine Protein Urine Occult Blood Ur Leukocyte Esterase Urine RBC Urine WBC 11/24/17 11/24/17 11/24/17 04:30 04:25 04:25 WBC RBC Hgb Hct RDW Gran % Lymph % (Auto) Gran # Lymph # (Auto) [place] # (Auto) ESR PT 26.4 H INR 2.4 H BUN 36 H Creatinine 1.7 H Glucose 159 H Calcium 8.4 L Phosphorus Direct Bilirubin Albumin Albumin/Globulin Ratio Urine Protein 100 A Urine Occult Blood 0.03 A Ur Leukocyte Esterase 500 A Urine RBC 10 H Urine WBC > 182 H 11/24/17 04:25 WBC 19.6 H RBC 3.62 L Hgb 10.9 L Hct 32.8 L RDW 14.9 H Gran % 92.2 H Lymph % (Auto) 3.4 L Gran # 18.1 H Lymph # (Auto) 0.7 L [place] # (Auto) ESR 77 H PT INR BUN Creatinine Glucose Calcium Phosphorus Direct Bilirubin Albumin Albumin/Globulin Ratio Urine Protein Urine Occult Blood Ur Leukocyte Esterase Urine RBC Urine WBC Meds: Medications Acetaminophen (Tylenol) 650 mg PO Q4-6HP PRN PRN Reason: PAIN/FEVER > 101 Last Admin: 11/26/17 02:06 Dose: 650 mg Albuterol/Ipratropium (Duoneb) 3 ml NEB TID [facility] Last Admin: 11/26/17 08:36 Dose: Not Given Dextrose (Dextrose 50%) 0 ml IV UD PRN PRN Reason: Hypoglycemia Diagnostic Test (Pha) (Accu-Chek) 1 each FS ACHS [facility] Last Admin: 11/26/17 08:42 Dose: 1 each Digoxin (Lanoxin) 125 mcg PO DAILY@1400 [facility] Famotidine (Pepcid) 20 mg IV Q12 [facility] Last Admin: 11/26/17 09:11 Dose: 20 mg Glucose (Insta-Glucose) 15 gm PO PRN PRN PRN Reason: Hypoglycemia Hydromorphone HCl (Dilaudid) 0.5 mg IV Q2HP PRN PRN Reason: PAIN LEVEL > 6 Acetaminophen (Ofirmev) 1,000 mg in 100 mls @ 200 mls/hr IV Q6HP PRN PRN Reason: Fever Last Infusion: 11/24/17 23:58 Dose: Infused Norepinephrine Bitartrate 16 (mg/ Sodium Chloride) 250 mls @ 9.37 mls/hr IV Q24HP PRN; Protocol PRN Reason: TITRATE TO KEEP MAP > 65 Ceftriaxone Sodium 2 gm/ (Dextrose) 50 mls @ 100 mls/hr IV Q24H [facility] Last Infusion: 11/26/17 09:50 Dose: Infused Insulin Human Lispro (Humalog) 0 unit SQ ACHS [facility]; Protocol Last Admin: 11/26/17 08:43 Dose: Not Given Naloxone HCl (Narcan) 0.1 mg IV Q2MIN PRN PRN Reason: Opiate Reversal Ondansetron HCl (Zofran) 4 mg IV Q4-6HP PRN PRN Reason: Nausea And Vomiting Last Admin: 11/25/17 08:40 Dose: 4 mg Sodium Chloride (Saline Flush) 10 ml IV Q8 [facility] Last Admin: 11/26/17 09:10 Dose: 10 ml Sotalol HCl (Betapace) 80 mg PO BID [facility] Last Admin: 11/26/17 09:11 Dose: 80 mg Warfarin Sodium (Coumadin Per Pharmacy) 1 order PO DAILY@1400 [facility] Last Admin: 11/25/17 13:24 Dose: Not Given Medical - PN: A/P - Time Spent With Patient Total time spent is greater than 50% in coordination of care (as documented) at patient's floor/unit and/or counseling patient: - Narrative A/P Narrative: A/P Sepsis with shock- resolved Lactic acidosis- resolved Urinary tract infection Acute respiratory failure, with hypoxia, on bipap support, prn DM HTN HLD Acute Kidney Injury,- improving renal function. anemia, GERD HYpothyroidism Afib. on coumadin with therapeutic INR Plan xfer to tele status d/c IVF, one dose of lasix given, will try to remove excess fluid if possible to wean off oxygen IV abx change to ceftriaxone, pt thao not have pna on ct chest BP stable for now, no pressor support needed since yesterday Patients respiratory status maintained on bipap as needed, Monitor urine output, stable so far continue home medications as appropriate, digoxin and sotalol resumed, hold nephrotixic medications SSI insulin for glucose control DVT on coumadin with therapeutic INR Full code Carb consistent diet. Medical - PN: Qual - VTE Deep Vein Thrombosis/Pulmonary Embolism Present on Admission: No
[2017-11-26] MEDS ORDERED: DEXTROSE 31 GM ORAL.SUSP PO PRN (11:45)
[2017-11-26] MEDS ORDERED: DEXTROSE 50% 50 ML VIAL IV PRN (11:45)
[2017-11-26] MEDS ORDERED: NOREPINEPHRINE BITARTRATE 16 MG in 0.9 % SODIUM CHLORIDE 234 ML IV PRN (11:45)
[2017-11-26] MEDS ORDERED: HYDROmorphone 2 MG/ML VIAL IV PRN (11:45)
[2017-11-26] MEDS ORDERED: ONDANSETRON 4 MG/2 ML VIAL IV PRN (11:45)
[2017-11-26] MEDS ORDERED: CLOTRIMAZOLE VAG CRM 1% TUBE 45 GM VAG SCH (11:45)
[2017-11-26] MEDS ORDERED: NALOXONE HCL 0.4 MG/ML VIAL IV PRN (11:45)
[2017-11-26] MEDS ORDERED: ACETAMINOPHEN 1,000 MG/100 ML BOTTLE IV PRN (11:45)
[2017-11-26] MEDS: DIGOXIN 125 MCG TABLET PO SCH (13:59)
[2017-11-26] MEDS ORDERED: DIGOXIN 125 MCG TABLET PO SCH (14:00)
[2017-11-26] MEDS ORDERED: WARFARIN 1 MG TABLET PO ONE (14:00)
--- NOTE | 2017-11-26 15:21 | Ultrasound Report ---
CLINICAL INFORMATION: pyelonephritis COMPARISON: Abdomen CT from 10/10/2017 FINDINGS: Both kidneys are normal in size, position and configuration: The right is 12 x 6 cm and the left is 11 x 5 cm. There are two hypoechoic solid nodules projecting from the superior pole the left kidney, 2.5 cm and 1.6 cm, respectively. These were obscured by perinephric stranding on the prior CT. Two cysts projecting from the lateral cortex mid left kidney: 1.1 cm 1.5 cm. A 1.5 cm cyst is seen in the inferior pole left kidney. On prior CT, these are noted to be hyperdense cyst. Schmidt catheter is decompressed the urinary bladder is grossly normal. IMPRESSION: 1. No CT evidence of abscess or other complication of polynephritis. Simple pyelonephritis would be, typically, sonographically occult 2. Two hypoechoic solid nodules projecting the superior pole left kidney, 2.5 cm and 1.6 cm, respectively. They're not definitely seen on prior CT. They're more likely small regions of lobulation rather than malignancy. Suggest either repeat CT IVP or or MRI. Alternatively, a follow-up ultrasound could be performed in 3-6 months. 3. Hyperdense cysts in the mid and inferior left kidney - stable from prior CT Interpreted and Authenticated by: Andrea Zaragoza 11/26/17
[2017-11-26] MEDS: CLOTRIMAZOLE 2% VAG SCH (16:23)
[2017-11-26] MEDS ORDERED: FAMOTIDINE/PF 20 MG/2 ML VIAL IV SCH (21:00)
[2017-11-26] MEDS: MONTELUKAST 10 MG TABLET PO SCH (21:09)
[2017-11-26] MEDS: SOTALOL 80 MG TABLET PO SCH (21:09)
[2017-11-26] MEDS: GABAPENTIN 300 MG CAPSULE PO SCH (21:09)
[2017-11-27] MEDS: 0.9 % SODIUM CHLORIDE 10 ML SYRINGE IV SCH ×6 (05:29→21:34)
[2017-11-27 06:48] LABS: Basophils # (Auto) 0.1 K/mcL (0.0-0.3); Basophils % (Auto) 0.6 % (0.0-2.0); Eosinophils # (Auto) 0.6 K/mcL (0.0-0.7); Eosinophils % (Auto) 5.6 % (0.0-7.0); Granulocytes % (Auto) 71.5 % (38.0-78.0); Lymphocytes % (Auto) 10.2 % (15.5-49.0); Mean Cell Volume 91.9 fL (80.0-100.0); Mean Corpuscular HGB Conc 33.2 g/dL (31.0-36.0); Mean Corpuscular Hemoglobin 30.6 pg (26.0-34.0); Monocytes # (Auto) 1.2 K/mcL (0.1-0.9); Monocytes % (Auto) 12.1 % (1.0-12.0); Platelet Count 406 K/mcL (140-440); RBC 3.18 M/mcL (4.00-5.20); Red Cell Distribution Width 15.7 % (11.5-14.5)
[2017-11-27 06:55] LABS: ALT/SGPT 11 U/l (0-40); Albumin 2.9 gm/dL (3.2-5.2); Albumin/Globulin Ratio 0.8 (1.0-2.3); Alkaline Phosphatase 62 U/L (39-117); Bilirubin,Direct < 0.2 mg/dL (0.0-0.3); Blood Urea Nitrogen 20 mg/dl (8-23); Gamma Glutamyl Transpeptidase 33 U/L (5-36); Uric Acid 4.5 mg/dL (2.5-8.0)
[2017-11-27] MEDS ORDERED: OMEPRAZOLE 20 MG CAPSULE PO SCH (07:30)
[2017-11-27] MEDS: OMEPRAZOLE 20 MG CAPSULE PO SCH (07:33)
[2017-11-27] MEDS: INSULIN LISPRO 1 UNIT/0.01 ML UNIT SQ SCH ×4 (07:37→21:42)
[2017-11-27] MEDS ORDERED: FUROSEMIDE 40 MG/4 ML VIAL IV ONE (08:18)
--- NOTE | 2017-11-27 08:41 | XRay Report ---
CLINICAL INFORMATION: shortness of breath COMPARISON: 11/24/2017 FINDINGS: Moderate cardiomegaly is unchanged. Pacemaker leads are in stable satisfactory position. Mediastinum and pulmonary vessels are normal. Moderate right basilar infiltrate shows slight progression. Minor atelectasis left base progressed. Small right pleural effusion now noted IMPRESSION: Moderate right basilar infiltrate and small effusion - progressing. Minor atelectasis left base Interpreted and Authenticated by: Andrea Zaragoza 11/27/17
[2017-11-27] MEDS ORDERED: cefTRIAXone 2 GM in DEXTROSE 5% IN WATER 50 ML IV SCH (09:00)
[2017-11-27] MEDS: GABAPENTIN 300 MG CAPSULE PO SCH ×3 (09:16→21:30)
[2017-11-27] MEDS: FENOFIBRATE 43 MG CAPSULE PO SCH (09:16)
[2017-11-27] MEDS: SOTALOL 80 MG TABLET PO SCH ×2 (09:17→21:31)
[2017-11-27] MEDS: CLOTRIMAZOLE 2% VAG SCH (09:18)
[2017-11-27] MEDS: IPRATROPIUM/ALBUTEROL 3 ML AMPUL.NEB NEB SCH ×3 (09:29→18:43)
[2017-11-27] MEDS: LEVOFLOXACIN 500 MG/100 ML BAG IV SCH (09:41)
--- NOTE | 2017-11-27 11:24 | Internal Med Progress Note ---
Medical - PN: Subj Patient information: Note initiated : 11/27/17 at 11:22 am Service Date, if different from initiated Date: [] Patient: Soumya Garcia a 87 y/o F admitted on 11/24/17 for Fever/Sepsis, Pneumonia. Chief Complaint: [] Interval history: Ms. Garcia is a 87 year old F with h/o recurrent UTI, presented to the ER today with complaints of not feeling well x 1 day. The patient notes that she has been diagnosed with UTI on 11/21, the patient notes she forgot to belt picker her antibiotics the next day and had guests and was too busy to belt picker antibiotics. She notes that she had been having some increased frequency of urination for the last few days. Since yesterday she has been having weakness chills and fever. She was brought into the ER with the above symptoms. On presentation to the ER the patient was hypoxic requiring a nonrebreather to keep her oxygen saturation above 90. The patient in the ER was febrile with a temperature of 105-heart rate 75, blood pressure stable with 118/53, it had dropped as low as 96/47, she was on 95 % on 2 L during presentation for admission however required 100% FiO2 during presentation to the emergency room. The blood work showed leukocytosis with a WBC count of 19,000, hemoglobin 10.9, platelets 345, INR 2.4. Chemistry unremarkable except elevation of creatinine at 1.7, baseline around 1.1. Lactic acid was 2.0. UA suggestive of urinary tract infection. The urine culture that was obtained on 21 November is growing E. coli which is pansensitive. Digoxin level is 1.4. Chest x-ray shows right hilar pneumonia and left basilar pneumonia possible aspiration. The patient was admitted to the PCU for further management. After admission to the PCU, patient initially was showing signs of improvement but later again became hypoxic requiring BiPAP. Patient is presently on BiPAP to maintain her respiratory status. 11/25 Patient seen and examined, still has intermittent chills and fever. Blood cultures positive for gram-negative bacillus, will repeat cultures. We did get a CT chest today because there was concern about pneumonia. CT chest is negative for pneumonia or heart failure just atelectasis and some effusion. Discontinue vancomycin discontinue Flagyl, change cefepime to Rocephin as it is likely that the patient is having urinary tract infection with bacteremia. 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 Patient is off bipap support Labs show trending down WBC, renal function improving. 11/26 Patient seen and examined, no acute overnight events, fever curve is trending down, blood cultures repeat are negative so far. Patient did require some BiPAP support last night but is back on nasal cannula. IV fluids have been discontinued she received 20 mg of Lasix with good response. WBC trending down renal function is stable. I reviewed the plan of care with the patient's daughter. The patient has no sensation when she has a bowel movement leading to recurrent urinary tract infections. She has been tested for possible colovesical fistula. Will review with infectious disease, they have been consulted, for chronic antibiotic suppression therapy versus patient having antibiotics at home. Patients daugther has been offered to consider a second opinion once she is discharged from the hospital. 11/27 Patient seen and examined, no acute overnight events, not needing pressors anymore, no need for BiPAP. This morning however she was feeling a bit short of breath. She has crackles on the right lower lobe. Chest x-ray shows right lower lobe pneumonia some fluid. However CT chest done 2 days ago did not show any pneumonia likely atelectasis. And some effusion. Will give Lasix and continue DuoNeb therapy every 6 hours. Monitor for now change rocephin to levofloxacin, Pertinent ROS: Denies headache, dizziness Denies chest pain, palpitations present cough and shortness of breath, Denies abdominal pain, nausea or vomiting. - Constitutional Vitals: Vital Signs Temp Pulse Resp BP Pulse Ox 99.6 F H 99 H 18 155/90 93 11/27/17 07:44 11/26/17 20:45 11/27/17 07:44 11/27/17 07:44 11/27/17 07:44 Period Temp Pulse Resp BP Sys/Farrell Pulse Ox Last 24 Hr 98 F-100.1 F 67-99 18-20 131-155/62-90 91-96 Intake and Output 11/26/17 11/27/17 11/27/17 21:59 05:59 13:59 Intake Total 100 / 100 480 / 480 Output Total 500 / 500 1350 / 1350 Balance 100 / 100 -500 / -500 -870 / -870 Weight 152 lb 12.8 oz Intake & Output: Intake & Output 11/26/17 11/27/17 11/27/17 21:59 05:59 13:59 Intake Total 100 / 100 480 / 480 Output Total 500 / 500 1350 / 1350 Balance 100 / 100 -500 / -500 -870 / -870 Weight 152 lb 12.8 oz Intake: IV 100 / 100 Oral 480 / 480 Output: Urine Catheter Amount 500 / 500 1350 / 1350 Other: Meal Breakfast Percent of Meal Consumed 100% Feeding Ability Independent Urine Appearance Clear Clear Uretheral (Schmidt) Clear Clear Urine Color Bright Yellow Pale Uretheral (Schmidt) Bright Yellow Dark Yellow Urine Odor Normal Normal Uretheral (Schmidt) Normal Medical - PN: Obj Da - Labs CBC & Chem 7: 11/27/17 04:33 11/27/17 04:33 Labs: Abnormal Lab Results 11/27/17 11/27/17 11/27/17 04:33 04:33 04:33 WBC RBC 3.18 L Hgb 9.7 L Hct 29.2 L RDW 15.7 H Gran % Lymph % (Auto) 10.2 L [place] % (Auto) 12.1 H Gran # Lymph # (Auto) 1.0 L [place] # (Auto) 1.2 H PT 20.7 H INR 1.8 H BUN Creatinine 1.2 H Glucose 127 H Calcium Phosphorus 2.1 L Direct Bilirubin Albumin 2.9 L Albumin/Globulin Ratio 0.8 L Triglycerides 191 H 11/26/17 11/26/17 11/26/17 04:00 04:00 04:00 WBC 11.4 H RBC 2.99 L Hgb 9.1 L Hct 27.5 L RDW 15.8 H Gran % 79.3 H Lymph % (Auto) 6.7 L [place] % (Auto) Gran # 9.1 H Lymph # (Auto) 0.8 L [place] # (Auto) 1.4 H PT 26.4 H INR 2.4 H BUN Creatinine Glucose 130 H Calcium 8.4 L Phosphorus 2.0 L Direct Bilirubin Albumin 2.8 L Albumin/Globulin Ratio 0.9 L Triglycerides 11/25/17 11/25/17 11/25/17 03:50 03:50 03:50 WBC 17.0 H RBC 3.17 L Hgb 9.7 L Hct 29.3 L RDW 15.4 H Gran % 85.8 H Lymph % (Auto) 5.4 L [place] % (Auto) Gran # 14.6 H Lymph # (Auto) 0.9 L [place] # (Auto) 1.4 H PT 30.0 H INR 2.8 H BUN 27 H Creatinine 1.4 H Glucose 140 H Calcium 7.6 L Phosphorus Direct Bilirubin 0.4 H Albumin 2.9 L Albumin/Globulin Ratio Triglycerides Meds: Medications Acetaminophen (Tylenol) 650 mg PO Q4-6HP PRN PRN Reason: PAIN/FEVER > 101 Albuterol/Ipratropium (Duoneb) 3 ml NEB Q6HRT COUNT [facility]CLUDES [facility] Dextrose (Dextrose 50%) 0 ml IV UD PRN PRN Reason: Hypoglycemia Diagnostic Test (Pha) (Accu-Chek) 1 each FS [facility] Last Admin: 11/27/17 07:37 Dose: 1 each Digoxin (Lanoxin) 125 mcg PO DAILY@1400 [facility]CLUDES [facility] Last Admin: 11/26/17 13:59 Dose: 125 mcg Fenofibrate (Antara) 129 mg PO DAILY COUNT [facility]CLUDES [facility] Last Admin: 11/27/17 09:16 Dose: 129 mg Gabapentin (Neurontin) 600 mg PO TID COUNT [facility]CLUDES [facility] Last Admin: 11/27/17 09:16 Dose: 600 mg Glucose (Insta-Glucose) 15 gm PO PRN PRN PRN Reason: Hypoglycemia Hydromorphone HCl (Dilaudid) 0.5 mg IV Q2HP PRN PRN Reason: PAIN LEVEL > 6 Levofloxacin (Levaquin) 500 mg in 100 mls @ 100 mls/hr IV Q24H COUNT [facility]CLUDES [facility] Last Admin: 11/27/17 09:41 Dose: 100 mls/hr Insulin Human Lispro (Humalog) 0 unit SQ [facility]; Protocol Last Admin: 11/27/17 07:37 Dose: Not Given Montelukast Sodium (Singular) 10 mg PO QPM [facility] Last Admin: 11/26/17 21:09 Dose: 10 mg Naloxone HCl (Narcan) 0.1 mg IV Q2MIN PRN PRN Reason: Opiate Reversal Clotrimazole Vag Crm (2% Tube 21 Gm) 1 dose VAG DAILY [facility]CLUDES [facility] Stop: 11/28/17 09:01 Last Admin: 11/27/17 09:18 Dose: 1 dose Omeprazole (Prilosec) 20 mg PO ACB COUNT [facility]CLUDES [facility] Last Admin: 11/27/17 07:33 Dose: 20 mg Ondansetron HCl (Zofran) 4 mg IV Q4-6HP PRN PRN Reason: Nausea And Vomiting Sodium Chloride (Saline Flush) 10 ml IV Q8 COUNT [facility]CLUDES [facility] Last Admin: 11/27/17 09:03 Dose: 10 ml Sotalol HCl (Betapace) 80 mg PO BID COUNT [facility]CLUDES [facility] Last Admin: 11/27/17 09:17 Dose: 80 mg Warfarin Sodium (Coumadin Per Pharmacy) 1 order PO DAILY@1400 COUNT [facility]CLUDES [facility] Last Admin: 11/26/17 13:53 Dose: Not Given Medical - PN: A/P - Time Spent With Patient Total time spent is greater than 50% in coordination of care (as documented) at patient's floor/unit and/or counseling patient: - Narrative A/P Narrative: A/P Sepsis with shock- resolved Lactic acidosis- resolved Urinary tract infection Acute respiratory failure, with hypoxia, on bipap support, prn DM HTN HLD Acute Kidney Injury,- improving renal function. anemia, GERD HYpothyroidism Afib. on coumadin with therapeutic INR Plan monitor on tele Not sure about pneumonia diagnosis, CT clearly shows no pneumonia, but X Ray has been called as pneumonia, before the CT adn even after the CT. I think pt has some atelectasis wtih effusion (seen on CT) which is being called as pna by the radiologist. still needs oxygen, some shortness of breath today too, repeat dose of laxi IV abx changed to levofloxacin, will be discharged on oral levoflox. Discussed same with ID BP stable for now, no pressor support needed for 2 days. Patients respiratory status is tenous, intermittent shortness of breath present , not needing bipap from yesterday Monitor urine output, stable so far continue home medications as appropriate, digoxin and sotalol resumed, hold nephrotoxic medications SSI insulin for glucose control DVT on coumadin with therapeutic INR Full code Carb consistent diet. Medical - PN: Qual - VTE Deep Vein Thrombosis/Pulmonary Embolism Present on Admission: No
[2017-11-27] MEDS: predniSONE 20 MG TABLET PO SCH (11:36)
[2017-11-27] MEDS ORDERED: WARFARIN 2.5 MG TABLET PO ONE (14:00)
[2017-11-27] MEDS: DIGOXIN 125 MCG TABLET PO SCH (14:02)
--- NOTE | 2017-11-27 15:36 | Internal Med Progress Note ---
Medical - PN: Subj Patient information: Note initiated : 11/27/17 at 3:26 pm Service Date, if different from initiated Date: [] Patient: Soumya Garcia a 87 y/o F admitted on 11/24/17 for Fever/Sepsis, Pneumonia. Chief Complaint: [] Interval history: jonathan Garcia is a 87 year old F with h/o recurrent UTI, presented to the ER today with complaints of not feeling well x 1 day. The patient notes that she has been diagnosed with UTI on 11/21, the patient notes she forgot to brass pickler her antibiotics the next day and had guests and was too busy to brass pickler antibiotics. She notes that she had been having some increased frequency of urination for the last few days. Since yesterday she has been having weakness chills and fever. She was brought into the ER with the above symptoms. On presentation to the ER the patient was hypoxic requiring a nonrebreather to keep her oxygen saturation above 90. The patient in the ER was febrile with a temperature of 105-heart rate 75, blood pressure stable with 118/53, it had dropped as low as 96/47, she was on 95 % on 2 L during presentation for admission however required 100% FiO2 during presentation to the emergency room. The blood work showed leukocytosis with a WBC count of 19,000, hemoglobin 10.9, platelets 345, INR 2.4. Chemistry unremarkable except elevation of creatinine at 1.7, baseline around 1.1. Lactic acid was 2.0. UA suggestive of urinary tract infection. The urine culture that was obtained on 21 November is growing E. coli which is pansensitive. Digoxin level is 1.4. Chest x-ray shows right hilar pneumonia and left basilar pneumonia possible aspiration. The patient was admitted to the PCU for further management. After admission to the PCU, patient initially was showing signs of improvement but later again became hypoxic requiring BiPAP. Patient is presently on BiPAP to maintain her respiratory status. 11/25 Patient seen and examined, still has intermittent chills and fever. Blood cultures positive for gram-negative bacillus, will repeat cultures. We did get a CT chest today because there was concern about pneumonia. CT chest is negative for pneumonia or heart failure just atelectasis and some effusion. Discontinue vancomycin discontinue Flagyl, change cefepime to Rocephin as it is likely that the patient is having urinary tract infection with bacteremia. 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 Patient is off bipap support Labs show trending down WBC, renal function improving. 11/26 Patient seen and examined, no acute overnight events, fever curve is trending down, blood cultures repeat are negative so far. Patient did require some BiPAP support last night but is back on nasal cannula. IV fluids have been discontinued she received 20 mg of Lasix with good response. WBC trending down renal function is stable. I reviewed the plan of care with the patient's daughter. The patient has no sensation when she has a bowel movement leading to recurrent urinary tract infections. She has been tested for possible colovesical fistula. Will review with infectious disease, they have been consulted, for chronic antibiotic suppression therapy versus patient having antibiotics at home. Patients daugther has been offered to consider a second opinion once she is discharged from the hospital. 11/27 Patient seen and examined, no acute overnight events, not needing pressors anymore, no need for BiPAP. This morning however she was feeling a bit short of breath. She has crackles on the right lower lobe. Chest x-ray shows right lower lobe pneumonia some fluid. However CT chest done 2 days ago did not show any pneumonia likely atelectasis. And some effusion. Will give Lasix and continue DuoNeb therapy every 6 hours. Monitor for now change rocephin to levofloxacin, 11/28 - Constitutional Vitals: Vital Signs Temp Pulse Resp BP Pulse Ox 99.2 F H 74 16 139/66 95 11/27/17 11:54 11/27/17 13:11 11/27/17 13:11 11/27/17 11:54 11/27/17 13:07 Period Temp Pulse Resp BP Sys/Farrell Pulse Ox Last 24 Hr 98.5 F-100.1 F 69-99 16-20 131-155/62-90 92-96 Intake and Output 11/27/17 11/27/17 11/27/17 05:59 13:59 21:59 Intake Total 700 / 700 Output Total 500 / 500 3100 / 3100 Balance -500 / -500 -2400 / -2400 Intake & Output: Intake & Output 11/27/17 11/27/17 11/27/17 05:59 13:59 21:59 Intake Total 700 / 700 Output Total 500 / 500 3100 / 3100 Balance -500 / -500 -2400 / -2400 Intake: IV 100 / 100 Oral 600 / 600 Output: Urine Catheter Amount 500 / 500 3100 / 3100 Other: Meal Lunch Percent of Meal Consumed 100% Feeding Ability Assist with Tray Set Up Urine Appearance Clear Clear Uretheral (Schmidt) Clear Urine Color Bright Yellow Pale Uretheral (Schmidt) Dark Yellow Urine Odor Normal Normal Stool Size Large Stool Color Brown Stool Consistency Soft # Bowel Movements 1 Exam: General: Alert, Awake, No acute Distress HEENT: EOMI, CV: RRR, No murmurs, normal s1/s2 Pulm: Clear b/l, no wheezing/rhonchi/rales Abd: soft, nontender, +BS x4 Ext: no clubbing/cyanosis/edema Neuro: Alert, no focal deficits, moves all extremities Skin: warm/dry Medical - PN: Obj Da - Labs CBC & Chem 7: 11/27/17 04:33 11/27/17 04:33 Labs: Abnormal Lab Results 11/27/17 11/27/17 11/27/17 04:33 04:33 04:33 WBC RBC 3.18 L Hgb 9.7 L Hct 29.2 L RDW 15.7 H Gran % Lymph % (Auto) 10.2 L [place] % (Auto) 12.1 H Gran # Lymph # (Auto) 1.0 L [place] # (Auto) 1.2 H PT 20.7 H INR 1.8 H BUN Creatinine 1.2 H Glucose 127 H Calcium Phosphorus 2.1 L Direct Bilirubin Albumin 2.9 L Albumin/Globulin Ratio 0.8 L Triglycerides 191 H 11/26/17 11/26/17 11/26/17 04:00 04:00 04:00 WBC 11.4 H RBC 2.99 L Hgb 9.1 L Hct 27.5 L RDW 15.8 H Gran % 79.3 H Lymph % (Auto) 6.7 L [place] % (Auto) Gran # 9.1 H Lymph # (Auto) 0.8 L [place] # (Auto) 1.4 H PT 26.4 H INR 2.4 H BUN Creatinine Glucose 130 H Calcium 8.4 L Phosphorus 2.0 L Direct Bilirubin Albumin 2.8 L Albumin/Globulin Ratio 0.9 L Triglycerides 11/25/17 11/25/1718 03:50 03:50 03:50 WBC 17.0 H RBC 3.17 L Hgb 9.7 L Hct 29.3 L RDW 15.4 H Gran % 85.8 H Lymph % (Auto) 5.4 L [place] % (Auto) Gran # 14.6 H Lymph # (Auto) 0.9 L [place] # (Auto) 1.4 H PT 30.0 H INR 2.8 H BUN 27 H Creatinine 1.4 H Glucose 140 H Calcium 7.6 L Phosphorus Direct Bilirubin 0.4 H Albumin 2.9 L Albumin/Globulin Ratio Triglycerides Meds: Medications Acetaminophen (Tylenol) 650 mg PO Q4-6HP PRN PRN Reason: PAIN/FEVER > 101 Albuterol/Ipratropium (Duoneb) 3 ml NEB Q6HRT [facility] Last Admin: 11/27/17 13:06 Dose: 3 ml Dextrose (Dextrose 50%) 0 ml IV UD PRN PRN Reason: Hypoglycemia Diagnostic Test (Pha) (Accu-Chek) 1 each FS [facility] Last Admin: 11/27/17 11:58 Dose: 1 each Digoxin (Lanoxin) 125 mcg PO DAILY@1400 [facility] Last Admin: 11/27/17 14:02 Dose: 125 mcg Fenofibrate (Antara) 129 mg PO DAILY [facility] Last Admin: 11/27/17 09:16 Dose: 129 mg Gabapentin (Neurontin) 600 mg PO TID [facility] Last Admin: 11/27/17 09:16 Dose: 600 mg Glucose (Insta-Glucose) 15 gm PO PRN PRN PRN Reason: Hypoglycemia Hydromorphone HCl (Dilaudid) 0.5 mg IV Q2HP PRN PRN Reason: PAIN LEVEL > 6 Levofloxacin (Levaquin) 500 mg in 100 mls @ 100 mls/hr IV Q24H [facility] Last Infusion: 11/27/17 10:45 Dose: Infused Insulin Human Lispro (Humalog) 0 unit SQ [facility]; Protocol Last Admin: 11/27/17 11:59 Dose: Not Given Montelukast Sodium (Singular) 10 mg PO QPM [facility] Last Admin: 11/26/17 21:09 Dose: 10 mg Naloxone HCl (Narcan) 0.1 mg IV Q2MIN PRN PRN Reason: Opiate Reversal Clotrimazole Vag Crm (2% Tube 21 Gm) 1 dose VAG DAILY [facility] Stop: 11/28/17 09:01 Last Admin: 11/27/17 09:18 Dose: 1 dose Omeprazole (Prilosec) 20 mg PO ACB [facility] Last Admin: 11/27/17 07:33 Dose: 20 mg Ondansetron HCl (Zofran) 4 mg IV Q4-6HP PRN PRN Reason: Nausea And Vomiting Prednisone (Prednisone) 40 mg PO QAMCC [facility] Last Admin: 11/27/17 11:36 Dose: 40 mg Sodium Chloride (Saline Flush) 10 ml IV Q8 [facility] Last Admin: 11/27/17 14:06 Dose: 10 ml Sotalol HCl (Betapace) 80 mg PO BID [facility] Last Admin: 11/27/17 09:17 Dose: 80 mg Warfarin Sodium (Coumadin Per Pharmacy) 1 order PO DAILY@1400 [facility] Last Admin: 11/27/17 14:05 Dose: Not Given Medical - PN: A/P - Time Spent With Patient Total time spent is greater than 50% in coordination of care (as documented) at patient's floor/unit and/or counseling patient: - Narrative A/P Narrative: Asses: *Sepsis with shock & Lactic acidosis: resolved *E. coli Bacteremia: *Urinary tract infection (e. coli): *Acute respiratory failure, with hypoxia, on bipap support, prn -CXR read as PNA but CT shows no pneumonia. Likely atelectasis with large right effusion (seen on CT) which is being called as pna by the radiologist. -COPD changes also on CT, likely underlying contributing factor *DM: *HTN: *JEANINE on CKD III: improving renal function *Anemia, chronic: *HYpothyroidism *Afib. on coumadin with therapeutic INR Plan: -monitor on tele -still needs oxygen, some shortness of breath today too, repeat dose of lasix.- Patients respiratory status is tenous, intermittent shortness of breath present , not needing bipap from yesterday -chest u/s assess size of effusion -IV abx changed to levofloxacin, will be discharged on oral levoflox. Discussed same with ID. 2-wks total Abx -Prednisone, nebs, IS/Acapella -BP stable for now, no pressor support needed for 2 days. -Monitor urine output, stable so far -continue home medications as appropriate, digoxin and sotalol resumed, -hold nephrotoxic medications -SSI insulin for glucose control -ppx: coumadin/home ppi Full code Medical - PN: Qual - VTE Deep Vein Thrombosis/Pulmonary Embolism Present on Admission: No
[2017-11-27] MEDS: ACETAMINOPHEN 325 MG TABLET PO PRN (17:23)
[2017-11-27] MEDS: MONTELUKAST 10 MG TABLET PO SCH (21:31)
[2017-11-28] MEDS: IPRATROPIUM/ALBUTEROL 3 ML AMPUL.NEB NEB SCH ×2 (00:51→09:59)
[2017-11-28] MEDS: ACETAMINOPHEN 325 MG TABLET PO PRN (04:40)
[2017-11-28 05:15] LABS: Basophils # (Auto) 0 K/mcL (0.0-0.3); Basophils % (Auto) 0.2 % (0.0-2.0); Eosinophils # (Auto) 0 K/mcL (0.0-0.7); Eosinophils % (Auto) 0 % (0.0-7.0); Granulocytes % (Auto) 79.9 % (38.0-78.0); Lymphocytes # (Auto) 0.9 K/mcL (1.5-4.8); Lymphocytes % (Auto) 11.1 % (15.5-49.0); Mean Cell Volume 91.4 fL (80.0-100.0); Mean Corpuscular HGB Conc 32.9 g/dL (31.0-36.0); Monocytes # (Auto) 0.7 K/mcL (0.1-0.9); Monocytes % (Auto) 8.8 % (1.0-12.0); Platelet Count 442 K/mcL (140-440); RBC 3.42 M/mcL (4.00-5.20); Red Cell Distribution Width 15.6 % (11.5-14.5)
[2017-11-28 05:33] LABS: ALT/SGPT 10 U/l (0-40); Albumin 3.1 gm/dL (3.2-5.2); Albumin/Globulin Ratio 0.8 (1.0-2.3); Alkaline Phosphatase 44 U/L (39-117); Bilirubin,Direct < 0.2 mg/dL (0.0-0.3); Blood Urea Nitrogen 26 mg/dl (8-23); Gamma Glutamyl Transpeptidase 31 U/L (5-36); Uric Acid 4.7 mg/dL (2.5-8.0)
--- NOTE | 2017-11-28 07:15 | Internal Med Progress Note ---
Medical - PN: Subj Patient information: Note initiated : 11/28/17 at 7:07 am Service Date, if different from initiated Date: [] Patient: Soumya Garcia a 87 y/o F admitted on 11/24/17 for Fever/Sepsis, Pneumonia. Chief Complaint: [] Interval history: jonathan Garcia is a 87 year old F with h/o recurrent UTI, presented to the ER today with complaints of not feeling well x 1 day. 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 She notes that she had been having some increased frequency of urination for the last few days. Since yesterday she has been having weakness chills and fever. She was brought into the ER with the above symptoms. On presentation to the ER the patient was hypoxic requiring a nonrebreather to keep her oxygen saturation above 90. The patient in the ER was febrile with a temperature of 105-heart rate 75, blood pressure stable with 118/53, it had dropped as low as 96/47, she was on 95 % on 2 L during presentation for admission however required 100% FiO2 during presentation to the emergency room. The blood work showed leukocytosis with a WBC count of 19,000, hemoglobin 10.9, platelets 345, INR 2.4. Chemistry unremarkable except elevation of creatinine at 1.7, baseline around 1.1. Lactic acid was 2.0. UA suggestive of urinary tract infection. The urine culture that was obtained on 21 November is growing E. coli which is pansensitive. Digoxin level is 1.4. Chest x-ray shows right hilar pneumonia and left basilar pneumonia possible aspiration. The patient was admitted to the PCU for further management. After admission to the PCU, patient initially was showing signs of improvement but later again became hypoxic requiring BiPAP. Patient is presently on BiPAP to maintain her respiratory status. 11/25 Patient seen and examined, still has intermittent chills and fever. Blood cultures positive for gram-negative bacillus, will repeat cultures. We did get a CT chest today because there was concern about pneumonia. CT chest is negative for pneumonia or heart failure just atelectasis and some effusion. Discontinue vancomycin discontinue Flagyl, change cefepime to Rocephin as it is likely that the patient is having urinary tract infection with bacteremia. 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 Patient is off bipap support Labs show trending down WBC, renal function improving. 11/26 Patient seen and examined, no acute overnight events, fever curve is trending down, blood cultures repeat are negative so far. Patient did require some BiPAP support last night but is back on nasal cannula. IV fluids have been discontinued she received 20 mg of Lasix with good response. WBC trending down renal function is stable. I reviewed the plan of care with the patient's daughter. The patient has no sensation when she has a bowel movement leading to recurrent urinary tract infections. She has been tested for possible colovesical fistula. Will review with infectious disease, they have been consulted, for chronic antibiotic suppression therapy versus patient having antibiotics at home. Patients daugther has been offered to consider a second opinion once she is discharged from the hospital. 11/27 Patient seen and examined, no acute overnight events, not needing pressors anymore, no need for BiPAP. This morning however she was feeling a bit short of breath. She has crackles on the right lower lobe. Chest x-ray shows right lower lobe pneumonia some fluid. However CT chest done 2 days ago did not show any pneumonia likely atelectasis. And some effusion. Will give Lasix and continue DuoNeb therapy every 6 hours. Monitor for now change rocephin to levofloxacin, 11/28 had difficult time waking up this morning, rapid response called. VSS, oxygenating well on room air but tachypneic, CXR with CHF. no chest pain, EKG with her afib. states dyspnea, mild cough. Review of Systems: denies headache/fever/chills/nausea/vomiting/chest or abdominal pain. Otherwise see above. - Constitutional Vitals: Vital Signs Temp Pulse Resp BP Pulse Ox 97.5 F 99 H 16 155/90 93 11/28/17 04:00 11/28/17 04:00 11/28/17 04:00 11/28/17 04:00 11/28/17 04:00 Period Temp Pulse Resp BP Sys/Farrell Pulse Ox Last 24 Hr 97.5 F-99.6 F 74-99 16-20 138-155/66-90 92-96 Intake and Output 11/27/17 11/28/17 11/28/17 21:59 05:59 13:59 Intake Total 480 / 480 150 / 150 Output Total 825 / 825 1475 / 1475 Balance -345 / -345 -1325 / -1325 Weight 63.503 kg Intake & Output: Intake & Output 11/27/17 11/28/17 11/28/17 21:59 05:59 13:59 Intake Total 480 / 480 150 / 150 Output Total 825 / 825 1475 / 1475 Balance -345 / -345 -1325 / -1325 Weight 63.503 kg Intake: Oral 480 / 480 150 / 150 Output: Urine Catheter Amount 825 / 825 1475 / 1475 Other: Meal Dinner Percent of Meal Consumed 100% Feeding Ability Independent Urine Appearance Clear Clear Uretheral (Schmidt) Clear Urine Color Pale Straw Uretheral (Schmidt) Pale Urine Odor Normal Exam: General: Alert, Awake, No acute Distress HEENT: EOMI, neck supple CV: irreg irreg, normal s1/s2 Pulm: b/l rales R>L, no wheezing Abd: soft, nontender, +BS x4 Ext: no clubbing/cyanosis, trace b/l LE edema Neuro: Alert, no focal deficits, moves all extremities Skin: warm/dry Medical - PN: Obj Da - Labs CBC & Chem 7: 11/28/17 08:22 11/28/17 08:22 Labs: Abnormal Lab Results 11/28/17 11/28/17 11/28/17 04:21 04:21 04:21 WBC RBC 3.42 L Hgb 10.3 L Hct 31.2 L RDW 15.6 H Plt Count 442 H Gran % 79.9 H Lymph % (Auto) 11.1 L [place] % (Auto) Gran # Lymph # (Auto) 0.9 L [place] # (Auto) PT 19.6 H INR 1.6 H BUN 26 H Creatinine Glucose 165 H Calcium Phosphorus Albumin 3.1 L Globulin 3.8 H Albumin/Globulin Ratio 0.8 L Triglycerides 151 H 11/27/17 11/27/17 11/27/17 04:33 04:33 04:33 WBC RBC 3.18 L Hgb 9.7 L Hct 29.2 L RDW 15.7 H Plt Count Gran % Lymph % (Auto) 10.2 L [place] % (Auto) 12.1 H Gran # Lymph # (Auto) 1.0 L [place] # (Auto) 1.2 H PT 20.7 H INR 1.8 H BUN Creatinine 1.2 H Glucose 127 H Calcium Phosphorus 2.1 L Albumin 2.9 L Globulin Albumin/Globulin Ratio 0.8 L Triglycerides 191 H 11/26/17 11/26/17 11/26/17 04:00 04:00 04:00 WBC 11.4 H RBC 2.99 L Hgb 9.1 L Hct 27.5 L RDW 15.8 H Plt Count Gran % 79.3 H Lymph % (Auto) 6.7 L [place] % (Auto) Gran # 9.1 H Lymph # (Auto) 0.8 L [place] # (Auto) 1.4 H PT 26.4 H INR 2.4 H BUN Creatinine Glucose 130 H Calcium 8.4 L Phosphorus 2.0 L Albumin 2.8 L Globulin Albumin/Globulin Ratio 0.9 L Triglycerides Meds: Medications Acetaminophen (Tylenol) 650 mg PO Q4-6HP PRN PRN Reason: PAIN/FEVER > 101 Last Admin: 11/28/17 04:40 Dose: 650 mg Albuterol/Ipratropium (Duoneb) 3 ml NEB Q6HRT [facility] Last Admin: 11/28/17 00:51 Dose: 3 ml Dextrose (Dextrose 50%) 0 ml IV UD PRN PRN Reason: Hypoglycemia Diagnostic Test (Pha) (Accu-Chek) 1 each FS ACHS [facility] Last Admin: 11/27/17 21:35 Dose: 1 each Digoxin (Lanoxin) 125 mcg PO DAILY@1400 [facility] Last Admin: 11/27/17 14:02 Dose: 125 mcg Fenofibrate (Antara) 129 mg PO DAILY [facility] Last Admin: 11/27/17 09:16 Dose: 129 mg Gabapentin (Neurontin) 600 mg PO TID [facility] Last Admin: 11/27/17 21:30 Dose: 600 mg Glucose (Insta-Glucose) 15 gm PO PRN PRN PRN Reason: Hypoglycemia Hydromorphone HCl (Dilaudid) 0.5 mg IV Q2HP PRN PRN Reason: PAIN LEVEL > 6 Levofloxacin (Levaquin) 500 mg in 100 mls @ 100 mls/hr IV Q24H [facility] Last Infusion: 11/27/17 10:45 Dose: Infused Insulin Human Lispro (Humalog) 0 unit SQ ACHS [facility]; Protocol Last Admin: 11/27/17 21:42 Dose: 4 unit Montelukast Sodium (Singular) 10 mg PO QPM [facility] Last Admin: 11/27/17 21:31 Dose: 10 mg Naloxone HCl (Narcan) 0.1 mg IV Q2MIN PRN PRN Reason: Opiate Reversal Clotrimazole Vag Crm (2% Tube 21 Gm) 1 dose VAG DAILY [facility] Stop: 11/28/17 09:01 Last Admin: 11/27/17 09:18 Dose: 1 dose Omeprazole (Prilosec) 20 mg PO ACB [facility] Last Admin: 11/27/17 07:33 Dose: 20 mg Ondansetron HCl (Zofran) 4 mg IV Q4-6HP PRN PRN Reason: Nausea And Vomiting Prednisone (Prednisone) 40 mg PO QAMCC [facility] Last Admin: 11/27/17 11:36 Dose: 40 mg Sodium Chloride (Saline Flush) 10 ml IV Q8 [facility] Last Admin: 11/27/17 21:34 Dose: 10 ml Sotalol HCl (Betapace) 80 mg PO BID [facility] Last Admin: 11/27/17 21:31 Dose: 80 mg Warfarin Sodium (Coumadin Per Pharmacy) 1 order PO DAILY@1400 [facility] Last Admin: 11/27/17 14:05 Dose: Not Given Medical - PN: A/P - Time Spent With Patient Total time spent is greater than 50% in coordination of care (as documented) at patient's floor/unit and/or counseling patient: - Narrative A/P Narrative: Asses: *Septic shock & Lactic acidosis: resolved *E. coli Bacteremia: *Urinary tract infection (e. coli): *Acute respiratory failure, with hypoxia: -required bipap support through 11/26, now on room air while in bed but tachypneic upon waking this AM, CXR with pulm edema -CXR read as PNA but CT shows no pneumonia. Likely atelectasis with large right effusion (seen on CT) which is being called as pna by the radiologist. -COPD changes also on CT, likely underlying contributing factor *Pulm edema: *DM: *HTN: *JEANINE on CKD III: improved *Anemia, chronic: stable *HYpothyroidism *Afib w/PPM on coumadin: Plan: -monitor on tele -IV lasix, monitor UOP, i/o's, weights -chest u/s assess size of effusion, may need drained -IV abx changed to levofloxacin, will be discharged on oral levoflox. Discussed same with ID. 2-wks total Abx -Prednisone 40, nebs, IS/Acapella -continue home medications as appropriate, digoxin and sotalol resumed, -hold nephrotoxic medications -SSI insulin for glucose control -ppx: coumadin per pharm, lovenox until INR therapeutic/home ppi Full code Medical - PN: Qual - VTE Deep Vein Thrombosis/Pulmonary Embolism Present on Admission: No
[2017-11-28] MEDS ORDERED: IPRATROPIUM/ALBUTEROL 3 ML AMPUL.NEB NEB PRN ×4 (07:46→10:12)
[2017-11-28] MEDS ORDERED: NITROGLYCERIN 0.4 MG TAB.SUBL SL PRN ×2 (08:14→10:12)
[2017-11-28] MEDS ORDERED: ASPIRIN 81 MG TAB.CHEW CHEWED ONE (08:14)
[2017-11-28] MEDS ORDERED: 0.9 % SODIUM CHLORIDE 1,000 ML IV SCH ×2 (08:15)
--- NOTE | 2017-11-28 08:41 | XRay Report ---
CLINICAL INFORMATION: Dyspnea COMPARISON: 11/27/2017 FINDINGS: Moderate cardiomegaly is unchanged. Pacemaker leads in stable satisfactory position. The pulmonary vessels are now mildly with mild interstitial edema in both lungs. Right basilar infiltrate has, however, improved with minimal residual. Small right pleural effusion noted. IMPRESSION: Moderate CHF - new Improvement in right basilar infiltrate with minimal residual Interpreted and Authenticated by: Andrea Zaragoza 11/28/17
[2017-11-28] MEDS ORDERED: FUROSEMIDE 40 MG/4 ML VIAL IV STA (08:51)
[2017-11-28] MEDS: 0.9 % SODIUM CHLORIDE 10 ML SYRINGE IV SCH ×3 (08:58→21:12)
[2017-11-28] MEDS ORDERED: ENOXAPARIN 60 MG/0.6 ML SYRINGE SQ SCH ×2 (09:00→21:00)
[2017-11-28 09:03] LABS: Basophils # (Auto) 0.1 K/mcL (0.0-0.3); Basophils % (Auto) 0.7 % (0.0-2.0); Eosinophils # (Auto) 0 K/mcL (0.0-0.7); Eosinophils % (Auto) 0.1 % (0.0-7.0); Granulocytes % (Auto) 79.3 % (38.0-78.0); Lymphocytes # (Auto) 1.1 K/mcL (1.5-4.8); Mean Cell Volume 91.3 fL (80.0-100.0); Mean Corpuscular HGB Conc 33.7 g/dL (31.0-36.0); Mean Corpuscular Hemoglobin 30.7 pg (26.0-34.0); Monocytes # (Auto) 0.9 K/mcL (0.1-0.9); Monocytes % (Auto) 8.9 % (1.0-12.0); Platelet Count 486 K/mcL (140-440); RBC 3.53 M/mcL (4.00-5.20); Red Cell Distribution Width 14.8 % (11.5-14.5)
[2017-11-28] MEDS: INSULIN LISPRO 1 UNIT/0.01 ML UNIT SQ SCH ×4 (09:12→20:13)
[2017-11-28 09:21] LABS: ALT/SGPT 10 U/l (0-40); Albumin 3.4 gm/dL (3.2-5.2); Albumin/Globulin Ratio 0.9 (1.0-2.3); Alkaline Phosphatase 43 U/L (39-117); Blood Urea Nitrogen 27 mg/dl (8-23); Creatine Kinase 26 IU/L (24-170); Creatine Kinase MB 1.1 ng/ml (0-2.9)
--- NOTE | 2017-11-28 09:41 | Ultrasound Report ---
CLINICAL INFORMATION: Hypoxia - evaluate volume of right pleural effusion COMPARISON: None. FINDINGS: Only a small simple appearing right pleural effusion is noted. IMPRESSION: Small right pleural effusion - volume is inadequate to safely perform thoracentesis. Interpreted and Authenticated by: Andrea Zaragoza 11/28/17
[2017-11-28] MEDS: OMEPRAZOLE 20 MG CAPSULE PO SCH (10:02)
[2017-11-28] MEDS: GABAPENTIN 300 MG CAPSULE PO SCH ×3 (10:02→20:13)
[2017-11-28] MEDS: predniSONE 20 MG TABLET PO SCH (10:02)
[2017-11-28] MEDS: FENOFIBRATE 43 MG CAPSULE PO SCH (10:08)
[2017-11-28] MEDS: SOTALOL 80 MG TABLET PO SCH ×2 (10:08→20:21)
[2017-11-28] MEDS: LEVOFLOXACIN 500 MG/100 ML BAG IV SCH (10:08)
[2017-11-28] MEDS: CLOTRIMAZOLE 2% VAG SCH (10:08)
[2017-11-28] MEDS ORDERED: DEXTROSE 50% 50 ML VIAL IV PRN (10:12)
[2017-11-28] MEDS ORDERED: HYDROmorphone 2 MG/ML VIAL IV PRN (10:12)
[2017-11-28] MEDS ORDERED: DEXTROSE 31 GM ORAL.SUSP PO PRN (10:12)
[2017-11-28] MEDS ORDERED: ONDANSETRON 4 MG/2 ML VIAL IV PRN (10:12)
[2017-11-28] MEDS ORDERED: NALOXONE HCL 0.4 MG/ML VIAL IV PRN (10:12)
[2017-11-28] MEDS ORDERED: ACETAMINOPHEN 325 MG TABLET PO PRN (10:12)
[2017-11-28] MEDS ORDERED: WARFARIN 2.5 MG TABLET PO ONE (14:00)
[2017-11-28] MEDS: DIGOXIN 125 MCG TABLET PO SCH (14:46)
[2017-11-28] MEDS ORDERED: FUROSEMIDE 40 MG/4 ML VIAL IV SCH (16:00)
[2017-11-28] MEDS: MONTELUKAST 10 MG TABLET PO SCH (20:13)
[2017-11-29 06:35] LABS: ALT/SGPT 10 U/l (0-40); Albumin 3.5 gm/dL (3.2-5.2); Albumin/Globulin Ratio 0.8 (1.0-2.3); Alkaline Phosphatase 47 U/L (39-117); Bilirubin,Direct < 0.2 mg/dL (0.0-0.3); Blood Urea Nitrogen 44 mg/dl (8-23); Gamma Glutamyl Transpeptidase 35 U/L (5-36)
--- NOTE | 2017-11-29 07:17 | Internal Med Progress Note ---
Medical - PN: Subj Patient information: Note initiated : 11/29/17 at 7:10 am Service Date, if different from initiated Date: [] Patient: Soumya Garcia a 87 y/o F admitted on 11/24/17 for Fever/Sepsis, Pneumonia. Chief Complaint: [] Interval history: jonathan Garcia is a 87 year old F with h/o recurrent UTI, presented to the ER today with complaints of not feeling well x 1 day. 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 She notes that she had been having some increased frequency of urination for the last few days. Since yesterday she has been having weakness chills and fever. She was brought into the ER with the above symptoms. On presentation to the ER the patient was hypoxic requiring a nonrebreather to keep her oxygen saturation above 90. The patient in the ER was febrile with a temperature of 105-heart rate 75, blood pressure stable with 118/53, it had dropped as low as 96/47, she was on 95 % on 2 L during presentation for admission however required 100% FiO2 during presentation to the emergency room. The blood work showed leukocytosis with a WBC count of 19,000, hemoglobin 10.9, platelets 345, INR 2.4. Chemistry unremarkable except elevation of creatinine at 1.7, baseline around 1.1. Lactic acid was 2.0. UA suggestive of urinary tract infection. The urine culture that was obtained on 21 November is growing E. coli which is pansensitive. Digoxin level is 1.4. Chest x-ray shows right hilar pneumonia and left basilar pneumonia possible aspiration. The patient was admitted to the PCU for further management. After admission to the PCU, patient initially was showing signs of improvement but later again became hypoxic requiring BiPAP. Patient is presently on BiPAP to maintain her respiratory status. 11/25 Patient seen and examined, still has intermittent chills and fever. Blood cultures positive for gram-negative bacillus, will repeat cultures. We did get a CT chest today because there was concern about pneumonia. CT chest is negative for pneumonia or heart failure just atelectasis and some effusion. Discontinue vancomycin discontinue Flagyl, change cefepime to Rocephin as it is likely that the patient is having urinary tract infection with bacteremia. 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 Patient is off bipap support Labs show trending down WBC, renal function improving. 11/26 Patient seen and examined, no acute overnight events, fever curve is trending down, blood cultures repeat are negative so far. Patient did require some BiPAP support last night but is back on nasal cannula. IV fluids have been discontinued she received 20 mg of Lasix with good response. WBC trending down renal function is stable. I reviewed the plan of care with the patient's daughter. The patient has no sensation when she has a bowel movement leading to recurrent urinary tract infections. She has been tested for possible colovesical fistula. Will review with infectious disease, they have been consulted, for chronic antibiotic suppression therapy versus patient having antibiotics at home. Patients daugther has been offered to consider a second opinion once she is discharged from the hospital. 11/27 Patient seen and examined, no acute overnight events, not needing pressors anymore, no need for BiPAP. This morning however she was feeling a bit short of breath. She has crackles on the right lower lobe. Chest x-ray shows right lower lobe pneumonia some fluid. However CT chest done 2 days ago did not show any pneumonia likely atelectasis. And some effusion. Will give Lasix and continue DuoNeb therapy every 6 hours. Monitor for now change rocephin to levofloxacin, 11/28 had difficult time waking up this morning, rapid response called. VSS, oxygenating well on room air but tachypneic, CXR with CHF. no chest pain, EKG with her afib. states dyspnea, mild cough. 11/29 Patient awoke today per nurse. Nurse having conversation with her. Then patient developed some stuttering similar to yesterday morning. Poor sleep last night, new meds this admit include prednisone, also her home gabapentin needs to be renally adjusted. CT brain ordered. Nurse did note oxygen was a little low on initial evaluation and placed on 1 L nasal cannula. pt denies any headache or fever. She realizes she is stuttering. During parts of my conversation with her she will not stutter and talks clearly, other times she will have a stutter. Review of Systems: denies headache/fever/nausea/vomiting/chest or abdominal pain/cough. Otherwise see above. - Constitutional Vitals: Vital Signs Temp Pulse Resp BP Pulse Ox 97.5 F 73 16 141/85 91 11/29/17 04:00 11/29/17 04:00 11/29/17 04:00 11/29/17 04:00 11/29/17 04:00 Period Temp Pulse Resp BP Sys/Farrell Pulse Ox Last 24 Hr 97.5 F-98.6 F 71-103 16-18 124-154/68-88 90-96 Intake and Output 11/28/17 11/29/17 11/29/17 21:59 05:59 13:59 Intake Total 180 / 180 Output Total 1099 Balance -1099 / -1100 -1769 / Weight 61.235 kg Intake & Output: Intake & Output 11/28/17 11/29/17 11/29/17 21:59 05:59 13:59 Intake Total 180 / 180 Output Total 1099 Balance -1099 / -1099 -1769 / Weight 61.235 kg Intake: Oral 180 / 180 Output: Urine Catheter Amount 1099 Other: Urine Appearance Clear Uretheral (Schmidt) Clear Urine Color Pale Uretheral (Schmidt) Bright Yellow Urine Odor Normal Uretheral (Schmidt) Normal Exam: General: Awake, somewhat drowsy HEENT: EOMI, neck supple CV: irreg irreg, normal s1/s2 Pulm: minimal rales on right today, otherwise clear, no wheezing Abd: soft, nontender, +BS x4 Ext: no clubbing/cyanosis, trace b/l LE edema Neuro: awake, intermittent stuttering, moves all extremities to command, symmetrical strength, PERRL, Skin: warm/dry Medical - PN: Obj Da - Labs CBC & Chem 7: 11/28/17 08:22 11/29/17 04:38 Labs: Abnormal Lab Results 11/29/17 11/29/17 11/28/17 04:38 04:38 08:22 RBC Hgb Hct RDW Plt Count Gran % Lymph % (Auto) [place] % (Auto) Gran # Lymph # (Auto) [place] # (Auto) PT 22.0 H INR 1.9 H APTT Chloride 90 L BUN 44 H 27 H Creatinine 1.5 H Glucose 173 H 136 H Phosphorus NT-Pro-B Natriuret Pep Albumin Globulin 4.2 H Albumin/Globulin Ratio 0.8 L 0.9 L Triglycerides 237 H 11/28/17 11/28/17 11/28/17 08:22 08:22 08:15 RBC 3.53 L Hgb 10.9 L Hct 32.2 L RDW 14.8 H Plt Count 486 H Gran % 79.3 H Lymph % (Auto) 11.0 L [place] % (Auto) Gran # 8.1 H Lymph # (Auto) 1.1 L [place] # (Auto) PT INR APTT 58 H Chloride BUN Creatinine Glucose Phosphorus NT-Pro-B Natriuret Pep 4438.0 H Albumin Globulin Albumin/Globulin Ratio Triglycerides 11/28/17 11/28/17 11/28/17 04:21 04:21 04:21 RBC 3.42 L Hgb 10.3 L Hct 31.2 L RDW 15.6 H Plt Count 442 H Gran % 79.9 H Lymph % (Auto) 11.1 L [place] % (Auto) Gran # Lymph # (Auto) 0.9 L [place] # (Auto) PT 19.6 H INR 1.6 H APTT Chloride BUN 26 H Creatinine Glucose 165 H Phosphorus NT-Pro-B Natriuret Pep Albumin 3.1 L Globulin 3.8 H Albumin/Globulin Ratio 0.8 L Triglycerides 151 H 11/27/17 11/27/17 11/27/17 04:33 04:33 04:33 RBC 3.18 L Hgb 9.7 L Hct 29.2 L RDW 15.7 H Plt Count Gran % Lymph % (Auto) 10.2 L [place] % (Auto) 12.1 H Gran # Lymph # (Auto) 1.0 L [place] # (Auto) 1.2 H PT 20.7 H INR 1.8 H APTT Chloride BUN Creatinine 1.2 H Glucose 127 H Phosphorus 2.1 L NT-Pro-B Natriuret Pep Albumin 2.9 L Globulin Albumin/Globulin Ratio 0.8 L Triglycerides 191 H Meds: Medications Acetaminophen (Tylenol) 650 mg PO Q4-6HP PRN PRN Reason: PAIN/FEVER > 101 Albuterol/Ipratropium (Duoneb) 3 ml NEB Q6HP PRN PRN Reason: Shortness Of Breath Or Wheezing Dextrose (Dextrose 50%) 0 ml IV UD PRN PRN Reason: Hypoglycemia Diagnostic Test (Pha) (Accu-Chek) 1 each FS ACHS [facility] Last Admin: 11/28/17 20:09 Dose: 1 each Digoxin (Lanoxin) 125 mcg PO DAILY@1400 [facility] Last Admin: 11/28/17 14:46 Dose: 125 mcg Enoxaparin Sodium (Lovenox) 60 mg SQ DAILY [facility] Fenofibrate (Antara) 129 mg PO DAILY [facility] Furosemide (Lasix) 40 mg IV BIDD [facility] Last Admin: 11/28/17 17:52 Dose: 40 mg Gabapentin (Neurontin) 600 mg PO TID [facility] Last Admin: 11/28/17 20:13 Dose: 600 mg Glucose (Insta-Glucose) 15 gm PO PRN PRN PRN Reason: Hypoglycemia Hydromorphone HCl (Dilaudid) 0.5 mg IV Q2HP PRN PRN Reason: PAIN LEVEL > 6 Levofloxacin (Levaquin) 500 mg in 100 mls @ 100 mls/hr IV Q24H [facility] Insulin Human Lispro (Humalog) 0 unit SQ [facility]; Protocol Last Admin: 11/28/17 20:13 Dose: 4 unit Montelukast Sodium (Singular) 10 mg PO QPM [facility] Last Admin: 11/28/17 20:13 Dose: 10 mg Naloxone HCl (Narcan) 0.1 mg IV Q2MIN PRN PRN Reason: Opiate Reversal Nitroglycerin (Nitrostat) 0.4 mg SL Q5M PRN PRN Reason: Chest Pain Omeprazole (Prilosec) 20 mg PO ACB [facility] Ondansetron HCl (Zofran) 4 mg IV Q4-6HP PRN PRN Reason: Nausea And Vomiting Prednisone (Prednisone) 40 mg PO QAMCC [facility] Sodium Chloride (Saline Flush) 10 ml IV Q8 [facility] Last Admin: 11/28/17 21:12 Dose: 10 ml Sotalol HCl (Betapace) 80 mg PO BID [facility] Last Admin: 11/28/17 20:21 Dose: 80 mg Warfarin Sodium (Coumadin Per Pharmacy) 1 order PO UD [facility] Medical - PN: A/P - Time Spent With Patient Total time spent is greater than 50% in coordination of care (as documented) at patient's floor/unit and/or counseling patient: - Narrative A/P Narrative: Asses: *Septic shock & Lactic acidosis: resolved *E. coli Bacteremia: *Urinary tract infection (e. coli): *Acute respiratory failure, with hypoxia: -required bipap support through 11/26, now on room air while in bed but tachypneic upon waking this AM, CXR with pulm edema -CXR read as PNA but CT shows no pneumonia. Likely atelectasis with right effusion (seen on CT) which is being called as pna by the radiologist. -COPD changes also on CT, likely underlying contributing factor -Chest u/s only small pleural effusion *Acute on likely chronic CHF: -good diuresis, was on room air yesterday, noted to be mildy hypoxic this morning upon waking *stuttering, ?neurogenic: likely multifactorial including poor sleep + ?hypoxia + medications, r/o CVA *DM: *HTN: *JEANINE on CKD III: Cr bumped after diuresis *Anemia, chronic: stable *HYpothyroidism *Afib w/PPM on coumadin: Plan: -monitor on tele -IV lasix d/c, monitor UOP, i/o's, weights -cont levofloxacin, will be discharged on oral levoflox. Discussed same with ID. 2-wks total Abx -CT brain -prn O2 supp -d/c Prednisone 40mg -prn nebs, IS/Acapella -continue home medications as appropriate, jay to be renally adjusted, digoxin and sotalol resumed, -hold nephrotoxic medications -SSI insulin for glucose control -pt/ot, cm for placement -ppx: coumadin per pharm/home ppi Full code Medical - PN: Qual - VTE Deep Vein Thrombosis/Pulmonary Embolism Present on Admission: No
[2017-11-29] MEDS: 0.9 % SODIUM CHLORIDE 10 ML SYRINGE IV SCH ×3 (07:22→21:45)
[2017-11-29] MEDS: INSULIN LISPRO 1 UNIT/0.01 ML UNIT SQ SCH ×4 (07:31→21:44)
[2017-11-29] MEDS: OMEPRAZOLE 20 MG CAPSULE PO SCH (07:32)
[2017-11-29] MEDS ORDERED: predniSONE 20 MG TABLET PO SCH (08:00)
--- NOTE | 2017-11-29 08:03 | XRay Report ---
CLINICAL INFORMATION: f/u chf COMPARISON: 11/28/2017 FINDINGS: Heart has decreased and now only minimally enlarged. Pacemaker leads remain in stable, satisfactory position. Mediastinum is normal. Pulmonary vascularity have returned to normal caliber and interstitial edema has almost totally cleared with minimal residual. Minimal atelectasis seen in the bases. IMPRESSION: Interval resolution in CHF with minimal residual edema. Minor bibasilar atelectasis Interpreted and Authenticated by: Andrea Zaragoza 11/29/17
[2017-11-29] MEDS ORDERED: ENOXAPARIN 60 MG/0.6 ML SYRINGE SQ SCH (09:00)
--- NOTE | 2017-11-29 09:00 | Cat Scan Report ---
CLINICAL INFORMATION: Acute mental status change evaluate for CVA COMPARISON: None. TECHNIQUE: 2.5 mm helical slices were obtained in the skull base to vertex. Following reconstruction, axial reformatted images were reviewed at bone and parenchymal windows. The exam was performed using radiation dose optimization techniques including, but not limited to, automated exposure control, adjustment of the mA and/or kV according to patient size and use of iterative reconstruction technique. FINDINGS: The ventricles, sulci, fissures, and cisterns show stable symmetrical enlargement compatible with moderate age-related atrophy. There is no subdural hemorrhage or extra-axial fluid collection/mass appreciated. Moderate patchy chronic ischemic changes in the cerebral white matter are stable. A small infarct in the right frontal lobe near vertex and a moderate cortical-based infarct in the inferior left occipital lobe are again noted. There is no mass effect, edema, hemorrhage or other acute finding. Bone windows show no osseous abnormality. A 1 cm polyp has developed in the left sphenoid sinus. Opacification of the visualized (superior) right maxillary sinus seen - as before. IMPRESSION: 1. No edema, hemorrhage or other acute intracerebral abnormality 2. 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 Small remote infarct in the right frontal lobe near vertex seen - as before 3. Moderate atrophy and patchy chronic ischemic changes throughout white matter - stable 4. Severe chronic right maxillary sinusitis - stable. 1 cm polyp left sphenoid sinus - new Interpreted and Authenticated by: Andrea Zaragoza 11/29/17
[2017-11-29] MEDS: LEVOFLOXACIN 500 MG/100 ML BAG IV SCH (09:26)
[2017-11-29] MEDS: GABAPENTIN 100 MG CAPSULE PO SCH ×2 (09:26→21:43)
[2017-11-29] MEDS: FENOFIBRATE 43 MG CAPSULE PO SCH (09:26)
[2017-11-29] MEDS: SOTALOL 80 MG TABLET PO SCH ×2 (09:26→21:43)
[2017-11-29] MEDS ORDERED: hydrOXYzine 25 MG TABLET PO ONE (09:27)
[2017-11-29] MEDS: GABAPENTIN 300 MG CAPSULE PO SCH (10:16)
[2017-11-29] MEDS: DIGOXIN 125 MCG TABLET PO SCH (13:59)
[2017-11-29] MEDS ORDERED: VANCOMYCIN PER PHARMACY IV SCH (15:01)
[2017-11-29] MEDS ORDERED: VANCOMYCIN 1,000 MG in 0.9 % SODIUM CHLORIDE 250 ML IV ONE (16:00)
[2017-11-29] MEDS ORDERED: ZOLPIDEM 5 MG TABLET PO ONE (21:00)
[2017-11-29] MEDS: MONTELUKAST 10 MG TABLET PO SCH (21:43)
[2017-11-30 05:09] LABS: Vancomycin,Random 11.8 ug/mL
[2017-11-30 05:31] LABS: ALT/SGPT 10 U/l (0-40); Albumin 3.1 gm/dL (3.2-5.2); Albumin/Globulin Ratio 0.8 (1.0-2.3); Alkaline Phosphatase 45 U/L (39-117); Bilirubin,Direct < 0.2 mg/dL (0.0-0.3); Blood Urea Nitrogen 49 mg/dl (8-23); Gamma Glutamyl Transpeptidase 35 U/L (5-36); Uric Acid 6.2 mg/dL (2.5-8.0)
[2017-11-30] MEDS: 0.9 % SODIUM CHLORIDE 10 ML SYRINGE IV SCH ×3 (06:07→22:39)
[2017-11-30] MEDS ORDERED: 0.9 % SODIUM CHLORIDE 250 ML IV ONE (07:02)
--- NOTE | 2017-11-30 07:05 | Internal Med Progress Note ---
Medical - PN: Subj Patient information: Note initiated : 11/30/17 at 6:55 am Service Date, if different from initiated Date: [] Patient: Soumya Garcia a 87 y/o F admitted on 11/24/17 for Fever/Sepsis, Pneumonia. Chief Complaint: [] Interval history: jonathan Garcia is a 87 year old F with h/o recurrent UTI, presented to the ER today with complaints of not feeling well x 1 day. 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 She notes that she had been having some increased frequency of urination for the last few days. Since yesterday she has been having weakness chills and fever. She was brought into the ER with the above symptoms. On presentation to the ER the patient was hypoxic requiring a nonrebreather to keep her oxygen saturation above 90. The patient in the ER was febrile with a temperature of 105-heart rate 75, blood pressure stable with 118/53, it had dropped as low as 96/47, she was on 95 % on 2 L during presentation for admission however required 100% FiO2 during presentation to the emergency room. The blood work showed leukocytosis with a WBC count of 19,000, hemoglobin 10.9, platelets 345, INR 2.4. Chemistry unremarkable except elevation of creatinine at 1.7, baseline around 1.1. Lactic acid was 2.0. UA suggestive of urinary tract infection. The urine culture that was obtained on 21 November is growing E. coli which is pansensitive. Digoxin level is 1.4. Chest x-ray shows right hilar pneumonia and left basilar pneumonia possible aspiration. The patient was admitted to the PCU for further management. After admission to the PCU, patient initially was showing signs of improvement but later again became hypoxic requiring BiPAP. Patient is presently on BiPAP to maintain her respiratory status. 11/25 Patient seen and examined, still has intermittent chills and fever. Blood cultures positive for gram-negative bacillus, will repeat cultures. We did get a CT chest today because there was concern about pneumonia. CT chest is negative for pneumonia or heart failure just atelectasis and some effusion. Discontinue vancomycin discontinue Flagyl, change cefepime to Rocephin as it is likely that the patient is having urinary tract infection with bacteremia. She required pressor support overnight but has been off pressors since logistics support. Patient is off bipap support Labs show trending down WBC, renal function improving. 11/26 Patient seen and examined, no acute overnight events, fever curve is trending down, blood cultures repeat are negative so far. Patient did require some BiPAP support last night but is back on nasal cannula. IV fluids have been discontinued she received 20 mg of Lasix with good response. WBC trending down renal function is stable. I reviewed the plan of care with the patient's daughter. The patient has no sensation when she has a bowel movement leading to recurrent urinary tract infections. She has been tested for possible colovesical fistula. Will review with infectious disease, they have been consulted, for chronic antibiotic suppression therapy versus patient having antibiotics at home. Patients daugther has been offered to consider a second opinion once she is discharged from the hospital. 11/27 Patient seen and examined, no acute overnight events, not needing pressors anymore, no need for BiPAP. This morning however she was feeling a bit short of breath. She has crackles on the right lower lobe. Chest x-ray shows right lower lobe pneumonia some fluid. However CT chest done 2 days ago did not show any pneumonia likely atelectasis. And some effusion. Will give Lasix and continue DuoNeb therapy every 6 hours. Monitor for now change rocephin to levofloxacin, 11/28 had difficult time waking up this morning, rapid response called. VSS, oxygenating well on room air but tachypneic, CXR with CHF. no chest pain, EKG with her afib. states dyspnea, mild cough. 11/29 Patient awoke today per nurse. Nurse having conversation with her. Then patient developed some stuttering similar to yesterday morning. Poor sleep last night, new meds this admit include prednisone, also her home gabapentin needs to be renally adjusted. CT brain ordered. Nurse did note oxygen was a little low on initial evaluation and placed on 1 L nasal cannula. pt denies any headache or fever. She realizes she is stuttering. During parts of my conversation with her she will not stutter and talks clearly, other times she will have a stutter. 11/30 Slept well last night. No issues this morning. Denies coughing or shortness of breath. Minimal stuttering. Family at bedside. Review of Systems: denies headache/fever/nausea/vomiting/chest or abdominal pain/cough. Otherwise see above. - Constitutional Vitals: Vital Signs Temp Pulse Resp BP Pulse Ox 98 F 70 16 136/72 93 11/30/17 04:00 11/30/17 04:00 11/30/17 04:00 11/30/17 04:00 11/30/17 04:00 Period Temp Pulse Resp BP Sys/Farrell Pulse Ox Last 24 Hr 96.8 F-98 F 70-86 14-18 119-147/70-80 86-96 Intake and Output 11/29/17 11/30/17 11/30/17 21:59 05:59 13:59 Intake Total 1050 / 1050 200 / 200 Output Total 900 / 900 475 / 475 Balance 150 / 150 -275 / -275 Weight 59.421 kg Intake & Output: Intake & Output 11/29/17 11/30/17 11/30/17 21:59 05:59 13:59 Intake Total 1050 / 1050 200 / 200 Output Total 900 / 900 475 / 475 Balance 150 / 150 -275 / -275 Weight 59.421 kg Intake: IV 250 / 250 Vancomycin 1,000 mg In Sodium 250 / 250 Chloride 0.9% 250 ml @ 250 mls/ hr IV ONCE ONE Rx#:[id number] Oral 800 / 800 200 / 200 Output: Void Amount 900 / 900 475 / 475 Other: Meal Dinner Percent of Meal Consumed 100% Exam: General: Awake, no acute distress HEENT: EOMI, neck supple CV: irreg irreg, normal s1/s2 Pulm: minimal rales on right, otherwise clear, no wheezing Abd: soft, nontender, +BS x4 Ext: no clubbing/cyanosis, trace b/l LE edema Neuro: awake, minimal intermittent stuttering, moves all extremities to command , symmetrical strength, PERRL, Skin: warm/dry Medical - PN: Obj Da - Labs CBC & Chem 7: 11/28/17 08:22 11/30/17 03:44 Labs: Abnormal Lab Results 11/30/17 11/30/17 11/29/17 03:44 03:44 04:38 RBC Hgb Hct RDW Plt Count Gran % Lymph % (Auto) Gran # Lymph # (Auto) PT 23.2 H INR 2.0 H APTT Chloride 94 L 90 L Anion Gap 18.0 H BUN 49 H 44 H Creatinine 1.3 H 1.5 H Glucose 173 H Phosphorus NT-Pro-B Natriuret Pep Albumin 3.1 L Globulin 4.1 H 4.2 H Albumin/Globulin Ratio 0.8 L 0.8 L Triglycerides 235 H 237 H 11/29/17 11/28/17 11/28/17 04:38 08:22 08:22 RBC Hgb Hct RDW Plt Count Gran % Lymph % (Auto) Gran # Lymph # (Auto) PT 22.0 H INR 1.9 H APTT 58 H Chloride Anion Gap BUN 27 H Creatinine Glucose 136 H Phosphorus NT-Pro-B Natriuret Pep Albumin Globulin Albumin/Globulin Ratio 0.9 L Triglycerides 11/28/17 11/28/17 11/28/17 08:22 08:15 04:21 RBC 3.53 L Hgb 10.9 L Hct 32.2 L RDW 14.8 H Plt Count 486 H Gran % 79.3 H Lymph % (Auto) 11.0 L Gran # 8.1 H Lymph # (Auto) 1.1 L PT INR APTT Chloride Anion Gap BUN 26 H Creatinine Glucose 165 H Phosphorus NT-Pro-B Natriuret Pep 4438.0 H Albumin 3.1 L Globulin 3.8 H Albumin/Globulin Ratio 0.8 L Triglycerides 151 H 11/28/17 11/28/17 11/27/17 04:21 04:21 04:33 RBC 3.42 L Hgb 10.3 L Hct 31.2 L RDW 15.6 H Plt Count 442 H Gran % 79.9 H Lymph % (Auto) 11.1 L Gran # Lymph # (Auto) 0.9 L PT 19.6 H INR 1.6 H APTT Chloride Anion Gap BUN Creatinine 1.2 H Glucose 127 H Phosphorus 2.1 L NT-Pro-B Natriuret Pep Albumin 2.9 L Globulin Albumin/Globulin Ratio 0.8 L Triglycerides 191 H 11/27/17 04:33 RBC Hgb Hct RDW Plt Count Gran % Lymph % (Auto) Gran # Lymph # (Auto) PT 20.7 H INR 1.8 H APTT Chloride Anion Gap BUN Creatinine Glucose Phosphorus NT-Pro-B Natriuret Pep Albumin Globulin Albumin/Globulin Ratio Triglycerides Meds: Medications Acetaminophen (Tylenol) 650 mg PO Q4-6HP PRN PRN Reason: PAIN/FEVER > 101 Albuterol/Ipratropium (Duoneb) 3 ml NEB Q6HP PRN PRN Reason: Shortness Of Breath Or Wheezing Dextrose (Dextrose 50%) 0 ml IV UD PRN PRN Reason: Hypoglycemia Diagnostic Test (Pha) (Accu-Chek) 1 each FS [facility] Last Admin: 11/29/17 21:44 Dose: 1 each Digoxin (Lanoxin) 125 mcg PO DAILY@1400 [facility] Last Admin: 11/29/17 13:59 Dose: 125 mcg Enoxaparin Sodium (Lovenox) 60 mg SQ DAILY [facility] Last Admin: 11/29/17 09:25 Dose: 60 mg Fenofibrate (Antara) 129 mg PO DAILY [facility] Last Admin: 11/29/17 09:26 Dose: 129 mg Gabapentin (Neurontin) 200 mg PO BID [facility] Last Admin: 11/29/17 21:43 Dose: 200 mg Glucose (Insta-Glucose) 15 gm PO PRN PRN PRN Reason: Hypoglycemia Hydromorphone HCl (Dilaudid) 0.5 mg IV Q2HP PRN PRN Reason: PAIN LEVEL > 6 Levofloxacin (Levaquin) 500 mg in 100 mls @ 100 mls/hr IV Q24H [facility] Last Infusion: 11/29/17 10:30 Dose: Infused Vancomycin HCl 1,000 mg/ (Sodium Chloride) 250 mls @ 250 mls/hr IV ONCE ONE Stop: 11/30/17 09:59 Insulin Human Lispro (Humalog) 0 unit SQ [facility]; Protocol Last Admin: 11/29/17 21:44 Dose: 2 unit Montelukast Sodium (Singular) 10 mg PO QPM [facility] Last Admin: 11/29/17 21:43 Dose: 10 mg Naloxone HCl (Narcan) 0.1 mg IV Q2MIN PRN PRN Reason: Opiate Reversal Nitroglycerin (Nitrostat) 0.4 mg SL Q5M PRN PRN Reason: Chest Pain Omeprazole (Prilosec) 20 mg PO ACB [facility] Last Admin: 11/29/17 07:32 Dose: 20 mg Ondansetron HCl (Zofran) 4 mg IV Q4-6HP PRN PRN Reason: Nausea And Vomiting Sodium Chloride (Saline Flush) 10 ml IV Q8 [facility] Last Admin: 11/30/17 06:07 Dose: 10 ml Sotalol HCl (Betapace) 80 mg PO BID [facility] Last Admin: 11/29/17 21:43 Dose: 80 mg Vancomycin HCl (Vancomycin Per Pharmacy) 1 order IV [facility] Warfarin Sodium (Coumadin Per Pharmacy) 1 order PO [facility] Medical - PN: A/P - Time Spent With Patient Total time spent is greater than 50% in coordination of care (as documented) at patient's floor/unit and/or counseling patient: - Narrative A/P Narrative: Asses: *Septic shock & Lactic acidosis: resolved *E. coli Bacteremia: *Urinary tract infection (e. coli): *Acute respiratory failure, with hypoxia: -required bipap support through 11/26, now on room air during day and prn O2 at night -initial CXR read as PNA but CT shows no pneumonia. Likely atelectasis with right effusion (seen on CT) which is being called as pna by the radiologist. -COPD changes also on CT, likely underlying contributing factor -Chest u/s only small pleural effusion and f/u CXR with CHF -need O2 only at night *Acute on likely chronic diastolic CHF: -good diuresis -chf improved on f/u CXR *stuttering, ?neurogenic: likely multifactorial including poor sleep + ?hypoxia + medications + Anxiety: Improved -CT brain no acute process, but Moderate remote cortical-based infarct inferior left occipital lobe, Small remote infarct in right frontal lobe as before. 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 *DM: *HTN: *JEANINE on CKD III: Cr bumped after diuresis *Anemia, chronic: stable *HYpothyroidism *Afib w/PPM on coumadin: *lab reports a positive blood culture today, from four days ago, [facility]. Nurse to call for identification as it should have been identified by now. Plan: -pending final BC's -cont levofloxacin and vanco until BC return, likely d/c on PO levoflox for 10- day total abx per ID. -O2 supp at night -d/c Prednisone 40mg, reduced jay -prn nebs, IS/Acapella -continue home medications as appropriate, digoxin and sotalol resumed, -hold nephrotoxic medications -SSI insulin for glucose control, add basal -pt/ot, cm for placement -ppx: coumadin per pharm/home ppi Full code d/c planning Medical - PN: Qual - VTE Deep Vein Thrombosis/Pulmonary Embolism Present on Admission: No
[2017-11-30] MEDS: OMEPRAZOLE 20 MG CAPSULE PO SCH (07:13)
[2017-11-30] MEDS: INSULIN LISPRO 1 UNIT/0.01 ML UNIT SQ SCH ×4 (07:14→22:12)
[2017-11-30] MEDS: GABAPENTIN 100 MG CAPSULE PO SCH ×2 (08:25→22:12)
[2017-11-30] MEDS: LEVOFLOXACIN 500 MG/100 ML BAG IV SCH (08:25)
[2017-11-30] MEDS: FENOFIBRATE 43 MG CAPSULE PO SCH (08:25)
[2017-11-30] MEDS: INSULIN GLARGINE, HUMAN 1 UNIT/0.01 ML SQ SCH (08:26)
[2017-11-30] MEDS: SOTALOL 80 MG TABLET PO SCH ×2 (08:26→22:11)
[2017-11-30] MEDS ORDERED: VANCOMYCIN 1,000 MG in 0.9 % SODIUM CHLORIDE 250 ML IV ONE (09:00)
--- NOTE | 2017-11-30 10:23 | Discharge Summary ---
Medical - DS: Prov Patient information: Note initiated : 11/30/17 at 10:16 am Service Date, if different from initiated Date: [] Patient: Soumya Garcia 87 y/o F admitted on 11/24/17 for Fever/Sepsis, Pneumonia. Chief Complaint: [] Date of admission: 11/24/17 07:25 Discharge date: 12/01/17 Primary care physician: Yari Romo Consults: 11/24/17 Consult to Physician [CONS] Stat Comment: Consulting Provider: Frandy Espinoza Reason For Exam: Physician to Consult 11/26/17 06:33 Consult to Infectious Disease [CONS] Routine Comment: bactermia Consulting Provider: Remi Lopez Reason For Exam: Physician to Consult 11/28/17 08:14 Consult to Physician [CONS] Stat Comment: Consulting Provider: Param Webster Reason For Exam: Physician to Consult Medical - DS: Meds - Discharge Medications Prescriptions: Levofloxacin [Levaquin] 500 mg PO DAILY #2 tablet Active and Home Medications: Home Medications ascorbic acid (vitamin C) 500 mg tablet 1,000 mg PO BID 03/29/15 [History Confirmed 10/29/17 Last Taken 10/09/17 10:00] lactobacillus combination no.6 4 billion cell tablet 1 cell PO DAILY 12/01/15 [ History Confirmed 10/29/17 Last Taken 10/09/17 1000] cholecalciferol (vitamin D3) 1,000 unit capsule 50 mcg PO QDAY cap 12/07/15 [ History Confirmed 11/26/17 Last Taken 10/09/17 21:00] vitamin E 400 unit tablet 400 unit PO QDAY 07/05/16 [History Confirmed 10/29/17 Last Taken 10/03/16 09:00] Blood Sugar Diagnostic [Contour] 0 dose .ROUTE .MEDSUPPLY 10/04/16 [History Confirmed 10/29/17 Last Taken 10/07/17 09:30] compression stocking,knee high,long length,medium circ 0 patch .ROUTE .MEDSUPPLY #12 each 10/26/16 [Rx Confirmed 10/29/17 Last Taken 10/09/17 21:00] Diabetic shoes #1 each 11/29/16 [Rx Confirmed 10/29/17 Last Taken 10/09/17 21:00 ] digoxin 125 mcg tablet 125 mcg PO QDAY #90 tab 12/26/16 [Rx Confirmed 11/26/17 Last Taken 10/09/17 21:00] vit C-vit H-exzstm-ofwg ox-lutein 226 mg-200 unit-5 mg-0.8 mg capsule cap PO BID cap 03/30/17 [History Confirmed 10/29/17 Last Taken 10/09/17 21:00] sotalol 80 mg tablet 80 mg PO BID #60 tab 04/12/17 [Rx Confirmed 11/26/17 Last Taken 10/09/17 21:00] linagliptin 5 mg tablet 5 mg PO QAM #30 tab 06/15/17 [Rx Confirmed 11/26/17 Last Taken 10/09/17 10:00] montelukast 10 mg tablet 10 mg PO QPM #90 tab 07/02/17 [Rx Confirmed 11/26/17 Last Taken 10/09/17 21:00] estradiol 0.01% (0.1 mg/gram) vaginal cream 0.5 g VAGINAL .QOD #42.5 g 08/14/17 [Rx Confirmed 10/29/17 Last Taken 10/09/17 10:00] amlodipine 2.5 mg tablet 2.5 mg PO QDAY #90 tab 09/10/17 [Rx Confirmed 11/26/17 Last Taken 10/09/17 10:00] psyllium oral powder 1 tbsp PO QDAY 09/10/17 [History Confirmed 10/29/17 Last Taken 10/09/17 10:00] zolpidem 5 mg tablet 5 mg PO QHS PRN #30 tab 10/16/17 [Rx Confirmed 10/29/17 Last Taken Unknown] levothyroxine 100 mcg tablet 100 mcg PO QDAY #30 tab 10/18/17 [Rx Confirmed 12/06 Last Taken Unknown] fenofibrate 160 mg tablet 160 mg PO QDAY 10/29/17 [History Confirmed 11/26/17 Last Taken Unknown] furosemide 20 mg tablet 20 mg PO BID tab 10/29/17 [History Confirmed 11/26/17 Last Taken Unknown] gabapentin 600 mg tablet 600 mg PO .COMPLEX tab 10/29/17 [History Confirmed 10/06 Last Taken Unknown] kpiaaeynjjh-[id number]-hyal 750 mg-100 mg-125 mg-1.65 mg tablet tab PO [History Confirmed 10/29/17 Last Taken Unknown] psyllium husk 3.4 gram/5.4 gram oral powder 1 tbsp PO ONCE 10/29/17 [History Confirmed 10/29/17 Last Taken Unknown] tetrahydrozoline 0.05 % eye drops 1 drp OPHTHALMIC BID ml 10/29/17 [History Confirmed 10/29/17 Last Taken Unknown] lisinopril 30 mg tablet 30 mg PO QDAY #90 tab 10/30/17 [Rx Confirmed 11/26/17 Last Taken Unknown] warfarin 1 mg tablet See Label Instructions PO QMWF #30 tab 11/21/17 [Rx Confirmed 11/21/17 Last Taken Unknown] cefuroxime axetil 500 mg tablet 500 mg PO Q12H 10 Days #20 tab 11/23/17 [Rx Last Taken Unknown] Jantoven 2 mg PO 11/26/17 [History Last Taken Unknown] Omeprazole 20 mg PO QAM 11/26/17 [History Confirmed 11/26/17 Last Taken Unknown] Warfarin Sodium [Jantoven] 1 mg 11/26/17 [History Confirmed 11/26/17 Last Taken Unknown] amLODIPine 2.5 mg PO DAILY 11/26/17 [History Confirmed 11/26/17 Last Taken Unknown] amLODIPine 5 mg PO DAILY 11/26/17 [History Confirmed 11/26/17 Last Taken Unknown ] amLODIPine [Norvasc] 5 mg PO DAILY 11/26/17 [History Confirmed 11/26/17 Last Taken Unknown] acetaminophen 300 mg-codeine 15 mg tablet 1 tab PO ONCE #30 tab 11/29/17 [Rx Last Taken Unknown] Medical - DS: Hosp Hospital course: Ms. Garcia is a 87 year old F with h/o recurrent UTI, presented to the ER today with complaints of not feeling well x 1 day. 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 She notes that she had been having some increased frequency of urination for the last few days. Since yesterday she has been having weakness chills and fever. She was brought into the ER with the above symptoms. On presentation to the ER the patient was hypoxic requiring a nonrebreather to keep her oxygen saturation above 90. The patient in the ER was febrile with a temperature of 105-heart rate 75, blood pressure stable with 118/53, it had dropped as low as 96/47, she was on 95 % on 2 L during presentation for admission however required 100% FiO2 during presentation to the emergency room. The blood work showed leukocytosis with a WBC count of 19,000, hemoglobin 10.9, platelets 345, INR 2.4. Chemistry unremarkable except elevation of creatinine at 1.7, baseline around 1.1. Lactic acid was 2.0. UA suggestive of urinary tract infection. The urine culture that was obtained on 21 November is growing E. coli which is pansensitive. Digoxin level is 1.4. Chest x-ray shows right hilar pneumonia and left basilar pneumonia possible aspiration. The patient was admitted to the PCU for further management. After admission to the PCU, patient initially was showing signs of improvement but later again became hypoxic requiring BiPAP. Patient is presently on BiPAP to maintain her respiratory status. 11/25 Patient seen and examined, still has intermittent chills and fever. Blood cultures positive for gram-negative bacillus, will repeat cultures. We did get a CT chest today because there was concern about pneumonia. CT chest is negative for pneumonia or heart failure just atelectasis and some effusion. Discontinue vancomycin discontinue Flagyl, change cefepime to Rocephin as it is likely that the patient is having urinary tract infection with bacteremia. 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 Patient is off bipap support Labs show trending down WBC, renal function improving. 11/26 Patient seen and examined, no acute overnight events, fever curve is trending down, blood cultures repeat are negative so far. Patient did require some BiPAP support last night but is back on nasal cannula. IV fluids have been discontinued she received 20 mg of Lasix with good response. WBC trending down renal function is stable. I reviewed the plan of care with the patient's daughter. The patient has no sensation when she has a bowel movement leading to recurrent urinary tract infections. She has been tested for possible colovesical fistula. Will review with infectious disease, they have been consulted, for chronic antibiotic suppression therapy versus patient having antibiotics at home. Patients daugther has been offered to consider a second opinion once she is discharged from the hospital. 11/27 Patient seen and examined, no acute overnight events, not needing pressors anymore, no need for BiPAP. This morning however she was feeling a bit short of breath. She has crackles on the right lower lobe. Chest x-ray shows right lower lobe pneumonia some fluid. However CT chest done 2 days ago did not show any pneumonia likely atelectasis. And some effusion. Will give Lasix and continue DuoNeb therapy every 6 hours. Monitor for now change rocephin to levofloxacin, 11/28 had difficult time waking up this morning, rapid response called. VSS, oxygenating well on room air but tachypneic, CXR with CHF. no chest pain, EKG with her afib. states dyspnea, mild cough. 11/29 Patient awoke today per nurse. Nurse having conversation with her. Then patient developed some stuttering similar to yesterday morning. Poor sleep last night, new meds this admit include prednisone, also her home gabapentin needs to be renally adjusted. CT brain ordered. Nurse did note oxygen was a little low on initial evaluation and placed on 1 L nasal cannula. pt denies any headache or fever. She realizes she is stuttering. During parts of my conversation with her she will not stutter and talks clearly, other times she will have a stutter. 11/30 Slept well last night. No issues this morning. Denies coughing or shortness of breath. Minimal stuttering. Family at bedside. Discharge diagnosis: Septic shock E. coli bacteremia E. coli urinary tract infection respiratory Secondary discharge diagnosis: CHF diabetes acute kidney injury hypothyroidism A. fib - Time Spent with Patient Total time spent providing and/or coordinating discharge services: Greater than 30 minutes Medical - DS: Exam - Constitutional Vitals: Vital Signs Temp Pulse Resp BP Pulse Ox 11/30/17 08:49 90 11/30/17 07:22 98 F 14 100/59 96 11/30/17 04:00 98 F 70 16 136/72 93 11/29/17 23:49 97.8 F 70 18 147/80 96 11/29/17 19:48 97.8 F 86 16 119/75 96 11/29/17 19:30 93 11/29/17 16:41 97.6 F 76 14 138/70 94 11/29/17 14:01 70 91 11/29/17 11:00 96.9 F L 81 16 123/70 93 Intake and Output 10/11/18 10/12/18 10/12/18 21:59 05:59 13:59 Intake Total 1050 / 1050 200 / 200 340 / 340 Output Total 900 / 900 475 / 475 425 / 425 Balance 150 / 150 -275 / -275 -85 / -85 Intake: IV 250 / 250 100 / 100 Vancomycin 1,000 mg In Sodium 250 / 250 Chloride 0.9% 250 ml @ 250 mls/ hr IV ONCE ONE Rx#:[id number] Oral 800 / 800 200 / 200 240 / 240 Output: Void Amount 900 / 900 475 / 475 425 / 425 Other: Meal Dinner Breakfast Percent of Meal Consumed 100% 100% Weight 59.421 kg Medical - DS: Data Labs on day of discharge: Labs from last 24 hours 11/30/17 11/30/17 11/30/17 03:44 03:44 03:44 PT 23.2 H INR 2.0 H Sodium 139 Potassium 4.2 Chloride 94 L Carbon Dioxide 27 Anion Gap 18.0 H BUN 49 H Creatinine 1.3 H GFR Calculation 37 Glucose 97 Uric Acid 6.2 Calcium 9.4 Phosphorus 3.8 Magnesium 2.0 Total Bilirubin 0.4 Direct Bilirubin < 0.2 GGT 35 AST 15 ALT 10 Alkaline Phosphatase 45 Lactate Dehydrogenase 194 Total Protein 7.2 Albumin 3.1 L Globulin 4.1 H Albumin/Globulin Ratio 0.8 L Triglycerides 235 H Random Vancomycin 11.8 Vancomycin Dose Not Reportable Vanco Last Dose Time Not Reportable Preliminary micro results at discharge 11/25/17 12:25 Blood Culture - Preliminary Blood Gram positive cocci 11/25/17 12:38 Blood Culture - Preliminary Blood 11/24/17 04:50 Blood Culture - Preliminary Blood Gram negative bacillus Medical - DS: A/P - Patient/Caregiver Discharge Instructions Activity: as per physical therapy Diet: Consistent Carbohydrate Prescriptions: Levofloxacin [Levaquin] 500 mg PO DAILY #2 tablet - Follow up Plan Follow up with: Yari Romo, [employer], ENVIRONMENTAL COMPLIANCE ENGINEER [Primary Care Provider] - Disposition: Xfer SNF Prognosis: Fair Rehab Potential: Fair I certify that the patient requires SNF services: Yes Overall status at discharge: patient is progressing back to baseline Medical - DS: Qual - VTE Deep Vein Thrombosis/Pulmonary Embolism Present on Admission: No
[2017-11-30] MEDS: DIGOXIN 125 MCG TABLET PO SCH (13:46)
[2017-11-30] MEDS ORDERED: WARFARIN 1 MG TABLET PO ONE (14:00)
[2017-11-30] MEDS: LEVOTHYROXINE 100 MCG TABLET PO SCH (14:35)
[2017-11-30] MEDS ORDERED: ZOLPIDEM 5 MG TABLET PO ONE (21:00)
[2017-11-30] MEDS: MONTELUKAST 10 MG TABLET PO SCH (22:12)
[2017-12-01 06:13] LABS: ALT/SGPT 9 U/l (0-40); Albumin 3.1 gm/dL (3.2-5.2); Albumin/Globulin Ratio 0.9 (1.0-2.3); Alkaline Phosphatase 54 U/L (39-117); Bilirubin,Direct < 0.2 mg/dL (0.0-0.3); Blood Urea Nitrogen 51 mg/dl (8-23); Gamma Glutamyl Transpeptidase 31 U/L (5-36); Uric Acid 5.7 mg/dL (2.5-8.0)
[2017-12-01] MEDS: 0.9 % SODIUM CHLORIDE 10 ML SYRINGE IV SCH (06:26)
[2017-12-01] MEDS: LEVOTHYROXINE 100 MCG TABLET PO SCH (07:30)
[2017-12-01] MEDS: INSULIN LISPRO 1 UNIT/0.01 ML UNIT SQ SCH (07:30)
[2017-12-01] MEDS: GABAPENTIN 100 MG CAPSULE PO SCH (08:00)
[2017-12-01] MEDS: OMEPRAZOLE 20 MG CAPSULE PO SCH (08:00)
[2017-12-01] MEDS: INSULIN GLARGINE, HUMAN 1 UNIT/0.01 ML SQ SCH (09:00)
[2017-12-01] MEDS: FENOFIBRATE 43 MG CAPSULE PO SCH (09:00)
[2017-12-01] MEDS: SOTALOL 80 MG TABLET PO SCH (09:05)
[2017-12-01] MEDS: LEVOFLOXACIN 500 MG/100 ML BAG IV SCH (16:03)
== END 2017-12-01 09:22 | DRG 871 ==
LOC: ED 04:07 → ICU 07:25 → MEDSUR 11-27 18:00
PROVIDERS: ADMIT Internal Medicine; ATTEND Internal Medicine
CPT/HCPCS: 83605; 87149; 97161; 97167; 99231; 99291; J0131; J0692; J0696; J0744; J1170; J1650; J1815; J1817; J1940; J1956; J2060; J2405; J3370; J3475; J7030; J7050; J7060; J7120; J7620; J7620-GY

== ENCOUNTER 2018-05-26 15:58 | Observation (INO) ==
[2018-05-26] MEDS ORDERED: LACTATED RINGERS 1,000 ML IV ONE (16:35)
[2018-05-26] MEDS ORDERED: KETOROLAC 30 MG/ML VIAL IV ONE (16:51)
[2018-05-26] MEDS ORDERED: HYDROmorphone 2 MG/ML VIAL IV PRN ×2 (17:15→20:57)
--- NOTE | 2018-05-26 17:26 | Emergency Department Note ---
General Adult HPI - General Chief complaint: Cold/Flu Symptoms Stated complaint: Dx of Flu, not getting any better Time Seen by Provider: 05/26/18 16:21 Mode of arrival: wheelchair - History of Present Illness HPI Narrative: Patient is an 87-year-old female who returns to the emergency Department today with complaint of body aches, headache, nausea, weakness after being diagnosed with influenza on May 20, 2018. She was seen by Dr. Yang, and was prescribed Tamiflu, but the reports that they did not pickle sorter this medication for some reason I'm not aware of, but she did not take it. She has had a cough that is nonproductive. She has had a few episodes of loose brown stool. She has not had any vomiting today, but reports vomiting over the last few days. She reports that she has not been able to hold down much fluids and feels dehydrated. She denies chest pain, shortness of breath, or difficulty breathing. She denies any urinary frequency, or dysuria. She has not had any hematemesis or melena. She describes her pain 8 out of 10 on a 0-10 numerical pain scale. She reports that the pain is throughout her entire body. - Related Data Home Medications Medication Instructions Recorded Confirmed ascorbic acid (vitamin C) 500 mg 1,000 mg PO DAILY 03/29/15 04/26/18 tablet lactobacillus combination no.6 4 1 tab PO DAILY 12/01/15 04/26/18 billion cell tablet vit C-vit O-owtbwq-cjlc ox-lutein 1 cap PO BID cap 03/30/17 04/26/18 226 mg-200 unit-5 mg-0.8 mg capsule fenofibrate 160 mg tablet 160 mg PO QDAY 10/29/17 04/26/18 gabapentin 600 mg tablet 600 mg PO TID tab 10/29/17 04/26/18 psyllium husk 3.4 gram/5.4 gram 1 tbsp PO DAILY 10/29/17 04/26/18 oral powder Omeprazole 20 mg PO QAM 11/26/17 04/26/18 Fish Oil 1 tab PO DAILY 11/30/17 04/26/18 Systane Balance 1 drp BOTH EYES PRN PRN 11/30/17 04/26/18 Vitamin D3 2 tab PO DAILY 12/25/17 04/26/18 loperamide 2 mg tablet 2 mg PO Q2-4H PRN 12/25/17 04/26/18 estradiol 0.01% (0.1 mg/gram) 1 g VAGINAL QDAY 04/25/18 04/26/18 vaginal cream Previous Rx's Medication Instructions Recorded linagliptin 5 mg tablet 5 mg PO QAM #30 tab 06/15/17 montelukast 10 mg tablet 10 mg PO QPM #90 tab 07/02/17 fluticasone propionate 50 2 spray INTRANASAL QDAY #16 g 12/27/17 mcg/actuation nasal spray,suspension Adult Depends #100 each 01/14/18 acetaminophen 300 mg-codeine 15 mg 1 tab PO DAILYP PRN #30 tab 01/14/18 tablet furosemide 20 mg tablet 20 mg PO BID #60 tab 01/14/18 sotalol 80 mg tablet 80 mg PO BID #60 tab 01/29/18 fosfomycin tromethamine 3 gram 1.5 g PO .q10 days #20 each 02/26/18 oral packet diaper,brief,adult,disposable See Dose Instructions .ROUTE 02/27/18 .MEDSUPPLY #32 each digoxin 125 mcg tablet 125 mcg PO .COMPLEX #30 tab 03/25/18 warfarin 1 mg tablet 1 mg PO .COMPLEX #60 tab 04/01/18 lisinopril 30 mg tablet 30 mg PO QDAY #90 tab 04/11/18 levothyroxine 100 mcg tablet 100 mcg PO QDAY #30 tab 05/13/18 Ondansetron [Zofran ODT] 4 mg SL Q4-6HP PRN #14 tab 05/20/18 Oseltamivir Phosphate [Tamiflu] 75 mg PO BID #10 cap 05/20/18 Allergies Allergy/AdvReac Type Severity Reaction Status Date / Time adhesive tape Allergy Intermediate Rash Verified 05/26/18 16:03 latex Allergy Intermediate Rash Verified 05/26/18 16:03 cinnamon [Cinnamon] Allergy Mild Rash Verified 05/26/18 16:03 ciprofloxacin AdvReac Severe nausea and Verified 05/26/18 16:03 vomiting Erythromycin Base AdvReac Intermediate she Verified 05/26/18 16:03 doesn't remember ampicillin AdvReac Mild Nausea Verified 05/26/18 16:03 metformin AdvReac Mild Diarrhea Verified 05/26/18 16:03 Quinolones AdvReac Mild Vomiting Verified 05/26/18 16:03 Sulfa (Sulfonamide AdvReac Mild not Verified 05/26/18 16:03 Antibiotics) anaphylaxis Review of Systems All systems ED: reviewed and negative except as stated. Constitutional: Reports: chills. Denies: fever Eyes: Denies: vision change ENT ED: Denies: ear pain, throat pain Cardiovascular: Denies: chest pain, palpitations, edema Respiratory: Reports: cough. Denies: shortness of breath, wheezes, phlegm, hemoptysis Gastrointestinal: Reports: nausea, vomiting, diarrhea. Denies: abdominal pain, constipation, hematochezia, melena, hematemesis Genitourinary: Denies: dysuria, frequency Musculoskeletal: Reports: as per HPI Integumentary: Denies: rash, lesions Neurological: Reports: headache, weakness. Denies: numbness, paresthesias, confusion Endocrine: Reports: fatigue. Denies: heat or cold intolerance, polydipsia, polyuria Hematological/Lymphatic: Denies: easy bleeding, easy bruising Past Medical History - Past Medical History Medical history: Reports: atrial fibrillation, CVA, DM, hyperlipidemia, hypertension, hypothyroidism, osteoporosis, other (Systemic lupus and chronic immune abnormalities (per son, Omar).) Psychiatric history: Reports: anxiety. 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 Absent: scleral icterus, conjunctival injection ENT: normal oropharynx, mucous membranes dry Neck: Present: normal inspection, full ROM, trachea midline. Absent: tenderness, meningismus, lymphadenopathy Chest: Present: normal inspection, symmetric chest wall rise Respiratory: Present: normal lung sounds bilaterally. Absent: respiratory distress, accessory muscle use Cardiovascular: Present: regular rate, normal rhythm, +S1, +S2 Abdominal: Present: soft, normal bowel sounds. Absent: distention, tenderness, guarding, rebound, rigidity Extremities: Present: normal inspection, full ROM, tenderness (tenderness with palpation over both lower extremities and upper extremities.), normal capillary refill. Absent: pedal edema, pretibial edema, joint swelling, calf tenderness Back: Present: normal inspection, full ROM. Absent: tenderness, CVA tenderness (R), CVA tenderness (L) Neurological: Present: alert, oriented X3 Psychiatric: Present: normal affect, normal mood Skin: Present: warm, dry, intact, normal color Course Vital Signs Temperature 97.4 F 05/26/18 15:59 Pulse Rate 74 05/26/18 15:59 Respiratory Rate 20 05/26/18 15:59 Blood Pressure 160/81 05/26/18 15:59 Pulse Oximetry (%) 97 05/26/18 15:59 Temperature 97.4 F 05/26/18 15:59 Pulse Rate 72 05/26/18 20:01 Respiratory Rate 17 05/26/18 20:01 Blood Pressure 139/86 05/26/18 20:01 Pulse Oximetry (%) 98 05/26/18 20:01 Medical Decision Making - [facility] Narrative Medical decision making narrative: Patient was having myalgias and gave her a dose of Toradol. She did not have much relief of her pain after the Toradol was given, so gave her 0.5 mg of Dilaudid. She was complaining of some itching on her back, and reports that she has been itching for several days. Ordered diphenhydramine 12.5 mg IV, but the patient was resting comfortably after receiving the Dilaudid, so nursing did not give it at this time. 1 L of LR was given for hydration. Also ordered the patient a dose of ondansetron for the nausea. She received the ondansetron for nausea. Patient is still weak. She does report that her pain is controlled better. She has a normal chest x-ray today and her labs show no leukocytosis. Sodium is 134, potassium 4.6, calcium 10.1, creatinine 1.3, AST 22, and ALTs 8. Spoke with Dr. Webster, and patient will be admitted to [facility]. - Lab Data Result diagrams: 05/26/18 17:03 05/26/18 17:03 Lab Results 05/26/18 05/26/18 05/26/18 Range/Units 17:03 17: 17:03 WBC 7.1 (4.5-11.0) K/mcL RBC 4.42 (4.00-5.20) M/mcL Hgb 12.9 (12.0-15.0) g/dL Hct 40.2 (36.0-48.0) % MCV 91.1 (80.0-100.0) fL MCH 29.3 (26.0-34.0) pg MCHC 32.2 (31.0-36.0) g/dL RDW 15.5 H (11.5-14.5) % Plt Count 385 (140-440) K/mcL MPV 8.9 (7.4-10.4) fL Gran % 60.3 (38.0-78.0) % Lymph % (Auto) 24.4 (15.5-49.0) % [place] % (Auto) 12.2 H (1.0-12.0) % Eos % (Auto) 1.5 (0.0-7.0) % Baso % (Auto) 1.6 (0.0-2.0) % Gran # 4.3 (1.8-8.0) K/mcL Lymph # (Auto) 1.7 (1.5-4.8) K/mcL [place] # (Auto) 0.9 (0.1-0.9) K/mcL Eos # (Auto) 0.1 (0.0-0.7) K/mcL Baso # (Auto) 0.1 (0.0-0.3) K/mcL VBG Lactic Acid 1.7 (0.5-2.0) mmol/L Sodium 134 (133-145) mmol/L Potassium 4.6 (3.3-5.1) mmol/L Chloride 98 (96-108) mmol/L Carbon Dioxide 22 (22-30) mmol/L Anion Gap 14.0 (8-16) BUN 30 H (8-23) mg/dl Creatinine 1.3 H (0.6-1.1) mg/dl GFR Calculation 37 Glucose 98 (70-105) mg/dL Calcium 10.1 (8.6-10.4) mg/dl Total Bilirubin 0.7 (0.0-1.0) mg/dL AST 22 (0-37) U/l ALT 8 (0-40) U/l Alkaline Phosphatase 45 (39-117) U/L Total Protein 7.2 (5.9-8.4) gm/dL Albumin 3.4 (3.2-5.2) gm/dL Globulin 3.8 H (2.2-3.7) gm/dL Albumin/Globulin Ratio 0.9 L (1.0-2.3) Urine Color Urine Appearance Urine pH (5.0-9.0) Ur Specific [place] (1.000-1.035) Urine Protein (NEG) mg/dL Urine Glucose (UA) (NEG) mg/dL Urine Ketones (NEG) mg/dL Urine Occult Blood (<0.03) mg/dL Urine Nitrate (NEG) Urine Bilirubin (NEG) mg/dL Urine Urobilinogen (NEG) mg/dL Ur Leukocyte Esterase (NEG) /uL Urine RBC (0-1) /hpf Urine WBC (0-4) /hpf Ur Squamous Epith Cells (0-4) /hpf Urine Bacteria (0) /hpf Hyaline Casts (0-2) /lpf Ur Culture Indicated? 05/26/18 Range/Units 18:25 WBC (4.5-11.0) K/mcL RBC (4.00-5.20) M/mcL Hgb (12.0-15.0) g/dL Hct (36.0-48.0) % MCV (80.0-100.0) fL MCH (26.0-34.0) pg MCHC (31.0-36.0) g/dL RDW (11.5-14.5) % Plt Count (140-440) K/mcL MPV (7.4-10.4) fL Gran % (38.0-78.0) % Lymph % (Auto) (15.5-49.0) % [place] % (Auto) (1.0-12.0) % Eos % (Auto) (0.0-7.0) % Baso % (Auto) (0.0-2.0) % Gran # (1.8-8.0) K/mcL Lymph # (Auto) (1.5-4.8) K/mcL [place] # (Auto) (0.1-0.9) K/mcL Eos # (Auto) (0.0-0.7) K/mcL Baso # (Auto) (0.0-0.3) K/mcL VBG Lactic Acid (0.5-2.0) mmol/L Sodium (133-145) mmol/L Potassium (3.3-5.1) mmol/L Chloride (96-108) mmol/L Carbon Dioxide (22-30) mmol/L Anion Gap (8-16) BUN (8-23) mg/dl Creatinine (0.6-1.1) mg/dl GFR Calculation Glucose (70-105) mg/dL Calcium (8.6-10.4) mg/dl Total Bilirubin (0.0-1.0) mg/dL AST (0-37) U/l ALT (0-40) U/l Alkaline Phosphatase (39-117) U/L Total Protein (5.9-8.4) gm/dL Albumin (3.2-5.2) gm/dL Globulin (2.2-3.7) gm/dL Albumin/Globulin Ratio (1.0-2.3) Urine Color Straw Urine Appearance Clear Urine pH 9.0 (5.0-9.0) Ur Specific [place] 1.006 (1.000-1.035) Urine Protein Neg (NEG) mg/dL Urine Glucose (UA) Negative (NEG) mg/dL Urine Ketones Neg (NEG) mg/dL Urine Occult Blood Neg (<0.03) mg/dL Urine Nitrate Neg (NEG) Urine Bilirubin Neg (NEG) mg/dL Urine Urobilinogen Neg (NEG) mg/dL Ur Leukocyte Esterase Neg (NEG) /uL Urine RBC 2 H (0-1) /hpf Urine WBC 1 (0-4) /hpf Ur Squamous Epith Cells < 1 (0-4) /hpf Urine Bacteria 0 (0) /hpf Hyaline Casts 2 (0-2) /lpf Ur Culture Indicated? No - Radiology Data Ordering Physician: Patrick Charles Date of Service: 05/26/18 Procedure(s): XR chest 2V Accession Number(s): [id number] CLINICAL INFORMATION: cough COMPARISON: 05/20/2018 FINDINGS: Dual-chamber pacemaker leads in stable satisfactory position. Heart size, mediastinum and pulmonary vessels are normal. Moderate centrilobular emphysema changes demonstrate long-term stability. There is minor atelectasis or scarring in the lingula and right middle lobe region without effusions IMPRESSION: COPD changes and minor scarring or atelectasis in the right middle lobe and lingula. Interpreted and Authenticated by: Andrea Zaragoza 05/26/18 Disposition Pt seen by DEFECT REPAIRER GLASSWARE/PA only: Yes Clinical Impression: Weakness, Influenza Disposition: Xfer As Outpt/Obs ([facility]) Condition: Fair Referrals: Adam East MD [Primary Care Provider] -
[2018-05-26] MEDS ORDERED: diphenhydrAMINE 50 MG/ML VIAL IV ONE (17:42)
[2018-05-26] MEDS ORDERED: ONDANSETRON 4 MG/2 ML VIAL IV ONE (17:48)
[2018-05-26 17:54] LABS: Basophils # (Auto) 0.1 K/mcL (0.0-0.3); Basophils % (Auto) 1.6 % (0.0-2.0); Eosinophils # (Auto) 0.1 K/mcL (0.0-0.7); Eosinophils % (Auto) 1.5 % (0.0-7.0); Granulocytes % (Auto) 60.3 % (38.0-78.0); Lymphocytes # (Auto) 1.7 K/mcL (1.5-4.8); Lymphocytes % (Auto) 24.4 % (15.5-49.0); Mean Cell Volume 91.1 fL (80.0-100.0); Mean Corpuscular HGB Conc 32.2 g/dL (31.0-36.0); Monocytes # (Auto) 0.9 K/mcL (0.1-0.9); Monocytes % (Auto) 12.2 % (1.0-12.0); Platelet Count 385 K/mcL (140-440); RBC 4.42 M/mcL (4.00-5.20); Red Cell Distribution Width 15.5 % (11.5-14.5)
[2018-05-26 18:11] LABS: ALT/SGPT 8 U/l (0-40); Albumin 3.4 gm/dL (3.2-5.2); Albumin/Globulin Ratio 0.9 (1.0-2.3); Alkaline Phosphatase 45 U/L (39-117); Blood Urea Nitrogen 30 mg/dl (8-23)
[2018-05-26 19:31] LABS: Appearance,Urine CLEAR; Bacteria,Urine 0 /hpf (0); Bilirubin,Urine NEG (NEG); Color,Urine STRAW; Glucose,Urine (UA) NEGATIVE (NEG); Leukocyte Esterase,Urine NEG /uL (NEG); Protein,Urine NEG (NEG); Specific Gravity,Urine 1.006 (1.000-1.035); Urine Blood NEG mg/dL (<0.03); Urine Hyaline Cast 2 /lpf (0-2); Urine RBC 2 /hpf (0-1); Urine Squamous Epithelial Cell < 1 /hpf (0-4); Urine WBC 1 /hpf (0-4); Urobilinogen,Urine NEG (NEG)
--- NOTE | 2018-05-26 19:40 | XRay Report ---
CLINICAL INFORMATION: cough COMPARISON: 05/20/2018 FINDINGS: Dual-chamber pacemaker leads in stable satisfactory position. Heart size, mediastinum and pulmonary vessels are normal. Moderate centrilobular emphysema changes demonstrate long-term stability. There is minor atelectasis or scarring in the lingula and right middle lobe region without effusions IMPRESSION: COPD changes and minor scarring or atelectasis in the right middle lobe and lingula. Interpreted and Authenticated by: Andrea Zaragoza 05/26/18
--- NOTE | 2018-05-26 20:09 | Internal Med History&Physical ---
Medical - H&P: [facility] Patient information: Note initiated : 05/26/18 at 8:06 pm Service Date, if different from initiated Date: [] Patient: Soumya Garcia a 87 y/o F admitted on for Dx of Flu, not getting any better. Chief Complaint: [] History of present illness: Ms. Garcia is a 87 year old F With complex medical history including diabetes atrial fibrillation chronic kidney disease history of strokes hypothyroidism polyclonal clonal gammopathy COPD. She presents with nausea and some occasional vomiting as well as some diarrhea, occluding generalized weakness. The family feels they cannot take care of her right now. She can keep down apple juice but cannot keep down anything else. She did take Tamiflu and did finish the last dose last night. She denies any chest pain no real coughing but has some sinus congestion which is normal for her. She has headaches which is not uncommon for her. Myalgias. Denies fever chills. Has some crampy abdominal pain. In the ED chest x-ray was unremarkable she was afebrile but mildly tachypneic and tachycardic when she came in. She was given antiemetics pain medication IV fluids. Family not comfortable with patient home. Review of Systems: Pertinent positives as above. Denies fever/chills/chest pain. Remaining 10 point review of systems reviewed negative Medical - H&P: H Medical history: Medical History (Last Reviewed 04/26/18 @ 15:47 by Adam East MD) Fatigue (Acute) Acquired asplenia (Chronic) Anemia in stage 3 chronic kidney disease (Chronic) Localized edema due to fluid overload (Chronic) Secondary hyperparathyroidism of renal origin (Chronic) Vitamin D deficiency (Chronic) Hypertension in stage 3 chronic kidney disease due to type 2 diabetes mellitus (Chronic) CKD (chronic kidney disease) stage 3, GFR 30-59 ml/min (Chronic) Candidiasis of esophagus (Chronic) Osteopenia (Chronic) Recurrent urinary tract infection (Chronic) Low back pain (Chronic) Spinal stenosis of lumbosacral region (Chronic) Polyneuropathy (Chronic) Hypertriglyceridemia (Chronic) GERD (gastroesophageal reflux disease) (Resolved) Urinary incontinence (Chronic) Type 2 diabetes mellitus (Chronic) oysterman current use of anticoagulant therapy (Chronic) Stroke (Chronic) Scoliosis (Chronic) Peripheral neuropathy (Chronic) Paroxysmal supraventricular tachycardia (Chronic) Pacemaker (Chronic) Lupus (systemic lupus erythematosus) (Resolved) Iron deficiency (Chronic) Internal hemorrhoids with complication (Chronic) Hypothyroidism, acquired (Chronic) Hypertension, essential (Chronic) Degenerative disc disease (Chronic) Deep vein thrombosis (Resolved) Cataract (Chronic) Atrial fibrillation (Chronic) Arthritis (Chronic) Anemia (Chronic) Cataract, bilateral (Chronic) Bladder pain (Resolved) Bleeding disorder (Resolved) Effusion of joint (Resolved) Fecal incontinence (Resolved) Gait abnormality (Resolved) Grief at loss of child (Resolved) Hyperkalemia, diminished renal excretion (Resolved) Myelodysplastic syndrome (Resolved) Open leg wound (Resolved) Urinary tract infection (Resolved) Neoplasm of skin (Inactive) COPD Diastolic heart failure Polyclonal gammopathy Anxiety Past Surgical History (Last Reviewed 04/26/18 @ 15:47 by Adam East MD) H/O splenectomy (Chronic) History of esophagogastroduodenoscopy (EGD) (Chronic 07/25/17) History of bilateral knee replacement (Resolved) History of cholecystectomy (Resolved) History of total abdominal hysterectomy (Resolved) S/P PICC central line placement (Resolved) S/P cataract extraction (Resolved) S/P skin biopsy (Resolved) Permanent pacemaker placed for sick sinus syndrome Family History (Last Reviewed 04/26/18 @ 15:47 by Adam East MD) Father Cardiac disease Mother Family history of lymphoma Maternal aunt Malignant neoplasm of breast Other Cancer Diabetes Heart attack Hypertension Stroke Social History (Last Updated 04/26/18 @ 16:09 by Adam East MD) Does not smoke but was exposed to secondhand smoke and also worked in the [employer] Does not drink alcohol does not use a cane or walker lives at home with her fartun nuria Medical - H&P: Meds Home Medications Medication Instructions Recorded Confirmed Type ascorbic acid (vitamin C) 500 mg 1,000 mg PO DAILY 03/29/15 05/26/18 History tablet lactobacillus combination no.6 4 1 tab PO DAILY 12/01/15 05/26/18 History billion cell tablet vit C-vit [id number] ox-lutein 1 cap PO BID cap 03/30/17 05/26/18 History 226 mg-200 unit-5 mg-0.8 mg capsule linagliptin 5 mg tablet 5 mg PO QAM #30 tab 06/15/17 05/26/18 Rx montelukast 10 mg tablet 10 mg PO QPM #90 tab 07/02/17 05/26/18 Rx fenofibrate 160 mg tablet 160 mg PO QDAY 10/29/17 05/26/18 History gabapentin 600 mg tablet 600 mg PO TID tab 10/29/17 05/26/18 History psyllium husk 3.4 gram/5.4 gram 1 tbsp PO DAILY 10/29/17 05/26/18 History oral powder Omeprazole 20 mg PO QAM 11/26/17 05/26/18 History Fish Oil 1 tab PO DAILY 11/30/17 05/26/18 History Systane Balance 1 drp BOTH EYES PRN PRN 11/30/17 05/26/18 History Vitamin D3 2 tab PO DAILY 12/25/17 05/26/18 History loperamide 2 mg tablet 2 mg PO Q2-4H PRN 12/25/17 05/26/18 History fluticasone propionate 50 2 spray INTRANASAL QDAY #16 g 12/27/17 05/26/18 Rx mcg/actuation nasal spray,suspension Adult Depends #100 each 01/14/18 04/26/18 Rx acetaminophen 300 mg-codeine 15 mg 1 tab PO DAILYP PRN #30 tab 01/14/18 05/26/18 Rx tablet furosemide 20 mg tablet 20 mg PO BID #60 tab 01/14/18 05/26/18 Rx sotalol 80 mg tablet 80 mg PO BID #60 tab 01/29/18 05/26/18 Rx fosfomycin tromethamine 3 gram 1.5 g PO .q10 days #20 each 02/26/18 05/26/18 Rx oral packet diaper,brief,adult,disposable See Dose Instructions .ROUTE 02/27/18 04/26/18 Rx .MEDSUPPLY #32 each digoxin 125 mcg tablet 125 mcg PO .COMPLEX #30 tab 03/25/18 05/26/18 Rx warfarin 1 mg tablet 1 mg PO .COMPLEX #60 tab 04/01/18 05/26/18 Rx lisinopril 30 mg tablet 30 mg PO QDAY #90 tab 04/11/18 05/26/18 Rx estradiol 0.01% (0.1 mg/gram) 1 g VAGINAL QDAY 04/25/18 05/26/18 History vaginal cream levothyroxine 100 mcg tablet 100 mcg PO QDAY #30 tab 05/13/18 05/26/18 Rx Ondansetron [Zofran ODT] 4 mg SL Q4-6HP PRN #14 tab 05/20/18 05/26/18 Rx Oseltamivir Phosphate [Tamiflu] 75 mg PO BID #10 cap 05/20/18 05/26/18 Rx Allergies Allergy/AdvReac Type Severity Reaction Status Date / Time adhesive tape Allergy Intermediate Rash Verified 05/26/18 16:03 latex Allergy Intermediate Rash Verified 05/26/18 16:03 cinnamon [Cinnamon] Allergy Mild Rash Verified 05/26/18 16:03 ciprofloxacin AdvReac Severe nausea and Verified 05/26/18 16:03 vomiting Erythromycin Base AdvReac Intermediate she Verified 05/26/18 16:03 doesn't remember ampicillin AdvReac Mild Nausea Verified 05/26/18 16:03 metformin AdvReac Mild Diarrhea Verified 05/26/18 16:03 Quinolones AdvReac Mild Vomiting Verified 05/26/18 16:03 Sulfa (Sulfonamide AdvReac Mild not Verified 05/26/18 16:03 Antibiotics) anaphylaxis Medical - H&P: Exam - Constitutional Vitals: Temp Pulse Resp BP Pulse Ox 97.4 F 73 18 143/90 94 05/26/18 15:59 05/26/18 19:16 05/26/18 19:16 05/26/18 19:16 05/26/18 19:16 Exam: General: Alert, Awake, No acute Distress Eyes/N/T: EOMI, PEERL, Head/Neck: neck supple, normocephalic atraumatic CV: RRR, No murmurs, normal s1/s2 Pulm: Clear b/l, no wheezing/rhonchi/rales Abd: soft, nontender, +BS x4 Ext: no clubbing/cyanosis/edema Neuro: Alert, no focal deficits, moves all extremities, CN 2-12 grossly intact, symmetrical strength b/l upper/lower, sensations intact b/l upper/lower Skin: warm/dry Medical - H&P: Reslt - Labs CBC & Chem 7: 05/26/18 17:03 05/26/18 17:03 Labs: Short CBC 05/26/18 Range/Units 17:03 WBC 7.1 (4.5-11.0) K/mcL Hgb 12.9 (12.0-15.0) g/dL Hct 40.2 (36.0-48.0) % Plt Count 385 (140-440) K/mcL BMP 05/26/18 17:03 Sodium 134 Potassium 4.6 Chloride 98 Carbon Dioxide 22 BUN 30 H Creatinine 1.3 H Glucose 98 Calcium 10.1 Liver Function 05/26/18 Range/Units 17:03 Total Bilirubin 0.7 (0.0-1.0) mg/dL AST 22 (0-37) U/l ALT 8 (0-40) U/l Alkaline Phosphatase 45 (39-117) U/L Albumin 3.4 (3.2-5.2) gm/dL Urine 05/26/18 Range/Units 18:25 Urine Color Straw Urine Appearance Clear Urine pH 9.0 (5.0-9.0) Ur Specific [place] 1.006 (1.000-1.035) Urine Protein Neg (NEG) mg/dL Urine Glucose (UA) Negative (NEG) mg/dL - Impressions Chest x-ray no acute pathology. COPD changes noted scarring Medical - H&P: A/P - Narrative A/P Narrative: A: *N/V/D: Secondary to flu and likely adverse reaction from flu medication *Generalized weakness: *Influenza: Just finished a course of Tamiflu *COPD: *h/o diastolic CHF: *Chronic AFib: On digoxin sotalol and warfarin. Clarify AV joanie blockade *Diabetes: *CKD III: *Anemia, chronic *Hypothyroidism *Anxiety * * P: -IVF's -Antiemetics -IS -PT/OT -Ambulate tid -Continue home cardiac medications -Clarify home medications - -ppx: Pharmacy to dose warfarin
[2018-05-26] MEDS ORDERED: ONDANSETRON 4 MG/2 ML VIAL IV PRN (20:57)
[2018-05-26] MEDS ORDERED: WARFARIN 1 MG TABLET PO SCH (20:57)
[2018-05-26] MEDS ORDERED: PROCHLORPERAZINE 10 MG/2 ML VIAL IV PRN (20:57)
[2018-05-26] MEDS ORDERED: HYDROcodone/APAP 5/325MG TABLET PO PRN (20:57)
[2018-05-26] MEDS ORDERED: LOPERAMIDE 2 MG CAPSULE PO PRN (20:57)
[2018-05-26] MEDS ORDERED: PROMETHAZINE 25 MG/ML VIAL IV PRN (20:57)
[2018-05-26] MEDS ORDERED: ACETAMINOPHEN 325 MG TABLET PO PRN (20:57)
[2018-05-26] MEDS ORDERED: IPRATROPIUM/ALBUTEROL 3 ML AMPUL.NEB NEB PRN (20:57)
[2018-05-26] MEDS ORDERED: DIGOXIN 125 MCG TABLET PO SCH (21:00)
[2018-05-26] MEDS: MONTELUKAST 10 MG TABLET PO SCH (21:39)
[2018-05-26] MEDS: SOTALOL 80 MG TABLET PO SCH (21:40)
[2018-05-26] MEDS: 0.9 % SODIUM CHLORIDE 10 ML SYRINGE IV SCH (21:41)
[2018-05-26] MEDS ORDERED: 0.9 % SODIUM CHLORIDE 1,000 ML IV SCH (22:45)
[2018-05-27] MEDS: 0.9 % SODIUM CHLORIDE 10 ML SYRINGE IV SCH ×3 (04:27→21:16)
[2018-05-27 06:16] LABS: Basophils # (Auto) 0.1 K/mcL (0.0-0.3); Basophils % (Auto) 1.8 % (0.0-2.0); Eosinophils # (Auto) 0.3 K/mcL (0.0-0.7); Eosinophils % (Auto) 4.7 % (0.0-7.0); Granulocytes % (Auto) 48.3 % (38.0-78.0); Lymphocytes # (Auto) 1.7 K/mcL (1.5-4.8); Lymphocytes % (Auto) 29.6 % (15.5-49.0); Mean Cell Volume 91.5 fL (80.0-100.0); Mean Corpuscular HGB Conc 32.4 g/dL (31.0-36.0); Monocytes # (Auto) 0.9 K/mcL (0.1-0.9); Monocytes % (Auto) 15.6 % (1.0-12.0); Platelet Count 372 K/mcL (140-440); RBC 3.98 M/mcL (4.00-5.20); Red Cell Distribution Width 15.8 % (11.5-14.5)
--- NOTE | 2018-05-27 07:01 | Internal Med Progress Note ---
Medical - PN: Subj Patient information: Note initiated : 05/27/18 at 6:56 am Service Date, if different from initiated Date: [] Patient: Soumya Garcia a 87 y/o F admitted on 05/26/18 for Dx of Flu, not getting any better. Chief Complaint: [] Interval history: Ms. Garcia is a 87 year old F With complex medical history including diabetes atrial fibrillation chronic kidney disease history of strokes hypothyroidism polyclonal clonal gammopathy COPD. She presents with nausea and some occasional vomiting as well as some diarrhea, occluding generalized weakness. The family feels they cannot take care of her right now. She can keep down apple juice but cannot keep down anything else. She did take Tamiflu and did finish the last dose last night. She denies any chest pain no real coughing but has some sinus congestion which is normal for her. She has headaches which is not uncommon for her. Myalgias. Denies fever chills. Has some crampy abdominal pain. In the ED chest x-ray was unremarkable she was afebrile but mildly tachypneic and tachycardic when she came in. She was given antiemetics pain medication IV fluids. Family not comfortable with patient home. 05/27 Patient reports poor sleep from noise interruptions. She states she has a headache this morning. Denies any coughing or shortness of breath. Denies any chest pain. No nausea vomiting or diarrhea since admission. Review of Systems: denies fever/chills/nausea/vomiting/chest or abdominal pain/cough/dyspnea/diarrhea. Otherwise see above. - Constitutional Vitals: Vital Signs Temp Pulse Resp BP Pulse Ox 98.2 F 73 14 110/67 91 05/27/18 06:53 05/27/18 06:53 05/27/18 06:53 05/27/18 06:53 05/27/18 06:53 Period Temp Pulse Resp BP Sys/Farrell Pulse Ox Last 24 Hr 97.4 F-98.3 F 38-118 11-27 110-160/63-114 87-100 Intake and Output 05/26/18 05/27/18 05/27/18 21:59 05:59 13:59 Intake Total 1000 240 Output Total 201 Balance 1000 39 Weight 61.689 kg 61.689 kg Intake & Output: Intake & Output 05/26/18 05/27/1805/27/19 21:59 05:59 13:59 Intake Total 1000 240 Output Total 201 Balance 1000 39 Weight 61.689 kg 61.689 kg Intake: IV 1000 Lactated Ringers 1,000 ml @ 1000 Wide Open IV BOLUS ONE Rx#: [id number] Oral 240 Output: Void Amount 200 # of times incontinent of urine 1 Other: Urine Appearance Clear Urine Color Dark Yellow Exam: General: Alert, Awake, No acute Distress Eyes/N/T: EOMI, Head/Neck: neck supple, CV: RRR, No murmurs, Pulm: Clear b/l, no wheezing/rhonchi/rales Abd: soft, nontender, +BS x4 Ext: no clubbing/cyanosis/edema Neuro: Alert, no focal deficits, moves all extremities, Skin: warm/dry Medical - PN: Obj Da - Labs CBC & Chem 7: 05/27/18 04:05 05/27/18 04:05 Labs: Abnormal Lab Results 05/27/18 05/27/18 05/26/18 04:05 04:05 20:15 RBC 3.98 L Hgb 11.8 L RDW 15.8 H Jenkins % (Auto) 15.6 H PT 35.7 H 33.4 H INR 3.6 H 3.3 H BUN Creatinine Globulin Albumin/Globulin Ratio Urine RBC 05/26/18 05/26/18 05/26/18 18:25 17:03 17:03 RBC Hgb RDW 15.5 H Jenkins % (Auto) 12.2 H PT INR BUN 30 H Creatinine 1.3 H Globulin 3.8 H Albumin/Globulin Ratio 0.9 L Urine RBC 2 H Meds: Medications Acetaminophen (Tylenol) 650 mg PO Q6HP PRN PRN Reason: PAIN/FEVER > 101 Hydrocodone Bitart/Acetaminophen (Ione 5/325mg) 1 tab PO Q4HP PRN PRN Reason: PAIN LEVEL 3-6 Albuterol/Ipratropium (Duoneb) 3 ml NEB Q4HRT PRN PRN Reason: Bronchospasm Digoxin (Lanoxin) 125 mcg PO SuMoWeThSa@2100 ERIK Last Admin: 05/26/18 21:39 Dose: 125 mcg Documented by: Fenofibrate (Fenofibrate) 162 mg PO DAILY [facility] Gabapentin (Neurontin) 600 mg PO DAILY [facility] Hydromorphone HCl (Dilaudid) 0.5 mg IV Q4-6HP PRN PRN Reason: PAIN LEVEL > 6 Sodium Chloride (Sodium Chloride 0.9%) 1,000 mls @ 70 mls/hr IV .[id number] [facility] Stop: 05/27/18 13:02 Last Admin: 05/26/18 22:52 Dose: 70 mls/hr Documented by: Lactobacillus Rhamnosus (Culturelle) 1 cap PO DAILY [facility] Levothyroxine Sodium (Synthroid) 100 mcg PO ACB [facility] Lisinopril (Zestril) 30 mg PO DAILY [facility] Loperamide HCl (Imodium) 2 mg PO Q2-4HP PRN PRN Reason: Diarrhea Montelukast Sodium (Singular) 10 mg PO QPM [facility] Last Admin: 05/26/18 21:39 Dose: 10 mg Documented by: Omeprazole (Prilosec) 20 mg PO ACB [facility] Ondansetron HCl (Zofran) 4 mg IV Q6HP PRN PRN Reason: Nausea And Vomiting Linagliptin 5 Mg (Tablet) 1 dose PO DAILY [facility] Prochlorperazine (Compazine) 5 mg IV Q4HP PRN PRN Reason: Nausea And Vomiting Promethazine HCl (Phenergan) 12.5 mg IV Q6HP PRN PRN Reason: Nausea And Vomiting Sodium Chloride (Saline Flush) 10 ml IV Q8 [facility] Last Admin: 05/27/18 04:27 Dose: Not Given Documented by: Sotalol HCl (Betapace) 80 mg PO BID [facility] Last Admin: 05/26/18 21:40 Dose: 80 mg Documented by: Warfarin Sodium (Coumadin Per Pharmacy) 1 order PO DAILY@1400 [facility] Medical - PN: A/P - Time Spent With Patient Total time spent is greater than 50% in coordination of care (as documented) at patient's floor/unit and/or counseling patient: - Narrative A/P Narrative: A: *N/V/D: Secondary to flu and possibly adverse reaction from flu medication -no vomiting/diarrhea since admit *Generalized weakness: *Influenza: Just finished a course of Tamiflu *COPD: *h/o diastolic CHF: *Chronic AFib: On digoxin sotalol and warfarin. *Diabetes: *CKD III: *Anemia, chronic *Hypothyroidism *Anxiety * P: -IVF's -Antiemetics -IS -PT/OT -Ambulate tid -Continue home cardiac medications -Clarify home medications, pending dig level - -ppx: Pharmacy to dose warfarin
[2018-05-27 07:18] LABS: ALT/SGPT 8 U/l (0-40); Albumin/Globulin Ratio 0.9 (1.0-2.3); Alkaline Phosphatase 39 U/L (39-117); Bilirubin,Direct < 0.2 mg/dL (0.0-0.3); Blood Urea Nitrogen 29 mg/dl (8-23); Gamma Glutamyl Transpeptidase 13 U/L (5-36)
[2018-05-27] MEDS: LEVOTHYROXINE 100 MCG TABLET PO SCH (08:09)
[2018-05-27] MEDS: OMEPRAZOLE 20 MG CAPSULE PO SCH (08:09)
--- NOTE | 2018-05-27 08:31 | XRay Report ---
CLINICAL INFORMATION: abd pain COMPARISON: 05/20/2018 FINDINGS: The stool gas pattern is unremarkable. There is no free air, soft tissue mass, organomegaly or pathologic calcification. IMPRESSION: Normal abdomen Interpreted and Authenticated by: Andrea Zaragoza 05/27/18
[2018-05-27] MEDS: FENOFIBRATE 43 MG CAPSULE PO SCH (08:55)
[2018-05-27] MEDS: GABAPENTIN 300 MG CAPSULE PO SCH (08:56)
[2018-05-27] MEDS: LISINOPRIL 10 MG TABLET PO SCH (08:56)
[2018-05-27] MEDS: SOTALOL 80 MG TABLET PO SCH ×2 (08:56→21:16)
[2018-05-27] MEDS: LACTOBACILLUS 1 CAPSULE PO SCH (08:57)
[2018-05-27] MEDS: LINAGLIPTIN 5 MG TABLET PO SCH (17:16)
[2018-05-27] MEDS: MONTELUKAST 10 MG TABLET PO SCH (21:16)
[2018-05-28] MEDS: 0.9 % SODIUM CHLORIDE 10 ML SYRINGE IV SCH (04:07)
[2018-05-28] MEDS: LEVOTHYROXINE 100 MCG TABLET PO SCH (07:31)
[2018-05-28] MEDS: OMEPRAZOLE 20 MG CAPSULE PO SCH (07:32)
[2018-05-28] MEDS: FENOFIBRATE 43 MG CAPSULE PO SCH (09:28)
[2018-05-28] MEDS: LISINOPRIL 10 MG TABLET PO SCH (09:29)
[2018-05-28] MEDS: LACTOBACILLUS 1 CAPSULE PO SCH (09:30)
[2018-05-28] MEDS: GABAPENTIN 300 MG CAPSULE PO SCH (09:30)
[2018-05-28] MEDS: SOTALOL 80 MG TABLET PO SCH (09:30)
[2018-05-28] MEDS: LINAGLIPTIN 5 MG TABLET PO SCH (09:31)
--- NOTE | 2018-05-28 09:42 | Discharge Summary ---
Medical - DS: Prov Patient information: Note initiated : 05/28/18 at 9:39 am Service Date, if different from initiated Date: [] Patient: Soumya Garcia 87 y/o F admitted on 05/26/18 for Dx of Flu, not getting any better. Chief Complaint: [] Date of admission: 05/26/18 20:57 Discharge date: 05/28/18 Primary care physician: Adam East MD Consults: 05/26/18 Consult to Physician [CONS] Stat Comment: Consulting Provider: Param Webster Reason For Exam: Physician to Consult Medical - DS: Meds - Discharge Medications Active and Home Medications: Home Medications ascorbic acid (vitamin C) 500 mg tablet 1,000 mg PO DAILY 03/29/15 [History Confirmed 05/26/18 Last Taken 10/09/17 10:00] lactobacillus combination no.6 4 billion cell tablet 1 tab PO DAILY 12/01/15 [History Confirmed 05/26/18 Last Taken 10/09/17 1000] vit C-vit [id number] ox-lutein 226 mg-200 unit-5 mg-0.8 mg capsule 1 cap PO BID cap 03/30/17 [History Confirmed 05/26/18 Last Taken 10/09/17 21:00] linagliptin 5 mg tablet 5 mg PO QAM #30 tab 06/15/17 [Rx Confirmed 05/26/18 Last Taken 10/09/17 10:00] montelukast 10 mg tablet 10 mg PO QPM #90 tab 07/02/17 [Rx Confirmed 05/26/[address] Taken 10/09/17 21:00] fenofibrate 160 mg tablet 160 mg PO QDAY 10/29/17 [History Confirmed 05/26/18 Last Taken Unknown] gabapentin 600 mg tablet 600 mg PO TID tab 10/29/17 [History Confirmed 05/26/18 Last Taken Unknown] psyllium husk 3.4 gram/5.4 gram oral powder 1 tbsp PO DAILY 10/29/17 [History Confirmed 05/26/18 Last Taken Unknown] Omeprazole 20 mg PO QAM 11/26/17 [History Confirmed 05/26/18 Last Taken Unknown] Fish Oil 1 tab PO DAILY 11/30/17 [History Confirmed 05/26/18 Last Taken Unknown] Systane Balance 1 drp BOTH EYES PRN PRN 11/30/17 [History Confirmed 05/26/18 Last Taken Unknown] Vitamin D3 2 tab PO DAILY 12/25/17 [History Confirmed 05/26/18 Last Taken Unknown] loperamide 2 mg tablet 2 mg PO Q2-4H PRN 12/25/17 [History Confirmed 05/26/18 Last Taken Unknown] fluticasone propionate 50 mcg/actuation nasal spray,suspension 2 spray INTRANASAL QDAY #16 g 12/27/17 [Rx Confirmed 05/26/18 Last Taken Unknown] Adult Depends #100 each 01/14/18 [Rx Confirmed 04/26/18 Last Taken Unknown] acetaminophen 300 mg-codeine 15 mg tablet 1 tab PO DAILYP PRN #30 tab 01/14/18 [Rx Confirmed 05/26/18 Last Taken Unknown] furosemide 20 mg tablet 20 mg PO BID #60 tab 01/14/18 [Rx Confirmed 05/26/18 Last Taken Unknown] sotalol 80 mg tablet 80 mg PO BID #60 tab 01/29/18 [Rx Confirmed 05/26/18 Last Taken Unknown] fosfomycin tromethamine 3 gram oral packet 1.5 g PO .q10 days #20 each 02/26/18 [Rx Confirmed 05/26/18 Last Taken Unknown] diaper,brief,adult,disposable See Dose Instructions .ROUTE .MEDSUPPLY #32 each 02/27/18 [Rx Confirmed 04/26/18 Last Taken Unknown] digoxin 125 mcg tablet 125 mcg PO .COMPLEX #30 tab 03/25/18 [Rx Confirmed 05/26/18 Last Taken Unknown] warfarin 1 mg tablet 1 mg PO .COMPLEX #60 tab 04/01/18 [Rx Confirmed 05/26/18 Last Taken Unknown] lisinopril 30 mg tablet 30 mg PO QDAY #90 tab 04/11/18 [Rx Confirmed 05/26/18 Last Taken Unknown] estradiol 0.01% (0.1 mg/gram) vaginal cream 1 g VAGINAL QDAY 04/25/18 [History Confirmed 05/26/18 Last Taken Unknown] levothyroxine 100 mcg tablet 100 mcg PO QDAY #30 tab 05/13/18 [Rx Confirmed 05/26/18 Last Taken Unknown] Ondansetron [Zofran ODT] 4 mg SL Q4-6HP PRN #14 tab 05/20/18 [Rx Confirmed 05/26/18 Last Taken Unknown] Oseltamivir Phosphate [Tamiflu] 75 mg PO BID #10 cap 05/20/18 [Rx Confirmed 05/26/18 Last Taken Unknown] Medical - DS: Hosp Hospital course: Discharge diagnosis * Acute nausea vomiting secondary to medication adverse reaction clinically improved. Managed conservatively and crystalloids/antiemetics. Patient now feels at baseline and being discharged. * Generalized weakness-ongoing physical therapy. Home health PT OT on discharge * Volume depletion secondary to nausea vomiting, platelet improved with crystalloids * Recent influenza A status post Tamiflu course * History of COPD currently at baseline * History of chronic A. fib/diastolic heart failure currently on digoxin/sotalol and warfarin INR therapeutic. * CK stage III- creatinine 1.2 * History of chronic anemia * Hypothyroidism Brief hospital course Ms. Garcia is a 87 year old F With complex medical history including diabetes atrial fibrillation chronic kidney disease history of strokes hypothyroidism polyclonal clonal gammopathy COPD. She presents with nausea and some occasional vomiting as well as some diarrhea, occluding generalized weakness. The family feels they cannot take care of her right now. She can keep down apple juice but cannot keep down anything else. She did take Tamiflu and did finish the last dose last night. She denies any chest pain no real coughing but has some sinus congestion which is normal for her. She has headaches which is not uncommon for her. Myalgias. Denies fever chills. Has some crampy abdominal pain. In the ED chest x-ray was unremarkable she was afebrile but mildly tachypneic and tachycardic when she came in. She was given antiemetics pain medication IV fluids. Family not comfortable with patient home. 05/27 Patient reports poor sleep from noise interruptions. She states she has a headache this morning. Denies any coughing or shortness of breath. Denies any chest pain. No nausea vomiting or diarrhea since admission. 05/28-patient doing well. No overnight events. Ongoing PT OT. Nausea vomiting resolved. Able to tolerate orally. Feels at baseline. Requesting discharge. Discharged with advice as below along with home health PT OT Discharge diagnosis: . - Time Spent with Patient Total time spent providing and/or coordinating discharge services: Greater than 30 minutes Medical - DS: Exam - Constitutional Vitals: Vital Signs Temp Pulse Resp BP Pulse Ox 05/28/18 09:00 94.2 F L 70 95 05/28/18 08:00 70 22 130/76 96 05/28/18 06:51 97.1 F 80 12 140/80 05/28/18 04:00 97.5 F 78 16 112/72 96 05/28/18 00:00 97.5 F 77 14 124/79 97 05/27/18 19:41 70 16 97 05/27/18 19:40 98.1 F 70 16 106/63 97 05/27/18 15:21 96.9 F L 75 16 121/76 93 05/27/18 11:01 97.7 F 72 16 125/75 92 Intake and Output 05/27/18 05/28/18 05/28/18 21:59 05:59 13:59 Intake Total 300 240 234 Output Total 601 325 89 Balance -301 -85 145 Intake: Oral 300 240 234 Output: Void Amount 600 325 89 # of times incontinent of urine 1 Other: Meal Dinner Percent of Meal Consumed 100% Feeding Ability Assist with Tray Set Up Urine Appearance Clear Clear Urine Color Dark Yellow Straw Urine Odor Normal Stool Size Smear Stool Color Brown Stool Consistency Soft # Voids 1 1 # Bowel Movements 0 Weight 136 lb Medical - DS: Data Labs on day of discharge: Labs from last 24 hours 05/28/18 08:05 PT 30.4 H INR 3.0 H Medical - DS: A/P - Patient/Caregiver Discharge Instructions Activity: as per physical therapy Diet: Regular Diet Additional Instructions: Continue home health PT OT Coumadin dosing based on INR as prior Follow-up PCP in 5 days Return to ER if worsening nausea vomiting abdominal pain noted - Follow up Plan Follow up with: Adam East MD [Primary Care Provider] - Disposition: Home Health Service Prognosis: Fair Rehab Potential: Fair I certify that the patient requires SNF services: No Overall status at discharge: patient is progressing back to baseline
--- NOTE | 2018-05-29 12:46 | Emergency Department Note ---
ED Note Addendum Note Addendum: I discussed this case with the mid-level provider and agree with the assessment and plan.
[2018-05-29] MEDS ORDERED: DIGOXIN 125 MCG TABLET PO SCH (21:00)
== END 2018-05-28 14:35 | disposition home health service (06) ==
LOC: ED 15:58 → MEDSUR 15:58
PROVIDERS: ADMIT Internal Medicine; ATTEND Internal Medicine